=== PATIENT | female | born 1945 | race Caucasian/White ===

== ENCOUNTER 2018-03-04 17:11 | Inpatient (IN) ==
[~2018-03-04 17:11] MED LIST: Iohexol 350 MG/ML 100 ML Vial (for Cath Lab) IVCONTRAST ONE; Iohexol 350 MG/ML 50 ML Vial (for Cath Lab) IVCONTRAST ONE
[2018-03-04] MEDS ORDERED: Etomidate Inj 40 MG/20 ML Vial IV.PUSH ONE (17:17)
[2018-03-04] MEDS ORDERED: fentaNYL 10 mcg/mL Premix Drip 2,500 MCG/250 ML BAG IV.SIG PRN (17:25)
[2018-03-04] MEDS ORDERED: Midazolam 50 MG/50 ML Inj 50 MG/50 ML BAG IV.CONT ONE (17:31)
[2018-03-04] MEDS ORDERED: fentaNYL 10 mcg/mL Premix Drip 2,500 MCG/250 ML BAG ONE (17:31)
[2018-03-04] MEDS ORDERED: Heparin 10,000 UNITS/10 ML Vial (for IV use) IV.PUSH STA (17:34)
[2018-03-04] MEDS ORDERED: Sod Chloride 0.9% Inj 1,000 ML IV.SIG ONE (17:34)
[2018-03-04] MEDS ORDERED: Heparin/NS PF Inj 500 ML ONE (17:52)
[2018-03-04] MEDS: DOPamine 800 MG/500 ML Premix 800 MG/500 ML PLAST..BAG IV.CONT PRN (17:52)
[2018-03-04] MEDS: Midazolam 50 MG/50 ML Inj 50 MG/50 ML BAG IV.CONT PRN (17:52)
--- NOTE | 2018-03-04 17:57 | XR ---
EXAM DATE: 03/04/2018 5:51 PM EDT AGE/SEX: 72 years / Female INDICATIONS: Stemi-alert. Post intubation. CLINICAL DATA: This is the patient's initial encounter. Patient reports that signs and symptoms have been present for 1 day and indicates a pain score of Nonresponsive. MEDICAL/SURGICAL HISTORY: Non-responsive. Non-responsive. COMPARISON: No prior exams available for comparison. FINDINGS: A single AP view of the chest demonstrates endotracheal tube in good position. Heart size upper limit s normal. Interstitial prominence most characteristic of mild interstitial edema. Probable basilar at electasis. No pneumothorax. CONCLUSION: Endotracheal tube in good position. Mild interstitial edema with basilar atelectasis. Electronically signed by: Ken Loza MD 03/04/2018 5:56 PM EDT
[2018-03-04] MEDS ORDERED: Potassium Chlor 20 mEq Premix 20 MEQ/100 ML PIGGYBACK IV.SIG ONE (18:15)
[2018-03-04] MEDS ORDERED: Potassium Chloride 25 MEQ Effervescent Tablet NG/OG ONE (18:15)
--- NOTE | 2018-03-04 18:16 | ED ---
HPI General Chief Complaint: Altered Mental Status Stated Complaint: Evac/Ams Time Seen by Provider: 03/04/18 18:13 Source: family and EMS Mode of arrival: EMS Limitations: altered mental status History of Present Illness HPI narrative: 72-year-old female was brought by EMS after patient was well almost unresponsive at home. Patient's son states that he did not see the patient yesterday. Patient lives alone by herself. Patient's son states that he receive a phone call from the patient this afternoon about 2 hours prior to arrival that patient yelling for help. Patient's son came to the house and fell patient almost unresponsive. EMS was called. Patient was to be almost unresponsive, hypotensive and bradycardic. Patient was moaning incoherently. External pacer was applied to the patient. Patient was transported to ED for evaluation. Patient son states the patient has no medical problem. Patient sense that the patient is not on any routine medication. Patient since that the patient is not allergic to any medication. No reported injury. MD complaint: altered mental status Onset (ago): hour(s) Timing confirmed by: family member Severity: severe Consistency of symptoms: getting worse Context: unknown Treatments prior to arrival: IV fluid and oxygen Related Data Home Medications Medication Instructions Recorded Confirmed No Known Home Medications 03/05/18 03/05/18 Allergies Allergy/AdvReac Type Severity Reaction Status Date / Time No Known Allergies Uncoded 12/11/08 13:06 Review of Systems ROS Unobtainable unobtainable due to mental status PMFSH History History Provided By: Family Member and Digital Media Representative / EMT Social History Social History Recent Travel in [facility] within the Last 8 Weeks: No Recent Out of Country Travel within the Last 8 Weeks: No Exam Narrative Exam Narrative: GENERAL: Well-nourished, well-developed patient. SKIN: Focused skin assessment warm/dry. HEAD: Normocephalic. EYES: No scleral icterus. No injection or drainage. Pupils 4 mm equal reactive. NECK: Supple, trachea midline. No JVD or lymphadenopathy. CARDIOVASCULAR: Regular rate and rhythm without murmurs, gallops, or rubs. RESPIRATORY: Breath sounds equal bilaterally. No accessory muscle use. GASTROINTESTINAL: Abdomen soft, non-tender, nondistended. MUSCULOSKELETAL: No cyanosis, or edema. BACK: Nontender without obvious deformity. No CVA tenderness. Neurologic exam: Patient with occasional combative and moaning incomprehensively. Patient moves all extremity well. No obvious focal neurological deficit. Course Initial Documented Vital Signs Pulse Rate 40 L 03/04/18 17:14 Respiratory Rate 17 03/04/18 17:14 Last Documented Vital Signs Temperature 97.6 F 03/05/18 15:00 Pulse Rate 87 03/05/18 15:00 Respiratory Rate 16 03/05/18 16:33 Blood Pressure 136/68 03/05/18 15:00 Pulse Oximetry 99 03/05/18 15:00 Procedures Intubation Time Out Performed: Yes Paralytic: succinylcholine Mg Given: 100 Laryngoscope: fiber optic video scope Assist Device Used: fiber optic device ET Tube Size: 7.5 ET Tube Uncuffed: No Tube Secured Depth (cm): 23 Tube Secured Location: lips Tube Placement Confirmation: visualized tube passing through cords, equal breath sounds bilaterally, no breath sounds over epigastrium and confirmation by capnometry Intubation Complications: none Critical Care Time Critical Care Time: Yes Total Critical Care Time: 60 Attestation: Aggregate critical care time was 60 minutes. Time to perform other separately billable procedures was not included in the critical care time. My time did not include minutes spent treating any other patients simultaneously or on activities that did not directly contribute to the patient's treatment. The services I provided to this patient were to treat and/or prevent clinically significant deterioration that could result in: I provided critical care services requiring my management, as noted below: Chart data review, documentation time, medication orders and management, vital sign assessments/reviewing monitor data, ordering and reviewing lab tests, ordering and interpreting/reviewing x-rays and diagnostic studies, care of the patient and discussion of the patient with the admitting physicians. Medical Decision Making MDM Narrative Medical decision making narrative: Patient is with severe confusion, none comprehensive speech, agitated, with occasionally gagging and nausea. Patient was intubated to protect the airway. 2 IV started peripheral line. Normal saline solution 1 L IV bolus. Atropine 1 mg IV given. Patient continues to have bradycardic and threatening pulse. Dopamine IV started. Patient remained hypotensive with dressing pulse. External pacer started. Patient has good pulse and pressure. I spoke with geologist Dr. Benavidez. Patient has CT scan of the brain and brought straight to Director [facility]. STEMI alert. Differential Diagnosis Differential Diagnosis: Thank you differential diagnosis including STEMI, arrhythmia, electrolyte imbalance, TIA, CVA. Lab Data Result diagrams: 03/05/18 04:15 03/05/18 04:15 Lab Results 03/04/18 03/04/18 03/04/18 Range/Units 08:25 17:40 17:40 WBC (4.0-11.0) th/mm3 RBC (4.00-5.30) mil/mm3 Hgb (11.6-15.3) gm/dL POC Hgb (Calc) 10.5 L (11.6-15.3) g/dL Hct (35.0-46.0) % POC Hct 31.0 L (35-46.0) % MCV (80.0-100.0) fL MCH (27.0-34.0) pg MCHC (32.0-36.0) % RDW (11.6-17.2) % Plt Count (150-450) th/mm3 MPV (7.0-11.0) fL Neut % (Auto) (16.0-70.0) % Lymph % (Auto) (9.0-44.0) % [place] % (Auto) (0.0-8.0) % Eos % (Auto) (0.0-4.0) % Baso % (Auto) (0.0-2.0) % Neut # (Auto) (1.8-7.7) th/mm3 Lymph # (Auto) (1.0-4.8) th/mm3 [place] # (Auto) (0.0-0.9) th/mm3 Eos # (Auto) (0.0-0.4) th/mm3 Baso # (Auto) (0.0-0.2) th/mm3 WBC Differential Differential Comment PT (9.8-11.6) sec INR Ratio APTT (24.3-30.1) sec Puncture Site Not Reportable Patient Temperature 98.6 O2 Saturation 96 (90-100) % ABG pH 7.24 L* (7.380-7.420) ABG pCO2 36 L (38-42) mmHg ABG pO2 399 H (61-120) mmHG ABG HCO3 15 L* (22-26) mmol/L ABG O2 Content 16.9 (12.0-20.0) Vol % ABG Base Excess -11.0 L (-2-2) mmol/L ABG Methemoglobin 1.3 (0-2) % Hemoglobin 11.7 L (12.0-16.0) G/DL Carboxyhemoglobin 1.6 (0-4) % O2 Delivery Device Ventilator Vent Setting Cath Inspired O2 100 % Critical Value Yes POC Sodium 143 (137-144) mmol/L Sodium 144 (136-145) meq/L POC Potassium 2.7 L* (3.6-5.0) mmol/L Potassium (3.5-5.1) meq/L POC Chloride 111 (102-111) mmol/L Chloride 114 H (98-107) meq/L Carbon Dioxide 13.6 L (21.0-32.0) meq/L Anion Gap 16 H (5-15) meq/L POC BUN 11 (5-21) mg/dL BUN 12 (7-18) mg/dL Creatinine 1.24 H (0.50-1.00) mg/dL POC Creatinine 0.9 (0.6-1.3) mg/dL Estimated GFR 42 L (>89) mL/min POC Glucose 181 H (68-110) mg/dL Random Glucose 186 H (74-106) mg/dL Calcium 6.7 L* (8.5-10.1) mg/dL Prot Corrected Calcium 7.6 L (8.5-10.1) mg/dL Phosphorus (2.5-4.9) mg/dL Magnesium 1.8 (1.5-2.5) mg/dL Total Creatine Kinase 487 H (26-192) U/L CK-MB (CK-2) 25.1 H (0.5-3.6) ng/mL CK-MB (CK-2) % 5.2 H* (0.0-4.0) % Troponin I (0.02-0.05) ng/mL B-Natriuretic Peptide 71 (0-100) pg/mL Total Protein 5.3 L (6.4-8.2) g/dL Triglycerides (42-150) mg/dL Cholesterol (120-200) mg/dL LDL Cholesterol, Calc (0-99) mg/dL HDL Cholesterol (40.0-60.0) mg/dL Cholesterol/HDL Ratio Ratio Urine Color (Yellw/Straw) Urine Clarity (Clear) Urine pH (5.0-8.5) Ur Specific Colbert (1.002-1.035) Urine Protein (Neg-Trace) mg/dL Urine Glucose (UA) (Negative) mg/dL Urine Ketones (Negative) mg/dL Urine Occult Blood (Negative) Urine Nitrate (Negative) Urine Bilirubin (Negative) Urine Urobilinogen (Less than 2) mg/dL Ur Leukocyte Esterase (Negative) Urine RBC (0-3) /hpf Urine WBC (0-5) /hpf Urine Mucus (Occasional) /lpf Micro UA Comment Urine Culture Comments Nasal Screen MRSA (PCR) (Negative) 03/04/18 03/05/18 03/05/18 Range/Units 19:12 00:05 00:05 WBC (4.0-11.0) th/mm3 RBC (4.00-5.30) mil/mm3 Hgb (11.6-15.3) gm/dL POC Hgb (Calc) (11.6-15.3) g/dL Hct (35.0-46.0) % POC Hct (35-46.0) % MCV (80.0-100.0) fL MCH (27.0-34.0) pg MCHC (32.0-36.0) % RDW (11.6-17.2) % Plt Count (150-450) th/mm3 MPV (7.0-11.0) fL Neut % (Auto) (16.0-70.0) % Lymph % (Auto) (9.0-44.0) % [place] % (Auto) (0.0-8.0) % Eos % (Auto) (0.0-4.0) % Baso % (Auto) (0.0-2.0) % Neut # (Auto) (1.8-7.7) th/mm3 Lymph # (Auto) (1.0-4.8) th/mm3 [place] # (Auto) (0.0-0.9) th/mm3 Eos # (Auto) (0.0-0.4) th/mm3 Baso # (Auto) (0.0-0.2) th/mm3 WBC Differential Differential Comment PT 12.0 H (9.8-11.6) sec INR 1.2 Ratio APTT Greater than 277.5 H* 41.7 H D (24.3-30.1) sec Puncture Site Patient Temperature O2 Saturation (90-100) % ABG pH (7.380-7.420) ABG pCO2 (38-42) mmHg ABG pO2 (61-120) mmHG ABG HCO3 (22-26) mmol/L ABG O2 Content (12.0-20.0) Vol % ABG Base Excess (-2-2) mmol/L ABG Methemoglobin (0-2) % Hemoglobin (12.0-16.0) G/DL Carboxyhemoglobin (0-4) % O2 Delivery Device Vent Setting Inspired O2 % Critical Value POC Sodium (137-144) mmol/L Sodium (136-145) meq/L POC Potassium (3.6-5.0) mmol/L Potassium 3.7 (3.5-5.1) meq/L POC Chloride (102-111) mmol/L Chloride (98-107) meq/L Carbon Dioxide (21.0-32.0) meq/L Anion Gap (5-15) meq/L POC BUN (5-21) mg/dL BUN (7-18) mg/dL Creatinine (0.50-1.00) mg/dL POC Creatinine (0.6-1.3) mg/dL Estimated GFR (>89) mL/min POC Glucose (68-110) mg/dL Random Glucose (74-106) mg/dL Calcium (8.5-10.1) mg/dL Prot Corrected Calcium (8.5-10.1) mg/dL Phosphorus (2.5-4.9) mg/dL Magnesium 3.1 H D (1.5-2.5) mg/dL Total Creatine Kinase (26-192) U/L CK-MB (CK-2) (0.5-3.6) ng/mL CK-MB (CK-2) % (0.0-4.0) % Troponin I (0.02-0.05) ng/mL B-Natriuretic Peptide (0-100) pg/mL Total Protein (6.4-8.2) g/dL Triglycerides (42-150) mg/dL Cholesterol (120-200) mg/dL LDL Cholesterol, Calc (0-99) mg/dL HDL Cholesterol (40.0-60.0) mg/dL Cholesterol/HDL Ratio Ratio Urine Color (Yellw/Straw) Urine Clarity (Clear) Urine pH (5.0-8.5) Ur Specific Colbert (1.002-1.035) Urine Protein (Neg-Trace) mg/dL Urine Glucose (UA) (Negative) mg/dL Urine Ketones (Negative) mg/dL Urine Occult Blood (Negative) Urine Nitrate (Negative) Urine Bilirubin (Negative) Urine Urobilinogen (Less than 2) mg/dL Ur Leukocyte Esterase (Negative) Urine RBC (0-3) /hpf Urine WBC (0-5) /hpf Urine Mucus (Occasional) /lpf Micro UA Comment Urine Culture Comments Nasal Screen MRSA (PCR) (Negative) 03/05/18 03/05/18 03/05/18 Range/Units 00:05 00:05 04:15 WBC (4.0-11.0) th/mm3 RBC (4.00-5.30) mil/mm3 Hgb (11.6-15.3) gm/dL POC Hgb (Calc) (11.6-15.3) g/dL Hct (35.0-46.0) % POC Hct (35-46.0) % MCV (80.0-100.0) fL MCH (27.0-34.0) pg MCHC (32.0-36.0) % RDW (11.6-17.2) % Plt Count (150-450) th/mm3 MPV (7.0-11.0) fL Neut % (Auto) (16.0-70.0) % Lymph % (Auto) (9.0-44.0) % [place] % (Auto) (0.0-8.0) % Eos % (Auto) (0.0-4.0) % Baso % (Auto) (0.0-2.0) % Neut # (Auto) (1.8-7.7) th/mm3 Lymph # (Auto) (1.0-4.8) th/mm3 [place] # (Auto) (0.0-0.9) th/mm3 Eos # (Auto) (0.0-0.4) th/mm3 Baso # (Auto) (0.0-0.2) th/mm3 WBC Differential Differential Comment PT (9.8-11.6) sec INR Ratio APTT (24.3-30.1) sec Puncture Site Patient Temperature O2 Saturation (90-100) % ABG pH (7.380-7.420) ABG pCO2 (38-42) mmHg ABG pO2 (61-120) mmHG ABG HCO3 (22-26) mmol/L ABG O2 Content (12.0-20.0) Vol % ABG Base Excess (-2-2) mmol/L ABG Methemoglobin (0-2) % Hemoglobin (12.0-16.0) G/DL Carboxyhemoglobin (0-4) % O2 Delivery Device Vent Setting Inspired O2 % Critical Value POC Sodium (137-144) mmol/L Sodium 144 (136-145) meq/L POC Potassium (3.6-5.0) mmol/L Potassium 3.3 L (3.5-5.1) meq/L POC Chloride (102-111) mmol/L Chloride 113 H (98-107) meq/L Carbon Dioxide 22.7 D (21.0-32.0) meq/L Anion Gap 8 (5-15) meq/L POC BUN (5-21) mg/dL BUN 13 (7-18) mg/dL Creatinine 1.17 H (0.50-1.00) mg/dL POC Creatinine (0.6-1.3) mg/dL Estimated GFR 45 L (>89) mL/min POC Glucose (68-110) mg/dL Random Glucose 123 H (74-106) mg/dL Calcium 7.5 L D (8.5-10.1) mg/dL Prot Corrected Calcium (8.5-10.1) mg/dL Phosphorus 2.7 (2.5-4.9) mg/dL Magnesium 2.8 H (1.5-2.5) mg/dL Total Creatine Kinase 6264 H (26-192) U/L CK-MB (CK-2) 584.2 H (0.5-3.6) ng/mL CK-MB (CK-2) % 9.3 H* (0.0-4.0) % Troponin I (0.02-0.05) ng/mL B-Natriuretic Peptide (0-100) pg/mL Total Protein (6.4-8.2) g/dL Triglycerides 152 H (42-150) mg/dL Cholesterol 128 (120-200) mg/dL LDL Cholesterol, Calc 63 (0-99) mg/dL HDL Cholesterol 34.8 L (40.0-60.0) mg/dL Cholesterol/HDL Ratio 3.67 Ratio Urine Color Straw (Yellw/Straw) Urine Clarity Clear (Clear) Urine pH 6.0 (5.0-8.5) Ur Specific Colbert 1.019 (1.002-1.035) Urine Protein Negative (Neg-Trace) mg/dL Urine Glucose (UA) 50 (Negative) mg/dL Urine Ketones Trace H (Negative) mg/dL Urine Occult Blood Moderate H (Negative) Urine Nitrate Negative (Negative) Urine Bilirubin Negative (Negative) Urine Urobilinogen Less than 2 (Less than 2) mg/dL Ur Leukocyte Esterase Negative (Negative) Urine RBC 1 (0-3) /hpf Urine WBC Less than 1 (0-5) /hpf Urine Mucus Few H (Occasional) /lpf Micro UA Comment Cath-culture not ind Urine Culture Comments Cath-cult not ind Nasal Screen MRSA (PCR) Not detected (Negative) 03/05/18 03/05/18 03/05/18 Range/Units 04:15 04:15 11:00 WBC 19.3 H (4.0-11.0) th/mm3 RBC 3.91 L (4.00-5.30) mil/mm3 Hgb 12.0 (11.6-15.3) gm/dL POC Hgb (Calc) (11.6-15.3) g/dL Hct 36.3 (35.0-46.0) % POC Hct (35-46.0) % MCV 92.9 (80.0-100.0) fL MCH 30.8 (27.0-34.0) pg MCHC 33.2 (32.0-36.0) % RDW 14.9 (11.6-17.2) % Plt Count 326 (150-450) th/mm3 MPV 8.1 (7.0-11.0) fL Neut % (Auto) 71.2 H (16.0-70.0) % Lymph % (Auto) 21.1 (9.0-44.0) % Mag[place]in % (Auto) 6.9 (0.0-8.0) % Eos % (Auto) 0.3 (0.0-4.0) % Baso % (Auto) 0.5 (0.0-2.0) % Neut # (Auto) 13.8 H (1.8-7.7) th/mm3 Lymph # (Auto) 4.1 (1.0-4.8) th/mm3 Mag[place] # (Auto) 1.3 H (0.0-0.9) th/mm3 Eos # (Auto) 0.1 (0.0-0.4) th/mm3 Baso # (Auto) 0.1 (0.0-0.2) th/mm3 WBC Differential . Differential Comment Auto diff final PT (9.8-11.6) sec INR Ratio APTT 58.4 H D 91.6 H* D (24.3-30.1) sec Puncture Site Patient Temperature O2 Saturation (90-100) % ABG pH (7.380-7.420) ABG pCO2 (38-42) mmHg ABG pO2 (61-120) mmHG ABG HCO3 (22-26) mmol/L ABG O2 Content (12.0-20.0) Vol % ABG Base Excess (-2-2) mmol/L ABG Methemoglobin (0-2) % Hemoglobin (12.0-16.0) G/DL Carboxyhemoglobin (0-4) % O2 Delivery Device Vent Setting Inspired O2 % Critical Value POC Sodium (137-144) mmol/L Sodium (136-145) meq/L POC Potassium (3.6-5.0) mmol/L Potassium (3.5-5.1) meq/L POC Chloride (102-111) mmol/L Chloride (98-107) meq/L Carbon Dioxide (21.0-32.0) meq/L Anion Gap (5-15) meq/L POC BUN (5-21) mg/dL BUN (7-18) mg/dL Creatinine (0.50-1.00) mg/dL POC Creatinine (0.6-1.3) mg/dL Estimated GFR (>89) mL/min POC Glucose (68-110) mg/dL Random Glucose (74-106) mg/dL Calcium (8.5-10.1) mg/dL Prot Corrected Calcium (8.5-10.1) mg/dL Phosphorus (2.5-4.9) mg/dL Magnesium (1.5-2.5) mg/dL Total Creatine Kinase (26-192) U/L CK-MB (CK-2) (0.5-3.6) ng/mL CK-MB (CK-2) % (0.0-4.0) % Troponin I (0.02-0.05) ng/mL B-Natriuretic Peptide (0-100) pg/mL Total Protein (6.4-8.2) g/dL Triglycerides (42-150) mg/dL Cholesterol (120-200) mg/dL LDL Cholesterol, Calc (0-99) mg/dL HDL Cholesterol (40.0-60.0) mg/dL Cholesterol/HDL Ratio Ratio Urine Color (Yellw/Straw) Urine Clarity (Clear) Urine pH (5.0-8.5) Ur Specific Colbert (1.002-1.035) Urine Protein (Neg-Trace) mg/dL Urine Glucose (UA) (Negative) mg/dL Urine Ketones (Negative) mg/dL Urine Occult Blood (Negative) Urine Nitrate (Negative) Urine Bilirubin (Negative) Urine Urobilinogen (Less than 2) mg/dL Ur Leukocyte Esterase (Negative) Urine RBC (0-3) /hpf Urine WBC (0-5) /hpf Urine Mucus (Occasional) /lpf Micro UA Comment Urine Culture Comments Nasal Screen MRSA (PCR) (Negative) 03/05/18 Range/Units 11:50 WBC (4.0-11.0) th/mm3 RBC (4.00-5.30) mil/mm3 Hgb (11.6-15.3) gm/dL POC Hgb (Calc) (11.6-15.3) g/dL Hct (35.0-46.0) % POC Hct (35-46.0) % MCV (80.0-100.0) fL MCH (27.0-34.0) pg MCHC (32.0-36.0) % RDW (11.6-17.2) % Plt Count (150-450) th/mm3 MPV (7.0-11.0) fL Neut % (Auto) (16.0-70.0) % Lymph % (Auto) (9.0-44.0) % [place] % (Auto) (0.0-8.0) % Eos % (Auto) (0.0-4.0) % Baso % (Auto) (0.0-2.0) % Neut # (Auto) (1.8-7.7) th/mm3 Lymph # (Auto) (1.0-4.8) th/mm3 Mag[place]in # (Auto) (0.0-0.9) th/mm3 Eos # (Auto) (0.0-0.4) th/mm3 Baso # (Auto) (0.0-0.2) th/mm3 WBC Differential Differential Comment PT (9.8-11.6) sec INR Ratio APTT 80.8 H (24.3-30.1) sec Puncture Site Patient Temperature O2 Saturation (90-100) % ABG pH (7.380-7.420) ABG pCO2 (38-42) mmHg ABG pO2 (61-120) mmHG ABG HCO3 (22-26) mmol/L ABG O2 Content (12.0-20.0) Vol % ABG Base Excess (-2-2) mmol/L ABG Methemoglobin (0-2) % Hemoglobin (12.0-16.0) G/DL Carboxyhemoglobin (0-4) % O2 Delivery Device Vent Setting Inspired O2 % Critical Value POC Sodium (137-144) mmol/L Sodium (136-145) meq/L POC Potassium (3.6-5.0) mmol/L Potassium (3.5-5.1) meq/L POC Chloride (102-111) mmol/L Chloride (98-107) meq/L Carbon Dioxide (21.0-32.0) meq/L Anion Gap (5-15) meq/L POC BUN (5-21) mg/dL BUN (7-18) mg/dL Creatinine (0.50-1.00) mg/dL POC Creatinine (0.6-1.3) mg/dL Estimated GFR (>89) mL/min POC Glucose (68-110) mg/dL Random Glucose (74-106) mg/dL Calcium (8.5-10.1) mg/dL Prot Corrected Calcium (8.5-10.1) mg/dL Phosphorus (2.5-4.9) mg/dL Magnesium (1.5-2.5) mg/dL Total Creatine Kinase (26-192) U/L CK-MB (CK-2) (0.5-3.6) ng/mL CK-MB (CK-2) % (0.0-4.0) % Troponin I (0.02-0.05) ng/mL B-Natriuretic Peptide (0-100) pg/mL Total Protein (6.4-8.2) g/dL Triglycerides (42-150) mg/dL Cholesterol (120-200) mg/dL LDL Cholesterol, Calc (0-99) mg/dL HDL Cholesterol (40.0-60.0) mg/dL Cholesterol/HDL Ratio Ratio Urine Color (Yellw/Straw) Urine Clarity (Clear) Urine pH (5.0-8.5) Ur Specific Colbert (1.002-1.035) Urine Protein (Neg-Trace) mg/dL Urine Glucose (UA) (Negative) mg/dL Urine Ketones (Negative) mg/dL Urine Occult Blood (Negative) Urine Nitrate (Negative) Urine Bilirubin (Negative) Urine Urobilinogen (Less than 2) mg/dL Ur Leukocyte Esterase (Negative) Urine RBC (0-3) /hpf Urine WBC (0-5) /hpf Urine Mucus (Occasional) /lpf Micro UA Comment Urine Culture Comments Nasal Screen MRSA (PCR) (Negative) Imaging Data Radiologist's impression: Chest X-Ray 03/04/18 17:36 CONCLUSION: Endotracheal tube in good position. Mild interstitial edema with basilar atelectasis. Head CT 03/04/18 17:39 CONCLUSION: 1. Negative CT Head non contrast. . Chest X-Ray 03/04/18 20:50 CONCLUSION: Right central line in superior vena cava without pneumothorax. Slight increase in basilar airspace disease and edema pattern since earlier exam. Discharge Plan Discharge Disposition Patient Disposition: 30 Still Patient Physicians Team ED Provider: Drake Gomez Primary Care Provider: UNKNOWN, Attending Provider: El Benavidez Other Providers: El Benavidez ; Alex Mills Discharge Interventions Interventions: ED Discharge Assessment Last Done: 03/04/18 18:31 Vital Signs Last Done: 03/04/18 18:16 Status ED Status: Discharged Discharge Information Discharge Date/Time: 03/04/18 18:31
--- NOTE | 2018-03-04 18:24 | CT ---
EXAM DATE: 03/04/2018 6:12 PM EDT AGE/SEX: 72 years / Female INDICATIONS: Altered mental status. Stemi alert. CLINICAL DATA: This is the patient's initial encounter. Patient reports that signs and symptoms have been present for 1 day and indicates a pain score of Nonresponsive. MEDICAL/SURGICAL HISTORY: Non-responsive. Non-responsive. RADIATION DOSE: 56.35 CTDI (mGy) COMPARISON: No prior exams available for comparison. TECHNIQUE: CT of the head without contrast. Using automated exposure control and adjustment of the mA and/or kV according to patient size, radiation dose was kept as low as reasonably achievable to ob tain optimal diagnostic quality images. DICOM format image data is available electronically for revi ew and comparison. FINDINGS: Cerebrum: The ventricles are normal for age. No evidence of midline shift, mass lesion, hemorrhage or acute infarction. No extraaxial fluid collections are seen. Posterior Fossa: The cerebellum and brainstem are intact. The 4th ventricle is midline. The cerebe llopontine angle is unremarkable. Extracranial: The visualized portion of the orbits is intact. Skull: The calvaria is intact. No evidence of skull fracture. CONCLUSION: 1. Negative CT Head non contrast. . Electronically signed by: Roscoe Briones MD 03/04/2018 6:23 PM EDT
--- NOTE | 2018-03-04 18:46 | MB ---
cc: El Benavidez MD, Arthur W MD DATE: 03/04/2018 HISTORY OF PRESENT ILLNESS: Isatu is a 72-year-old lady, previously healthy according to her son. Apparently, she called her son at approximately 4:30, which he has registered on his cell phone and all she could stay was help. Normally, she is completely lucid, oriented x3. She presented to the emergency room in what appears to be cardiogenic shock, bradycardia, was intubated and a transcutaneous pacer was placed. started on dopamine, was noted to have altered mental status, incoherent. She had a head CT, which was negative for bleeding. Labs are still pending in the computer. REVIEW OF SYSTEMS: Unobtainable. ALLERGIES: NONE. PHYSICAL EXAMINATION: VITAL SIGNS: Heart rate is 55, sats 84%.Blood pressure 115/93. GENERAL: She is sedated on Versed drip and fentanyl drip. NECK: Supple. No JVD or bruit. CARDIOVASCULAR: S1, S2. No murmurs, rubs or gallops. LUNGS: Clear to auscultation bilaterally. EXTREMITIES: No lower extremity edema. LABORATORY DATA: Still pending. CARDIOLOGY STUDIES: EKG shows ST elevation in the inferior leads with posterior injury as well consistent with inferior posterior injury pattern. DIAGNOSES: 1. ST segment myocardial infarction. 2. Altered mental status. 3. Bradycardia. 4. Cardiogenic shock. I have explained to her son that her mortality is at least 50% given the presentation with cardiogenic shock and that her neurologic prognosis is indeterminate, particularly if she is completely sedated and I can no longer assess her neurologic status. She does not appear to be focal and head CT is negative. PLAN: Emergent left heart catheterization and percutaneous coronary intervention. El Benavidez MD [facility]/ , 06:29 PM , 06:36 PM
[2018-03-04 18:47] LABS: Calcium 6.7 mg/dL (8.5-10.1); Carbon Dioxide 13.6 meq/L (21.0-32.0); Magnesium 1.8 mg/dL (1.5-2.5)
[2018-03-04 18:47] LABS: ABG PCO2 36 mmHg (38-42); ABG PO2 399 mmHG (61-120)
[2018-03-04] MEDS ORDERED: Propofol Inj 500 MG/50 ML Vial ONE (18:58)
[2018-03-04] MEDS ORDERED: TIROFIBAN ONE (19:02)
[2018-03-04 19:05] LABS: Creatine Kinase MB 25.1 ng/mL (0.5-3.6); Total Protein 5.3 g/dL (6.4-8.2)
[2018-03-04] MEDS ORDERED: TIROFIBAN BOLUS IV.PUSH ONE (19:05)
[2018-03-04] MEDS ORDERED: Misc Info for Pharmacy OTHER STA (19:05)
[2018-03-04 19:09] LABS: CKMB Percent 5.2 % (0.0-4.0)
[2018-03-04] MEDS ORDERED: Mag Sulf 1 gm/100 ml Premix 200 ML IV.SIG ONE (19:10)
[2018-03-04] MEDS ORDERED: Tirofiban Inj 12,500 MCG/250 ML PLAST..BAG ONE (19:23)
[2018-03-04] MEDS ORDERED: Heparin Drip 25,000 UNIT/250 ML BAG IV.CONT ONE (19:24)
[2018-03-04] MEDS: Tirofiban Inj 12,500 MCG/250 ML PLAST..BAG IV.CONT SCH (19:27)
--- NOTE | 2018-03-04 19:36 | MR ---
cc: El Benavidez MD, Arthur W MD DATE: 03/04/2018 PROCEDURES PERFORMED: 1. Left heart catheterization. 2. Left ventriculography. 3. Coronary angiography, 4. Aortic coronary angiography, 5. Right femoral angiography 6. Primary PCI bare metal stent of the proximal mid right coronary artery INDICATIONS: STEMI, cardiogenic shock, RV infarction, encephalopathy, altered mental status. PROCEDURAL STATEMENT: The patient was brought to the cardiac catheterization laboratory, prepped and draped in the usual sterile fashion. 10 mL of 1% lidocaine was used to locally anesthetized the right coronary artery. A 6-Tongan sheath was placed in the right femoral artery. Note, the patient was in cardiogenic shock on arrival to the laboratory veterinarian. Initial pressures in the 50s on 3 mcg of dopamine. We increased the dopamine to 20. Pressures were still in the upper 50s with heart rates in the 30s. There was no capture from the transcutaneous pacemaker placed in the ER. I used a 4-Tongan JL4 diagnostic catheter to image the left main coronary artery which had a distal 40% stenosis. Left circumflex vessel has a proximal 70% stenosis, gives off a medium sized obtuse marginal vessel with ostial proximal sequential lesions of 60 and 50% respectively, a reference vessel diameter of 3.0 mm. The LAD has mild disease in the proximal segment up to 20% angiographically. Mid segment has a 50% stenosis. There is a focal discrete concentric plaque in the mid LAD of about 40-50%. The LAD is transapical and very tortuous in the distal segment. First and second diagonal arteries are small vessels. No obvious focal stenosis. Right coronary artery is occluded in the proximal segment. I then proceeded intervention on that right coronary artery. Note, we did give the patient 70s units/kg of heparin prior to intervention with an ACT of 243. Additional 2000 units of heparin was given. Final ACT pending at time of dictation. A 0.014 Prowater wire was used to cross the right coronary artery stenosis. I then dilated the lesion with a 2.5 x 10 Euphora balloon. This resulted in reperfusion of the right coronary artery. We then gave the patient 0.6 of atropine and placed a 3.0 x 122 Integrity stent, 1 placed at 16 atmospheres in the mid right coronary artery. Stenosis went from 100% to 0% with TRENA 3 flow. Heart rate went into the low 100s. Systolic blood pressure improved to 110 systolic. I then used a 4-Tongan JR4 diagnostic catheter for left ventriculography, which revealed LV pressure 82/5/14. EF was hyperdynamic 75% ejection fraction. Note, the RV branch was patent after stenting across it. It was partially jailed, but there appeared to be TRENA 2-3 flow into the vessel. Aortic root angiography reveals no significant aortic valve regurgitation. Right common femoral angiography reveals no significant disease angiographically. Intraaortic balloon pump was placed, set at 1:1. Augmented pressure initially of 120. Note, after stenting of the right coronary artery there remained a long 50% stenosis in the proximal mid segment, distal stenosis of 60%. CONCLUSION: 1. ST segment myocardial infarction, cardiogenic shock, RV infarction due to right ventricular infarction, most likely culprit occluded proximal right coronary artery as detailed above. 2. Otherwise, mild to moderate 3-vessel coronary artery disease in a right dominant system as detailed above. 3. Hyperdynamic LV systolic function, EF 75%. 4. Successful drug percutaneous coronary intervention bare metal stent of the proximal mid right coronary artery from 100% with TRENA 0 flow to 0% with TRENA III flow. 5. Successful intraaortic balloon pump placement. 6. Recommend Aggrastat drip 60 of Effient p.o. then 10 mg daily for 12-15 months. Aspirin 162 mg daily. Obviously, this may need to be given through NG tube as the patient is currently intubated. Final ACT pending at the time of dictation. Note, the patient remains in critical condition. Mental status will need to be trended and followed carefully in the ICU. At the end of the case, the dopamine is weaned down to 10 mcg. MD YOVANNY Burnett/ , 07:04 PM , 07:15 PM
--- NOTE | 2018-03-04 20:07 | CATHPROC ---
[employer] HIS Report Study Information Study Number Admission Scheduled Start Study Start [id number] Mar 04 2018 5:11PM 03/04/2018 Mar 04 2018 5:47PM [place] Service Cardiac Catheterization Admit Source Facility Department Emergency department [facility] - [facility] Physician and Clinical Staff Initial [place] Electrical Installation Supervisor Catie Marvin,DEMETRIS Electrical Installation Supervisor Rita Bai ,RT(R) Electrical Installation Supervisor Boo WILLSON, Khang Other Susan Hameed RCIS Other Jessie Arellano,DEMETRIS Recorder Tigist Ashford BSN Scrub Chris Lynch,RT(R) Procedures Performed Procedure Location (Site) Vessel Name Angiogram LV Aortic Coronary Angiograms LCA Left Coronary Coronary Angiograms RCA Right Coronary IABP Fem Art (right) Femoral Art LV Gram-hand inj. LV LV Ventricle Stent RCA Right Coronary Wire insertion Fem Art (right) Femoral Art Equipment Time Logging Equipment Operator Description Size Mfg Part Number Used/Scraped [id number] 18:35 [employer] WIRE, ASAHI PROWATER 180CM 180CM Used *[id number] 18:40 AMNE MUÑOZ PACING CATHETER J CURVE FR 5 Used *[id number] TRANSDUCER, TRUWAVE [id number] 17:48 MANE MUÑOZ * Used W/STOCKCOCK *[id number] 538-420 *[id number] *[id number] [id number] *[id number] PIGTAIL ANG. 145 INFINITI 534-652S CATHETER *[id number] BALLOON, FR7.5 40CC [id number] 18:55 MAQUET FR 7.5 40CC Used SENSATION PLUS 01U *[id number] 17:48 [employer] BLANKET,WARM AIR CCL * Used *[id number] 17:48 [employer] PACK, CCL CUSTOM * Used *[id number] 17:48 [employer] PACER PEN, SKIN DUAL W/ RULER * Used *[id number] 18:35 [employer] BALLOON, 2.5 X 10MM EUPHORA 10MM Used *[id number] 18:41 [employer] STENT, 3.0 22 INTEGRITY 3.0 22 Used *2503902 [id number] 18:01 [employer] MEDICAL 30 NITESH INDEFLATOR Used *[id number] 18:00 [employer] MEDICAL SHEATH, FR6.5 PRELUDE 11CM FR 6.5 038ACT Used *[id number] 18:37 [employer] SHEATH, FR6.5 PRELUDE 11CM FR 6.5 038ACT Used *[id number] [id number] 17:48 [employer] MEDICAL WIRE, 3MMJ .035 180CM 180CM Used *[id number] 17:48 NAMIC MANIFOLD, 4 PORT * Used *[id number] TUBING, PRESSURE INJECTION [id number] 18:52 NAMIC 72" Used 72" *[id number] 17:48 [employer] OMNIPAQUE, 350 MG, 150ML 150ML [id number] Used [id number] 17:48 TERUM[employer] MEDICAL SHEATH, FR4 TERUMO (10CM) FR 4 Used *[id number] Equipment Model, Serial, Lot Number and Expiration Data Description Model Number Serial Number Lot Number Expiration Date STENT, 3.0 22 INTEGRITY [id number] 09-11-2018 History: Allergies Allergy Reaction No Known Allergies Medication Medication Total Dose (Bolus/Oral) Medication Total Dosage/Unit 1% XYLOCAINE 20 mL AGGRASTAT BOLUS 30 mL ATROPINE 0.6 mg HEPARIN 2000 units PROPOFOL 5 mcg/kg/min VERSED 7 mg Medications (Bolus/Oral) Medication Time Given Dosage/Unit Administered By Reason VERSED 03/04/2018 6:28:29 PM 2 mg Khang Haddad RN 2 mg VERSED given by Khang Haddad RN via Peripheral IV. Ordered by El Benavidez. VERSED 03/04/2018 6:31:07 PM 5 mg Patient arrived on 5 mg VERSED via Peripheral IV. 1% XYLOCAINE 03/04/2018 6:33:46 PM 20 mL El Benavidez 20 mL 1% XYLOCAINE given in lab by El Benavidez in Right Groin via Subcutaneous. Ordered by El Plummer. ATROPINE 03/04/2018 6:38:59 PM 0.6 mg Khang Haddad RN As per physicians ve rbal order 0.6 mg ATROPINE given in lab by Khang Haddad RN in Left Antecubital via Peripheral IV. Ordered by El Shaffer. Reason: As per physicians verbal order. HEPARIN 03/04/2018 6:52:02 PM 2000 units Catie Marvin As per physicians v erbal order 2000 units HEPARIN given in lab by Catie Marvin RN via Peripheral IV. Ordered by El Benavidez . Reason: As per physicians verbal order. PROPOFOL 03/04/2018 6:59:26 PM 5 mcg/kg/min Catie Marvin As per physicians verbal order 5 mcg/kg/min PROPOFOL given in lab by Catie Marvin RN via Peripheral IV. Pump/Drip Flow = 1.9 ml/ hr using [Solution Name] with a concentration of 200 mg in 20 ml. Ordered by El Benavidez. Reason: As per physicians verbal order . AGGRASTAT BOLUS 03/04/2018 7:25:11 PM 30 mL Khang Haddad RN As per physicians verbal order 30 mL AGGRASTAT BOLUS given in lab by Khang Haddad RN via Peripheral IV. Ordered by El Benavidez. Reason: As per physicians verbal order. Medication (Drip) Medication Time Given Dosage/Unit Concentration/Unit Diluent (ml) Solution AGGRASTAT DRIP 03/04/2018 7:27:19 PM 0.15 mcg/kg/min 12.5 mg 250 NaCl .9 0.15 mcg/kg/min AGGRASTAT DRIP given in lab by Khang Haddad RN via Peripheral IV. Pump/Drip Flow = 11 .43 ml/hr using NaCl .9 with a concentration of 12.5 mg in 250 ml. Ordered by El Benavidez. Reason: As per physicians verbal ord er. DOPAMINE HCL 03/04/2018 6:31:09 PM 3 mcg/kg/min 800 mg 500 D5W Patient arrived on 3 mcg/kg/min DOPAMINE HCL given by Catie Marvin RN in Left Hand via Peripheral IV. Pump/Drip Flow = 7.14 ml/hr using D5W with a concentration of 800 mg in 500 ml. Ordered by El Benavidez. Reason: As per physicians verbal order. IV Solutions 03/04/2018 6:31:08 PM 50 mL (IV) NaCl .9 Patient arrived on IV Solutions in Left Antecubital via Peripheral IV. Pump/Drip Flow using NaCl .9. POTASSIUM DRIP 03/04/2018 6:39:45 PM 10 meq/hr 20 meq 100 D5W .9 NaCl 10 meq/hr POTASSIUM DRIP given in lab by Catie Marvin RN. Pump/Drip Flow = 50 ml/hr using D5W .9 NaCl with a concentration of 20 meq in 100 ml. Ordered by El Benavidez. Reason: As per physicians verbal order. for lab potassium 2.4 Initial Case Assessment Cardiovascular HR Rhythm NIBP 55 stemi 115/93 Neurological State Unresponsive Respiration - General Respiration Rate SpO2 (%) (B/min) 35 84 Chronological Log Time Study Chronological Log 17:49:41 Emergency Room notified that [facility] is ready. 18:04:08 Spoke with ED regarding eta of patient; states physician requested CT scan prior to cath la b 18:15:48 ED called stating patient is on the way up 18:17:00 Patient arrived via Bed. 18:17:01 Patient Name, D.O.B, / Armband Verified By R.N. 18:17:01 Patient moved to table from stretcher 18:17:55 Consent signed by the physician and the patient and verified by the [facility] staff. 18:18:00 Verbal Stimulation=0 Physical Stimulation=2 Airway=1 Respiration=0 TOTAL=3. (0=absent, 1=li mited, 2=present) 18:18:01 Disposable defibrillator pads present on sternum and apex and connected to laboratory helper [employer] Vitals capture started with the following parameters, Patient=Adult, Interval=5 min, Initial Pr qvuxnf=878 mmHg, 18:21:45 Deflation Rate=5 mmHg, Cuff placed on Left Arm Vitals capture started with the following parameters, Patient=Adult, Interval=5 min, Initial Pr ussdbl=384 mmHg, 18:23:21 Deflation Rate=5 mmHg, Cuff placed on Left Arm 18:25:33 Reference ECG taken 18:25:42 Vitals capture stopped. Vitals capture started with the following parameters, Patient=Adult, Interval=5 min, Initial Pr xyrqfg=306 mmHg, 18:26:14 Deflation Rate=5 mmHg, Cuff placed on Left Arm 18:26:50 Vitals capture stopped. Vitals capture started with the following parameters, Patient=Adult, Interval=5 min, Initial Pr fbpxnf=727 mmHg, 18:27:12 Deflation Rate=5 mmHg, Cuff placed on Left Arm 18:28:16 HR=55 bpm, KMTB=526/93 mmhg, SpO2=82.0 %, Resp=33 B/min 18:28:29 2 mg VERSED given by Khang Haddad RN via Peripheral IV. Ordered by El Benavidez. 18:31:02 Patient Warmer Placed on the Table. 18:31:02 Disposable Defibrillator Pads Placed On Patient. 18:31:04 Rickey Prominences Protected 18:31:05 A # 20 IV was noted in the Antecubital (right). Grade = 0 18:31:06 A # 18 IV was noted in the Hand (left). Grade = 0 18:31:06 A # 20 IV was noted in the Antecubital (left). Grade = 0 18:31:07 Patient arrived on 5 mg VERSED via Peripheral IV. 18:31:08 Patient arrived on IV Solutions in Left Antecubital via Peripheral IV. Pump/Drip Flow using NaCl .9. Patient arrived on 3 mcg/kg/min DOPAMINE HCL given by Catie Marvin RN in Left Hand via Suzanna pheral IV. 18:31:09 Pump/Drip Flow = 7.14 ml/hr using D5W with a concentration of 800 mg in 500 ml. Ordered by El Benavidez. Reason: As per physicians verbal order. Assessment: Initial Case, HR=55 BPM, Rhythm=stemi, WHCU=201/93 mmhg 18:31:14 Neurological: State=Unresponsive Respiration: Resp=35 B/min, SpO2=84 % Time Out. Correct patient, correct procedure, correct physician, labs, allergies, and equipment verified with laboratory helper 18:32:43 team present. Fire risk assesment completed (see hard stop sheet for coding). Time Out Conc urred by MD and individual staff in procedure. 18:33:07 Pressure channel 1 zeroed. 18:33:43 Case Start 20 mL 1% XYLOCAINE given in lab by El Benavidez in Right Groin via Subcutaneous. Ordered by Reema, 18:33:46 El. 18:33:56 Access site was Right Femoral Artery. 18:34:04 A SHEATH, FR6.5 PRELUDE 11CM FR 6.5 was advanced into the Fem Art (right) using the Percuta neous technique. 18:34:33 Vitals capture stopped. 18:34:37 NIBP STAT measurement started. A JL 4.0 INFINITI CATHETER FR 4 was advanced over a wire. OMNIPAQUE, 350 MG, 150ML 150ML was us ed for 18:35:18 injections. 18:36:32 The LCA was injected and visualized at various angles. OMNIPAQUE, 350 MG, 150ML 150ML used . 18:36:54 Catheter was removed 18:37:16 Vitals capture stopped. A JR 4.0 GUIDE CATHETER FR 6 was advanced over a wire. OMNIPAQUE, 350 MG, 150ML 150ML was used for 18:38:08 injections. Vitals capture started with the following parameters, Patient=Adult, Interval=5 min, Initial Pr uzagnw=058 mmHg, 18:38:11 Deflation Rate=5 mmHg, Cuff placed on Left Arm 18:38:33 The RCA was injected and visualized at various angles. OMNIPAQUE, 350 MG, 150ML 150ML used . 18:38:47 Dopamine increased to 15mcg/kg/min 0.6 mg ATROPINE given in lab by Khang Haddad RN in Left Antecubital via Peripheral IV. Ordered by El Benavidez. 18:38:59 Reason: As per physicians verbal order. 10 meq/hr POTASSIUM DRIP given in lab by Catie Marvin RN. Pump/Drip Flow = 50 ml/hr using D 5W .9 NaCl with 18:39:45 a concentration of 20 meq in 100 ml. Ordered by El Benavidez. Reason: As per physicians verbal order. for lab potassium 2.4 18:39:52 HR=36 bpm, FDNB=433/50 mmhg, Resp=43 B/min 18:39:57 Dopamine increased to 20mcg/kg/min 18:40:02 A WIRE, ASAHI PROWATER 180CM 180CM was inserted via Fem Art (right). 18:40:07 Interventional wire has crossed the lesion 18:40:16 A BALLOON, 2.5 X 10MM EUPHORA 10MM was inserted over WIRE, ASAHI PROWATER 180CM 180CM via t he RCA. An STENT, 3.0 22 INTEGRITY 3.0 22 Bare Metal Stent was inserted through a JR 4.0 GUIDE CATHETER FR 6 over a 18:41:32 WIRE, ASAHI PROWATER 180CM 180CM. A STENT, 3.0 22 INTEGRITY 3.0 22 was deployed using a 30 NITESH INDEFLATOR at 16 atmospheres for 1 5 seconds in 18:41:43 the RCA. 18:42:55 Delivery device removed 18:43:32 Activated Clotting Time Drawn 18:43:42 Catheter was removed A JR 4.0 INFINITI CATHETER FR 4 was advanced over a wire. OMNIPAQUE, 350 MG, 150ML 150ML was us ed for 18:43:58 injections. Recorded Pressure: LV, WH=641, Condition=Condition 1 18:45:11 (Left Ventricle) LV 114/7/18 18:45:30 Vitals capture stopped. Recorded Pressure: LV, Ao, JN=467, Condition=Condition 1 18:45:36 (Left Ventricle) LV 82/5/14, (Aorta) Ao 95/23/59 18:45:42 The LV was manually injected with 10 cc's and visualized. OMNIPAQUE, 350 MG, 150ML 150ML us ed. 18:48:27 ACT (Normal Range 90-180) = 243 Vitals capture started with the following parameters, Patient=Adult, Interval=5 min, Initial Pr pevjvw=906 mmHg, 18:48:45 Deflation Rate=5 mmHg, Cuff placed on Left Arm 18:49:14 An injection in the Fem Art (right) was made through the SHEATH, FR6.5 PRELUDE 11CM FR 6.5. 18:49:15 HA=235 bpm, NIBP=91/55 mmhg, Resp=39 B/min A PIGTAIL ANG. 145 INFINITI CATHETER FR 6 was advanced over a wire. OMNIPAQUE, 350 MG, 150ML 15 0ML was 18:49:29 used for injections. 2000 units HEPARIN given in lab by Catie Marvin, DEMETRIS via Peripheral IV. Ordered by El Benavidez. Reason: As 18:52:02 per physicians verbal order. 18:52:23 The Aortic was injected at 12 cc/sec for a total of 30. OMNIPAQUE, 350 MG, 150ML 150ML used . 18:53:39 Catheter was removed 18:55:22 Sheath exchanged for intra-aortic balloon insertion. An BALLOON, FR7.5 40CC SENSATION PLUS FR 7.5 40CC was advanced to the descending aorta. Proper placement 18:55:25 was confired under fluoroscopy and the balloon was sutured in place. Ratio = 1. Augmented B P 94/47 aug Ratio 1:1, aug presssure 144 18:55:32 JI=380 bpm, MHPI=749/104 mmhg, SpO2=60.0 %, Resp=28 B/min 18:56:11 Case End (Physician broke scrub) 5 mcg/kg/min PROPOFOL given in lab by Catie Marvin RN via Peripheral IV. Pump/Drip Flow = 1 .9 ml/hr using 18:59:26 [Solution Name] with a concentration of 200 mg in 20 ml. Ordered by El Benavidez. Reaso n: As per physicians verbal order. 19:00:46 SF=327 bpm, DXXJ=226/118 mmhg, SpO2=59.0 %, Resp=22 B/min 19:04:21 RZ=416 bpm, NIBP=80/57 mmhg 19:04:56 Weaned dopamine 10mcg/kg/min 19:07:00 Dopamine drip was weaned off 19:08:00 Versed was d/c'd. 19:13:25 Redraw coag drawn from arterial port 19:13:45 #20G IV placed RH by IV RAC infiltrated (pt thrashing and dislodged partially); drips relocated to other sites. Site RAC d/c'd. Pressure being 19:14:30 held. Vitals capture started with the following parameters, Patient=Adult, Interval=5 min, Initial Pr jdcbcg=978 mmHg, 19:18:12 Deflation Rate=5 mmHg, Cuff placed on Left Arm 19:18:59 AL=511 bpm, BWFY=639/138 mmhg, Resp=30 B/min 19:19:52 Activated Clotting Time Drawn 19:20:21 ACT (Normal Range 90-180) = 264 30 mL AGGRASTAT BOLUS given in lab by Khang Haddad RN via Peripheral IV. Ordered by Jazmín Benavidez rthur. Reason: As 19:25:11 per physicians verbal order. 19:26:14 RF=124 bpm, HMVN=565/75 mmhg 0.15 mcg/kg/min AGGRASTAT DRIP given in lab by Khang Haddad RN via Peripheral IV. Pump/Drip Anderson w = 11.43 ml/hr 19:27:19 using NaCl .9 with a concentration of 12.5 mg in 250 ml. Ordered by El Benavidez. Reaso n: As per physicians verbal order. 19:30:27 HR=99 bpm, WERV=991/90 mmhg, SpO2=92.0 %, Resp=19 B/min 19:33:52 Vitals capture stopped. Pt transported to CVICU with 2 RN's and 2 tech's accompanying in critical condition with GRAVITY PROSPECTING OPERATOR HELPER nicolasa harris airway by 19:49:59 ambu-ETT with 1.00 Fio2 on portable oxygen, lifepak monitor, and IABP on battery mode. End Study - Contrast Media Used In Study Contrast Total Opened (mL) Total Used (mL) Total Wasted (mL) Omnipaque 145 145 0 End Study - Radiation Exposure Fluoro Time (minutes) 4.1 End Study - Patient Disposition Complications Transferred To No Critical Care Bed
[2018-03-04 20:16] LABS: INR 1.2 Ratio
[2018-03-04] MEDS ORDERED: fentaNYL Citrate Inj 100 MCG/2 ML Ampul ONE (20:22)
[2018-03-04] MEDS ORDERED: Midazolam Inj 5 MG/ML 1 ML Vial ONE (20:22)
[2018-03-04] MEDS ORDERED: Bisacodyl 10 MG Supp RECTAL PRN (20:23)
--- NOTE | 2018-03-04 20:28 | P.HPCC ---
History of Present Illness Primary Care Physician: UNKNOWN History of Present Illness: 72-year-old female was brought by EMS after patient was found unresponsive at home. Patient's son states that he did not see the patient yesterday. Patient lives alone by herself. Patient's son states that he receive a phone call from the patient this afternoon about 2 hours prior to arrival that patient was calling for help. Patient's son came to the house and found her almost unresponsive. EMS was called. Patient was found to be hypotensive and bradycardic. She was moaning incoherently. External pacer was applied to the patient and the patient was transported to ED for an evaluation. Patient son states the patient has no medical problem. EKG obtained in the emergency department showed acute ST elevations myocardial infarction patient was emergently taken to cardiac catheterization lab. She was found to have RCA occlusion that was stented by Dr. Benavidez. Intra-aortic balloon pump was also inserted and the patient is now admitted to CVICU. Inpatient Certification: I certify that the inpatient services were ordered in accordance with Medicare regulations governing the order. This includes certification that hospital inpatient services are reasonable and necessary and in the case of services not specified as inpatient-only under 42 CFR 419.22(n), that they are appropriately provided as inpatient services in accordance to with the 2-midnight benchmark under 43 CFR 412.3(e) Estimated Total Length of Stay (Days): 5 Plans for Post Hospital Care: Not yet determined Review of Systems unobtainable due to endotracheal tube PMFSH - History History Provided By: Family Member, Environmental Health Physician / EMT - Travel History Recent Travel in the [place] Within the Last 8 Weeks: No Recent Travel Out of the Country Within the Last 8 Weeks: No Medications and Allergies Active Medications: Active Medications Aspirin (Aspirin Chew) 162 mg PO DAILY [facility]NE Fentanyl (Fentanyl 10 Mcg/Ml Premix Drip) 2,500 mcg in 250 mls @ 5 mls/hr IV.SIG TITRATE PRN; Protocol PRN Reason: Per Protocol Midazolam HCl (Versed Inj) 50 mg in 50 mls @ 2 mls/hr IV.CONT TITRATE PRN; Protocol PRN Reason: Per Protocol Last Titration: 03/04/18 19:08 Dose: Infused Dopamine HCl/Dextrose (Dopamine 800 Mg/500 Ml Premix) 800 mg in 500 mls @ 7.144 mls/hr IV.CONT TITRATE PRN; Protocol PRN Reason: Per Protocol Last Titration: 03/04/18 19:07 Dose: Infused Propofol (Diprivan 1000 Mg/100 Ml Inj) 1,000 mg in 100 mls @ 1.905 mls/hr IV.CONT TITRATE PRN; Protocol PRN Reason: Per Protocol Tirofiban/Sodium Chloride (Aggrastat Inj) 12,500 mcg in 250 mls @ 0 mls/hr IV.CONT .Q0M SHAYNE; Protocol Last Admin: 03/04/18 19:27 Dose: 0.15 mcg/kg/min, 11.43 mls/hr Prasugrel (Effient) 10 mg PO DAILY SHAYNE Sodium Chloride (Ns Flush) 2 ml IV.FLUSH BID SHAYNE Sodium Chloride (Ns Flush) 2 ml IV.FLUSH PRN PRN PRN Reason: FLUSH AFTER USING IV ACCESS Terbutaline Sulfate (Brethine Inj) 1 mg SQ ONCE PRN PRN Reason: Extravasation Allergies Allergy/AdvReac Type Severity Reaction Status Date / Time No Known Allergies Uncoded 12/11/08 13:06 Results - Labs CBC & Chem 7: 03/04/18 17:40 Labs: BMP 03/04/18 17:40 Sodium 144 Potassium Chloride 114 H Carbon Dioxide 13.6 L BUN 12 Creatinine 1.24 H Calcium 6.7 L* Cardiac Enzymes 03/04/18 Range/Units 17:40 Total Creatine Kinase 487 H (26-192) U/L CK-MB (CK-2) 25.1 H (0.5-3.6) ng/mL Troponin I (0.02-0.05) ng/mL - Imaging Impressions Chest X-Ray 03/04/18 17:36 CONCLUSION: Endotracheal tube in good position. Mild interstitial edema with basilar atelectasis. Head CT 03/04/18 17:39 CONCLUSION: 1. Negative CT Head non contrast. . Exam Vital signs: Vital Signs 03/04/18 17:14 03/04/18 17:28 03/04/18 17:30 Pulse Rate 40 L 55 L Respiratory Rate 17 14 17 Blood Pressure Pulse Oximetry 100 91 L 03/04/18 17:49 03/04/18 18:16 03/04/18 18:32 Pulse Rate 70 76 Respiratory Rate 17 17 Blood Pressure 120/63 Pulse Oximetry 100 100 100 Intake & Output 08/02/18 08/02/18 08/03/18 06:59 18:59 06:59 Intake Total / 41 Balance 41 / 41 Weight 63.503 kg Intake: IV / Heparin/NS PF Inj 500 ML @ 0 0 / 0 mls/hr .ROUTE .STK-MED ONE Rx#: [id number] DOPamine 800 MG/500 ML Premix 35 / 35 800 mg In 500 ml @ 3 MCG/KG/MIN 7.144 mls/hr IV.CONT TITRATE PRN Rx#:[id number] Versed Inj 50 mg In 50 ml @ 2 6 / 6 MG/HR 2 mls/hr IV.CONT TITRATE PRN Rx#:[id number] - Constitutional mild distress - Routine HEENT Exam Head: Present: normocephalic, atraumatic Eye: Present: PERRL ENT: Present: mucous membranes moist - Routine Neck Exam Present: supple, full ROM. Absent: JVD, carotid bruit - Routine Chest/Breast/Axilla Exam Chest wall: Absent: tenderness, mass - Routine Respiratory Exam Present: patient mechanically ventilated. Absent: accessory muscle use, rhonchi , stridor, wheezes - Routine Cardiovascular Exam Present: RRR, S1, S2, bradycardia - Routine Abdominal Exam Present: soft, normoactive bowel sounds. Absent: tenderness, distended - Routine Extremities Exam Absent: cyanosis, clubbing, edema - Routine Skin Exam Present: intact. Absent: cyanosis - Routine Neurological Exam Present: moving all extremities, normal tone Caprini VTE Risk Assessment Caprini VTE Risk Assessment: Moderate/High Risk (score >= 2) Caprini Risk Assessment Model: Point Value = 1 Point Value = 2 Point Value = 3 Point Value = 5 Age 41-60 Minor surgery BMI > 25 kg/m2 Swollen legs Varicose veins or History of unexplained or recurrent spontaneous Oral contraceptives or hormone replacement Sepsis (< 1 month) Serious lung disease, including pneumonia (< 1 month) Abnormal pulmonary function Acute myocardial infarction Congestive heart failure (< 1 month) History of inflammatory bowel disease Medical patient at bed rest Age 61-74 Arthroscopic surgery Major open surgery (> 45 min) Laparoscopic surgery (> 45 min) Malignancy Confined to bed (> 72 hours) Immobilizing plaster cast Central venous access Age >= 75 History of VTE Family history of VTE Factor V Leiden Prothrombin [id number] Lupus anticoagulant Anticardiolipin antibodies Elevated serum homocysteine Heparin-induced thrombocytopenia Other congenital or acquired thrombophilia Stroke (< 1 month) Elective arthroplasty Hip, pelvis, or leg fracture Acute spinal cord injury (< 1 month) Prophylaxis Regimen: Total Risk Factor Score Risk Level Prophylaxis Regimen 0-1 Low Early ambulation 2 Moderate Order ONE of the following: *Sequential Compression Device (SCD) *Heparin 5000 units SQ BID 3-4 Higher Order ONE of the following medications: *Heparin 5000 units SQ TID *Enoxaparin/Lovenox 40 mg SQ daily (WT < 150 kg, CrCl > 30 mL/min) *Enoxaparin/Lovenox 30 mg SQ daily (WT < 150 kg, CrCl > 10-29 mL/min) *Enoxaparin/Lovenox 30 mg SQ BID (WT < 150 kg, CrCl > 30 mL/min) AND/OR *Sequential Compression Device (SCD) 5 or more Highest Order ONE of the following medications: *Heparin 5000 units SQ TID (Preferred with Epidurals) *Enoxaparin/Lovenox 40 mg SQ daily (WT < 150 kg, CrCl > 30 mL/min) *Enoxaparin/Lovenox 30 mg SQ daily (WT < 150 kg, CrCl > 10-29 mL/min) *Enoxaparin/Lovenox 30 mg SQ BID (WT < 150 kg, CrCl > 30 mL/min) AND *Sequential Compression Device (SCD) Assessment and Plan - Assessment and Plan Plan: Respiratory failure -Intubated for an airway protection -No weaning until hemodynamically stable -DuoNeb's as needed -Vent bundle Acute coronary syndrome -RCA occlusion -Status post cardiac catheterization and stent placement -Heparin drip -Aspirin -Prasugrel -Further management per cardiology Cardiogenic shock -Intra-aortic balloon pump -Dopamine drip Hypokalemia -Electrolyte replacement per ICU protocol Acute kidney injury -Gentle IV fluid hydration -Strict I's and -Monitor creatinine and electrolyte levels Metabolic acidosis -Due to above -IV fluid resuscitation -Supportive care DVT GI prophylaxis -Teds SCDs -Heparin drip -Pepcid Critical Care: The total critical care time was 35 minutes. Time to perform other separately billable procedures was not included in the critical care time.
[2018-03-04] MEDS ORDERED: Magnesium Sulfate Inj 2 GM in Sodium Chlor 0.9% Inj 96 ML IV.SIG PRN (20:52)
[2018-03-04] MEDS ORDERED: Potassium Phosphate Inj 30 MMOL in Sodium Chlor 0.9% Inj 250 ML IV.SIG PRN (20:52)
[2018-03-04] MEDS ORDERED: Potassium Phosphate 500 MG Soluble Tablet PO PRN ×2 (20:52)
[2018-03-04] MEDS ORDERED: Sodium Phosphate Inj 30 MMOL in Sodium Chlor 0.9% Inj 250 ML IV.SIG PRN (20:52)
[2018-03-04] MEDS ORDERED: Potassium Chloride 25 MEQ Effervescent Tablet PO PRN (20:52)
[2018-03-04] MEDS ORDERED: Magnesium Sulfate Inj 4 GM in Sodium Chlor 0.9% Inj 92 ML IV.SIG PRN (20:52)
[2018-03-04] MEDS ORDERED: Potassium Chlor 20 mEq Premix 20 MEQ/100 ML PIGGYBACK IV.SIG PRN (20:52)
[2018-03-04] MEDS ORDERED: Magnesium Oxide 400 MG Tablet PO PRN (20:52)
--- NOTE | 2018-03-04 21:36 | XR ---
EXAM DATE: 03/04/2018 9:13 PM EDT AGE/SEX: 72 years / Female INDICATIONS: Central line placement. CLINICAL DATA: This is the patient's subsequent encounter. Patient reports that signs and symptoms h ave been present for 4 - 6 days and indicates a pain score of Nonresponsive. MEDICAL/SURGICAL HISTORY: None. None. COMPARISON: [facility], CHEST 1V SINGLE AP, 03/04/2018. . FINDINGS: Endotracheal tube in good position. Right central line in superior vena cava. NG enters stomach. Mild cardiomegaly. Mild edema pattern. No significant effusion. No pneumothorax. CONCLUSION: Right central line in superior vena cava without pneumothorax. Slight increase in basilar airspace di sease and edema pattern since earlier exam. Electronically signed by: Ken Loza MD 03/04/2018 9:34 PM EDT
[2018-03-04] MEDS: Propofol 1000 mg/100 ml Inj 1,000 MG/100 ML BOTTLE IV.CONT PRN (23:05)
[2018-03-04] MEDS ORDERED: fentaNYL Citrate Inj 100 MCG/2 ML Ampul IV.PUSH SCH (23:30)
[2018-03-04] MEDS: Sod Chloride 0.9% Inj 1,000 ML IV.CONT SCH (23:44)
[2018-03-04] MEDS ORDERED: Midazolam Inj 5 MG/ML 1 ML Vial IV.PUSH SCH (23:45)
[2018-03-04] MEDS: Senna/Docusate Sodium 8.6/50 MG Tablet PO SCH (23:46)
[2018-03-04] MEDS: Famotidine PF Inj 20 MG/2 ML Vial IV.PUSH SCH (23:46)
[2018-03-05 00:40] LABS: Magnesium 3.1 mg/dL (1.5-2.5); Potassium 3.7 meq/L (3.5-5.1)
[2018-03-05 00:57] LABS: Bilirubin,Urine Negative (Negative); Clarity,Urine Clear (Clear); Color,Urine Straw (Yellw/Straw); Glucose,Urine (UA) 50 mg/dL (Negative); Leukocyte Esterase,Urine Negative (Negative); Mucus,Urine Few /lpf (Occasional); Nitrite,Urine Negative (Negative); Specific Gravity,Urine 1.019 (1.002-1.035)
[2018-03-05] MEDS: Oral Hygiene Kit OROPHARYNG SCH ×4 (01:52→17:28)
[2018-03-05] MEDS: Propofol 1000 mg/100 ml Inj 1,000 MG/100 ML BOTTLE IV.CONT PRN ×4 (03:54→17:58)
[2018-03-05] MEDS ORDERED: Chlorhexidine Gluconate 2% 1 Pack (2 Cloths) TOPICAL PRN (04:00)
[2018-03-05 04:38] LABS: Baso # (Auto) 0.1 th/mm3 (0.0-0.2); Baso % (Auto) 0.5 % (0.0-2.0); Eos # (Auto) 0.1 th/mm3 (0.0-0.4); Eos % (Auto) 0.3 % (0.0-4.0); Hematocrit 36.3 % (35.0-46.0); Lymph # (Auto) 4.1 th/mm3 (1.0-4.8); Lymph % (Auto) 21.1 % (9.0-44.0); Mean Corpuscular HGB Conc 33.2 % (32.0-36.0); Mean Corpuscular Hemoglobin 30.8 pg (27.0-34.0); Mean Corpuscular Volume 92.9 fL (80.0-100.0); Mean Platelet Volume 8.1 fL (7.0-11.0); Mono # (Auto) 1.3 th/mm3 (0.0-0.9); Mono % (Auto) 6.9 % (0.0-8.0); Neut # (Auto) 13.8 th/mm3 (1.8-7.7); Neut % (Auto) 71.2 % (16.0-70.0); Platelet Count 326 th/mm3 (150-450); Red Blood Count 3.91 mil/mm3 (4.00-5.30); Red Cell Distribution Width 14.9 % (11.6-17.2); White Blood Count 19.3 th/mm3 (4.0-11.0)
[2018-03-05] MEDS: Chlorhexidine Gluconate 2% 1 Pack (2 Cloths) TOPICAL SCH (04:50)
[2018-03-05 05:01] LABS: Calcium 7.5 mg/dL (8.5-10.1); Carbon Dioxide 22.7 meq/L (21.0-32.0); Magnesium 2.8 mg/dL (1.5-2.5); Phosphorus 2.7 mg/dL (2.5-4.9); Potassium 3.3 meq/L (3.5-5.1)
[2018-03-05 05:17] LABS: Chol/HDL Ratio 3.67 Ratio; HDL Cholesterol 34.8 mg/dL (40.0-60.0)
[2018-03-05 05:46] LABS: Creatine Kinase MB 584.2 ng/mL (0.5-3.6)
[2018-03-05 05:55] LABS: CKMB Percent 9.3 % (0.0-4.0)
[2018-03-05] MEDS: Potassium Chlor 40 mEq Premix 40 MEQ/100 ML PIGGYBACK IV.SIG PRN (06:15)
[2018-03-05] MEDS: DOPamine 800 MG/500 ML Premix 800 MG/500 ML PLAST..BAG IV.CONT PRN ×2 (07:22→14:28)
[2018-03-05] MEDS: Chlorhexidine 0.12% Oral Kit 15 ML UDC OROPHARYNG SCH ×2 (07:44→20:22)
--- NOTE | 2018-03-05 08:34 | ECG ---
Date Performed: 03/05/2018 Time Performed: 03:43:06 PTAGE: 72 years EKG: Sinus rhythm Inferior infarct - age undetermined - possibly recent Anterolateral ST changes are nonspecific Abnor mal ECG NO PREVIOUS TRACING DOCTOR: Franco Lyman Interpretating Date/Time 03/05/2018 08:33:58
[2018-03-05] MEDS: Senna/Docusate Sodium 8.6/50 MG Tablet PO SCH ×2 (08:35→20:23)
[2018-03-05] MEDS: Famotidine PF Inj 20 MG/2 ML Vial IV.PUSH SCH ×2 (08:35→20:22)
--- NOTE | 2018-03-05 08:43 | ECG ---
Date Performed: 03/04/2018 Time Performed: 17:58:59 PTAGE: 72 years EKG: POSSIBLE ATRIAL FIBRILLATION MARKED ST ELEVATION WITH RECIPROCAL CHANGES, CONSISTENT WITH I NFERIOR INJURY ACUTE [place] PREVIOUS TRACING : 03/04/2018 17.27 No significant change from previous tracing noted. DOCTOR: Franco Lyman Interpretating Date/Time 03/05/2018 08:42:25
--- NOTE | 2018-03-05 08:46 | ECG ---
Date Performed: 03/04/2018 Time Performed: 17:27:01 PTAGE: 72 years EKG: POSSIBLE ACCELERATED JUNCTIONAL RHYTHM BORDERLINE RIGHT AXIS DEVIATION MARKED ST ELEVATION, CONSIDER INFERIOR INJURY ACUTE [place] PREVIOUS TRACING : 12/08/2008 15.05 Compared to previous tracing, acute inferior injury p attern is now evident, possible accelerated junctional rhythm has replaced Sinus rhythm . DOCTOR: Franco Lyman Interpretating Date/Time 03/05/2018 08:44:50
[2018-03-05] MEDS: Sod Chloride 0.9% Inj 1,000 ML IV.CONT SCH ×2 (10:50→20:21)
[2018-03-05] MEDS: Tirofiban Inj 12,500 MCG/250 ML PLAST..BAG IV.CONT SCH (10:51)
--- NOTE | 2018-03-05 13:01 | P.PNCC ---
Subjective Subjective Remarks/Hospital Course: 03/04: 72-year-old female was brought by EMS after patient was found unresponsive at home. Patient's son states that he did not see the patient yesterday. Patient lives alone by herself. Patient's son states that he receive a phone call from the patient this afternoon about 2 hours prior to arrival that patient was calling for help. Patient's son came to the house and found her almost unresponsive. EMS was called. Patient was found to be hypotensive and bradycardic. She was moaning incoherently. External pacer was applied to the patient and the patient was transported to ED for an evaluation. Patient son states the patient has no medical problem. EKG obtained in the emergency department showed acute ST elevations myocardial infarction patient was emergently taken to cardiac catheterization lab. She was found to have RCA occlusion that was stented by Dr. Benavidez. Intra-aortic balloon pump was also inserted and the patient is now admitted to CVICU. 03/05: Remains sedated, orally intubated on mech vent. IABP in place. On Heparin/ Aggrastat/ Dopamine/ Propofol/ NS@84cc/hr Objective Vital Signs / I&O: Vital Signs 03/04/18 17:14 03/04/18 17:28 03/04/18 17:30 Temperature Pulse Rate 40 L 55 L Respiratory Rate 17 14 17 Blood Pressure Pulse Oximetry 100 91 L 03/04/18 17:49 03/04/18 18:16 03/04/18 18:32 Temperature Pulse Rate 70 76 Respiratory Rate 17 17 Blood Pressure 120/63 Pulse Oximetry 100 100 100 03/04/18 19:55 03/04/18 21:00 03/04/18 22:18 Temperature 97.6 F Pulse Rate 76 71 Respiratory Rate 16 16 Blood Pressure 124/61 Pulse Oximetry 98 03/04/18 23:00 03/04/18 23:23 03/05/18 00:23 Temperature 97.5 F L Pulse Rate 78 78 Respiratory Rate 16 Blood Pressure 109/68 Pulse Oximetry 99 97 03/05/18 03:00 03/05/18 03:30 03/05/18 07:30 Temperature 97.5 F L Pulse Rate 90 89 Respiratory Rate 16 16 Blood Pressure 84/48 L Pulse Oximetry 97 98 03/05/18 07:38 03/05/18 07:42 03/05/18 08:15 Temperature 97.8 F Pulse Rate 86 86 Respiratory Rate 16 16 Blood Pressure 89/59 L 96/59 L Pulse Oximetry 99 99 03/05/18 11:00 03/05/18 11:01 03/05/18 11:03 Temperature 97.6 F Pulse Rate 87 90 90 Respiratory Rate 16 Blood Pressure 94/62 L 96/59 L Pulse Oximetry 99 03/05/18 12:00 Temperature Pulse Rate Respiratory Rate 16 Blood Pressure Pulse Oximetry 99 Intake & Output 03/04/18 03/05/18 03/05/18 18:59 06:59 18:59 Intake Total 386 / 386 1550 / 1550 Output Total 1100 / 1100 Balance -714 / -714 1550 / 1550 Weight 63.503 kg 66 kg Intake: IV 141 / 141 1550 / 1550 Heparin/NS PF Inj 500 ML @ 0 0 / 0 mls/hr .ROUTE .K-MED ONE Rx#: [id number] DOPamine 800 MG/500 ML Premix 35 / 35 800 mg In 500 ml @ 3 MCG/KG/MIN 7.144 mls/hr IV.CONT TITRATE PRN Rx#:[id number] Versed Inj 50 mg In 50 ml @ 2 6 / 6 MG/HR 2 mls/hr IV.CONT TITRATE PRN Rx#:[id number] Diprivan 1000 mg/100 ml Inj 1, 100 / 100 200 / 200 000 mg In 100 ml @ 5 MCG/KG/MIN 1.905 mls/hr IV.CONT TITRATE PRN Rx#:[id number] NS Inj 1,000 ML @ 84 mls/hr IV. 1000 / 1000 CONT [id number] Rx#:[id number] Aggrastat Inj 12,500 mcg In 250 250 / 250 ml @ Per Protocol IV.CONT .Q0M SHAYNE Rx#:[id number] KCl 40 mEq Premix Inj 40 meq In 100 / 100 100 ml @ 25 mls/hr IV.SIG UNSCH PRN Rx#:[id number] Water Bolus Amount 100 / 100 Other 145 / 145 Output: Urine Amount (Catheter) 1100 / 1100 Indwelling Urethral Catheter 1100 / 1100 Result Diagrams: 03/05/18 04:15 03/05/18 04:15 Imaging: Chest X-Ray 03/04/18 17:36 CONCLUSION: Endotracheal tube in good position. Mild interstitial edema with basilar atelectasis. Head CT 03/04/18 17:39 CONCLUSION: 1. Negative CT Head non contrast. . Chest X-Ray 03/04/18 20:50 CONCLUSION: Right central line in superior vena cava without pneumothorax. Slight increase in basilar airspace disease and edema pattern since earlier exam. Objective Remarks: HEENT/ Neuro: Sedated, orally intubated, No pallor/ icterus. Pupils 2mm bilaterally, reactive Neck: No JVD Chest/ Pulm: [facility] CTAB CVS: S1S2 regular, no murmur. IABP 1:1 augmentation Gi/ Abd: soft, nontender, BS present Ext: warm bilaterally, no edema. IABP in place rt groin Assessment and Plan - Assessment and Plan Plan: Neuro: Daily sedation vacation, propofol for sedation. Acute Respiratory failure on [facility] ventilation -Intubated for an airway protection -No weaning until hemodynamically stable -DuoNeb's as needed -Vent bundle Acute coronary syndrome -RCA occlusion -Status post cardiac catheterization and stent placement. LVEF 75% by cath. Echo ordered. -Heparin drip/ Tirofiban gtt -Aspirin -Prasugrel -Further management per cardiology Cardiogenic shock -Intra-aortic balloon pump -Dopamine drip Hypokalemia -Electrolyte replacement per ICU protocol Acute kidney injury -Gentle IV fluid hydration -Strict I's and -Monitor creatinine and electrolyte levels Metabolic acidosis -Due to above -IV fluid resuscitation -Supportive care DVT GI prophylaxis -Teds SCDs -Heparin drip -Pepcid Critical Care: The total critical care time was 35 minutes. Time to perform other separately billable procedures was not included in the critical care time.
--- NOTE | 2018-03-05 13:02 | P.PNCA ---
Subjective Interval history: intubated, sedated Physical Exam Vital signs: Vital Signs 03/04/18 17:14 03/04/18 17:28 03/04/18 17:30 Temperature Pulse Rate 40 L 55 L Respiratory Rate 17 14 17 Blood Pressure Pulse Oximetry 100 91 L 03/04/18 17:49 03/04/18 18:16 03/04/18 18:32 Temperature Pulse Rate 70 76 Respiratory Rate 17 17 Blood Pressure 120/63 Pulse Oximetry 100 100 100 03/04/18 19:55 03/04/18 21:00 03/04/18 22:18 Temperature 97.6 F Pulse Rate 76 71 Respiratory Rate 16 16 Blood Pressure 124/61 Pulse Oximetry 98 03/04/18 23:00 03/04/18 23:23 03/05/18 00:23 Temperature 97.5 F L Pulse Rate 78 78 Respiratory Rate 16 Blood Pressure 109/68 Pulse Oximetry 99 97 03/05/18 03:00 03/05/18 03:30 03/05/18 07:30 Temperature 97.5 F L Pulse Rate 90 89 Respiratory Rate 16 16 Blood Pressure 84/48 L Pulse Oximetry 97 98 03/05/18 07:38 03/05/18 07:42 03/05/18 08:15 Temperature 97.8 F Pulse Rate 86 86 Respiratory Rate 16 16 Blood Pressure 89/59 L 96/59 L Pulse Oximetry 99 99 03/05/18 11:00 03/05/18 11:01 03/05/18 11:03 Temperature 97.6 F Pulse Rate 87 90 90 Respiratory Rate 16 Blood Pressure 94/62 L 96/59 L Pulse Oximetry 99 03/05/18 12:00 Temperature Pulse Rate Respiratory Rate 16 Blood Pressure Pulse Oximetry 99 Intake & Output 03/04/18 03/05/18 03/05/18 18:59 06:59 18:59 Intake Total 386 / 386 1550 / 1550 Output Total 1100 / 1100 Balance -714 / -714 1550 / 1550 Weight 63.503 kg 66 kg Intake: IV 141 / 141 1550 / 1550 Heparin/NS PF Inj 500 ML @ 0 0 / 0 mls/hr .ROUTE .STK-MED ONE Rx#: [id number] DOPamine 800 MG/500 ML Premix 35 / 35 800 mg In 500 ml @ 3 MCG/KG/MIN 7.144 mls/hr IV.CONT TITRATE PRN Rx#:[id number] Versed Inj 50 mg In 50 ml @ 2 6 / 6 MG/HR 2 mls/hr IV.CONT TITRATE PRN Rx#:[id number] Diprivan 1000 mg/100 ml Inj 1, 100 / 100 200 / 200 000 mg In 100 ml @ 5 MCG/KG/MIN 1.905 mls/hr IV.CONT TITRATE PRN Rx#:[id number] NS Inj 1,000 ML @ 84 mls/hr IV. 1000 / 1000 CONT .[id number] SHAYNE Rx#:[id number] Aggrastat Inj 12,500 mcg In 250 250 / 250 ml @ Per Protocol IV.CONT .Q0M [facility]NE Rx#:[id number] KCl 40 mEq Premix Inj 40 meq In 100 / 100 100 ml @ 25 mls/hr IV.SIG UNSCH PRN Rx#:[id number] Water Bolus Amount 100 / 100 Other 145 / 145 Output: Urine Amount (Catheter) 1100 / 1100 Indwelling Urethral Catheter 1100 / 1100 - Urinary Catheter Management Indwelling Urethral Catheter Cath placed during this visit: yes Reason for continuing: Hourly intake/output Insertion date: 03/04/18 Insertion time: 22:00 Assessment and Plan - Plan 1.) POD # 1 primary pci prox rca, rv infarct, still dependent on 4-6 mcg dopamine, iabp; mental status uncertain as she is sedated, i placed neurology consult, continue aspirin, plavix, prn dopamine, d/w nurse, Toby and son
[2018-03-05] MEDS ORDERED: Sodium Chlor 0.9% Inj 500 ML IV.SIG ONE (14:00)
[2018-03-05] MEDS: Heparin Drip 25,000 UNIT/250 ML BAG IV.CONT PRN (14:07)
--- NOTE | 2018-03-05 14:27 | MB ---
cc: Elvira Moncada MD DATE: 03/05/2018 DATE OF : 1945 REASON FOR CONSULTATION: Change in mental status. HISTORY OF PRESENT ILLNESS: This 72-year-old woman was found unresponsive at home by EMS. Apparently, she called her son saying she did not feel well; that was 2 hours prior to arrival to the hospital. She was almost unresponsive when he found her. She was found to be hypotensive and bradycardic. An external pacemaker was applied and transported to the ED. She was found to have acute ST elevation MA, was taken to the Cardiac Catheterization Lab, found to have an RCA occlusion that was stented by Cardiology, had an intraaortic balloon pump inserted and transferred to CV-ICU. Neurology is asked to assess her for ongoing encephalopathy. ACTIVE MEDICATIONS: Defer to chart, but she is on aspirin. She is on propofol, dopamine, Pepcid, some others p.r.n. meds. PAST MEDICAL HISTORY: Denied by family. ALLERGIES: NONE REPORTED. PHYSICAL EXAMINATION: GENERAL: Elderly woman lying in bed in no distress. VITAL SIGNS: Blood pressure 96/59, temperature 97.6, respiratory rate 16, saturating at 99% on FiO2 of 40%, intubated, on ventilator, on Diprivan. HEENT: Her pupils are 0.5 mm, sluggishly reactive. She does not exhibit any corneals. LUNGS : She does over-breathe the ventilator. There is cough with suctioning. NEUROLOGICAL EXAMINATION: She does not follow any meaningful commands, but is sedated, of note, but also withdraws to painful stimuli in all 4 extremities so she does localize. LABORATORY DATA: Reviewed. Her white count is 19.3, hemoglobin is 12, hematocrit is 36.3, platelets are 326,000. Her PTT is 80.8. She is on heparin. Chemistry: Potassium 3.3 early this morning, glucose 123, calcium 7.5, phosphorus 2.7, magnesium 2.8. CK 6264. CK percent 9.3. Cholesterol 125, triglycerides 152, LDL 63, HDL 34,. Urine: Moderate blood, but no culture indicated. IMAGING: CT head was negative. Noncontrast yesterday. Today's chest x-ray shows right central line in the superior vena cava, without pneumothorax. Slight increase in the basilar airspace disease and edema pattern since earlier study. IMPRESSION: Ongoing encephalopathy. However, the patient is withdrawing to painful stimuli, was moving everything when she had a mild sedation vacation earlier, per nurses. PLAN: Recommend continue to monitor her. Try to extubate when feasible. We will get an EEG in the morning, hold sedation prior to that, and we will continue to monitor. I will hold off on MRI at this point in time since she has a stent. A CT was unremarkable. If needed, we can repeat a CT in the next 24 hours. Electroencephalogram will be ordered and further recommendations will be made as needed. Continue current care per the solar panel installation supervisor and contact center representative. MD EDGAR Verdin/RESHMA , 02:11 PM , 02:19 PM
--- NOTE | 2018-03-05 17:34 | ECHRPT ---
Indication: CORONARY ATHEROSCLEROSIS CONCLUSIONS Normal left ventricular size. Mild concentric left ventricular hypertrophy. The left ventricular systolic function is moderately reduced with an estimated ejection fraction in the range of 40-45%. There is distinct regional wall motion abnormalities. There is trace tricuspid valve regurgitation. There is less than 50% respiratory change in dimension of the inferior vena cava (abnormal). A prominent epicardial fat pad is present. BP: / HR: Rhythm: Sinus MEASUREMENTS (Male / Female) Normal Values Technical Quality:Fair 2D ECHO LV Diastolic Diameter PLAX 3.6 cm 4.2 - 5.9 / 3.9 - 5.3 cm LV Systolic Diameter PLAX 3.0 cm IVS Diastolic Thickness 1.0 cm 0.6 - 1.0 / 0.6 - 0.9 cm LVPW Diastolic Thickness 1.0 cm 0.6 - 1.0 / 0.6 - 0.9 cm LV Relative Wall Thickness 0.6 RV Internal Dim ED PLAX 2.0 cm LVOT Diameter 2.0 cm Aortic Root Diameter 3.1 cm LA Systolic Diameter LX 1.9 cm 3.0 - 4.0 / 2.7 - 3.8 cm M-MODE AV Cusp Separation MM 1.9 cm DOPPLER AV Peak Velocity 109.0 cm/s AV Peak Gradient 4.8 mmHg AV Mean Gradient 3.0 mmHg AV Velocity Time Integral 12.1 cm LVOT Peak Velocity 95.5 cm/s LVOT Peak Gradient 3.6 mmHg LVOT Velocity Time Integral 12.7 cm AV Area Cont Eq vti 3.3 cm AV Area Cont Eq pk 2.8 cm Mitral E Point Velocity 53.8 cm/s Mitral A Point Velocity 59.7 cm/s Mitral E to A Ratio 0.9 LV E' Lateral Velocity 3.2 cm/s Mitral E to LV E' Lateral Ratio 16.7 LV E' Septal Velocity 4.3 cm/s Mitral E to LV E' Septal Ratio 12.5 PV Peak Velocity 75.2 cm/s PV Peak Gradient 2.3 mmHg FINDINGS LEFT VENTRICLE Normal left ventricular size. Mild concentric left ventricular hypertrophy. The left ventricular systolic function is moderately reduced with an estimated ejection fraction in the range of 40-45%. There is distinct regional wall motion abnormalities. RIGHT VENTRICLE Normal right ventricular size and systolic function. LEFT ATRIUM The left atrial size is normal. RIGHT ATRIUM The right atrial size is normal. ATRIAL SEPTUM No atrial level shunt is demonstrated by color flow Doppler interrogation. AORTA The aortic root and proximal ascending aorta are normal in size on limited imaging. MITRAL VALVE Structurally normal mitral valve. No mitral valve stenosis or regurgitation. AORTIC VALVE Trileaflet aortic valve. No aortic valve stenosis or regurgitation. TRICUSPID VALVE There is trace tricuspid valve regurgitation. PULMONARY VALVE No pulmonary valve regurgitation or stenosis. VESSELS There is less than 50% respiratory change in dimension of the inferior vena cava (abnormal). PERICARDIUM A prominent epicardial fat pad is present. El Benavidez MD, FACC, [facility] [place] (Electronically Signed) Final Date:05 March 2018 17:33
[2018-03-05] MEDS ORDERED: Heparin 10,000 UNITS/10 ML Vial (for IV use) IV.PUSH PRN (19:54)
[2018-03-05 21:01] LABS: Calcium 7.5 mg/dL (8.5-10.1); Carbon Dioxide 20.2 meq/L (21.0-32.0); Potassium 3.5 meq/L (3.5-5.1)
[2018-03-05] MEDS: Potassium Chlor 20 mEq Premix 20 MEQ/100 ML PIGGYBACK IV.SIG PRN (23:19)
[2018-03-06] MEDS: Propofol 1000 mg/100 ml Inj 1,000 MG/100 ML BOTTLE IV.CONT PRN ×2 (00:03→04:28)
[2018-03-06] MEDS: Oral Hygiene Kit OROPHARYNG SCH ×4 (00:04→15:54)
[2018-03-06] MEDS: Potassium Chlor 20 mEq Premix 20 MEQ/100 ML PIGGYBACK IV.SIG PRN (01:42)
[2018-03-06] MEDS: Chlorhexidine Gluconate 2% 1 Pack (2 Cloths) TOPICAL SCH (04:17)
[2018-03-06 04:55] LABS: Calcium 7.7 mg/dL (8.5-10.1); Carbon Dioxide 17.6 meq/L (21.0-32.0); Magnesium 1.9 mg/dL (1.5-2.5)
[2018-03-06 05:08] LABS: Hematocrit 32.1 % (35.0-46.0); Hemoglobin 10.6 gm/dL (11.6-15.3); Mean Corpuscular HGB Conc 32.9 % (32.0-36.0); Mean Corpuscular Hemoglobin 30.8 pg (27.0-34.0); Mean Corpuscular Volume 93.5 fL (80.0-100.0); Mean Platelet Volume 8.8 fL (7.0-11.0); Platelet Count 258 th/mm3 (150-450); Red Blood Count 3.44 mil/mm3 (4.00-5.30); Red Cell Distribution Width 14.8 % (11.6-17.2); White Blood Count 20.2 th/mm3 (4.0-11.0)
--- NOTE | 2018-03-06 06:16 | XR ---
EXAM DATE: 03/06/2018 4:45 AM EDT AGE/SEX: 72 years / Female INDICATIONS: Fall. Swelling and bruising to top of hand. CLINICAL DATA: This is the patient's initial encounter. Patient reports that signs and symptoms have been present for 3 days and indicates a pain score of Nonresponsive. MEDICAL/SURGICAL HISTORY: None. None. COMPARISON: No prior exams available for comparison. FINDINGS: Mild motion degradation of all 3 images. 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 The osseous structures are normal alignment. No fracture seen. There is prominent soft tis kizzy swelling about the dorsal aspect of the hand. Angiocath is present in the dorsal wrist. CONCLUSION: Prominent dorsal hand soft tissue swelling. No fracture seen. Electronically signed by: August Peguero MD 03/06/2018 6:15 AM EDT
[2018-03-06] MEDS: Heparin 10,000 UNITS/10 ML Vial (for IV use) IV.PUSH PRN ×2 (06:24→18:32)
[2018-03-06] MEDS: Heparin Drip 25,000 UNIT/250 ML BAG IV.CONT PRN (06:25)
[2018-03-06] MEDS ORDERED: Dexmedetomidine Inj 200 MCG/2 ML Vial IV.PUSH ONE (07:28)
--- NOTE | 2018-03-06 07:34 | P.PNCC ---
Subjective Subjective Remarks/Hospital Course: 03/04: 72-year-old female was brought by EMS after patient was found unresponsive at home. Patient's son states that he did not see the patient yesterday. Patient lives alone by herself. Patient's son states that he receive a phone call from the patient this afternoon about 2 hours prior to arrival that patient was calling for help. Patient's son came to the house and found her almost unresponsive. EMS was called. Patient was found to be hypotensive and bradycardic. She was moaning incoherently. External pacer was applied to the patient and the patient was transported to ED for an evaluation. Patient son states the patient has no medical problem. EKG obtained in the emergency department showed acute ST elevations myocardial infarction patient was emergently taken to cardiac catheterization lab. She was found to have RCA occlusion that was stented by Dr. Benavidez. Intra-aortic balloon pump was also inserted and the patient is now admitted to CVICU. 03/05: Remains sedated, orally intubated on mech vent. IABP in place. On Heparin/ Aggrastat/ Dopamine/ Propofol/ NS@84cc/hr 03/06: Remains sedated, orally intubated on mechanical ventilation. IABP in place. On dopamine at 8 mics per KG per minute. Propofol/NS at 84 cc/h. Yesterday she awakened unenlightening sedation and attempted reaching up for ET tube with both hands however was not following commands. In view of hypotension we will add Precedex and try to titrate down on propofol. Objective Vital Signs / I&O: Vital Signs 03/05/18 07:38 03/05/18 07:42 03/05/18 08:15 Temperature 97.8 F Pulse Rate 86 86 Respiratory Rate 16 16 Blood Pressure 89/59 L 96/59 L Pulse Oximetry 99 99 03/05/18 11:00 03/05/18 11:01 03/05/18 11:03 Temperature 97.6 F Pulse Rate 87 90 90 Respiratory Rate 16 Blood Pressure 94/62 L 96/59 L Pulse Oximetry 99 03/05/18 12:00 03/05/18 14:54 03/05/18 14:58 Temperature Pulse Rate 98 H 98 H Respiratory Rate 16 Blood Pressure 131/66 Pulse Oximetry 99 03/05/18 15:00 03/05/18 16:33 03/05/18 19:00 Temperature 97.6 F Pulse Rate 87 96 H Respiratory Rate 16 16 Blood Pressure 136/68 Pulse Oximetry 99 03/05/18 19:10 03/05/18 20:35 03/05/18 22:50 Temperature 98.3 F Pulse Rate 97 H Respiratory Rate 16 16 16 Blood Pressure 168/75 H Pulse Oximetry 97 03/05/18 23:00 03/06/18 03:00 03/06/18 03:30 Temperature 98.7 F 99.5 F Pulse Rate 95 H 93 H Respiratory Rate 16 16 16 Blood Pressure 152/61 H 134/53 L Pulse Oximetry 98 03/06/18 07:00 Temperature 99.8 F H Pulse Rate 103 H Respiratory Rate 16 Blood Pressure 129/59 L Pulse Oximetry Intake & Output 03/05/18 03/06/18 03/06/18 18:59 06:59 18:59 Intake Total 3274 / 3274 961 / 961 Output Total 610 / 610 850 / 850 Balance 2664 / 2664 111 / 111 Weight 72 kg Intake: IV 3274 / 3274 961 / 961 DOPamine 800 MG/500 ML Premix 549 / 549 800 mg In 500 ml @ 3 MCG/KG/MIN 7.144 mls/hr IV.CONT TITRATE PRN Rx#:[id number] Heparin/D5W 25,000 U/250 mL 25, 242 / 242 000 unit In 250 ml @ 1,000 UNITS/HR 10 mls/hr IV.CONT TITRATE PRN Rx#:[id number] Diprivan 1000 mg/100 ml Inj 1, 300 / 300 199 / 199 000 mg In 100 ml @ 5 MCG/KG/MIN 1.905 mls/hr IV.CONT TITRATE PRN Rx#:[id number] NS Inj 1,000 ML @ 84 mls/hr IV. 1500 / 1500 304 / 304 CONT .[id number] [facility] Rx#:[id number] Aggrastat Inj 12,500 mcg In 250 325 / 325 ml @ Per Protocol IV.CONT .Q0M [facility] Rx#:[id number] KCl 20 mEq Premix Inj 20 meq In 216 / 216 100 ml @ 50 mls/hr IV.SIG Q2H PRN Rx#:[id number] KCl 40 mEq Premix Inj 40 meq In 100 / 100 100 ml @ 25 mls/hr IV.SIG UNSCH PRN Rx#:[id number] Output: Urine Amount (Catheter) 310 / 310 450 / 450 Indwelling Urethral Catheter 310 / 310 450 / 450 Gastric Drainage 300 / 300 400 / 400 Oral 300 / 300 400 / 400 Other: # Bowel Movements 0 0 Result Diagrams: 03/06/18 03:47 03/06/18 03:47 Objective Remarks: HEENT/ Neuro: Sedated, orally intubated, No pallor/ icterus. Pupils 2mm bilaterally, reactive Neck: No JVD Chest/ Pulm: [facility] CT[facility] CVS: S1S2 regular, no murmur. IABP 1:1 augmentation Gi/ Abd: soft, nontender, BS present Ext: warm bilaterally, no edema. IABP in place rt groin Assessment and Plan - Assessment and Plan Plan: Neuro: Daily sedation vacation, propofol for sedation. Added Precedex in order to titrate down on propofol in view of hypotension. Add Versed and fentanyl if needed. Neuro consult noted. Acute Respiratory failure on [facility] ventilation -Intubated for airway protection -No weaning until hemodynamically stable -DuoNeb's as needed -Vent bundle Acute coronary syndrome -RCA occlusion -Status post cardiac catheterization and stent placement. LVEF 75% by cath. Echo with LVEF around 40%, normal RV, regional wall motion abnormalities. -Off Heparin drip/ Tirofiban gtt -Aspirin -Prasugrel -Further management per cardiology Cardiogenic shock -Intra-aortic balloon pump -Dopamine drip Hypokalemia -Electrolyte replacement per ICU protocol Acute kidney injury -Gentle IV fluid hydration -Strict I's and -Monitor creatinine and electrolyte levels Metabolic acidosis -Due to above -IV fluid resuscitation -Supportive care DVT GI prophylaxis -Teds SCDs -Start Lovenox 40 mg subcutaneously daily -Pepcid Critical Care: The total critical care time was 35 minutes. Time to perform other separately billable procedures was not included in the critical care time.
[2018-03-06] MEDS: Dexmedetomidine Inj 200 MCG in Sodium Chlor 0.9% Inj 48 ML IV.CONT PRN ×3 (07:53→17:24)
[2018-03-06] MEDS: Midazolam 50 MG/50 ML Inj 50 MG/50 ML BAG IV.CONT PRN (07:53)
[2018-03-06] MEDS: Sod Chloride 0.9% Inj 1,000 ML IV.CONT SCH ×3 (08:06→21:00)
[2018-03-06] MEDS: Chlorhexidine 0.12% Oral Kit 15 ML UDC OROPHARYNG SCH ×2 (08:06→19:50)
[2018-03-06] MEDS: Famotidine PF Inj 20 MG/2 ML Vial IV.PUSH SCH ×2 (08:36→20:21)
[2018-03-06] MEDS: Senna/Docusate Sodium 8.6/50 MG Tablet PO SCH ×2 (08:36→20:21)
--- NOTE | 2018-03-06 13:12 | P.PNCA ---
Subjective Interval history: appears alert, nonfocal, questionably folowing simple commands, intubated, on precedex Physical Exam Vital signs: Vital Signs 03/05/18 14:54 03/05/18 14:58 03/05/18 15:00 Temperature 97.6 F Pulse Rate 98 H 98 H 87 Respiratory Rate 16 Blood Pressure 131/66 136/68 Pulse Oximetry 99 03/05/18 16:33 03/05/18 19:00 03/05/18 19:10 Temperature 98.3 F Pulse Rate 96 H 97 H Respiratory Rate 16 16 Blood Pressure 168/75 H Pulse Oximetry 03/05/18 20:35 03/05/18 22:50 03/05/18 23:00 Temperature 98.7 F Pulse Rate 95 H Respiratory Rate 16 16 16 Blood Pressure 152/61 H Pulse Oximetry 97 03/06/18 03:00 03/06/18 03:30 03/06/18 07:00 Temperature 99.5 F 99.8 F H Pulse Rate 93 H 115 H Respiratory Rate 16 16 16 Blood Pressure 134/53 L 129/59 L Pulse Oximetry 98 03/06/18 11:00 Temperature 98.8 F Pulse Rate 78 Respiratory Rate 16 Blood Pressure 99/46 L Pulse Oximetry Intake & Output 03/05/18 03/06/18 03/06/18 18:59 06:59 18:59 Intake Total 3274 / 3274 961 / 961 1550 / 1550 Output Total 610 / 610 850 / 850 Balance 2664 / 2664 111 / 111 1550 / 1550 Weight 72 kg Intake: IV 3274 / 3274 961 / 961 1550 / 1550 DOPamine 800 MG/500 ML Premix 549 / 549 800 mg In 500 ml @ 3 MCG/KG/MIN 7.144 mls/hr IV.CONT TITRATE PRN Rx#:[id number] Precedex Inj 200 MCG In NS Inj 50 / 50 48 ML @ 0.2 MCG/KG/HR 3.3 mls/ hr IV.CONT TITRATE PRN Rx#: [id number] Heparin/D5W 25,000 U/250 mL 25, 242 / 242 000 unit In 250 ml @ 1,000 UNITS/HR 10 mls/hr IV.CONT TITRATE PRN Rx#:[id number] Diprivan 1000 mg/100 ml Inj 1, 300 / 300 199 / 199 000 mg In 100 ml @ 5 MCG/KG/MIN 1.905 mls/hr IV.CONT TITRATE PRN Rx#:[id number] NS Inj 1,000 ML @ 84 mls/hr IV. 1500 / 1500 304 / 304 1000 / 1000 CONT .[id number] [facility] Rx#:[id number] Aggrastat Inj 12,500 mcg In 250 325 / 325 ml @ Per Protocol IV.CONT .Q0M [facility] Rx#:[id number] KCl 20 mEq Premix Inj 20 meq In 216 / 216 100 ml @ 50 mls/hr IV.SIG Q2H PRN Rx#:[id number] KCl 40 mEq Premix Inj 40 meq In 100 / 100 100 ml @ 25 mls/hr IV.SIG UNSCH PRN Rx#:[id number] Output: Urine Amount (Catheter) 310 / 310 450 / 450 Indwelling Urethral Catheter 310 / 310 450 / 450 Gastric Drainage 300 / 300 400 / 400 Oral 300 / 300 400 / 400 Other: # Bowel Movements 0 0 - Urinary Catheter Management Indwelling Urethral Catheter Cath placed during this visit: yes Reason for continuing: Hourly intake/output Insertion date: 03/04/18 Insertion time: 22:00 Assessment and Plan - Assessment (1) CAD (coronary artery disease) Code(s): I25.10 - Atherosclerotic heart disease of [place] coronary artery without angina pectoris Status: Acute (2) STEMI (ST elevation myocardial infarction) Code(s): I21.3 - ST elevation (STEMI) myocardial infarction of unspecified site Status: Acute (3) Cardiogenic shock Code(s): R57.0 - Cardiogenic shock Status: Acute (4) Encephalopathy Code(s): G93.40 - Encephalopathy, unspecified Status: Acute - Plan 1.) POD # 2 primary pci prox rca, rv infarct, still dependent on 4-8 mcg dopamine, iabp; mental status improving but remains uncertain as she is sedated , neurology following, continue aspirin, plavix, iv heparin, prn dopamine, increase ivf to 200cc/hr for fluid challenge d/w nurseMolly and Dr Leung
[2018-03-06] MEDS: DOPamine 800 MG/500 ML Premix 800 MG/500 ML PLAST..BAG IV.CONT PRN (17:25)
--- NOTE | 2018-03-06 17:37 | MG ---
cc: Elvira Moncada MD EEG NUMBER: [id number] CLINICAL HISTORY: Room 447. With photic stimulation. On dexmedetomidine 1 mcg/kg per hour. Awake, asleep, drowsy. CT negative. Found unresponsive, hypotensive, bradycardic, AL, status post stent, on aspirin and dopamine. DESCRIPTION OF RECORD: There is some slowing of the background 4-5 Hz, symmetrical. Quite a bit of artifact unfortunately, but not significantly hindering the EEG. EKG portion is artifactual. There may be a dysrhythmia at times, but cannot tell with 1 lead. Otherwise just some mild symmetrical slowing of the background. Hyperventilation was not done. Photic stimulation with minimal driving response. IMPRESSION: Mild slowing of background can be seen with medicine effect versus encephalopathic process. No evidence of any epileptiform features. Clinical correlation. Elvira Moncada MD DF/KRISTIAN , 05:25 PM , 05:31 PM
[2018-03-07] MEDS: Dexmedetomidine Inj 200 MCG in Sodium Chlor 0.9% Inj 48 ML IV.CONT PRN ×5 (01:22→17:53)
[2018-03-07] MEDS: Oral Hygiene Kit OROPHARYNG SCH ×4 (01:41→16:30)
[2018-03-07] MEDS: Midazolam 50 MG/50 ML Inj 50 MG/50 ML BAG IV.CONT PRN ×2 (03:35→23:31)
[2018-03-07] MEDS: Sod Chloride 0.9% Inj 1,000 ML IV.CONT SCH ×2 (03:36→07:10)
[2018-03-07 04:45] LABS: Baso # (Auto) 0.1 th/mm3 (0.0-0.2); Baso % (Auto) 0.4 % (0.0-2.0); Eos % (Auto) 0.1 % (0.0-4.0); Hemoglobin 9.4 gm/dL (11.6-15.3); Lymph # (Auto) 1.7 th/mm3 (1.0-4.8); Lymph % (Auto) 10.5 % (9.0-44.0); Mean Corpuscular HGB Conc 33.5 % (32.0-36.0); Mean Corpuscular Hemoglobin 31.6 pg (27.0-34.0); Mean Corpuscular Volume 94.4 fL (80.0-100.0); Mean Platelet Volume 8.8 fL (7.0-11.0); Mono # (Auto) 0.8 th/mm3 (0.0-0.9); Mono % (Auto) 4.7 % (0.0-8.0); Neut # (Auto) 13.5 th/mm3 (1.8-7.7); Neut % (Auto) 84.3 % (16.0-70.0); Platelet Count 184 th/mm3 (150-450); Red Blood Count 2.96 mil/mm3 (4.00-5.30); Red Cell Distribution Width 14.8 % (11.6-17.2)
[2018-03-07 05:14] LABS: Alanine Aminotransferase 36 U/L (10-53); Albumin 1.9 g/dL (3.4-5.0); Alkaline Phosphatase 68 U/L (45-117); Anion Gap 11 meq/L (5-15); Aspartate Aminotransferase 125 U/L (15-37); Blood Urea Nitrogen 10 mg/dL (7-18); Calcium 7.7 mg/dL (8.5-10.1); Carbon Dioxide 16.4 meq/L (21.0-32.0); Chloride 119 meq/L (98-107); Glomerular Filtration Rate 60 mL/min (>89); Glucose,Random 114 mg/dL (74-106); Potassium 3.9 meq/L (3.5-5.1); Sodium 146 meq/L (136-145)
[2018-03-07] MEDS: Chlorhexidine Gluconate 2% 1 Pack (2 Cloths) TOPICAL SCH (05:46)
--- NOTE | 2018-03-07 06:18 | XR ---
EXAM DATE: 03/07/2018 5:32 AM EDT AGE/SEX: 72 years / Female INDICATIONS: Shortness of breath. CLINICAL DATA: This is the patient's subsequent encounter. Patient reports that signs and symptoms h ave been present for 3 days and indicates a pain score of Nonresponsive. MEDICAL/SURGICAL HISTORY: Non-responsive. Non-responsive. COMPARISON: C, CHEST 1V SINGLE AP, 03/04/2018. . FINDINGS: ET tube tip well above the rubio. Gastric tube traverses the [id number]. Right internal jugular c atheter tip projects over the distal superior vena cava. There is persistent airspace opacity in the left lower lung with consolidation loss of delineation of the left hemidiaphragm, increased from prio r. Patchy areas of opacity in the right lower lung stable. CONCLUSION: Increasing consolidation in the left lower lobe. Persistent patchy nonconsolidative infiltrates in th e right lower lung. Electronically signed by: August Peguero MD 03/07/2018 6:16 AM EDT
[2018-03-07] MEDS: Chlorhexidine 0.12% Oral Kit 15 ML UDC OROPHARYNG SCH ×2 (07:10→20:36)
[2018-03-07] MEDS: Famotidine PF Inj 20 MG/2 ML Vial IV.PUSH SCH ×2 (08:50→20:35)
[2018-03-07] MEDS: Senna/Docusate Sodium 8.6/50 MG Tablet PO SCH ×2 (08:51→20:35)
--- NOTE | 2018-03-07 10:02 | P.PNCC ---
Subjective Subjective Remarks/Hospital Course: 03/04: 72-year-old female was brought by EMS after patient was found unresponsive at home. Patient's son states that he did not see the patient yesterday. Patient lives alone by herself. Patient's son states that he receive a phone call from the patient this afternoon about 2 hours prior to arrival that patient was calling for help. Patient's son came to the house and found her almost unresponsive. EMS was called. Patient was found to be hypotensive and bradycardic. She was moaning incoherently. External pacer was applied to the patient and the patient was transported to ED for an evaluation. Patient son states the patient has no medical problem. EKG obtained in the emergency department showed acute ST elevations myocardial infarction patient was emergently taken to cardiac catheterization lab. She was found to have RCA occlusion that was stented by Dr. Benavidez. Intra-aortic balloon pump was also inserted and the patient is now admitted to CVICU. 03/05: Remains sedated, orally intubated on mech vent. IABP in place. On Heparin/ Aggrastat/ Dopamine/ Propofol/ NS@84cc/hr 03/06: Remains sedated, orally intubated on mechanical ventilation. IABP in place. On dopamine at 8 mics per KG per minute. Propofol/NS at 84 cc/h. Yesterday she awakened unenlightening sedation and attempted reaching up for ET tube with both hands however was not following commands. In view of hypotension we will add Precedex and try to titrate down on propofol. 03/07: Sedated, arousable, orally intubated on mechanical ventilation. IABP remains in place. Dopamine titrated off this morning. On Precedex gtt. Borderline urine output. Significant positive fluid balance in the last 48 hours. Changing NS to LR as maintenance IV fluid in view of hyperchloremic metabolic acidosis. Objective Vital Signs / I&O: Vital Signs 03/06/18 09:55 03/06/18 11:00 03/06/18 13:50 Temperature 98.8 F Pulse Rate 78 Respiratory Rate 16 16 16 Blood Pressure 99/46 L Pulse Oximetry 96 96 03/06/18 15:00 03/06/18 16:49 03/06/18 17:26 Temperature 98.7 F Pulse Rate 76 70 Respiratory Rate 16 16 Blood Pressure 131/60 Pulse Oximetry 97 98 03/06/18 19:16 03/06/18 20:46 03/06/18 23:16 Temperature 98.2 F 97.9 F Pulse Rate 72 67 65 Respiratory Rate 16 16 16 Blood Pressure 126/58 L 106/55 L Pulse Oximetry 96 95 96 03/07/18 01:35 03/07/18 03:00 03/07/18 04:14 Temperature 98.0 F Pulse Rate 75 74 Respiratory Rate 16 17 16 Blood Pressure 145/65 H Pulse Oximetry 97 96 98 03/07/18 07:00 Temperature 98.1 F Pulse Rate 61 Respiratory Rate 16 Blood Pressure 136/52 L Pulse Oximetry 96 Intake & Output 03/06/18 03/07/18 03/07/18 18:59 06:59 18:59 Intake Total 3100 / 3100 2672 / 2672 1400 / 1400 Output Total 400 / 400 272 / 272 Balance 2700 / 2700 2400 / 2400 1400 / 1400 Weight 77 kg Intake: IV 3100 / 3100 2672 / 2672 1400 / 1400 DOPamine 800 MG/500 ML Premix 500 / 500 402 / 402 800 mg In 500 ml @ 3 MCG/KG/MIN 7.144 mls/hr IV.CONT TITRATE PRN Rx#:[id number] Precedex Inj 200 MCG In NS Inj 100 / 100 100 / 100 48 ML @ 0.2 MCG/KG/HR 3.3 mls/ hr IV.CONT TITRATE PRN Rx#: [id number] Heparin/D5W 25,000 U/250 mL 25, 120 / 120 000 unit In 250 ml @ 1,000 UNITS/HR 10 mls/hr IV.CONT TITRATE PRN Rx#:[id number] Versed Inj 50 mg In 50 ml @ 2 50 / 50 MG/HR 2 mls/hr IV.CONT TITRATE PRN Rx#:[id number] NS Inj 1,000 ML @ 200 mls/hr IV 1999 / 1999 1999 / 1999 1400 / 1400 .CONT .Q5H [facility] Rx#:[id number] Output: Urine Amount (Catheter) 350 / 350 272 / 272 Indwelling Urethral Catheter 350 / 350 272 / 272 Gastric Drainage 50 / 50 Oral 50 / 50 Result Diagrams: 03/07/18 04:08 03/07/18 04:08 Imaging: Chest X-Ray 03/04/18 17:36 CONCLUSION: Endotracheal tube in good position. Mild interstitial edema with basilar atelectasis. Head CT 03/04/18 17:39 CONCLUSION: 1. Negative CT Head non contrast. . Chest X-Ray 03/04/18 20:50 CONCLUSION: Right central line in superior vena cava without pneumothorax. Slight increase in basilar airspace disease and edema pattern since earlier exam. Hand X-Ray 03/06/18 00:00 CONCLUSION: Prominent dorsal hand soft tissue swelling. No fracture seen. Chest X-Ray 03/07/18 05:00 CONCLUSION: Increasing consolidation in the left lower lobe. Persistent patchy nonconsolidative infiltrates in the right lower lung. Objective Remarks: HEENT/ Neuro: Sedated, orally intubated, No pallor/ icterus. Pupils 2mm bilaterally, reactive Neck: No JVD Chest/ Pulm: orally intubated on mech vent, no wheezing or crackles. Scattered rhonchi at bases. CVS: S1S2 regular, no murmur. IABP 1:1 augmentation Gi/ Abd: soft, nontender, BS present Ext: warm bilaterally, no edema. IABP in place rt groin Assessment and Plan - Assessment and Plan Plan: Neuro: Daily sedation vacation, propofol for sedation. Added Precedex in order to titrate down on propofol in view of hypotension. Add Versed and fentanyl if needed. Neuro consult noted. [facility] -Intubated for airway protection -Start daily CPAP trials -DuoNeb's as needed -Vent bundle Acute coronary syndrome -RCA occlusion -Status post cardiac catheterization and stent placement. LVEF 75% by cath. Echo with LVEF around 40%, normal RV, regional wall motion abnormalities. -Off Tirofiban gtt -Aspirin/ heparin gtt -Prasugrel -Beta-rolando/statin when okay with cardiology Cardiogenic shock (resolved) -Intra-aortic balloon pump-discontinue when okay with cardiology -Off Dopamine drip Hypokalemia -Electrolyte replacement per ICU protocol GI: Start tube feeds and advance to goal as tolerated. Acute kidney injury -Gentle IV fluid hydration -Strict I's and -Monitor creatinine and electrolyte levels. Significant Metabolic acidosis -Change IV fluid to LR in view of hyperchloremic metabolic acidosis. -IV fluid resuscitation -Supportive care DVT GI prophylaxis -Teds SCDs -Start Lovenox 40 mg subcutaneously daily when off heparin GTT -Pepcid Discussed current clinical status and plan of care with patient's son at bedside who voiced understanding and was agreeable with plan of care. Critical Care: The total critical care time was 35 minutes. Time to perform other separately billable procedures was not included in the critical care time.
--- NOTE | 2018-03-07 11:42 | P.PNCA ---
Subjective Interval history: appears alert, intubated, in nad Physical Exam Vital signs: Vital Signs 03/06/18 13:50 03/06/18 15:00 03/06/18 16:49 Temperature 98.7 F Pulse Rate 76 70 Respiratory Rate 16 16 16 Blood Pressure 131/60 Pulse Oximetry 96 97 03/06/18 17:26 03/06/18 19:16 03/06/18 20:46 Temperature 98.2 F Pulse Rate 72 67 Respiratory Rate 16 16 Blood Pressure 126/58 L Pulse Oximetry 98 96 95 03/06/18 23:16 03/07/18 01:35 03/07/18 03:00 Temperature 97.9 F 98.0 F Pulse Rate 65 75 Respiratory Rate 16 16 17 Blood Pressure 106/55 L 145/65 H Pulse Oximetry 96 97 96 03/07/18 04:14 03/07/18 07:00 03/07/18 09:52 Temperature 98.1 F Pulse Rate 74 61 57 L Respiratory Rate 16 16 16 Blood Pressure 136/52 L Pulse Oximetry 98 96 03/07/18 09:54 03/07/18 11:00 Temperature 97.8 F Pulse Rate 62 Respiratory Rate 16 26 H Blood Pressure 126/42 L Pulse Oximetry 97 96 Intake & Output 03/06/18 03/07/18 03/07/18 18:59 06:59 18:59 Intake Total 3100 / 3100 2672 / 2672 1450 / 1450 Output Total 400 / 400 272 / 272 Balance 2700 / 2700 2400 / 2400 1450 / 1450 Weight 77 kg Intake: IV 3100 / 3100 2672 / 2672 1450 / 1450 DOPamine 800 MG/500 ML Premix 500 / 500 402 / 402 800 mg In 500 ml @ 3 MCG/KG/MIN 7.144 mls/hr IV.CONT TITRATE PRN Rx#:[id number] Precedex Inj 200 MCG In NS Inj 100 / 100 100 / 100 50 / 50 48 ML @ 0.2 MCG/KG/HR 3.3 mls/ hr IV.CONT TITRATE PRN Rx#: [id number] Heparin/D5W 25,000 U/250 mL 25, 120 / 120 000 unit In 250 ml @ 1,000 UNITS/HR 10 mls/hr IV.CONT TITRATE PRN Rx#:[id number] Versed Inj 50 mg In 50 ml @ 2 50 / 50 MG/HR 2 mls/hr IV.CONT TITRATE PRN Rx#:[id number] NS Inj 1,000 ML @ 200 mls/hr IV 1999 1400 / 1400 .CONT .Q5H [facility] Rx#:[id number] Output: Urine Amount (Catheter) 350 / 350 272 / 272 Indwelling Urethral Catheter 350 / 350 272 / 272 Gastric Drainage 50 / 50 Oral 50 / 50 - Urinary Catheter Management Indwelling Urethral Catheter Cath placed during this visit: yes Reason for continuing: Hourly intake/output Insertion date: 03/04/18 Insertion time: 22:00 Assessment and Plan - Assessment (1) CAD (coronary artery disease) Code(s): I25.10 - Atherosclerotic heart disease of [place] coronary artery without angina pectoris Status: Acute (2) STEMI (ST elevation myocardial infarction) Code(s): I21.3 - ST elevation (STEMI) myocardial infarction of unspecified site Status: Acute (3) Cardiogenic shock Code(s): R57.0 - Cardiogenic shock Status: Acute (4) Encephalopathy Code(s): G93.40 - Encephalopathy, unspecified Status: Acute - Plan 1.) POD # 3 primary pci prox rca, rv infarct, off dopamine, iabp; mental status improving but remains uncertain as she is sedated, neurology following, continue aspirin, plavix, iv heparin, continue ivf to 200cc/hr for fluid challenge d/w nurseMolly and Dr Leung
[2018-03-07] MEDS: Piperacil/Tazo 3.375 GM Premix 50 ML IV.SIG SCH ×3 (11:49→23:31)
--- NOTE | 2018-03-07 13:02 | P.DIET ---
Nutritional Evaluation Type of nutrition evaluation: initial Nutrition consult regarding: Tube Feeding Objective - Diagnosis STEMI CODE, Hypokalemia, Bradycardia - Objective [place] body weight: 59.1 kg % IBW: 122 Body Weight Used for Calculations: Actual (Initial bedscale wt 72kg used for assessment here) Energy Needs - Lower Range (kCal/kg): 25 Energy Needs - Upper Range (kCal/kg): 30 Lower Limit kCal/kg (kCals): 1,800 Upper Limit kCal/kg (kCals): 2,160 Lower Limit Protein Factor (Grams per Kg): 1.1 Upper Limit Protein Factor (Grams per Kg): 1.4 Lower Protein Needs (Protein): 79 Upper Protein Needs (Protein): 101 Dietitian Reviewed in Medical Record: Curent medications, Intake & Output, Labs , Medical history, Tube feeding Diet Order: TF'ing ONLY: Jevity 1.5 @ 60ml/hr Objective Comments: POD#3 promary PCI prox RCA, RV infarct skin assessment: posterior sacrum pressure injury Labs Include: Glucose 114 -BM, -UOP 622ml Assessment Assessment: Pt is at nutritional risk r/t need for TF'ing. To best meet pt's needs for TF' ing w/Jevity 1.5, Rec a goal rate @ 55ml/hr to offer 1800 kcal, 84.2g protein and 1003ml free water. Recommendations: To best meet pt's needs for TF'ing w/Jevity 1.5, Rec a goal rate @ 55ml/hr Dietitian to Monitor: Lab values, Glucose level, Intake & Output, Tube feeding tolerance, Weight change, Residuals, Wound/skin status, Medical course
[2018-03-08] MEDS: Dexmedetomidine Inj 200 MCG in Sodium Chlor 0.9% Inj 48 ML IV.CONT PRN ×6 (00:17→19:09)
[2018-03-08] MEDS: Oral Hygiene Kit OROPHARYNG SCH ×5 (00:41→23:27)
--- NOTE | 2018-03-08 01:18 | XR ---
EXAM DATE: 03/08/2018 1:12 AM EDT AGE/SEX: 72 years / Female INDICATIONS: Shortness of breath. CLINICAL DATA: This is the patient's subsequent encounter. Patient reports that signs and symptoms h ave been present for 4 - 6 days and indicates a pain score of Nonresponsive. MEDICAL/SURGICAL HISTORY: Non-responsive. Non-responsive. COMPARISON: [facility] [place], CHEST 1V SINGLE AP, 03/07/2018. . FINDINGS: There is abnormal opacity at both lung bases characteristic of consolidation. There may be tiny left effusion. The osseous structures are intact. Endotracheal tube tip at the inferior margin of the clav icles. Enteric tube courses beneath the diaphragm. EKG leads are noted. CONCLUSION: Bilateral lower lobe consolidation. Electronically signed by: Margarito Coronel MD 03/08/2018 1:17 AM EDT
[2018-03-08] MEDS: Chlorhexidine Gluconate 2% 1 Pack (2 Cloths) TOPICAL SCH (03:15)
[2018-03-08 04:35] LABS: ABG Base Excess -7.8 mmol/L (-2-2); ABG PCO2 29 mmHg (38-42); ABG PO2 152 mmHG (61-120)
[2018-03-08 04:37] LABS: Baso % (Auto) 0.2 % (0.0-2.0); Eos # (Auto) 0.1 th/mm3 (0.0-0.4); Eos % (Auto) 0.3 % (0.0-4.0); Hemoglobin 9.8 gm/dL (11.6-15.3); Lymph # (Auto) 0.8 th/mm3 (1.0-4.8); Lymph % (Auto) 5.2 % (9.0-44.0); Mean Corpuscular HGB Conc 33.8 % (32.0-36.0); Mean Corpuscular Hemoglobin 31.6 pg (27.0-34.0); Mean Corpuscular Volume 93.5 fL (80.0-100.0); Mean Platelet Volume 8.6 fL (7.0-11.0); Mono # (Auto) 0.6 th/mm3 (0.0-0.9); Mono % (Auto) 3.6 % (0.0-8.0); Neut # (Auto) 14.4 th/mm3 (1.8-7.7); Neut % (Auto) 90.7 % (16.0-70.0); Platelet Count 227 th/mm3 (150-450); Red Cell Distribution Width 14.4 % (11.6-17.2); White Blood Count 15.8 th/mm3 (4.0-11.0)
[2018-03-08 04:48] LABS: Albumin 1.8 g/dL (3.4-5.0); Anion Gap 10 meq/L (5-15); Aspartate Aminotransferase 69 U/L (15-37); Blood Urea Nitrogen 12 mg/dL (7-18); Calcium 7.8 mg/dL (8.5-10.1); Carbon Dioxide 17.9 meq/L (21.0-32.0); Chloride 114 meq/L (98-107); Glomerular Filtration Rate 54 mL/min (>89); Glucose,Random 163 mg/dL (74-106); Potassium 3.9 meq/L (3.5-5.1); Sodium 142 meq/L (136-145)
[2018-03-08 04:49] LABS: Alanine Aminotransferase 31 U/L (10-53)
[2018-03-08 04:51] LABS: Alkaline Phosphatase 144 U/L (45-117); Total Protein 5.3 g/dL (6.4-8.2)
[2018-03-08] MEDS: Piperacil/Tazo 3.375 GM Premix 50 ML IV.SIG SCH ×4 (05:10→23:27)
[2018-03-08] MEDS: Midazolam 50 MG/50 ML Inj 50 MG/50 ML BAG IV.CONT PRN ×2 (07:33→19:11)
[2018-03-08] MEDS: Chlorhexidine 0.12% Oral Kit 15 ML UDC OROPHARYNG SCH ×2 (07:46→20:15)
[2018-03-08] MEDS: Senna/Docusate Sodium 8.6/50 MG Tablet PO SCH ×2 (08:27→20:14)
[2018-03-08] MEDS: Famotidine PF Inj 20 MG/2 ML Vial IV.PUSH SCH ×2 (08:28→20:14)
--- NOTE | 2018-03-08 12:04 | P.PNCC ---
Subjective Subjective Remarks/Hospital Course: 03/04: 72-year-old female was brought by EMS after patient was found unresponsive at home. Patient's son states that he did not see the patient yesterday. Patient lives alone by herself. Patient's son states that he receive a phone call from the patient this afternoon about 2 hours prior to arrival that patient was calling for help. Patient's son came to the house and found her almost unresponsive. EMS was called. Patient was found to be hypotensive and bradycardic. She was moaning incoherently. External pacer was applied to the patient and the patient was transported to ED for an evaluation. Patient son states the patient has no medical problem. EKG obtained in the emergency department showed acute ST elevations myocardial infarction patient was emergently taken to cardiac catheterization lab. She was found to have RCA occlusion that was stented by Dr. Benavidez. Intra-aortic balloon pump was also inserted and the patient is now admitted to CVICU. 03/05: Remains sedated, orally intubated on mech vent. IABP in place. On Heparin/ Aggrastat/ Dopamine/ Propofol/ NS@84cc/hr 03/06: Remains sedated, orally intubated on mechanical ventilation. IABP in place. On dopamine at 8 mics per KG per minute. Propofol/NS at 84 cc/h. Yesterday she awakened unenlightening sedation and attempted reaching up for ET tube with both hands however was not following commands. In view of hypotension we will add Precedex and try to titrate down on propofol. 03/07: Sedated, arousable, orally intubated on mechanical ventilation. IABP remains in place. Dopamine titrated off this morning. On Precedex gtt. Borderline urine output. Significant positive fluid balance in the last 48 hours. Changing NS to LR as maintenance IV fluid in view of hyperchloremic metabolic acidosis. 03/08: Sedated, orally intubated on mechanical ventilation. Had episode of hypoxia last night which PEEP was increased to +8 and FiO2 to 90%, subsequently FiO2 decreased to 65%. She was started on empiric antibiotics for left lower lobe pneumonia seen on chest x-ray over the last 48 hours. Significant positive fluid balance noted. On dopamine 1 mcg/kg/min. Given Lasix 20 mg IV this morning to mobilize fluid. Objective Vital Signs / I&O: Vital Signs 03/07/18 13:49 03/07/18 15:00 03/07/18 17:05 Temperature 97.2 F L Pulse Rate 68 54 L Respiratory Rate 20 18 20 Blood Pressure 109/68 Pulse Oximetry 92 L 93 L 03/07/18 17:06 03/07/18 19:44 03/07/18 20:55 Temperature 94.5 F L Pulse Rate 57 L 57 L Respiratory Rate 12 16 23 Blood Pressure 101/56 L Pulse Oximetry 95 96 94 L 03/07/18 22:50 03/07/18 23:11 03/08/18 00:00 Temperature 97.5 F L Pulse Rate 61 Respiratory Rate 24 Blood Pressure 91/52 L Pulse Oximetry 94 L 96 92 L 03/08/18 01:05 03/08/18 03:20 03/08/18 04:43 Temperature 98.1 F Pulse Rate 80 81 Respiratory Rate 20 23 18 Blood Pressure 89/53 L Pulse Oximetry 98 99 96 03/08/18 06:35 03/08/18 07:20 03/08/18 07:28 Temperature 99.4 F Pulse Rate 83 80 Respiratory Rate 17 Blood Pressure 92/55 L Pulse Oximetry 98 99 03/08/18 08:04 03/08/18 10:53 03/08/18 10:56 Temperature Pulse Rate 70 69 Respiratory Rate 19 16 Blood Pressure Pulse Oximetry 99 96 03/08/18 11:04 Temperature 97.8 F Pulse Rate 70 Respiratory Rate 17 Blood Pressure 81/48 L Pulse Oximetry 97 Intake & Output 03/07/18 03/08/18 03/08/18 18:59 06:59 18:59 Intake Total 3136 / 3136 1684 / 1684 100 / 100 Output Total 370 / 370 300 / 300 Balance 2766 / 2766 1384 / 1384 100 / 100 Weight 77 kg Intake: IV 2974 / 2974 1600 / 1600 100 / 100 Precedex Inj 200 MCG In NS Inj 150 / 150 150 / 150 50 / 50 48 ML @ 0.2 MCG/KG/HR 3.3 mls/ hr IV.CONT TITRATE PRN Rx#: [id number] Heparin/D5W 25,000 U/250 mL 25, 24 / 24 000 unit In 250 ml @ 1,000 UNITS/HR 10 mls/hr IV.CONT TITRATE PRN Rx#:[id number] LR 1000 mL Inj 1,000 ML @ 125 1000 / 1000 1000 / 1000 mls/hr IV.CONT .Q8H SHAYNE Rx#: [id number] Versed Inj 50 mg In 50 ml @ 2 50 / 50 50 / 50 MG/HR 2 mls/hr IV.CONT TITRATE PRN Rx#:[id number] NS Inj 1,000 ML @ 200 mls/hr IV 1400 / 1400 .CONT .Q5H SHAYNE Rx#:[id number] Zyvox 600 mg Premix 300 ML @ 300 / 300 300 / 300 300 mls/hr IV.SIG Q12H SHAYNE Rx#: [id number] Zosyn 3.375 GM Premix 50 ML @ 100 / 100 100 / 100 100 mls/hr IV.SIG Q6H SHAYNE Rx#: [id number] Tube Feeding 132 / 132 84 / 84 Tube Irrigant 30 / 30 Output: Urine Amount (Catheter) 270 / 270 300 / 300 Indwelling Urethral Catheter 270 / 270 300 / 300 Gastric Drainage 100 / 100 Oral 100 / 100 Other: # Bowel Movements 0 Result Diagrams: 03/08/18 04:05 03/08/18 04:05 Objective Remarks: HEENT/ Neuro: Sedated, orally intubated, No pallor/ icterus. Pupils 2mm bilaterally, reactive Neck: No JVD Chest/ Pulm: orally intubated on [facility] vent, no wheezing or crackles. Scattered rhonchi at bases. CVS: S1S2 regular, no murmur Gi/ Abd: soft, nontender, BS present Ext: warm bilaterally, bilateral edema. Assessment and Plan - Assessment and Plan Plan: Neuro: Daily sedation vacation, propofol for sedation. Added Precedex in order to titrate down on propofol in view of hypotension. Add Versed and fentanyl if needed. Neuro consult noted. Acute Respiratory failure on [facility] ventilation -Intubated for airway protection -On PRVC mode mechanical ventilation PEEP +8 FiO2 65%. Attempt titrating down FiO2 and PEEP before CPAP trials. -DuoNeb's as needed -Vent bundle Acute coronary syndrome -RCA occlusion -Status post cardiac catheterization and stent placement. LVEF 75% by cath. Echo with LVEF around 40%, normal RV, regional wall motion abnormalities. -Off Tirofiban gtt -Aspirin -Prasugrel -Beta-rolando/statin when okay with cardiology Cardiogenic shock (resolved) -Intra-aortic balloon pump-discontinued 03/07 -On Dopamine drip 1mcg/kg/min Hypokalemia -Electrolyte replacement per ICU protocol GI: Tolerating tube feeds. ID: Pneumonia/ sepsis -On antibiotic coverage with IV Zosyn and Zyvox. Sputum growing gram-negative rods and staph aureus. Acute kidney injury -Gentle IV fluid hydration -Strict I's and -Monitor creatinine and electrolyte levels. Significant Metabolic acidosis -Changed IVF to LR in view of hyperchloremic metabolic acidosis. -Supportive care DVT GI prophylaxis -Teds SCDs -Lovenox 40 mg subcutaneously daily -Pepcid Discussed current clinical status and plan of care with patient's son at bedside who voiced understanding and was agreeable with plan of care. Critical Care: The total critical care time was 35 minutes. Time to perform other separately billable procedures was not included in the critical care time.
[2018-03-08] MEDS: Enoxaparin Inj 40 MG/0.4 ML Syringe SQ SCH (14:03)
--- NOTE | 2018-03-08 14:42 | P.PNCA ---
Subjective Interval history: intubated, sedated Physical Exam Vital signs: Vital Signs 03/07/18 15:00 03/07/18 17:05 03/07/18 17:06 Temperature 97.2 F L Pulse Rate 68 54 L Respiratory Rate 18 20 12 Blood Pressure 109/68 Pulse Oximetry 93 L 95 03/07/18 19:44 03/07/18 20:55 03/07/18 22:50 Temperature 94.5 F L Pulse Rate 57 L 57 L Respiratory Rate 16 23 Blood Pressure 101/56 L Pulse Oximetry 96 94 L 94 L 03/07/18 23:11 03/08/18 00:00 03/08/18 01:05 Temperature 97.5 F L Pulse Rate 61 Respiratory Rate 24 20 Blood Pressure 91/52 L Pulse Oximetry 96 92 L 98 03/08/18 03:20 03/08/18 04:43 03/08/18 06:35 Temperature 98.1 F Pulse Rate 80 81 Respiratory Rate 23 18 Blood Pressure 89/53 L Pulse Oximetry 99 96 98 03/08/18 07:20 03/08/18 07:28 03/08/18 08:04 Temperature 99.4 F Pulse Rate 83 80 Respiratory Rate 17 19 Blood Pressure 92/55 L Pulse Oximetry 99 99 03/08/18 10:53 03/08/18 10:56 03/08/18 11:04 Temperature 97.8 F Pulse Rate 70 69 70 Respiratory Rate 16 17 Blood Pressure 81/48 L Pulse Oximetry 96 97 Intake & Output 03/07/18 03/08/18 03/08/18 18:59 06:59 18:59 Intake Total 3136 / 3136 1684 / 1684 1200 / 1200 Output Total 370 / 370 300 / 300 Balance 2766 / 2766 1384 / 1384 1200 / 1200 Weight 77 kg Intake: IV 2974 / 2974 1600 / 1600 1200 / 1200 Precedex Inj 200 MCG In NS Inj 150 / 150 150 / 150 100 / 100 48 ML @ 0.2 MCG/KG/HR 3.3 mls/ hr IV.CONT TITRATE PRN Rx#: [id number] Heparin/D5W 25,000 U/250 mL 25, 24 / 24 000 unit In 250 ml @ 1,000 UNITS/HR 10 mls/hr IV.CONT TITRATE PRN Rx#:[id number] LR 1000 mL Inj 1,000 ML @ 125 1000 / 1000 1000 / 1000 1000 / 1000 mls/hr IV.CONT .Q8H SHAYNE Rx#: [id number] Versed Inj 50 mg In 50 ml @ 2 50 / 50 50 / 50 MG/HR 2 mls/hr IV.CONT TITRATE PRN Rx#:[id number] NS Inj 1,000 ML @ 200 mls/hr IV 1400 / 1400 .CONT .Q5H SHAYNE Rx#:[id number] Zyvox 600 mg Premix 300 ML @ 300 / 300 300 / 300 300 mls/hr IV.SIG Q12H SHAYNE Rx#: [id number] Zosyn 3.375 GM Premix 50 ML @ 100 / 100 100 / 100 50 / 50 100 mls/hr IV.SIG Q6H SHAYNE Rx#: [id number] Tube Feeding 132 / 132 84 / 84 Tube Irrigant 30 / 30 Output: Urine Amount (Catheter) 270 / 270 300 / 300 Indwelling Urethral Catheter 270 / 270 300 / 300 Gastric Drainage 100 / 100 Oral 100 / 100 Other: # Bowel Movements 0 - Urinary Catheter Management Indwelling Urethral Catheter Cath placed during this visit: yes Reason for continuing: Hourly intake/output Insertion date: 03/04/18 Insertion time: 22:00 Assessment and Plan - Assessment (1) CAD (coronary artery disease) Code(s): I25.10 - Atherosclerotic heart disease of [place] coronary artery without angina pectoris Status: Acute (2) STEMI (ST elevation myocardial infarction) Code(s): I21.3 - ST elevation (STEMI) myocardial infarction of unspecified site Status: Acute (3) Cardiogenic shock Code(s): R57.0 - Cardiogenic shock Status: Acute (4) Encephalopathy Code(s): G93.40 - Encephalopathy, unspecified Status: Acute - Plan 1.) POD # 4 primary pci prox rca, rv infarct, off dopamine; mental status improving, but remains uncertain as she is sedated, neurology following, continue aspirin, effient, has rv infarct, weight up 11 kg since admit, but bnp only @ 250, u/o adequate but not great, hopefully will start mobilizing fluid, on abs for pneumonia, d/w nurse, Toby
[2018-03-09] MEDS: Dexmedetomidine Inj 200 MCG in Sodium Chlor 0.9% Inj 48 ML IV.CONT PRN ×5 (00:18→21:43)
[2018-03-09] MEDS: Chlorhexidine Gluconate 2% 1 Pack (2 Cloths) TOPICAL SCH (03:48)
[2018-03-09] MEDS: Oral Hygiene Kit OROPHARYNG SCH ×3 (03:48→17:10)
[2018-03-09 04:42] LABS: Baso # (Auto) 0.1 th/mm3 (0.0-0.2); Baso % (Auto) 0.5 % (0.0-2.0); Eos # (Auto) 0.1 th/mm3 (0.0-0.4); Eos % (Auto) 0.6 % (0.0-4.0); Hematocrit 26.3 % (35.0-46.0); Hemoglobin 8.6 gm/dL (11.6-15.3); Lymph # (Auto) 1.6 th/mm3 (1.0-4.8); Lymph % (Auto) 8.2 % (9.0-44.0); Mean Corpuscular HGB Conc 32.9 % (32.0-36.0); Mean Corpuscular Hemoglobin 30.2 pg (27.0-34.0); Mean Corpuscular Volume 91.7 fL (80.0-100.0); Mean Platelet Volume 8.5 fL (7.0-11.0); Mono # (Auto) 0.8 th/mm3 (0.0-0.9); Neut # (Auto) 17.4 th/mm3 (1.8-7.7); Neut % (Auto) 86.7 % (16.0-70.0); Platelet Count 301 th/mm3 (150-450); Red Blood Count 2.86 mil/mm3 (4.00-5.30); Red Cell Distribution Width 14.1 % (11.6-17.2); White Blood Count 20.1 th/mm3 (4.0-11.0)
[2018-03-09 04:59] LABS: Alanine Aminotransferase 25 U/L (10-53); Albumin 1.6 g/dL (3.4-5.0); Anion Gap 7 meq/L (5-15); Aspartate Aminotransferase 49 U/L (15-37); Blood Urea Nitrogen 13 mg/dL (7-18); Calcium 7.6 mg/dL (8.5-10.1); Carbon Dioxide 25.1 meq/L (21.0-32.0); Chloride 110 meq/L (98-107); Glomerular Filtration Rate 48 mL/min (>89); Glucose,Random 180 mg/dL (74-106); Potassium 3.2 meq/L (3.5-5.1); Sodium 142 meq/L (136-145)
[2018-03-09 05:02] LABS: Alkaline Phosphatase 89 U/L (45-117)
[2018-03-09] MEDS: Piperacil/Tazo 3.375 GM Premix 50 ML IV.SIG SCH ×3 (05:44→17:51)
[2018-03-09] MEDS: Potassium Chlor 40 mEq Premix 40 MEQ/100 ML PIGGYBACK IV.SIG PRN ×2 (06:32→10:13)
[2018-03-09] MEDS: Famotidine PF Inj 20 MG/2 ML Vial IV.PUSH SCH ×2 (09:07→21:25)
[2018-03-09] MEDS: Chlorhexidine 0.12% Oral Kit 15 ML UDC OROPHARYNG SCH ×2 (09:07→21:46)
[2018-03-09] MEDS: Senna/Docusate Sodium 8.6/50 MG Tablet PO SCH ×2 (09:07→21:49)
--- NOTE | 2018-03-09 11:00 | P.PNCC ---
Subjective Subjective Remarks/Hospital Course: 03/04: 72-year-old female was brought by EMS after patient was found unresponsive at home. Patient's son states that he did not see the patient yesterday. Patient lives alone by herself. Patient's son states that he receive a phone call from the patient this afternoon about 2 hours prior to arrival that patient was calling for help. Patient's son came to the house and found her almost unresponsive. EMS was called. Patient was found to be hypotensive and bradycardic. She was moaning incoherently. External pacer was applied to the patient and the patient was transported to ED for an evaluation. Patient son states the patient has no medical problem. EKG obtained in the emergency department showed acute ST elevations myocardial infarction patient was emergently taken to cardiac catheterization lab. She was found to have RCA occlusion that was stented by Dr. Benavidez. Intra-aortic balloon pump was also inserted and the patient is now admitted to CVICU. 03/05: Remains sedated, orally intubated on mech vent. IABP in place. On Heparin/ Aggrastat/ Dopamine/ Propofol/ NS@84cc/hr 03/06: Remains sedated, orally intubated on mechanical ventilation. IABP in place. On dopamine at 8 mics per KG per minute. Propofol/NS at 84 cc/h. Yesterday she awakened unenlightening sedation and attempted reaching up for ET tube with both hands however was not following commands. In view of hypotension we will add Precedex and try to titrate down on propofol. 03/07: Sedated, arousable, orally intubated on mechanical ventilation. IABP remains in place. Dopamine titrated off this morning. On Precedex gtt. Borderline urine output. Significant positive fluid balance in the last 48 hours. Changing NS to LR as maintenance IV fluid in view of hyperchloremic metabolic acidosis. 03/08: Sedated, orally intubated on mechanical ventilation. Had episode of hypoxia last night which PEEP was increased to +8 and FiO2 to 90%, subsequently FiO2 decreased to 65%. She was started on empiric antibiotics for left lower lobe pneumonia seen on chest x-ray over the last 48 hours. Significant positive fluid balance noted. On dopamine 1 mcg/kg/min. Given Lasix 20 mg IV this morning to mobilize fluid. 03/09: Remains sedated, orally intubated on mechanical ventilation. Sputum growing Klebsiella/Pseudomonas and MRSA. On Zosyn and Zyvox.Positive fluid balance noted. On dopamine. Lasix to mobilize fluid. Significant pulmonary secretions. Objective Vital Signs / I&O: Vital Signs 03/08/18 10:53 03/08/18 10:56 03/08/18 11:04 Temperature 97.8 F Pulse Rate 70 69 70 Respiratory Rate 16 17 Blood Pressure 81/48 L Pulse Oximetry 96 97 03/08/18 15:11 03/08/18 15:15 03/08/18 16:11 Temperature 98.7 F Pulse Rate 110 H 70 Respiratory Rate 18 17 Blood Pressure 176/85 H Pulse Oximetry 97 95 03/08/18 19:10 03/08/18 20:40 03/08/18 20:50 Temperature 98.6 F Pulse Rate 82 79 Respiratory Rate 19 18 18 Blood Pressure 106/48 L Pulse Oximetry 99 95 03/08/18 22:49 03/08/18 23:11 03/09/18 03:00 Temperature 99.7 F H 99.0 F Pulse Rate 86 73 Respiratory Rate 18 22 17 Blood Pressure 108/51 L 107/52 L Pulse Oximetry 95 93 L 94 L 03/09/18 03:25 03/09/18 06:23 03/09/18 07:00 Temperature 98.4 F Pulse Rate 88 77 Respiratory Rate 17 16 15 Blood Pressure 92/53 L Pulse Oximetry 96 03/09/18 07:10 Temperature Pulse Rate Respiratory Rate 15 Blood Pressure Pulse Oximetry 96 Intake & Output 03/08/18 03/09/18 03/09/18 18:59 06:59 18:59 Intake Total 1633 / 1633 3150 / 3150 1150 / 1150 Output Total 1240 / 1240 400 / 400 Balance 393 / 393 2750 / 2750 1150 / 1150 Weight 80 kg Intake: IV 1250 / 1250 2900 / 2900 1150 / 1150 Precedex Inj 200 MCG In NS Inj 100 / 100 150 / 150 50 / 50 48 ML @ 0.2 MCG/KG/HR 3.3 mls/ hr IV.CONT TITRATE PRN Rx#: [id number] LR 1000 mL Inj 1,000 ML @ 125 1000 / 1000 2000 / 2000 1000 / 1000 mls/hr IV.CONT .Q8H SHAYNE Rx#: [id number] Versed Inj 50 mg In 50 ml @ 2 50 / 50 50 / 50 MG/HR 2 mls/hr IV.CONT TITRATE PRN Rx#:[id number] Zyvox 600 mg Premix 300 ML @ 0 / 0 600 / 600 300 mls/hr IV.SIG Q12H SHAYNE Rx#: [id number] Zosyn 3.375 GM Premix 50 ML @ 100 / 100 100 / 100 100 mls/hr IV.SIG Q6H SHAYNE Rx#: [id number] KCl 40 mEq Premix Inj 40 meq In 100 / 100 100 ml @ 25 mls/hr IV.SIG Q2H PRN Rx#:[id number] Tube Feeding 333 / 333 250 / 250 Water Bolus Amount 50 / 50 Output: Urine Amount (Catheter) 1140 / 1140 400 / 400 Indwelling Urethral Catheter 1140 / 1140 400 / 400 Gastric Drainage 100 / 100 Oral 100 / 100 Other: # Bowel Movements 0 Result Diagrams: 03/09/18 04:25 03/09/18 04:25 Objective Remarks: HEENT/ Neuro: Sedated, orally intubated, No pallor/ icterus. Pupils 2mm bilaterally, reactive Neck: No JVD Chest/ Pulm: orally intubated on [facility] vent, no wheezing or crackles. Scattered rhonchi at bases. CVS: S1S2 regular, no murmur Gi/ Abd: soft, nontender, BS present Ext: warm bilaterally, bilateral edema. Assessment and Plan - Assessment and Plan Plan: Neuro: Daily sedation vacation, propofol for sedation. Added Precedex in order to titrate down on propofol in view of hypotension. Add Versed and fentanyl if needed. Neuro consult noted. Acute Respiratory failure on [facility] ventilation Pneumonia -Intubated for airway protection -On PRVC mode mechanical ventilation PEEP +8 FiO2 65%. Attempt titrating down FiO2 and PEEP before CPAP trials. -DuoNebs, Mucomyst nebs, place on the Roto-Rest bed to mobilize secretions. -Vent bundle Acute coronary syndrome -RCA occlusion -Status post cardiac catheterization and stent placement. LVEF 75% by cath. Echo with LVEF around 40%, normal RV, regional wall motion abnormalities. -Off Tirofiban gtt -Aspirin -Prasugrel -Beta-rolando/statin when okay with cardiology Cardiogenic shock (resolved) -Intra-aortic balloon pump-discontinued 03/07 -On Dopamine drip 1 mcg/kg/min Hypokalemia -Electrolyte replacement per ICU protocol GI: Tolerating tube feeds. ID: Pneumonia/ sepsis -On antibiotic coverage with IV Zosyn and Zyvox. Sputum growing Pseudomonas, Klebsiella and MRSA. Urine culture growing klebsiella. Acute kidney injury -KVO IV fluids in view of significant positive fluid balance. Lasix 20 mg IV twice daily to mobilize fluid. -Strict I's and -Monitor creatinine and electrolyte levels. DVT GI prophylaxis -Teds SCDs -Lovenox 40 mg subcutaneously daily -Pepcid Discussed current clinical status and plan of care with patient's son at bedside on 03/08 who voiced understanding and was agreeable with plan of care. Critical Care: The total critical care time was 35 minutes. Time to perform other separately billable procedures was not included in the critical care time.
[2018-03-09] MEDS: Enoxaparin Inj 40 MG/0.4 ML Syringe SQ SCH (12:42)
--- NOTE | 2018-03-09 13:58 | P.PNCA ---
Subjective Interval history: intubated, sedated Physical Exam Vital signs: Vital Signs 03/08/18 15:11 03/08/18 15:15 03/08/18 16:11 Temperature 98.7 F Pulse Rate 110 H 70 Respiratory Rate 18 17 Blood Pressure 176/85 H Pulse Oximetry 97 95 03/08/18 19:10 03/08/18 20:40 03/08/18 20:50 Temperature 98.6 F Pulse Rate 82 79 Respiratory Rate 19 18 18 Blood Pressure 106/48 L Pulse Oximetry 99 95 03/08/18 22:49 03/08/18 23:11 03/09/18 03:00 Temperature 99.7 F H 99.0 F Pulse Rate 86 73 Respiratory Rate 18 22 17 Blood Pressure 108/51 L 107/52 L Pulse Oximetry 95 93 L 94 L 03/09/18 03:25 03/09/18 06:23 03/09/18 07:00 Temperature 98.4 F Pulse Rate 88 77 Respiratory Rate 17 16 15 Blood Pressure 92/53 L Pulse Oximetry 96 03/09/18 07:10 03/09/18 11:00 03/09/18 11:16 Temperature 99.2 F Pulse Rate 76 Respiratory Rate 15 17 17 Blood Pressure 119/65 Pulse Oximetry 96 97 03/09/18 13:50 Temperature Pulse Rate Respiratory Rate 16 Blood Pressure Pulse Oximetry 95 Intake & Output 03/08/18 03/09/18 03/09/18 18:59 06:59 18:59 Intake Total 1633 / 1633 3150 / 3150 1200 / 1200 Output Total 1240 / 1240 400 / 400 Balance 393 / 393 2750 / 2750 1200 / 1200 Weight 80 kg Intake: IV 1250 / 1250 2900 / 2900 1200 / 1200 Precedex Inj 200 MCG In NS Inj 100 / 100 150 / 150 50 / 50 48 ML @ 0.2 MCG/KG/HR 3.3 mls/ hr IV.CONT TITRATE PRN Rx#: [id number] LR 1000 mL Inj 1,000 ML @ 125 1000 / 1000 2000 / 2000 1000 / 1000 mls/hr IV.CONT .Q8H SHAYNE Rx#: [id number] Versed Inj 50 mg In 50 ml @ 2 50 / 50 50 / 50 MG/HR 2 mls/hr IV.CONT TITRATE PRN Rx#:[id number] Zyvox 600 mg Premix 300 ML @ 0 / 0 600 / 600 300 mls/hr IV.SIG Q12H SHAYNE Rx#: [id number] Zosyn 3.375 GM Premix 50 ML @ 100 / 100 100 / 100 50 / 50 100 mls/hr IV.SIG Q6H SHAYNE Rx#: [id number] KCl 40 mEq Premix Inj 40 meq In 100 / 100 100 ml @ 25 mls/hr IV.SIG Q2H PRN Rx#:[id number] Tube Feeding 333 / 333 250 / 250 Water Bolus Amount 50 / 50 Output: Urine Amount (Catheter) 1140 / 1140 400 / 400 Indwelling Urethral Catheter 1140 / 1140 400 / 400 Gastric Drainage 100 / 100 Oral 100 / 100 Other: # Bowel Movements 0 - Urinary Catheter Management Indwelling Urethral Catheter Cath placed during this visit: yes Reason for continuing: Hourly intake/output Insertion date: 03/04/18 Insertion time: 22:00 Assessment and Plan - Assessment (1) CAD (coronary artery disease) Code(s): I25.10 - Atherosclerotic heart disease of [place] coronary artery without angina pectoris Status: Acute (2) STEMI (ST elevation myocardial infarction) Code(s): I21.3 - ST elevation (STEMI) myocardial infarction of unspecified site Status: Acute (3) Cardiogenic shock Code(s): R57.0 - Cardiogenic shock Status: Acute (4) Encephalopathy Code(s): G93.40 - Encephalopathy, unspecified Status: Acute - Plan 1.) POD # 5 primary pci prox rca, rv infarct, off dopamine; mental status improving, but remains uncertain as she is sedated, neurology following, continue aspirin, effient, has rv infarct, weight up 14 kg since admit, but bnp only @ 250, u/o improving, hopefully will start mobilizing more fluid, on abs for pneumonia, consider transfusion
[2018-03-09] MEDS ORDERED: Sodium Chlor 0.9% Inj 250 ML IV.SIG SCH (15:00)
[2018-03-09] MEDS ORDERED: WATER IV.CONT PRN ×2 (21:15)
[2018-03-09] MEDS ORDERED: DOPAMINE IV.CONT PRN ×2 (21:15)
[2018-03-09] MEDS ORDERED: DEXTROSE 5% IV.CONT PRN ×2 (21:15)
[2018-03-09] MEDS: Midazolam 50 MG/50 ML Inj 50 MG/50 ML BAG IV.CONT PRN (21:51)
[2018-03-10] MEDS: Piperacil/Tazo 3.375 GM Premix 50 ML IV.SIG SCH ×4 (01:09→17:25)
[2018-03-10] MEDS: Oral Hygiene Kit OROPHARYNG SCH ×4 (01:10→16:35)
[2018-03-10] MEDS: Dexmedetomidine Inj 200 MCG in Sodium Chlor 0.9% Inj 48 ML IV.CONT PRN ×4 (03:14→22:46)
[2018-03-10 04:52] LABS: Baso # (Auto) 0.1 th/mm3 (0.0-0.2); Baso % (Auto) 0.6 % (0.0-2.0); Eos # (Auto) 0.3 th/mm3 (0.0-0.4); Eos % (Auto) 1.6 % (0.0-4.0); Hematocrit 28.5 % (35.0-46.0); Hemoglobin 9.7 gm/dL (11.6-15.3); Lymph # (Auto) 1.7 th/mm3 (1.0-4.8); Lymph % (Auto) 9.3 % (9.0-44.0); Mean Corpuscular Hemoglobin 31.1 pg (27.0-34.0); Mean Corpuscular Volume 91.6 fL (80.0-100.0); Mean Platelet Volume 8.2 fL (7.0-11.0); Mono # (Auto) 0.6 th/mm3 (0.0-0.9); Mono % (Auto) 3.2 % (0.0-8.0); Neut # (Auto) 15.5 th/mm3 (1.8-7.7); Neut % (Auto) 85.3 % (16.0-70.0); Platelet Count 297 th/mm3 (150-450); Red Blood Count 3.11 mil/mm3 (4.00-5.30); Red Cell Distribution Width 14.9 % (11.6-17.2); White Blood Count 18.1 th/mm3 (4.0-11.0)
[2018-03-10 05:12] LABS: Alanine Aminotransferase 30 U/L (10-53); Albumin 1.5 g/dL (3.4-5.0); Anion Gap 10 meq/L (5-15); Aspartate Aminotransferase 52 U/L (15-37); Blood Urea Nitrogen 13 mg/dL (7-18); Calcium 7.7 mg/dL (8.5-10.1); Carbon Dioxide 26.6 meq/L (21.0-32.0); Chloride 105 meq/L (98-107); Glomerular Filtration Rate 50 mL/min (>89); Glucose,Random 201 mg/dL (74-106); Sodium 142 meq/L (136-145)
[2018-03-10 05:15] LABS: Alkaline Phosphatase 113 U/L (45-117); Total Protein 5.4 g/dL (6.4-8.2)
--- NOTE | 2018-03-10 05:37 | XR ---
EXAM DATE: 03/10/2018 5:15 AM EDT AGE/SEX: 72 years / Female INDICATIONS: Shortness of breath. CLINICAL DATA: This is the patient's subsequent encounter. Patient reports that signs and symptoms h ave been present for 4 - 6 days and indicates a pain score of Nonresponsive. MEDICAL/SURGICAL HISTORY: Non-responsive. Non-responsive. COMPARISON: [facility], CHEST 1V SINGLE AP, 03/08/2018. . FINDINGS: Endotracheal tube tip at the inferior margin the clavicles. Right jugular line and enteric tube are n oted. The side port of the enteric tube is at the expected location of the distal esophagus. There ar e diffuse bilateral parenchymal infiltrates greatest in the left lower lobe, stable on the right and increased in the left upper lobe. CONCLUSION: Worsening appearance of the chest. Electronically signed by: Margarito Coronel MD 03/10/2018 5:36 AM EDT
[2018-03-10] MEDS: Potassium Chlor 40 mEq Premix 40 MEQ/100 ML PIGGYBACK IV.SIG PRN (06:41)
[2018-03-10] MEDS: Famotidine PF Inj 20 MG/2 ML Vial IV.PUSH SCH ×2 (09:20→21:14)
[2018-03-10] MEDS: Senna/Docusate Sodium 8.6/50 MG Tablet PO SCH ×2 (09:20→21:14)
[2018-03-10] MEDS: Chlorhexidine 0.12% Oral Kit 15 ML UDC OROPHARYNG SCH ×2 (09:20→21:14)
[2018-03-10] MEDS: Enoxaparin Inj 40 MG/0.4 ML Syringe SQ SCH (12:02)
[2018-03-10] MEDS: Midazolam 50 MG/50 ML Inj 50 MG/50 ML BAG IV.CONT PRN (13:00)
[2018-03-10] MEDS ORDERED: Dextrose 50% in Water 50 ML Vial IV.PUSH PRN (13:16)
--- NOTE | 2018-03-10 13:18 | P.PNCC ---
Subjective Subjective Remarks/Hospital Course: 03/04: 72-year-old female was brought by EMS after patient was found unresponsive at home. Patient's son states that he did not see the patient yesterday. Patient lives alone by herself. Patient's son states that he receive a phone call from the patient this afternoon about 2 hours prior to arrival that patient was calling for help. Patient's son came to the house and found her almost unresponsive. EMS was called. Patient was found to be hypotensive and bradycardic. She was moaning incoherently. External pacer was applied to the patient and the patient was transported to ED for an evaluation. Patient son states the patient has no medical problem. EKG obtained in the emergency department showed acute ST elevations myocardial infarction patient was emergently taken to cardiac catheterization lab. She was found to have RCA occlusion that was stented by Dr. Benavidez. Intra-aortic balloon pump was also inserted and the patient is now admitted to CVICU. 03/05: Remains sedated, orally intubated on mech vent. IABP in place. On Heparin/ Aggrastat/ Dopamine/ Propofol/ NS@84cc/hr 03/06: Remains sedated, orally intubated on mechanical ventilation. IABP in place. On dopamine at 8 mics per KG per minute. Propofol/NS at 84 cc/h. Yesterday she awakened unenlightening sedation and attempted reaching up for ET tube with both hands however was not following commands. In view of hypotension we will add Precedex and try to titrate down on propofol. 03/07: Sedated, arousable, orally intubated on mechanical ventilation. IABP remains in place. Dopamine titrated off this morning. On Precedex gtt. Borderline urine output. Significant positive fluid balance in the last 48 hours. Changing NS to LR as maintenance IV fluid in view of hyperchloremic metabolic acidosis. 03/08: Sedated, orally intubated on mechanical ventilation. Had episode of hypoxia last night which PEEP was increased to +8 and FiO2 to 90%, subsequently FiO2 decreased to 65%. She was started on empiric antibiotics for left lower lobe pneumonia seen on chest x-ray over the last 48 hours. Significant positive fluid balance noted. On dopamine 1 mcg/kg/min. Given Lasix 20 mg IV this morning to mobilize fluid. 03/09: Remains sedated, orally intubated on mechanical ventilation. Sputum growing Klebsiella/Pseudomonas and MRSA. On Zosyn and Zyvox.Positive fluid balance noted. On dopamine. Lasix to mobilize fluid. Significant pulmonary secretions. 03/10 Patient remains intubated and sedated with Versed and Precedex drip. T:99.7 , on Dopamine 3.5 mics. Objective Vital Signs / I&O: Vital Signs 03/09/18 13:50 03/09/18 15:00 03/09/18 16:50 Temperature 98.9 F Pulse Rate 101 H 82 Respiratory Rate 16 17 17 Blood Pressure 159/81 H Pulse Oximetry 95 95 03/09/18 18:43 03/09/18 19:00 03/09/18 20:40 Temperature 98.5 F 99.8 F H Pulse Rate 92 H 90 Respiratory Rate 20 17 17 Blood Pressure 103/42 L 96/49 L Pulse Oximetry 97 95 95 03/09/18 22:06 03/09/18 23:00 03/10/18 01:10 Temperature 99.8 F H 99.0 F Pulse Rate 82 76 Respiratory Rate 16 17 20 Blood Pressure 113/60 115/64 Pulse Oximetry 94 L 95 94 L 03/10/18 03:00 03/10/18 05:04 03/10/18 05:45 Temperature Pulse Rate 79 109 H Respiratory Rate 17 Blood Pressure Pulse Oximetry 93 L 95 03/10/18 06:00 03/10/18 07:00 03/10/18 07:56 Temperature 98.4 F 98.7 F Pulse Rate 68 69 Respiratory Rate 16 14 15 Blood Pressure 116/36 L 121/64 Pulse Oximetry 96 03/10/18 10:00 03/10/18 10:02 03/10/18 11:00 Temperature 99.7 F H Pulse Rate 80 76 Respiratory Rate 15 16 15 Blood Pressure 103/50 L Pulse Oximetry 97 Intake & Output 03/09/18 03/10/18 03/10/18 18:59 06:59 18:59 Intake Total 2876 / 2876 1477 / 1477 250 / 250 Output Total 1450 / 1450 1610 / 1610 Balance 1426 / 1426 -133 / -133 250 / 250 Weight 84 kg Intake: IV 2398 / 2398 877 / 877 250 / 250 DOPamine 800 MG/500 ML Premix 121 / 121 800 mg In 500 ml @ 3 MCG/KG/MIN 7.144 mls/hr IV.CONT TITRATE PRN Rx#:[id number] Precedex Inj 200 MCG In NS Inj 100 / 100 50 / 50 50 / 50 48 ML @ 0.2 MCG/KG/HR 3.3 mls/ hr IV.CONT TITRATE PRN Rx#: [id number] LR 1000 mL Inj 1,000 ML @ 125 1523 / 1523 477 / 477 mls/hr IV.CONT .Q8H SHAYNE Rx#: [id number] Versed Inj 50 mg In 50 ml @ 2 54 / 54 MG/HR 2 mls/hr IV.CONT TITRATE PRN Rx#:[id number] Zyvox 600 mg Premix 300 ML @ 300 / 300 300 / 300 300 mls/hr IV.SIG Q12H SHAYNE Rx#: [id number] Zosyn 3.375 GM Premix 50 ML @ 100 / 100 50 / 50 100 / 100 100 mls/hr IV.SIG Q6H SHAYNE Rx#: [id number] KCl 40 mEq Premix Inj 40 meq In 200 / 200 100 / 100 100 ml @ 25 mls/hr IV.SIG UNSCH PRN Rx#:[id number] Oral 0 / 0 Tube Feeding 388 / 388 Tube Irrigant 90 / 90 600 / 600 Output: Urine Amount (Catheter) 1450 / 1450 1610 / 1610 Indwelling Urethral Catheter 1450 / 1450 1610 / 1610 Result Diagrams: 03/10/18 04:38 03/10/18 04:38 Other Results: Laboratory Results - last 12 hr 03/10/18 03/10/18 04:38 04:38 WBC 18.1 H RBC 3.11 L Hgb 9.7 L Hct 28.5 L MCV 91.6 MCH 31.1 MCHC 34.0 RDW 14.9 Plt Count 297 MPV 8.2 Neut % (Auto) 85.3 H Lymph % (Auto) 9.3 [place] % (Auto) 3.2 Eos % (Auto) 1.6 Baso % (Auto) 0.6 Neut # (Auto) 15.5 H Lymph # (Auto) 1.7 [place] # (Auto) 0.6 Eos # (Auto) 0.3 Baso # (Auto) 0.1 WBC Differential . Differential Comment Auto diff final Sodium 142 Potassium 3.0 L Chloride 105 Carbon Dioxide 26.6 Anion Gap 10 BUN 13 Creatinine 1.08 H Estimated GFR 50 L Random Glucose 201 H Calcium 7.7 L Total Bilirubin 0.3 AST 52 H ALT 30 Alkaline Phosphatase 113 Total Protein 5.4 L Albumin 1.5 L Imaging: Head CT 03/04/18 17:39 CONCLUSION: 1. Negative CT Head non contrast. . Hand X-Ray 03/06/18 00:00 CONCLUSION: Prominent dorsal hand soft tissue swelling. No fracture seen. Chest X-Ray 03/10/18 05:00 CONCLUSION: Worsening appearance of the chest. Objective Remarks: GENERAL: Patient is 72 yo intubated and sedated SKIN: Warm and dry. HEAD: Normocephalic. EYES: No scleral icterus. No injection or drainage. NECK: Supple, trachea midline. No JVD or lymphadenopathy. CARDIOVASCULAR: Regular rate and rhythm without murmurs, gallops, or rubs. RESPIRATORY: Breath sounds equal bilaterally. No accessory muscle use. GASTROINTESTINAL: Abdomen soft, non-tender, nondistended. MUSCULOSKELETAL: No cyanosis, or edema. Neuro: Sedated Assessment and Plan - Assessment and Plan Plan: Neuro: Encephalopathy On Versed and Precedex drip for sedation. Daily sedation vacation CT brain 03/04: No acute findings EEG 03/06: Mild slowing, no epileptiform features Neuro consulted- Dr. Coral uQinones VDRF Pneumonia -Continue with vent support keep sats >92% -On PRVC RR 14, TV 500, It:0.9, PEEP:8, FIO2: 55% -DuoNebs, Mucomyst nebs, on the Roto-Rest bed to mobilize secretions. -Vent bundle CV: Acute coronary syndrome Cardiogenic shock (resolved) -RCA occlusion -Status post cardiac catheterization and stent placement. LVEF 75% by cath. Echo with LVEF around 40%, normal RV, regional wall motion abnormalities. -Off Tirofiban gtt -Aspirin, Prasugrel -Change Dopamine to Levophed monitor HR and BP keep MAP>65mmHg -Intra-aortic balloon pump-discontinued 03/07 GI: Continue tube feeds Jevity 1.5@60ml/hr. ID: Pneumonia/ sepsis -On antibiotic coverage with IV Zosyn and Zyvox. 03/06, 03/06 Sputum: Kleb , Pseudomonas, Staph : Acute kidney injury..improving Monitor renal function, I/O's, electrolytes replacement per protocol. Change to Lasix 40mg IV TID Heme Monitor CBC Endo SSI for glycemic control DVT GI prophylaxis -Teds SCDs -Lovenox 40 mg subcutaneously daily -Pepcid Consult palliative care to asses with goals of care Critical Care: The total critical care time was 30 minutes. Time to perform other separately billable procedures was not included in the critical care time.
[2018-03-10 14:33] LABS: ABG Base Excess 3.5 mmol/L (-2-2); ABG PCO2 39 mmHg (38-42); ABG PO2 69 mmHG (61-120)
--- NOTE | 2018-03-10 15:07 | P.CONPAL ---
Consult Service: Palliative Care Requesting Physician: Misty Galvin Reason for Consult: a. To assist with evaluation and management of symptoms including: Dyspnea, constipation b. To assist medical decision maker(s) with: better understanding of current medical conditions; weighing benefits/burdens of medical treatment options; making medical treatment decisions. Primary Care Provider: UNKNOWN History of Present Illness History of Present Illness: 03/04/18 via EMS. Patient was reported to be nearly unresponsive at home. Son received a phone call from the patient that afternoon 2 hours prior to arrival in which the patient was yelling for help son went to the house and found patient nearly unresponsive. at ED arrival patient was moaning incoherently. Son reported no medical problems not on any routine medications. * During ED course patient found to be bradycardic. None comprehensive speech, agitation. Patient was intubated for airway protection. Patient received IV fluid bolus, atropine. Dopamine was started. Patient hypotensive. External pacemaker initiated. Cardiology consulted. + STEMI, cardiology consulted, emergently went to minilab operator for possible PCI. EKG= st elevation, in inferior leads w posterior injury, consistent w inferior posterior injury pattern. Cardiology notes at least 50% mortality given presentation with cardiogenic shock and the neurologic prognosis indeterminate. * She was found to have RCA occlusion, stented by Dr. Benavidez 03/04, requiring intra-aortic balloon pump. Intubated in cardiac ICU. On heparin, Aggrastat, dopamine, propofol. LVEF 75% by cath. Echo with LVEF around 40%, normal RV, regional wall motion abnormalities. * Neurology was consulted for encephalopathy. Patient noted to be withdrawing to painful stimuli. Obtain EEG, assess neuro status with sedation vacation. Hold off on MRI due to stent. Initial CT unremarkable. May consider repeat CT. * 03/06 noted to be lightened from sedation and apparently attempting to reach her ET tube however did not follow commands. Precedex with propofol being titrated down. * 03/07 dopamine titrated off. Still on Precedex drip. Sedated, on mechanical vent. Remains on balloon pump. * 03/08 episode of hypoxia overnight requiring increased PEEP and FiO2 to 90%. Started on empiric antibiotics for. Positive fluid balance. Urine output adequate though low. Received Lasix. * 03/09 sputum positive Klebsiella, Pseudomonas, MRSA. On Zyvox, Zosyn. Still on dopamine, Lasix. * 03/10/18 CXR with worsening appearancediffuse bilateral parenchymal infiltrates greatest on the left lower lobe, stable on the right. Increase left upper. Palliative care consulted to assist with clarification of goals of treatment. Patient seen in room no visitors present. She is on sedation. She is nonresponsive to exam. Nursing reports have not been lightening sedation in the past few days due to resulting respiratory decompensation. Nursing reports one last lightens off sedation Thursday she did appear to move purposefully may have been following commands however she was significantly agitated and moving all over and had clinical deterioration desaturation and vital signs were compromised. Tube feeding held today though previously tolerating today with residual 300 mL. Has bowel regimen available, nursing indicates will be administering prns Following exam call to son, then call to daughter per his request. Function/Cognitive Trajectory: Lived in private home independently. Still driving. No cognitive or functional deficits reported per son. did just recently sell her home, was due to sign closing next week 03/17. Review of Systems unobtainable due to endotracheal tube, other (Patient unable to provide, son is not aware of patient having any complaint) PMFSH - History History Provided By: Family Member - Medical History Medical History: Medical History (Last Updated 03/10/18 @ 16:55 by LAVERN Francisco) Basal cell carcinoma (BCC) of canthus of right eye (Acute) Basal cell carcinoma (BCC) of canthus of right eye Cataract - Surgical History Surgical History: Surgical History (Last Updated 03/10/18 @ 16:55 by LAVERN Francisco) Basal cell carcinoma, eyelid - Family History Family History: Family History (Last Updated 03/10/18 @ 15:01 by LAVERN Francisco) Mother Heart failure Father Stroke - Tobacco History Smoking Status: Former smoker Packs Per Day: 0.5 - Alcohol History How Often Do You Have a Drink Containing Alcohol: 2 to 4 times a month - Substance Use History Substance History: No History of Abuse - Travel History Recent Travel in the [place] Within the Last 8 Weeks: No Recent Travel Out of the Country Within the Last 8 Weeks: No - Immunization History Tetanus Immunization: Unable to Assess Hx Influenza Vaccine This Season: Unable to Assess Medications and Allergies Active Medications: Active Medications Acetaminophen (Tylenol) 650 mg PO Q6H PRN PRN Reason: PAIN 1-10 AND/OR FEVER >101F Acetylcysteine (Mucomyst 10% Neb) 2 ml NEB Q6HR NEB [facility] Last Admin: 03/10/18 09:59 Dose: 2 ml Al Hydroxide/Mg Hydroxide (Milk Of Magnana m Liq) 30 ml PO Q12H PRN PRN Reason: Mild Constipation Albuterol (Duoneb Neb (Prn)) 1 ampul NEB Q2HR NEB PRN PRN Reason: WHEEZING Last Admin: 03/09/18 06:22 Dose: 1 ampul Albuterol (Duoneb Neb (Shelly)) 1 ampul NEB Q6HR NEB [facility] Last Admin: 03/10/18 09:59 Dose: 1 ampul Aspirin (Aspirin Chew) 162 mg PO DAILY [facility] Last Admin: 03/10/18 09:20 Dose: 162 mg Bisacodyl (Dulcolax Supp) 10 mg RECTAL DAILY PRN PRN Reason: SEVERE CONSITIPATION Chlorhexidine Gluconate (Peridex 0.12% Oral Kit) 15 ml OROPHARYNG BID@0800, 2000 [facility] Last Admin: 03/10/18 09:20 Dose: 15 ml Dextrose (D50w Vial) 50 ml IV.PUSH UNSCH PRN PRN Reason: PER HYPOGLYCEMIA PROTOCOL Enoxaparin Sodium (Lovenox Inj) 40 mg SQ Q24H [facility] Last Admin: 03/10/18 12:02 Dose: 40 mg Famotidine (Pepcid Pf Inj) 10 mg IV.PUSH Q12HR [facility] Last Admin: 03/10/18 09:20 Dose: 10 mg Furosemide (Lasix Inj) 40 mg IV.PUSH TID [facility] Last Admin: 03/10/18 13:37 Dose: 40 mg Glucagon (Glucagon Inj) 1 mg OTHER PRN PRN PRN Reason: for Hypoglycemia Protocol Fentanyl (Fentanyl 10 Mcg/Ml Premix Drip) 2,500 mcg in 250 mls @ 5 mls/hr IV.SIG TITRATE PRN; Protocol PRN Reason: Per Protocol Midazolam HCl (Versed Inj) 50 mg in 50 mls @ 2 mls/hr IV.CONT TITRATE PRN; Protocol PRN Reason: Per Protocol Last Admin: 03/09/18 21:51 Dose: 4 mg/hr, 4 mls/hr Propofol (Diprivan 1000 Mg/100 Ml Inj) 1,000 mg in 100 mls @ 1.905 mls/hr IV.CONT TITRATE PRN; Protocol PRN Reason: Per Protocol Last Titration: 03/06/18 09:30 Dose: 0 mcg/kg/min, 0 mls/hr Magnesium Sulfate Inj 4 gm/ (Sodium Chloride) 100 mls @ 50 mls/hr IV.SIG UNSCH PRN PRN Reason: For Magnesium 0.9 - 1.1 mg/dL Magnesium Sulfate Inj 2 gm/ (Sodium Chloride) 100 mls @ 50 mls/hr IV.SIG UNSCH PRN PRN Reason: For Magnesium 1.2 - 1.6 mg/dL Potassium Chloride (Kcl 40 Meq Premix Inj) 40 meq in 100 mls @ 25 mls/hr IV.SIG Q2H PRN PRN Reason: For Potassium 2.8 - 3.2 mEq/L Last Infusion: 03/09/18 18:31 Dose: Infused Potassium Chloride (Kcl 20 Meq Premix Inj) 20 meq in 100 mls @ 50 mls/hr IV.SIG Q2H PRN PRN Reason: For Potassium 3.3 - 3.5 mEq/L Last Infusion: 03/06/18 04:28 Dose: Infused Potassium Chloride (Kcl 40 Meq Premix Inj) 40 meq in 100 mls @ 25 mls/hr IV.SIG UNSCH PRN PRN Reason: For Potassium 3.3 - 3.5 mEq/L Last Infusion: 03/10/18 08:18 Dose: Infused Potassium Chloride (Kcl 20 Meq Premix Inj) 20 meq in 100 mls @ 50 mls/hr IV.SIG Q2H PRN PRN Reason: For Potassium 2.8 - 3.2 mEq/L Potassium Phosphate 30 mmol/ (Sodium Chloride) 260 mls @ 42 mls/hr IV.SIG UNSCH PRN PRN Reason: SEE LABEL COMMENTS Sodium Phosphate 30 mmol/ (Sodium Chloride) 260 mls @ 42 mls/hr IV.SIG UNSCH PRN PRN Reason: For Phosphorus < 2.5 mg/dL Dexmedetomidine HCl 200 mcg/ (Sodium Chloride) 50 mls @ 3.3 mls/hr IV.CONT TITRATE PRN; Protocol PRN Reason: Per Protocol Last Admin: 03/10/18 10:36 Dose: 0.6 mcg/kg/hr, 9.9 mls/hr Lactated Ringer's (Lr 1000 Ml Inj) 1,000 mls @ 125 mls/hr IV.CONT .Q8H [facility] Last Admin: 03/09/18 21:45 Dose: 30 mls/hr Piperacillin/Tazobactam/Dextrose (Zosyn 3.375 Gm Premix) 50 mls @ 100 mls/hr IV.SIG Q6H [facility] Last Infusion: 03/10/18 12:50 Dose: Infused Linezolid (Zyvox 600 Mg Premix) 300 mls @ 300 mls/hr IV.SIG Q12H [facility] Last Admin: 03/10/18 13:31 Dose: 150 mls/hr Dopamine HCl 800 mg/ Dextrose 500 mls @ 7.14 mls/hr IV.CONT TITRATE PRN; Protocol PRN Reason: Per Protocol Insulin Human Regular (Novolin R Correctional Sugar Inj) 0 units SQ Q6HR SHELLY; Protocol Lactulose (Lactulose Liq) 30 ml PO DAILY PRN PRN Reason: SEVERE CONSITIPATION Magnesium Oxide (Mag-Ox) 800 mg PO UNSCH PRN PRN Reason: For Magnesium 1.2 - 1.6 mg/dL Ondansetron HCl (Zofran Inj) 4 mg IV.PUSH Q6H PRN PRN Reason: NAUSEA OR VOMITING Potassium Bicarb/Potassium Chloride (K-Lyte Cl Eff) 50 meq PO UNSCH PRN PRN Reason: For Potassium 3.3 - 3.5 mEq/L Potassium Phosphate (K-Phos Original) 2,000 mg PO Q4H PRN PRN Reason: Phosphorus Less Than 2.5 mg/dL Potassium Phosphate (K-Phos Original) 2,000 mg PO UNSCH PRN PRN Reason: SEE LABEL COMMENTS Prasugrel (Effient) 10 mg PO DAILY [facility] Last Admin: 03/10/18 09:20 Dose: 10 mg Senna/Docusate Sodium (Suzanna-Colace) 1 tab PO BID [facility] Last Admin: 03/10/18 09:20 Dose: 1 tab Sennosides (Senokot) 17.2 mg PO Q12H PRN PRN Reason: Moderate Constipation Last Admin: 03/10/18 09:20 Dose: 17.2 mg Sodium Chloride (Ns Flush) 2 ml IV.FLUSH BID [facility] Last Admin: 03/10/18 09:21 Dose: 2 ml Sodium Chloride (Ns Flush) 2 ml IV.FLUSH PRN PRN PRN Reason: FLUSH AFTER USING IV ACCESS Terbutaline Sulfate (Brethine Inj) 1 mg SQ ONCE PRN PRN Reason: Extravasation Allergies Allergy/AdvReac Type Severity Reaction Status Date / Time No Known Allergies Uncoded 12/11/08 13:06 Home Medications Medication Instructions Recorded Confirmed Type No Known Home Medications 03/05/18 03/05/18 History Advance Directives Living Will: No Healthcare Surrogate: No Power of Geophysical Laboratory Supervisor: No Ethical and Legal Issues: Patient is unable to participate in decision-making. Not clear if or when she will regain ability. She is supported by a son Trey Pimentel who is local, and a daughter Christi Franco who lives in [place]. They report she has been legally , however is not from her spouse. She has not spoken to him or had any communication with him in many years not known his whereabouts or if he is even still living. Per [place] statutes if they are still legally he would in fact be appropriate legal proxy if he can be located and if he wishes to serve as such. If he cannot be located or does not wish to serve that it would fall to the 2 adult children. They remain in close communication and are working together. ACCURINT report has been requested to attempt to locate estranged spouse James Hodge Physical Exam Vital Signs: Vital Signs - 24 hr 03/09/18 15:00 03/09/18 16:50 03/09/18 18:43 Temperature 98.9 F 98.5 F Pulse Rate 101 H 82 92 H Respiratory Rate 17 17 20 Blood Pressure 159/81 H 103/42 L Pulse Oximetry 95 97 03/09/18 19:00 03/09/18 20:40 03/09/18 22:06 Temperature 99.8 F H 99.8 F H Pulse Rate 90 82 Respiratory Rate 17 17 16 Blood Pressure 96/49 L 113/60 Pulse Oximetry 95 95 94 L 03/09/18 23:00 03/10/18 01:10 03/10/18 03:00 Temperature 99.0 F Pulse Rate 76 79 Respiratory Rate 17 20 Blood Pressure 115/64 Pulse Oximetry 95 94 L 03/10/18 05:04 03/10/18 05:45 03/10/18 06:00 Temperature 98.4 F Pulse Rate 109 H 68 Respiratory Rate 17 16 Blood Pressure 116/36 L Pulse Oximetry 93 L 95 03/10/18 07:00 03/10/18 07:56 03/10/18 10:00 Temperature 98.7 F Pulse Rate 69 Respiratory Rate 14 15 15 Blood Pressure 121/64 Pulse Oximetry 96 97 03/10/18 10:02 03/10/18 11:00 03/10/18 13:22 Temperature 99.7 F H Pulse Rate 80 76 Respiratory Rate 16 15 14 Blood Pressure 103/50 L Pulse Oximetry 94 L I&O: Intake & Output 03/08/18 03/09/18 03/10/18 03/11/18 06:59 06:59 06:59 06:59 Intake Total 4820 / 4820 4783 / 4783 4353 / 4353 250 / 250 Output Total 670 / 670 1640 / 1640 3060 / 3060 Balance 4150 / 4150 3143 / 3143 1293 / 1293 250 / 250 Weight 77 kg 80 kg 84 kg Physical Exam: CONSTITUTIONAL/GENERAL: This is an adequately nourished patient, in no apparent distress. Sedated on mechanical vent TUBES/LINES/DRAINS: Central line, ET tube, OG tube, Bryan catheter, Rotobed SKIN: No jaundice, rashes, or lesions. Multiple areas of ecchymosis bilateral upper extremities, hands. Skin warm and dry.+ Edema to upper extremities. HEAD: Atraumatic. Normocephalic. EYES: Pupils equal and round and reactive.No scleral icterus. No injection or drainage. Fundi not examined. ENT: Nose without bleeding or purulent drainage. Unable to visualize oropharynx secondary ET tube, OG tube NECK: Trachea midline. Supple, nontender. No palpable thyroid enlargement or nodularity. CARDIOVASCULAR: Regular rate and rhythm without murmur. No JVD. Peripheral pulses symmetric.+ 2+ edema to upper extremities. RESPIRATORY/CHEST: Symmetric, unlabored respirations via mechanical vent. Coarse rhonchi. Breath sounds equal bilaterally. GASTROINTESTINAL: Abdomen soft, no apparent tenderness though difficult to assess, nondistended. No hepato-splenomegaly, or palpable masses. Bowel sounds present. Tube feeds held. GENITOURINARY: Without palpable bladder distension. Bryan catheter in place. Large amount of clear yellow urine. MUSCULOSKELETAL: Extremities without clubbing, cyanosis, or edema. No joint effusion noted. No mottling or clubbing. LYMPHATICS: No palpable cervical or supraclavicular adenopathy. NEUROLOGICAL: Sedated on mechanical vent on Precedex, Versed. Nonresponsive to my exam. I did not aggressively stimulator due to sedation and reports of respiratory compromise with lightened sedation. No eye opening. Pupils are reactive. PSYCHIATRIC: No obvious anxiety/depression-limited assessment secondary to clinical condition. Diagnostic Tests Laboratory: Laboratory Results - last 72 hr 03/08/18 03/08/18 03/08/18 04:05 04:05 04:18 WBC 15.8 H RBC 3.10 L Hgb 9.8 L Hct 29.0 L MCV 93.5 MCH 31.6 MCHC 33.8 RDW 14.4 Plt Count 227 MPV 8.6 Neut % (Auto) 90.7 H Lymph % (Auto) 5.2 L [place] % (Auto) 3.6 Eos % (Auto) 0.3 Baso % (Auto) 0.2 Neut # (Auto) 14.4 H Lymph # (Auto) 0.8 L [place] # (Auto) 0.6 Eos # (Auto) 0.1 Baso # (Auto) 0.0 WBC Differential . Differential Comment Auto diff final Puncture Site Right radial Patient Temperature 98.6 O2 Saturation 97 ABG pH 7.37 L ABG pCO2 29 L ABG pO2 152 H ABG HCO3 17 L ABG O2 Content 13.7 ABG Base Excess -7.8 L ABG Methemoglobin 1.5 Rony Test Present Hemoglobin 9.9 L Carboxyhemoglobin 0.5 O2 Delivery Device Ventilator Vent Setting Prvc/ac Inspired O2 100 Critical Value No Sodium 142 Potassium 3.9 Chloride 114 H Carbon Dioxide 17.9 L Anion Gap 10 BUN 12 Creatinine 1.00 Estimated GFR 54 L Random Glucose 163 H Calcium 7.8 L Total Bilirubin 0.5 AST 69 H ALT 31 Alkaline Phosphatase 144 H B-Natriuretic Peptide Total Protein 5.3 L Albumin 1.8 L Blood Type Blood Type Recheck Antibody Screen MTS Gel Crossmatch 03/08/18 03/09/18 03/09/18 08:20 04:25 04:25 WBC 20.1 H RBC 2.86 L Hgb 8.6 L Hct 26.3 L MCV 91.7 MCH 30.2 MCHC 32.9 RDW 14.1 Plt Count 301 D MPV 8.5 Neut % (Auto) 86.7 H Lymph % (Auto) 8.2 L [place] % (Auto) 4.0 Eos % (Auto) 0.6 Baso % (Auto) 0.5 Neut # (Auto) 17.4 H Lymph # (Auto) 1.6 [place] # (Auto) 0.8 Eos # (Auto) 0.1 Baso # (Auto) 0.1 WBC Differential . Differential Comment Auto diff final Puncture Site Patient Temperature O2 Saturation ABG pH ABG pCO2 ABG pO2 ABG HCO3 ABG O2 Content ABG Base Excess ABG Methemoglobin Rony Test Hemoglobin Carboxyhemoglobin O2 Delivery Device Vent Setting Inspired O2 Critical Value Sodium 142 Potassium 3.2 L Chloride 110 H Carbon Dioxide 25.1 Anion Gap 7 BUN 13 Creatinine 1.11 H Estimated GFR 48 L Random Glucose 180 H Calcium 7.6 L Total Bilirubin 0.3 AST 49 H ALT 25 Alkaline Phosphatase 89 B-Natriuretic Peptide 285 H Total Protein 5.0 L Albumin 1.6 L Blood Type Blood Type Recheck Antibody Screen MTS Gel Crossmatch 03/09/18 03/10/18 03/10/18 15:13 04:38 04:38 WBC 18.1 H RBC 3.11 L Hgb 9.7 L Hct 28.5 L MCV 91.6 MCH 31.1 MCHC 34.0 RDW 14.9 Plt Count 297 MPV 8.2 Neut % (Auto) 85.3 H Lymph % (Auto) 9.3 [place] % (Auto) 3.2 Eos % (Auto) 1.6 Baso % (Auto) 0.6 Neut # (Auto) 15.5 H Lymph # (Auto) 1.7 Gl[place]ier # (Auto) 0.6 Eos # (Auto) 0.3 Baso # (Auto) 0.1 WBC Differential . Differential Comment Auto diff final Puncture Site Patient Temperature O2 Saturation ABG pH ABG pCO2 ABG pO2 ABG HCO3 ABG O2 Content ABG Base Excess ABG Methemoglobin Rony Test Hemoglobin Carboxyhemoglobin O2 Delivery Device Vent Setting Inspired O2 Critical Value Sodium 142 Potassium 3.0 L Chloride 105 Carbon Dioxide 26.6 Anion Gap 10 BUN 13 Creatinine 1.08 H Estimated GFR 50 L Random Glucose 201 H Calcium 7.7 L Total Bilirubin 0.3 AST 52 H ALT 30 Alkaline Phosphatase 113 B-Natriuretic Peptide Total Protein 5.4 L Albumin 1.5 L Blood Type A Positive Blood Type Recheck Required Antibody Screen Negative MTS Gel Crossmatch See Detail Result Diagrams: 03/10/18 04:38 03/10/18 04:38 Microbiology: Microbiology 03/07/18 11:50 Aerobic Blood Culture - Preliminary Blood - Peripheral No growth in 3 days Anaerobic Blood Culture - Preliminary No growth in 3 days 03/07/18 12:00 Aerobic Blood Culture - Preliminary Blood - Peripheral No growth in 3 days Anaerobic Blood Culture - Preliminary No growth in 3 days 03/07/18 10:40 Urine Culture - Final Catheterized Urine Klebsiella pneumoniae 03/07/18 11:15 Gram Stain - Final Sputum - Endotracheal Sputum Culture - Final Pseudomonas aeruginosa Klebsiella pneumoniae Staphylococcus aureus 03/06/18 20:42 Gram Stain - Final Sputum - Endotracheal Sputum Culture - Final Pseudomonas aeruginosa Klebsiella pneumoniae Staphylococcus aureus Patient/Family Conference Family Conference Time: 40 Family Conference Location: Telephone Issues Discussed: First spoke to son Trey regarding the following: [After discussion with him he requested I call his sister Christi whom he is working closely with on decision- making]. Spoke with both of them approximately 20 minutes each. Also discussed the following with her: * Palliative care role, purpose, approach * Additional medical, psychosocial, and spiritual history-they indicate she has not been established recently with a particular episcopal and would not want eap specialist support * Patients general health, functional status, and cognitive changes in the months leading up to the current hospitalization-independently, with no functional or cognitive deficits * Patient/family understanding of the current medical problems * Patient/family understanding of prognosis; possible trajectories going forward potential complications/setback she may encounter * Patients goals of care as best understood from advance directives and/or conversations and/or values * Current medical treatment options and benefits/burdens of those options * Legal decision makers per [place] statutes * Advanced directives-patient had never completed * Questions answered to the best of my ability * Palliative care contact information provided Son and daughter appear to have a good understanding of overall conditions. The are working together in terms of decision-making. They will discuss CODE STATUS further. It did come up that patient is apparently still legally review with them proxy status and that we must attempt to locate this estranged spouse, however he is unable to be located or does not wish to participate then they may still serve as proxy. For now goals are aggressive to continue available treatments however they are open to ongoing conversations as clinical course evolves. Assessment and Plan Pertinent Non-Medical Issues: Psychosocial: retired. 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 Supported by son mary, daughter in [place]. Estranged / from spouse many years ago. Spiritual:not affiliated at this time, would not want eap specialist visit Legal:Patient is unable to participate in decision-making. Not clear if or when she will regain ability. She is supported by a son Trey Pimentel who is local, and a daughter Christi Franco who lives in [place]. They report she has been legally , however is not from her spouse. She has not spoken to him or had any communication with him in many years not known his whereabouts or if he is even still living. Per [place] statutes if they are still legally he would in fact be appropriate legal proxy if he can be located and if he wishes to serve as such. If he cannot be located or does not wish to serve that it would fall to the 2 adult children. They remain in close communication and are working together. ACCURINT report has been requested to attempt to locate estranged spouse James Hodge Ethical issues impacting care: Important Contacts: son Trey Pimentel [phone] Daughter Yesenia Franco [phone] . Prognosis: This patient was admitted from home with STEMI. She went emergently to [facility] =[facility] infarction due to right ventricular infarction, most likely culprit occluded proximal right coronary artery ; otherwise with moderate three-vessel CAD. She underwent successful drug percutaneous coronary intervention with metal stent placement in the proximal mid right coronary artery required intra-aortic balloon pump. Remains high risk for further complications and setbacks related to advanced age and admitting diagnosis. She was previously living alone and of fairly good health. Code Status: Full Code Plan: * Legal decision maker:Patient is unable to participate in decision-making. Not clear if or when she will regain ability. She is supported by a son Trey Pimentel who is local, and a daughter Christi Franco who lives in [place]. They report she has been legally , however is not from her spouse. She has not spoken to him or had any communication with him in many years not known his whereabouts or if he is even still living. Per [place] statutes if they are still legally he would in fact be appropriate legal proxy if he can be located and if he wishes to serve as such. If he cannot be located or does not wish to serve that it would fall to the 2 adult children. They remain in close communication and are working together. ACCURINT report has been requested to attempt to locate estranged spouse James Hodge * Goals: As of now 2 children are working together in decision-making, goals aggressive, though open to ongoing conversations as clinical course evolves. Attempting to locate possible estranged spouse to determine if he wishes to participate in decision-making. In the meantime children would be appropriate proxy. They are going to further discuss CODE STATUS in the coming days. We have reviewed conditions, possible trajectories and as well as the possibility of requiring tracheostomy and PEG tube. * CODE STATUS: Full code * SYMPTOMS: --Dyspnea-patient admitted with STEMI, emergently intubated for airway protection. Remains on mechanical vent. Worsening CXR. Requiring high levels of ventilator support. Requiring significant sedation for vent asynchrony, desaturation. Currently appears comfortable on Versed and Precedex. --Pain-currently with no signs or symptoms of pain however potential sources would include now bedbound status, recent invasive procedures. We will continue to assess. Could potentially benefit from fentanyl for comfort. --Constipation-no bowel movement recorded since admission. + Risk for secondary to immobility, sedatives has been receiving tube feeds though today with higher residuals. Bowel sounds are present. Abdomen is soft and benign appearance. Does have multiple prn available, discussed with nursing administer prns for constipation. * Palliative care will continue to follow during hospital course as condition evolves, to assist patient/decision-maker with understanding of medical conditions, weighing benefits/burdens of treatment options, for clarification of goals of treatment. Additionally will assist with any symptoms of palliative concern Time Spent Total Floor Time (mins): 68 (Chart review, PE, discussion with nursing, discussion with) Appreciation Thank you for the opportunity to participate in the care of Isatu Hodge. Attestation Attestation: To help prompt me to consider important information that might be impacting today's encounter and assessment, information from prior notes written by myself or my colleagues may have been "brought forward" into today's note. My signature on this note, however, is an attestation that I personally performed the exam, history, and/or decision-making noted today, and, unless otherwise indicated, the interactions with patient, family, and staff as well as the review of records all occurred today. I also attest that the listed assessment and stated plan reflect my best clinical judgment today based on the combination of historical information, prior notes, and today's exam/ interactions. When time spent is documented, it refers only to time spent today by the signer, or if indicated, combined time spent today by collaborating physician/nurse practitioner.
--- NOTE | 2018-03-10 15:49 | P.PNCA ---
Subjective Interval history: intubated, sedated Physical Exam Vital signs: Vital Signs 03/09/18 16:50 03/09/18 18:43 03/09/18 19:00 Temperature 98.5 F 99.8 F H Pulse Rate 82 92 H 90 Respiratory Rate 17 20 17 Blood Pressure 103/42 L 96/49 L Pulse Oximetry 95 97 95 03/09/18 20:40 03/09/18 22:06 03/09/18 23:00 Temperature 99.8 F H 99.0 F Pulse Rate 82 76 Respiratory Rate 17 16 17 Blood Pressure 113/60 115/64 Pulse Oximetry 95 94 L 95 03/10/18 01:10 03/10/18 03:00 03/10/18 05:04 Temperature Pulse Rate 79 109 H Respiratory Rate 20 17 Blood Pressure Pulse Oximetry 94 L 93 L 03/10/18 05:45 03/10/18 06:00 03/10/18 07:00 Temperature 98.4 F 98.7 F Pulse Rate 68 69 Respiratory Rate 16 14 Blood Pressure 116/36 L 121/64 Pulse Oximetry 95 03/10/18 07:56 03/10/18 10:00 03/10/18 10:02 Temperature Pulse Rate 80 Respiratory Rate 15 15 16 Blood Pressure Pulse Oximetry 96 97 03/10/18 11:00 03/10/18 13:22 Temperature 99.7 F H Pulse Rate 76 Respiratory Rate 15 14 Blood Pressure 103/50 L Pulse Oximetry 94 L Intake & Output 03/09/18 03/10/18 03/10/18 18:59 06:59 18:59 Intake Total 2876 / 2876 1477 / 1477 250 / 250 Output Total 1450 / 1450 1610 / 1610 Balance 1426 / 1426 -133 / -133 250 / 250 Weight 84 kg Intake: IV 2398 / 2398 877 / 877 250 / 250 DOPamine 800 MG/500 ML Premix 121 / 121 800 mg In 500 ml @ 3 MCG/KG/MIN 7.144 mls/hr IV.CONT TITRATE PRN Rx#:[id number] Precedex Inj 200 MCG In NS Inj 100 / 100 50 / 50 50 / 50 48 ML @ 0.2 MCG/KG/HR 3.3 mls/ hr IV.CONT TITRATE PRN Rx#: [id number] LR 1000 mL Inj 1,000 ML @ 125 1523 / 1523 477 / 477 mls/hr IV.CONT .Q8H [facility] Rx#: [id number] Versed Inj 50 mg In 50 ml @ 2 54 / 54 MG/HR 2 mls/hr IV.CONT TITRATE PRN Rx#:[id number] Zyvox 600 mg Premix 300 ML @ 300 / 300 300 / 300 300 mls/hr IV.SIG Q12H [facility] Rx#: [id number] Zosyn 3.375 GM Premix 50 ML @ 100 / 100 50 / 50 100 / 100 100 mls/hr IV.SIG Q6H [facility] Rx#: [id number] KCl 40 mEq Premix Inj 40 meq In 200 / 200 100 / 100 100 ml @ 25 mls/hr IV.SIG UNSCH PRN Rx#:[id number] Oral 0 / 0 Tube Feeding 388 / 388 Tube Irrigant 90 / 90 600 / 600 Output: Urine Amount (Catheter) 1450 / 1450 1610 / 1610 Indwelling Urethral Catheter 1450 / 1450 1610 / 1610 - Urinary Catheter Management Indwelling Urethral Catheter Cath placed during this visit: yes Reason for continuing: Hourly intake/output Insertion date: 03/04/18 Insertion time: 22:00 Assessment and Plan - Assessment (1) CAD (coronary artery disease) Code(s): I25.10 - Atherosclerotic heart disease of [place] coronary artery without angina pectoris Status: Acute (2) STEMI (ST elevation myocardial infarction) Code(s): I21.3 - ST elevation (STEMI) myocardial infarction of unspecified site Status: Acute (3) Cardiogenic shock Code(s): R57.0 - Cardiogenic shock Status: Acute (4) Encephalopathy Code(s): G93.40 - Encephalopathy, unspecified Status: Acute - Plan 1.) POD # 6 primary pci prox rca, rv infarct, off dopamine; mental status improving, but remains uncertain as she is sedated, neurology following, continue aspirin, effient, has rv infarct, weight up 18 kg since admit, u/o improving, hopefully will start mobilizing more fluid, on abs for pneumonia, s/ p transfusion 03/09/18, d/w Dr Leung
[2018-03-10] MEDS: Insulin NovoLIN Regular Correctional Sugar Inj SQ SCH (17:35)
[2018-03-11] MEDS: Piperacil/Tazo 3.375 GM Premix 50 ML IV.SIG SCH ×4 (01:18→17:33)
[2018-03-11] MEDS: Oral Hygiene Kit OROPHARYNG SCH ×4 (01:20→17:43)
[2018-03-11] MEDS: Insulin NovoLIN Regular Correctional Sugar Inj SQ SCH ×4 (01:20→19:06)
[2018-03-11] MEDS: Midazolam 50 MG/50 ML Inj 50 MG/50 ML BAG IV.CONT PRN (02:27)
[2018-03-11] MEDS: Dexmedetomidine Inj 200 MCG in Sodium Chlor 0.9% Inj 48 ML IV.CONT PRN ×3 (04:53→21:51)
[2018-03-11 04:58] LABS: Baso % (Auto) 0.3 % (0.0-2.0); Eos # (Auto) 0.3 th/mm3 (0.0-0.4); Eos % (Auto) 2.4 % (0.0-4.0); Hematocrit 27.9 % (35.0-46.0); Hemoglobin 9.4 gm/dL (11.6-15.3); Lymph # (Auto) 2.2 th/mm3 (1.0-4.8); Lymph % (Auto) 15.7 % (9.0-44.0); Mean Corpuscular HGB Conc 33.6 % (32.0-36.0); Mean Corpuscular Volume 92.1 fL (80.0-100.0); Mean Platelet Volume 7.8 fL (7.0-11.0); Mono # (Auto) 0.7 th/mm3 (0.0-0.9); Mono % (Auto) 4.7 % (0.0-8.0); Neut # (Auto) 10.9 th/mm3 (1.8-7.7); Neut % (Auto) 76.9 % (16.0-70.0); Platelet Count 320 th/mm3 (150-450); Red Blood Count 3.03 mil/mm3 (4.00-5.30); Red Cell Distribution Width 14.9 % (11.6-17.2); White Blood Count 14.2 th/mm3 (4.0-11.0)
[2018-03-11 05:25] LABS: Albumin 1.6 g/dL (3.4-5.0); Anion Gap 10 meq/L (5-15); Aspartate Aminotransferase 44 U/L (15-37); Blood Urea Nitrogen 13 mg/dL (7-18); Calcium 8.4 mg/dL (8.5-10.1); Carbon Dioxide 28.8 meq/L (21.0-32.0); Chloride 100 meq/L (98-107); Glomerular Filtration Rate 49 mL/min (>89); Glucose,Random 139 mg/dL (74-106); Potassium 3.3 meq/L (3.5-5.1); Sodium 139 meq/L (136-145)
[2018-03-11 05:27] LABS: Alanine Aminotransferase 32 U/L (10-53)
[2018-03-11 05:29] LABS: Alkaline Phosphatase 111 U/L (45-117); Total Protein 5.8 g/dL (6.4-8.2)
[2018-03-11] MEDS: Potassium Chlor 40 mEq Premix 40 MEQ/100 ML PIGGYBACK IV.SIG PRN (06:38)
--- NOTE | 2018-03-11 09:38 | P.PNCC ---
Subjective Subjective Remarks/Hospital Course: 03/04: 72-year-old female was brought by EMS after patient was found unresponsive at home. Patient's son states that he did not see the patient yesterday. Patient lives alone by herself. Patient's son states that he receive a phone call from the patient this afternoon about 2 hours prior to arrival that patient was calling for help. Patient's son came to the house and found her almost unresponsive. EMS was called. Patient was found to be hypotensive and bradycardic. She was moaning incoherently. External pacer was applied to the patient and the patient was transported to ED for an evaluation. Patient son states the patient has no medical problem. EKG obtained in the emergency department showed acute ST elevations myocardial infarction patient was emergently taken to cardiac catheterization lab. She was found to have RCA occlusion that was stented by Dr. Benavidez. Intra-aortic balloon pump was also inserted and the patient is now admitted to CVICU. 03/05: Remains sedated, orally intubated on mech vent. IABP in place. On Heparin/ Aggrastat/ Dopamine/ Propofol/ NS@84cc/hr 03/06: Remains sedated, orally intubated on mechanical ventilation. IABP in place. On dopamine at 8 mics per KG per minute. Propofol/NS at 84 cc/h. Yesterday she awakened unenlightening sedation and attempted reaching up for ET tube with both hands however was not following commands. In view of hypotension we will add Precedex and try to titrate down on propofol. 03/07: Sedated, arousable, orally intubated on mechanical ventilation. IABP remains in place. Dopamine titrated off this morning. On Precedex gtt. Borderline urine output. Significant positive fluid balance in the last 48 hours. Changing NS to LR as maintenance IV fluid in view of hyperchloremic metabolic acidosis. 03/08: Sedated, orally intubated on mechanical ventilation. Had episode of hypoxia last night which PEEP was increased to +8 and FiO2 to 90%, subsequently FiO2 decreased to 65%. She was started on empiric antibiotics for left lower lobe pneumonia seen on chest x-ray over the last 48 hours. Significant positive fluid balance noted. On dopamine 1 mcg/kg/min. Given Lasix 20 mg IV this morning to mobilize fluid. 03/09: Remains sedated, orally intubated on mechanical ventilation. Sputum growing Klebsiella/Pseudomonas and MRSA. On Zosyn and Zyvox.Positive fluid balance noted. On dopamine. Lasix to mobilize fluid. Significant pulmonary secretions. 03/10 Patient remains intubated and sedated with Versed and Precedex drip. T:99.7 , on Dopamine 3.5 mics. 03/11 No events overnight. Sedated and intubated. Afebrile. Objective Vital Signs / I&O: Vital Signs 03/10/18 10:00 03/10/18 10:02 03/10/18 11:00 Temperature 99.7 F H Pulse Rate 80 76 Respiratory Rate 15 16 15 Blood Pressure 103/50 L Pulse Oximetry 97 03/10/18 13:22 03/10/18 15:00 03/10/18 15:57 Temperature 98.4 F Pulse Rate 77 74 Respiratory Rate 14 16 14 Blood Pressure 116/56 L Pulse Oximetry 94 L 03/10/18 16:05 03/10/18 19:00 03/10/18 20:45 Temperature 98.4 F Pulse Rate 66 Respiratory Rate 14 14 14 Blood Pressure 97/48 L Pulse Oximetry 95 96 99 03/10/18 21:51 03/10/18 23:00 03/11/18 01:35 Temperature 98.4 F Pulse Rate 68 70 Respiratory Rate 14 14 14 Blood Pressure 78/44 L Pulse Oximetry 96 97 03/11/18 03:00 03/11/18 03:56 03/11/18 04:34 Temperature 98.7 F Pulse Rate 85 79 Respiratory Rate 14 14 14 Blood Pressure 147/60 H Pulse Oximetry 94 L 97 03/11/18 08:17 03/11/18 08:26 Temperature Pulse Rate 87 Respiratory Rate 19 19 Blood Pressure Pulse Oximetry 98 Intake & Output 03/10/18 03/11/18 03/11/18 18:59 06:59 18:59 Intake Total 1109 / 1109 594 / 594 Output Total 2600 / 2600 2500 / 2500 Balance -1491 / -1491 -1906 / -1906 Weight 84 kg Intake: IV 704 / 704 204 / 204 Precedex Inj 200 MCG In NS Inj 100 / 100 100 / 100 48 ML @ 0.2 MCG/KG/HR 3.3 mls/ hr IV.CONT TITRATE PRN Rx#: [id number] Versed Inj 50 mg In 50 ml @ 2 54 / 54 54 / 54 MG/HR 2 mls/hr IV.CONT TITRATE PRN Rx#:[id number] Zyvox 600 mg Premix 300 ML @ 300 / 300 300 mls/hr IV.SIG Q12H [facility] Rx#: [id number] Zosyn 3.375 GM Premix 50 ML @ 150 / 150 50 / 50 100 mls/hr IV.SIG Q6H [facility] Rx#: [id number] KCl 40 mEq Premix Inj 40 meq In 100 / 100 100 ml @ 25 mls/hr IV.SIG UNSCH PRN Rx#:[id number] Tube Feeding 315 / 315 340 / 340 Tube Irrigant 90 / 90 Water Bolus Amount 50 / 50 Output: Urine Amount (Catheter) 2600 / 2600 2500 / 2500 Indwelling Urethral Catheter 2600 / 2600 2500 / 2500 Result Diagrams: 03/11/18 04:30 03/11/18 04:30 Other Results: Abnormal Lab Results 03/09/18 03/10/18 03/10/18 15:13 14:20 17:23 WBC RBC Hgb Hct MCV MCH MCHC RDW Plt Count MPV Neut % (Auto) Lymph % (Auto) [place] % (Auto) Eos % (Auto) Baso % (Auto) Neut # (Auto) Lymph # (Auto) [place] # (Auto) Eos # (Auto) Baso # (Auto) WBC Differential Differential Comment Puncture Site Left radial Patient Temperature 98.6 O2 Saturation 92 ABG pH 7.46 H ABG pCO2 39 ABG pO2 69 ABG HCO3 27 H ABG O2 Content 17.3 ABG Base Excess 3.5 H ABG Methemoglobin 1.2 Rony Test Present Hemoglobin 13.3 Carboxyhemoglobin 0.8 O2 Delivery Device Ventilator Vent Setting Prvc/14/500/0.9/+8 Inspired O2 50 Critical Value No Sodium Potassium Chloride Carbon Dioxide Anion Gap BUN Creatinine Estimated GFR POC Glucose 135 H Random Glucose Calcium Total Bilirubin AST ALT Alkaline Phosphatase Total Protein Albumin Blood Type A Positive Blood Type Recheck Required Antibody Screen Negative MTS Gel Crossmatch See Detail 03/11/18 03/11/18 03/11/18 01:14 04:30 04:30 WBC 14.2 H RBC 3.03 L Hgb 9.4 L Hct 27.9 L MCV 92.1 MCH 31.0 MCHC 33.6 RDW 14.9 Plt Count 320 MPV 7.8 Neut % (Auto) 76.9 H Lymph % (Auto) 15.7 [place] % (Auto) 4.7 Eos % (Auto) 2.4 Baso % (Auto) 0.3 Neut # (Auto) 10.9 H Lymph # (Auto) 2.2 [place] # (Auto) 0.7 Eos # (Auto) 0.3 Baso # (Auto) 0.0 WBC Differential . Differential Comment Auto diff final Puncture Site Patient Temperature O2 Saturation ABG pH ABG pCO2 ABG pO2 ABG HCO3 ABG O2 Content ABG Base Excess ABG Methemoglobin Rony Test Hemoglobin Carboxyhemoglobin O2 Delivery Device Vent Setting Inspired O2 Critical Value Sodium 139 Potassium 3.3 L Chloride 100 Carbon Dioxide 28.8 Anion Gap 10 BUN 13 Creatinine 1.10 H Estimated GFR 49 L POC Glucose 139 H Random Glucose 139 H Calcium 8.4 L Total Bilirubin 0.4 AST 44 H ALT 32 Alkaline Phosphatase 111 Total Protein 5.8 L Albumin 1.6 L Blood Type Blood Type Recheck Antibody Screen MTS Gel Crossmatch Imaging: Head CT 03/04/18 17:39 CONCLUSION: 1. Negative CT Head non contrast. . Hand X-Ray 03/06/18 00:00 CONCLUSION: Prominent dorsal hand soft tissue swelling. No fracture seen. Chest X-Ray 03/10/18 05:00 CONCLUSION: Worsening appearance of the chest. Objective Remarks: GENERAL: Patient is 72 yo intubated and sedated SKIN: Warm and dry. HEAD: Normocephalic. EYES: No scleral icterus. No injection or drainage. NECK: Supple, trachea midline. No JVD or lymphadenopathy. CARDIOVASCULAR: Regular rate and rhythm without murmurs, gallops, or rubs. RESPIRATORY: Breath sounds equal bilaterally. No accessory muscle use. GASTROINTESTINAL: Abdomen soft, non-tender, nondistended. MUSCULOSKELETAL: No cyanosis, or edema. Neuro: Sedated Assessment and Plan - Assessment and Plan Plan: Neuro: Encephalopathy On Versed and Precedex drip for sedation. Daily sedation vacation CT brain 03/04: No acute findings EEG 03/06: Mild slowing, no epileptiform features Neuro consulted- Dr. Coral Quinones VDRF Pneumonia -Continue with vent support keep sats >92% -On PRVC RR 14, TV 500, It:0.9, PEEP:8, FIO2: 55% -DuoNebs, Mucomyst nebs, on the Roto-Rest bed to mobilize secretions. -Vent bundle CV: Acute coronary syndrome Cardiogenic shock (resolved) -RCA occlusion -Status post cardiac catheterization and stent placement. LVEF 75% by cath. Echo with LVEF around 40%, normal RV, regional wall motion abnormalities. -Off Tirofiban gtt -Aspirin, Prasugrel -Change Dopamine to Levophed monitor HR and BP keep MAP>65mmHg -Intra-aortic balloon pump-discontinued 03/07 GI: Continue tube feeds Jevity 1.5@60ml/hr. ID: Pneumonia/ sepsis -On antibiotic coverage with IV Zosyn and Zyvox. 03/06, 03/06 Sputum: Kleb , Pseudomonas, Staph : Acute kidney injury..improving Monitor renal function, I/O's, electrolytes replacement per protocol. Will need K replacement today Continue Lasix 40mg IV TID Heme Monitor CBC Endo SSI for glycemic control DVT GI prophylaxis -Teds SCDs -Lovenox 40 mg subcutaneously daily -Pepcid Palliative care is following Critical Care: The total critical care time was 30 minutes. Time to perform other separately billable procedures was not included in the critical care time.
[2018-03-11] MEDS: Famotidine PF Inj 20 MG/2 ML Vial IV.PUSH SCH ×2 (09:51→21:29)
[2018-03-11] MEDS: Senna/Docusate Sodium 8.6/50 MG Tablet PO SCH ×2 (09:52→21:29)
[2018-03-11] MEDS: Chlorhexidine 0.12% Oral Kit 15 ML UDC OROPHARYNG SCH ×2 (09:55→21:28)
--- NOTE | 2018-03-11 11:31 | P.PNCC ---
Subjective Subjective Remarks/Hospital Course: 03/04: 72-year-old female was brought by EMS after patient was found unresponsive at home. Patient's son states that he did not see the patient yesterday. Patient lives alone by herself. Patient's son states that he receive a phone call from the patient this afternoon about 2 hours prior to arrival that patient was calling for help. Patient's son came to the house and found her almost unresponsive. EMS was called. Patient was found to be hypotensive and bradycardic. She was moaning incoherently. External pacer was applied to the patient and the patient was transported to ED for an evaluation. Patient son states the patient has no medical problem. EKG obtained in the emergency department showed acute ST elevations myocardial infarction patient was emergently taken to cardiac catheterization lab. She was found to have RCA occlusion that was stented by Dr. Benavidez. Intra-aortic balloon pump was also inserted and the patient is now admitted to CVICU. 03/05: Remains sedated, orally intubated on mech vent. IABP in place. On Heparin/ Aggrastat/ Dopamine/ Propofol/ NS@84cc/hr 03/06: Remains sedated, orally intubated on mechanical ventilation. IABP in place. On dopamine at 8 mics per KG per minute. Propofol/NS at 84 cc/h. Yesterday she awakened unenlightening sedation and attempted reaching up for ET tube with both hands however was not following commands. In view of hypotension we will add Precedex and try to titrate down on propofol. 03/07: Sedated, arousable, orally intubated on mechanical ventilation. IABP remains in place. Dopamine titrated off this morning. On Precedex gtt. Borderline urine output. Significant positive fluid balance in the last 48 hours. Changing NS to LR as maintenance IV fluid in view of hyperchloremic metabolic acidosis. 03/08: Sedated, orally intubated on mechanical ventilation. Had episode of hypoxia last night which PEEP was increased to +8 and FiO2 to 90%, subsequently FiO2 decreased to 65%. She was started on empiric antibiotics for left lower lobe pneumonia seen on chest x-ray over the last 48 hours. Significant positive fluid balance noted. On dopamine 1 mcg/kg/min. Given Lasix 20 mg IV this morning to mobilize fluid. 03/09: Remains sedated, orally intubated on mechanical ventilation. Sputum growing Klebsiella/Pseudomonas and MRSA. On Zosyn and Zyvox.Positive fluid balance noted. On dopamine. Lasix to mobilize fluid. Significant pulmonary secretions. 03/10 Patient remains intubated and sedated with Versed and Precedex drip. T:99.7 , on Dopamine 3.5 mics. 03/11 No events overnight. Sedated and intubated. Afebrile. 03/12 Patient remains sedated with Versed and Precedex drip. Afebrile. On PRVC with PEEP:8 and FIO2 50%. Objective Vital Signs / I&O: Vital Signs 03/10/18 13:22 03/10/18 15:00 03/10/18 15:57 Temperature 98.4 F Pulse Rate 77 74 Respiratory Rate 14 16 14 Blood Pressure 116/56 L Pulse Oximetry 94 L 03/10/18 16:05 03/10/18 19:00 03/10/18 20:45 Temperature 98.4 F Pulse Rate 66 Respiratory Rate 14 14 14 Blood Pressure 97/48 L Pulse Oximetry 95 96 99 03/10/18 21:51 03/10/18 23:00 03/11/18 01:35 Temperature 98.4 F Pulse Rate 68 70 Respiratory Rate 14 14 14 Blood Pressure 78/44 L Pulse Oximetry 96 97 03/11/18 03:00 03/11/18 03:56 03/11/18 04:34 Temperature 98.7 F Pulse Rate 85 79 Respiratory Rate 14 14 14 Blood Pressure 147/60 H Pulse Oximetry 94 L 97 03/11/18 08:17 03/11/18 08:26 Temperature Pulse Rate 87 Respiratory Rate 19 19 Blood Pressure Pulse Oximetry 98 Intake & Output 03/10/18 03/11/18 03/11/18 18:59 06:59 18:59 Intake Total 1109 / 1109 594 / 594 477 / 477 Output Total 2600 / 2600 2500 / 2500 Balance -1491 / -1491 -1906 / -1906 477 / 477 Weight 84 kg Intake: IV 704 / 704 204 / 204 477 / 477 Precedex Inj 200 MCG In NS Inj 100 / 100 100 / 100 48 ML @ 0.2 MCG/KG/HR 3.3 mls/ hr IV.CONT TITRATE PRN Rx#: [id number] LR 1000 mL Inj 1,000 ML @ 125 477 / 477 mls/hr IV.CONT .Q8H [facility] Rx#: [id number] Versed Inj 50 mg In 50 ml @ 2 54 / 54 54 / 54 MG/HR 2 mls/hr IV.CONT TITRATE PRN Rx#:[id number] Zyvox 600 mg Premix 300 ML @ 300 / 300 300 mls/hr IV.SIG Q12H [facility] Rx#: [id number] Zosyn 3.375 GM Premix 50 ML @ 150 / 150 50 / 50 100 mls/hr IV.SIG Q6H [facility] Rx#: [id number] KCl 40 mEq Premix Inj 40 meq In 100 / 100 100 ml @ 25 mls/hr IV.SIG UNSCH PRN Rx#:[id number] Tube Feeding 315 / 315 340 / 340 Tube Irrigant 90 / 90 Water Bolus Amount 50 / 50 Output: Urine Amount (Catheter) 2600 / 2600 2500 / 2500 Indwelling Urethral Catheter 2600 / 2600 2500 / 2500 Result Diagrams: 03/11/18 04:30 03/11/18 04:30 Other Results: Laboratory Results - last 12 hr 03/11/18 03/11/18 03/11/18 01:14 04:30 04:30 WBC 14.2 H RBC 3.03 L Hgb 9.4 L Hct 27.9 L MCV 92.1 MCH 31.0 MCHC 33.6 RDW 14.9 Plt Count 320 MPV 7.8 Neut % (Auto) 76.9 H Lymph % (Auto) 15.7 [place] % (Auto) 4.7 Eos % (Auto) 2.4 Baso % (Auto) 0.3 Neut # (Auto) 10.9 H Lymph # (Auto) 2.2 [place] # (Auto) 0.7 Eos # (Auto) 0.3 Baso # (Auto) 0.0 WBC Differential . Differential Comment Auto diff final Sodium 139 Potassium 3.3 L Chloride 100 Carbon Dioxide 28.8 Anion Gap 10 BUN 13 Creatinine 1.10 H Estimated GFR 49 L POC Glucose 139 H Random Glucose 139 H Calcium 8.4 L Total Bilirubin 0.4 AST 44 H ALT 32 Alkaline Phosphatase 111 Total Protein 5.8 L Albumin 1.6 L Imaging: Head CT 03/04/18 17:39 CONCLUSION: 1. Negative CT Head non contrast. . Hand X-Ray 03/06/18 00:00 CONCLUSION: Prominent dorsal hand soft tissue swelling. No fracture seen. Chest X-Ray 03/10/18 05:00 CONCLUSION: Worsening appearance of the chest. Objective Remarks: GENERAL: Patient is 72 yo intubated and sedated SKIN: Warm and dry. HEAD: Normocephalic. EYES: No scleral icterus. No injection or drainage. NECK: Supple, trachea midline. No JVD or lymphadenopathy. CARDIOVASCULAR: Regular rate and rhythm without murmurs, gallops, or rubs. RESPIRATORY: Breath sounds equal bilaterally. No accessory muscle use. GASTROINTESTINAL: Abdomen soft, non-tender, nondistended. MUSCULOSKELETAL: No cyanosis, or edema. Neuro: Sedated Assessment and Plan - Assessment and Plan Plan: Neuro: Encephalopathy On Versed and Precedex drip for sedation. Daily sedation vacation CT brain 03/04: No acute findings EEG 03/06: Mild slowing, no epileptiform features Neuro consulted- Dr. Coral Quinones VDRF Pneumonia -Continue with vent support keep sats >92% -On PRVC RR 14, TV 500, It:0.9, PEEP:8, FIO2: 50%. Decrease FIO2 40% -DuoNebs, Mucomyst nebs, on the Roto-Rest bed to mobilize secretions. -Vent bundle CV: Acute coronary syndrome Cardiogenic shock (resolved) -RCA occlusion -Status post cardiac catheterization and stent placement. LVEF 75% by cath. Echo with LVEF around 40%, normal RV, regional wall motion abnormalities. -Off Tirofiban gtt -Aspirin, Prasugrel -Wean off Dopamine and change to Levophed if needed monitor HR and BP keep MAP> 65mmHg -Intra-aortic balloon pump-discontinued 03/07 GI: Continue tube feeds Jevity 1.5@60ml/hr. ID: Pneumonia/ sepsis -On antibiotic coverage with IV Zosyn and Zyvox. -Monitor for signs of infections ( Fever, WBC) WBC is trending down. 03/06, 03/07 Sputum: Kleb , Pseudomonas, Staph : Acute kidney injury..improving Monitor renal function, I/O's, electrolytes replacement per protocol. Will need K replacement today Continue Lasix 40mg IV TID Heme Monitor CBC Endo SSI for glycemic control DVT GI prophylaxis -Teds SCDs -Lovenox 40 mg subcutaneously daily -Pepcid Palliative care is following Critical Care: The total critical care time was 30 minutes. Time to perform other separately billable procedures was not included in the critical care time.
[2018-03-11] MEDS: Enoxaparin Inj 40 MG/0.4 ML Syringe SQ SCH (12:59)
--- NOTE | 2018-03-11 14:08 | P.PNCA ---
Subjective Interval history: intubated, sedated Physical Exam Vital signs: Vital Signs 03/10/18 15:00 03/10/18 15:57 03/10/18 16:05 Temperature 98.4 F Pulse Rate 77 74 Respiratory Rate 16 14 14 Blood Pressure 116/56 L Pulse Oximetry 95 03/10/18 19:00 03/10/18 20:45 03/10/18 21:51 Temperature 98.4 F Pulse Rate 66 68 Respiratory Rate 14 14 14 Blood Pressure 97/48 L Pulse Oximetry 96 99 03/10/18 23:00 03/11/18 01:35 03/11/18 03:00 Temperature 98.4 F 98.7 F Pulse Rate 70 85 Respiratory Rate 14 14 14 Blood Pressure 78/44 L 147/60 H Pulse Oximetry 96 97 94 L 03/11/18 03:56 03/11/18 04:34 03/11/18 08:17 Temperature Pulse Rate 79 Respiratory Rate 14 14 19 Blood Pressure Pulse Oximetry 97 98 03/11/18 08:26 Temperature Pulse Rate 87 Respiratory Rate 19 Blood Pressure Pulse Oximetry Intake & Output 03/10/18 03/11/18 03/11/18 18:59 06:59 18:59 Intake Total 1109 / 1109 644 / 644 477 / 477 Output Total 2600 / 2600 2500 / 2500 Balance -1491 / -1491 -1856 / -1856 477 / 477 Weight 84 kg Intake: IV 704 / 704 254 / 254 477 / 477 Precedex Inj 200 MCG In NS Inj 100 / 100 100 / 100 48 ML @ 0.2 MCG/KG/HR 3.3 mls/ hr IV.CONT TITRATE PRN Rx#: [id number] LR 1000 mL Inj 1,000 ML @ 125 477 / 477 mls/hr IV.CONT .Q8H [facility] Rx#: [id number] Versed Inj 50 mg In 50 ml @ 2 54 / 54 54 / 54 MG/HR 2 mls/hr IV.CONT TITRATE PRN Rx#:[id number] Zyvox 600 mg Premix 300 ML @ 300 / 300 300 mls/hr IV.SIG Q12H [facility] Rx#: [id number] Zosyn 3.375 GM Premix 50 ML @ 150 / 150 100 / 100 100 mls/hr IV.SIG Q6H [facility] Rx#: [id number] KCl 40 mEq Premix Inj 40 meq In 100 / 100 100 ml @ 25 mls/hr IV.SIG UNSCH PRN Rx#:[id number] Tube Feeding 315 / 315 340 / 340 Tube Irrigant 90 / 90 Water Bolus Amount 50 / 50 Output: Urine Amount (Catheter) 2600 / 2600 2500 / 2500 Indwelling Urethral Catheter 2600 / 2600 2500 / 2500 - Urinary Catheter Management Indwelling Urethral Catheter Cath placed during this visit: yes Reason for continuing: Hourly intake/output Insertion date: 03/04/18 Insertion time: 22:00 Assessment and Plan - Assessment (1) CAD (coronary artery disease) Code(s): I25.10 - Atherosclerotic heart disease of [place] coronary artery without angina pectoris Status: Acute (2) STEMI (ST elevation myocardial infarction) Code(s): I21.3 - ST elevation (STEMI) myocardial infarction of unspecified site Status: Acute (3) Cardiogenic shock Code(s): R57.0 - Cardiogenic shock Status: Acute (4) Encephalopathy Code(s): G93.40 - Encephalopathy, unspecified Status: Acute - Plan 1.) POD # 7 primary pci prox rca, rv infarct, off dopamine; mental status improving, but remains uncertain as she is sedated, neurology following, continue aspirin, effient, has rv infarct, weight up 18 kg since admit, u/o improving, hopefully will start mobilizing more fluid, on abs for pneumonia, s/ p transfusion 03/09/18, d/w Dr Leung
[2018-03-12] MEDS: Piperacil/Tazo 3.375 GM Premix 50 ML IV.SIG SCH ×4 (00:13→18:15)
[2018-03-12] MEDS: Insulin NovoLIN Regular Correctional Sugar Inj SQ SCH ×4 (00:14→19:05)
[2018-03-12] MEDS: Oral Hygiene Kit OROPHARYNG SCH ×4 (00:15→18:18)
[2018-03-12] MEDS: Dexmedetomidine Inj 200 MCG in Sodium Chlor 0.9% Inj 48 ML IV.CONT PRN (04:29)
[2018-03-12 05:31] LABS: Baso # (Auto) 0.1 th/mm3 (0.0-0.2); Baso % (Auto) 0.7 % (0.0-2.0); Eos # (Auto) 0.2 th/mm3 (0.0-0.4); Hematocrit 27.1 % (35.0-46.0); Hemoglobin 9.2 gm/dL (11.6-15.3); Lymph # (Auto) 2.2 th/mm3 (1.0-4.8); Lymph % (Auto) 13.2 % (9.0-44.0); Mean Corpuscular HGB Conc 33.9 % (32.0-36.0); Mean Corpuscular Volume 91.6 fL (80.0-100.0); Mean Platelet Volume 7.8 fL (7.0-11.0); Mono # (Auto) 0.6 th/mm3 (0.0-0.9); Mono % (Auto) 3.4 % (0.0-8.0); Neut # (Auto) 13.9 th/mm3 (1.8-7.7); Neut % (Auto) 81.7 % (16.0-70.0); Platelet Count 381 th/mm3 (150-450); Red Blood Count 2.96 mil/mm3 (4.00-5.30); Red Cell Distribution Width 14.8 % (11.6-17.2)
[2018-03-12 05:50] LABS: Albumin 1.7 g/dL (3.4-5.0); Anion Gap 7 meq/L (5-15); Aspartate Aminotransferase 38 U/L (15-37); Blood Urea Nitrogen 15 mg/dL (7-18); Calcium 8.2 mg/dL (8.5-10.1); Carbon Dioxide 33.1 meq/L (21.0-32.0); Chloride 99 meq/L (98-107); Glomerular Filtration Rate 36 mL/min (>89); Glucose,Random 197 mg/dL (74-106); Potassium 3.1 meq/L (3.5-5.1); Sodium 139 meq/L (136-145)
[2018-03-12 05:53] LABS: Alanine Aminotransferase 32 U/L (10-53); Alkaline Phosphatase 128 U/L (45-117); Total Protein 6.2 g/dL (6.4-8.2)
[2018-03-12] MEDS: Potassium Chlor 40 mEq Premix 40 MEQ/100 ML PIGGYBACK IV.SIG PRN ×2 (07:21→12:38)
--- NOTE | 2018-03-12 09:20 | P.PNCC ---
Subjective Subjective Remarks/Hospital Course: 03/04: 72-year-old female was brought by EMS after patient was found unresponsive at home. Patient's son states that he did not see the patient yesterday. Patient lives alone by herself. Patient's son states that he receive a phone call from the patient this afternoon about 2 hours prior to arrival that patient was calling for help. Patient's son came to the house and found her almost unresponsive. EMS was called. Patient was found to be hypotensive and bradycardic. She was moaning incoherently. External pacer was applied to the patient and the patient was transported to ED for an evaluation. Patient son states the patient has no medical problem. EKG obtained in the emergency department showed acute ST elevations myocardial infarction patient was emergently taken to cardiac catheterization lab. She was found to have RCA occlusion that was stented by Dr. Benavidez. Intra-aortic balloon pump was also inserted and the patient is now admitted to CVICU. 03/05: Remains sedated, orally intubated on mech vent. IABP in place. On Heparin/ Aggrastat/ Dopamine/ Propofol/ NS@84cc/hr 03/06: Remains sedated, orally intubated on mechanical ventilation. IABP in place. On dopamine at 8 mics per KG per minute. Propofol/NS at 84 cc/h. Yesterday she awakened unenlightening sedation and attempted reaching up for ET tube with both hands however was not following commands. In view of hypotension we will add Precedex and try to titrate down on propofol. 03/07: Sedated, arousable, orally intubated on mechanical ventilation. IABP remains in place. Dopamine titrated off this morning. On Precedex gtt. Borderline urine output. Significant positive fluid balance in the last 48 hours. Changing NS to LR as maintenance IV fluid in view of hyperchloremic metabolic acidosis. 03/08: Sedated, orally intubated on mechanical ventilation. Had episode of hypoxia last night which PEEP was increased to +8 and FiO2 to 90%, subsequently FiO2 decreased to 65%. She was started on empiric antibiotics for left lower lobe pneumonia seen on chest x-ray over the last 48 hours. Significant positive fluid balance noted. On dopamine 1 mcg/kg/min. Given Lasix 20 mg IV this morning to mobilize fluid. 03/09: Remains sedated, orally intubated on mechanical ventilation. Sputum growing Klebsiella/Pseudomonas and MRSA. On Zosyn and Zyvox.Positive fluid balance noted. On dopamine. Lasix to mobilize fluid. Significant pulmonary secretions. 03/10 Patient remains intubated and sedated with Versed and Precedex drip. T:99.7 , on Dopamine 3.5 mics. 03/11 No events overnight. Sedated and intubated. Afebrile. 03/12 Patient remains sedated with Versed and Precedex drip. Afebrile. On PRVC with PEEP:8 and FIO2 50%. 03/13 No events overnight. On Precedex drip for sedation, off Dopamine and Versed drip. On Levophed 4 mics with MAP:72mmHg. Objective Vital Signs / I&O: Vital Signs 03/11/18 11:00 03/11/18 15:00 03/11/18 17:15 Temperature 98.7 F 98.9 F Pulse Rate 68 68 65 Respiratory Rate 17 15 14 Blood Pressure 66/33 L 118/62 Pulse Oximetry 99 97 03/11/18 17:16 03/11/18 19:00 03/11/18 19:48 Temperature Pulse Rate 68 69 Respiratory Rate 14 17 Blood Pressure Pulse Oximetry 95 97 03/11/18 20:00 03/11/18 23:35 03/12/18 00:00 Temperature 98.8 F 99.3 F Pulse Rate 68 74 Respiratory Rate 19 16 14 Blood Pressure 90/46 L 111/52 L Pulse Oximetry 98 97 100 03/12/18 00:25 03/12/18 03:00 03/12/18 03:40 Temperature 98.6 F Pulse Rate 76 71 Respiratory Rate 15 14 Blood Pressure 118/57 L Pulse Oximetry 97 98 03/12/18 03:43 03/12/18 04:10 Temperature Pulse Rate 69 69 Respiratory Rate 14 Blood Pressure Pulse Oximetry Intake & Output 03/11/18 03/12/18 03/12/18 18:59 06:59 18:59 Intake Total 527 / 527 1469 / 1469 Output Total 2950 / 2950 2325 / 2325 Balance -2423 / -2423 -856 / -856 Weight 76.1 kg Intake: IV 527 / 527 950 / 950 Precedex Inj 200 MCG In NS Inj 150 / 150 48 ML @ 0.2 MCG/KG/HR 3.3 mls/ hr IV.CONT TITRATE PRN Rx#: [id number] LR 1000 mL Inj 1,000 ML @ 125 477 / 477 mls/hr IV.CONT .Q8H SHAYNE Rx#: [id number] Versed Inj 50 mg In 50 ml @ 2 50 / 50 MG/HR 2 mls/hr IV.CONT TITRATE PRN Rx#:[id number] Zyvox 600 mg Premix 300 ML @ 300 / 300 300 mls/hr IV.SIG Q12H SHAYNE Rx#: [id number] Levophed-Dextrose 4 mg/250 ml 250 / 250 Drip 4 mg In 250 ml @ 2 MCG/MIN 7.5 mls/hr IV.SIG TITRATE PRN Rx#:[id number] Zosyn 3.375 GM Premix 50 ML @ 50 / 50 100 / 100 100 mls/hr IV.SIG Q6H SHAYNE Rx#: [id number] KCl 40 mEq Premix Inj 40 meq In 100 / 100 100 ml @ 25 mls/hr IV.SIG Q2H PRN Rx#:[id number] Tube Feeding 429 / 429 Water Bolus Amount 90 / 90 Output: Urine Amount (Catheter) 2950 / 2950 2325 / 2325 Indwelling Urethral Catheter 2950 / 2950 2325 / 2325 Other: Date of Last Bowel Movement 03/11/18 03/12/18 Result Diagrams: 03/12/18 05:15 03/12/18 05:15 Other Results: Laboratory Results - last 12 hr 03/12/18 03/12/18 03/12/18 00:03 05:15 05:15 WBC 17.0 H RBC 2.96 L Hgb 9.2 L Hct 27.1 L MCV 91.6 MCH 31.0 MCHC 33.9 RDW 14.8 Plt Count 381 MPV 7.8 Neut % (Auto) 81.7 H Lymph % (Auto) 13.2 [place] % (Auto) 3.4 Eos % (Auto) 1.0 Baso % (Auto) 0.7 Neut # (Auto) 13.9 H Lymph # (Auto) 2.2 [place] # (Auto) 0.6 Eos # (Auto) 0.2 Baso # (Auto) 0.1 WBC Differential . Differential Comment Auto diff final Sodium 139 Potassium 3.1 L Chloride 99 Carbon Dioxide 33.1 H Anion Gap 7 BUN 15 Creatinine 1.41 H Estimated GFR 36 L POC Glucose 170 H Random Glucose 197 H Calcium 8.2 L Total Bilirubin 0.3 AST 38 H ALT 32 Alkaline Phosphatase 128 H Total Protein 6.2 L Albumin 1.7 L 03/12/18 05:19 WBC RBC Hgb Hct MCV MCH MCHC RDW Plt Count MPV Neut % (Auto) Lymph % (Auto) [place] % (Auto) Eos % (Auto) Baso % (Auto) Neut # (Auto) Lymph # (Auto) [place] # (Auto) Eos # (Auto) Baso # (Auto) WBC Differential Differential Comment Sodium Potassium Chloride Carbon Dioxide Anion Gap BUN Creatinine Estimated GFR POC Glucose 208 H Random Glucose Calcium Total Bilirubin AST ALT Alkaline Phosphatase Total Protein Albumin Imaging: Head CT 03/04/18 17:39 CONCLUSION: 1. Negative CT Head non contrast. . Hand X-Ray 03/06/18 00:00 CONCLUSION: Prominent dorsal hand soft tissue swelling. No fracture seen. Chest X-Ray 03/10/18 05:00 CONCLUSION: Worsening appearance of the chest. Objective Remarks: GENERAL: Patient is 72 yo intubated and sedated SKIN: Warm and dry. HEAD: Normocephalic. EYES: No scleral icterus. No injection or drainage. NECK: Supple, trachea midline. No JVD or lymphadenopathy. CARDIOVASCULAR: Regular rate and rhythm without murmurs, gallops, or rubs. RESPIRATORY: Breath sounds equal bilaterally. No accessory muscle use. GASTROINTESTINAL: Abdomen soft, non-tender, nondistended. MUSCULOSKELETAL: No cyanosis, or edema. Neuro: Sedated Assessment and Plan - Assessment and Plan Plan: Neuro: Encephalopathy Wean off Precedex drip , off Versed. Daily sedation vacation CT brain 03/04: No acute findings EEG 03/06: Mild slowing, no epileptiform features Neuro consulted- Dr. Coral Quinones VDRF Pneumonia -Continue with vent support keep sats >92% -On PRVC RR 14, TV 500, It:0.9, PEEP:8, FIO2: 45%. Decrease FIO2 40% & PEEP:5 -DuoNebs, Mucomyst nebs, on the Roto-Rest bed to mobilize secretions. -Vent bundle, SBT daily as betsey -Check CXR CV: Acute coronary syndrome Cardiogenic shock (resolved) -RCA occlusion -Status post cardiac catheterization and stent placement. LVEF 75% by cath. Echo with LVEF around 40%, normal RV, regional wall motion abnormalities. -Off Tirofiban gtt -Aspirin, Prasugrel -Wean off Levophed monitor HR and BP keep MAP>65mmHg -Intra-aortic balloon pump-discontinued 03/07 GI: Continue tube feeds Jevity 1.5@60ml/hr. ID: Pneumonia/ sepsis -On antibiotic coverage with IV Zosyn and Zyvox. -Monitor for signs of infections ( Fever, WBC) 03/06, 03/07 Sputum: Kleb , Pseudomonas, Staph -Check sputum cx : Monitor renal function, I/O's, electrolytes replacement per protocol. Cr: 1.41 from 1.10 Will need K replacement today Continue Lasix 40mg IV TID Heme Monitor CBC Endo SSI for glycemic control DVT GI prophylaxis -Teds SCDs -Lovenox 40 mg subcutaneously daily -Pepcid Palliative care is following Critical Care: The total critical care time was 30 minutes. Time to perform other separately billable procedures was not included in the critical care time.
--- NOTE | 2018-03-12 10:31 | XR ---
EXAM DATE: 03/12/2018 9:51 AM EDT AGE/SEX: 72 years / Female INDICATIONS: Shortness of breath. CLINICAL DATA: This is the patient's sequela encounter. Patient reports that signs and symptoms have been present for 3 days and indicates a pain score of Nonresponsive. MEDICAL/SURGICAL HISTORY: . Stem Non-responsive. COMPARISON: [facility], CHEST 1V SINGLE AP, 03/10/2018. . FINDINGS: Endotracheal tube in good position. NG tip in GE junction with side-port in distal esophagus. Right c entral line in superior vena cava. Bilateral mostly basilar airspace disease, left greater than right . No pneumothorax. CONCLUSION: NG tip at GE junction with side port in distal esophagus. Basilar airspace disease and probable small effusions similar to March 10. Endotracheal tube and righ t central line in good position. Electronically signed by: Ken Loza MD 03/12/2018 10:29 AM EDT
[2018-03-12] MEDS: Famotidine PF Inj 20 MG/2 ML Vial IV.PUSH SCH ×2 (10:35→21:14)
[2018-03-12] MEDS: Senna/Docusate Sodium 8.6/50 MG Tablet PO SCH ×2 (10:35→21:14)
--- NOTE | 2018-03-12 10:36 | P.PNPAL ---
[email or web address] search results obtained: * James Hodge: -- wrong number * -- vm for "James Cardoso"-- left message requesting call back * -- rings then rings busy/disconnected * --recording for moving service * Possible match found on social media, private message sent requesting call. Palliative care will continue to follow throughout hospitalization.
[2018-03-12] MEDS: Chlorhexidine 0.12% Oral Kit 15 ML UDC OROPHARYNG SCH ×2 (10:37→21:15)
--- NOTE | 2018-03-12 11:25 | P.PNCA ---
Subjective Interval history: intubated, sedated Physical Exam Vital signs: Vital Signs 03/11/18 15:00 03/11/18 17:15 03/11/18 17:16 Temperature 98.9 F Pulse Rate 68 65 Respiratory Rate 15 14 14 Blood Pressure 118/62 Pulse Oximetry 97 95 03/11/18 19:00 03/11/18 19:48 03/11/18 20:00 Temperature 98.8 F Pulse Rate 68 69 68 Respiratory Rate 17 19 Blood Pressure 90/46 L Pulse Oximetry 97 98 03/11/18 23:35 03/12/18 00:00 03/12/18 00:25 Temperature 99.3 F Pulse Rate 74 76 Respiratory Rate 16 14 Blood Pressure 111/52 L Pulse Oximetry 97 100 03/12/18 03:00 03/12/18 03:40 03/12/18 03:43 Temperature 98.6 F Pulse Rate 71 69 Respiratory Rate 15 14 14 Blood Pressure 118/57 L Pulse Oximetry 97 98 03/12/18 04:10 03/12/18 09:37 Temperature Pulse Rate 69 Respiratory Rate 14 Blood Pressure Pulse Oximetry 99 Intake & Output 03/11/18 03/12/18 03/12/18 18:59 06:59 18:59 Intake Total 527 / 527 1469 / 1469 300 / 300 Output Total 2950 / 2950 2325 / 2325 Balance -2423 / -2423 -856 / -856 300 / 300 Weight 76.1 kg Intake: IV 527 / 527 950 / 950 300 / 300 Precedex Inj 200 MCG In NS Inj 150 / 150 48 ML @ 0.2 MCG/KG/HR 3.3 mls/ hr IV.CONT TITRATE PRN Rx#: [id number] LR 1000 mL Inj 1,000 ML @ 125 477 / 477 mls/hr IV.CONT .Q8H SHAYNE Rx#: [id number] Versed Inj 50 mg In 50 ml @ 2 50 / 50 MG/HR 2 mls/hr IV.CONT TITRATE PRN Rx#:[id number] Zyvox 600 mg Premix 300 ML @ 300 / 300 300 / 300 300 mls/hr IV.SIG Q12H SHAYNE Rx#: [id number] Levophed-Dextrose 4 mg/250 ml 250 / 250 Drip 4 mg In 250 ml @ 2 MCG/MIN 7.5 mls/hr IV.SIG TITRATE PRN Rx#:[id number] Zosyn 3.375 GM Premix 50 ML @ 50 / 50 100 / 100 100 mls/hr IV.SIG Q6H SHAYNE Rx#: [id number] KCl 40 mEq Premix Inj 40 meq In 100 / 100 100 ml @ 25 mls/hr IV.SIG Q2H PRN Rx#:[id number] Tube Feeding 429 / 429 Water Bolus Amount 90 / 90 Output: Urine Amount (Catheter) 2950 / 2950 2325 / 2325 Indwelling Urethral Catheter 2950 / 2950 2325 / 2325 Other: Date of Last Bowel Movement 03/11/18 03/12/18 - Urinary Catheter Management Indwelling Urethral Catheter Cath placed during this visit: yes Reason for continuing: Hourly intake/output Insertion date: 03/04/18 Insertion time: 22:00 Assessment and Plan - Assessment (1) CAD (coronary artery disease) Code(s): I25.10 - Atherosclerotic heart disease of [place] coronary artery without angina pectoris Status: Acute (2) STEMI (ST elevation myocardial infarction) Code(s): I21.3 - ST elevation (STEMI) myocardial infarction of unspecified site Status: Acute (3) Cardiogenic shock Code(s): R57.0 - Cardiogenic shock Status: Acute (4) Encephalopathy Code(s): G93.40 - Encephalopathy, unspecified Status: Acute - Plan 1.) CAD - POD # 8 primary pci prox rca, rv infarct, off dopamine; mental status improving, but remains uncertain as she is sedated, neurology following, continue aspirin, effient, has rv infarct, weight down 8 kgs since 03/10/18, baseline is 66 kg, 76 kg 03/12/18, u/o improving, hopefully will start mobilizing more fluid, on abs for pneumonia, s/p transfusion 03/09/18, d/w Dr Leung
--- NOTE | 2018-03-12 12:31 | P.PNPAL ---
Reason for Visit Reason for visit: a. To assist with evaluation and management of symptoms including: Dyspnea, constipation b. To assist medical decision maker(s) with: better understanding of current medical conditions; weighing benefits/burdens of medical treatment options; making medical treatment decisions. Subjective Subjective/Interval History: Patient seen today to follow-up on dyspnea, goals with family. She remains intubated, in cardiac ICU. WBC trending up 17. CXR today=Basilar airspace disease and probable small effusions similar to March 10. Dopamine weaned off however resumed low-dose Levophed for hypotension today. Precedex held this morning since 10 AM for neurological assessment. Thus far patient tolerating per nursing report. S/p ACCURINT report completed (see Bhupendra Kelsey palliative SW note) to attempt search for legal thus far numbers have not returned spouse. Would proceed with 2 adult children serving as proxy at this point. Patient seen in room, son Trey at bedside. She is awake, eyes open. She does blink to threat. She does not track examiner. She is moving all 4 extremities spontaneously however she is not following commands. Intermittently seems to localize to touch though not consistently. Breathing comfortably on mechanical vent. Updated son on current assessment, diagnoses, the patient is still critically ill though stable, treatments in place, sedation vacation, ongoing neurological assessments, possible trajectory over the coming days. Review that going into next week if continues to require ventilator support and is not showing readiness for medical weaning they may consider tracheostomy and PEG tube. Review with him CODE STATUS, he indicates he and his sister spoke briefly regarding this but she was not comfortable making any decisions as of yet. Encouraged him to continue to discuss. All questions answered to the best of my ability. He verbalizes he and his sister have palliative contact information. They remain hopeful patient may show signs of improvement. Objective Vital Signs: Vital Signs 03/11/18 15:00 03/11/18 17:15 03/11/18 17:16 Temperature 98.9 F Pulse Rate 68 65 Respiratory Rate 15 14 14 Blood Pressure 118/62 Pulse Oximetry 97 95 03/11/18 19:00 03/11/18 19:48 03/11/18 20:00 Temperature 98.8 F Pulse Rate 68 69 68 Respiratory Rate 17 19 Blood Pressure 90/46 L Pulse Oximetry 97 98 03/11/18 23:35 03/12/18 00:00 03/12/18 00:25 Temperature 99.3 F Pulse Rate 74 76 Respiratory Rate 16 14 Blood Pressure 111/52 L Pulse Oximetry 97 100 03/12/18 03:00 03/12/18 03:40 03/12/18 03:43 Temperature 98.6 F Pulse Rate 71 69 Respiratory Rate 15 14 14 Blood Pressure 118/57 L Pulse Oximetry 97 98 03/12/18 04:10 03/12/18 09:37 Temperature Pulse Rate 69 Respiratory Rate 14 Blood Pressure Pulse Oximetry 99 Intake & Output 03/11/18 03/12/18 03/12/18 18:59 06:59 18:59 Intake Total 527 / 527 1469 / 1469 300 / 300 Output Total 2950 / 2950 2325 / 2325 Balance -2423 / -2423 -856 / -856 300 / 300 Weight 76.1 kg Intake: IV 527 / 527 950 / 950 300 / 300 Precedex Inj 200 MCG In NS Inj 150 / 150 48 ML @ 0.2 MCG/KG/HR 3.3 mls/ hr IV.CONT TITRATE PRN Rx#: [id number] LR 1000 mL Inj 1,000 ML @ 125 477 / 477 mls/hr IV.CONT .Q8H SHAYNE Rx#: [id number] Versed Inj 50 mg In 50 ml @ 2 50 / 50 MG/HR 2 mls/hr IV.CONT TITRATE PRN Rx#:[id number] Zyvox 600 mg Premix 300 ML @ 300 / 300 300 / 300 300 mls/hr IV.SIG Q12H SHAYNE Rx#: [id number] Levophed-Dextrose 4 mg/250 ml 250 / 250 Drip 4 mg In 250 ml @ 2 MCG/MIN 7.5 mls/hr IV.SIG TITRATE PRN Rx#:[id number] Zosyn 3.375 GM Premix 50 ML @ 50 / 50 100 / 100 100 mls/hr IV.SIG Q6H SHAYNE Rx#: [id number] KCl 40 mEq Premix Inj 40 meq In 100 / 100 100 ml @ 25 mls/hr IV.SIG Q2H PRN Rx#:[id number] Tube Feeding 429 / 429 Water Bolus Amount 90 / 90 Output: Urine Amount (Catheter) 2950 / 2950 2325 / 2325 Indwelling Urethral Catheter 2950 / 2950 2325 / 2325 Other: Date of Last Bowel Movement 03/11/18 03/12/18 Physical Exam: CONSTITUTIONAL/GENERAL: This is an adequately nourished patient, in no apparent distress. eyes open TUBES/LINES/DRAINS: Central line, ET tube, OG tube, Bryan catheter, Rotobed SKIN: No jaundice, rashes, or lesions. Multiple areas of ecchymosis bilateral upper extremities, hands. Skin warm and dry.+ Edema to upper extremities. CARDIOVASCULAR: Regular rate and rhythm without murmur. No JVD. Peripheral pulses symmetric.+ 2+ edema to upper extremities. RESPIRATORY/CHEST: Symmetric, unlabored respirations via mechanical vent. clear. Breath sounds equal bilaterally. GASTROINTESTINAL: Abdomen soft, no apparent tenderness though difficult to assess, nondistended. No hepato-splenomegaly, or palpable masses. Bowel sounds present. Tube feeds held. GENITOURINARY: Without palpable bladder distension. Bryan catheter in place. clear yellow urine. MUSCULOSKELETAL: Extremities without clubbing, cyanosis, or edema. No joint effusion noted. No mottling or clubbing. NEUROLOGICAL: sedation off. Awake/eyes open. Does not track examiner. +blink to threat. Does not follow commands. Moves all 4 extremities very weakly, spontaneously. ? localizes to touch. PSYCHIATRIC: No obvious anxiety/depression-limited assessment secondary to clinical condition. Diagnostic Tests Laboratory: Laboratory Results - last 72 hr 03/09/18 03/10/18 03/10/18 15:13 04:38 04:38 WBC 18.1 H RBC 3.11 L Hgb 9.7 L Hct 28.5 L MCV 91.6 MCH 31.1 MCHC 34.0 RDW 14.9 Plt Count 297 MPV 8.2 Neut % (Auto) 85.3 H Lymph % (Auto) 9.3 Starr % (Auto) 3.2 Eos % (Auto) 1.6 Baso % (Auto) 0.6 Neut # (Auto) 15.5 H Lymph # (Auto) 1.7 Starr # (Auto) 0.6 Eos # (Auto) 0.3 Baso # (Auto) 0.1 WBC Differential . Differential Comment Auto diff final Puncture Site Patient Temperature O2 Saturation ABG pH ABG pCO2 ABG pO2 ABG HCO3 ABG O2 Content ABG Base Excess ABG Methemoglobin Rony Test Hemoglobin Carboxyhemoglobin O2 Delivery Device Vent Setting Inspired O2 Critical Value Sodium 142 Potassium 3.0 L Chloride 105 Carbon Dioxide 26.6 Anion Gap 10 BUN 13 Creatinine 1.08 H Estimated GFR 50 L POC Glucose Random Glucose 201 H Calcium 7.7 L Total Bilirubin 0.3 AST 52 H ALT 30 Alkaline Phosphatase 113 Total Protein 5.4 L Albumin 1.5 L Blood Type A Positive Blood Type Recheck Required Antibody Screen Negative MTS Gel Crossmatch See Detail 03/10/18 03/10/18 03/11/18 14:20 17:23 01:14 WBC RBC Hgb Hct MCV MCH MCHC RDW Plt Count MPV Neut % (Auto) Lymph % (Auto) Starr % (Auto) Eos % (Auto) Baso % (Auto) Neut # (Auto) Lymph # (Auto) Starr # (Auto) Eos # (Auto) Baso # (Auto) WBC Differential Differential Comment Puncture Site Left radial Patient Temperature 98.6 O2 Saturation 92 ABG pH 7.46 H ABG pCO2 39 ABG pO2 69 ABG HCO3 27 H ABG O2 Content 17.3 ABG Base Excess 3.5 H ABG Methemoglobin 1.2 Rony Test Present Hemoglobin 13.3 Carboxyhemoglobin 0.8 O2 Delivery Device Ventilator Vent Setting Prvc/14/500/0.9/+8 Inspired O2 50 Critical Value No Sodium Potassium Chloride Carbon Dioxide Anion Gap BUN Creatinine Estimated GFR POC Glucose 135 H 139 H Random Glucose Calcium Total Bilirubin AST ALT Alkaline Phosphatase Total Protein Albumin Blood Type Blood Type Recheck Antibody Screen MTS Gel Crossmatch 03/11/18 03/11/18 03/11/18 04:30 04:30 12:52 WBC 14.2 H RBC 3.03 L Hgb 9.4 L Hct 27.9 L MCV 92.1 MCH 31.0 MCHC 33.6 RDW 14.9 Plt Count 320 MPV 7.8 Neut % (Auto) 76.9 H Lymph % (Auto) 15.7 Starr % (Auto) 4.7 Eos % (Auto) 2.4 Baso % (Auto) 0.3 Neut # (Auto) 10.9 H Lymph # (Auto) 2.2 Starr # (Auto) 0.7 Eos # (Auto) 0.3 Baso # (Auto) 0.0 WBC Differential . Differential Comment Auto diff final Puncture Site Patient Temperature O2 Saturation ABG pH ABG pCO2 ABG pO2 ABG HCO3 ABG O2 Content ABG Base Excess ABG Methemoglobin Rony Test Hemoglobin Carboxyhemoglobin O2 Delivery Device Vent Setting Inspired O2 Critical Value Sodium 139 Potassium 3.3 L Chloride 100 Carbon Dioxide 28.8 Anion Gap 10 BUN 13 Creatinine 1.10 H Estimated GFR 49 L POC Glucose 144 H Random Glucose 139 H Calcium 8.4 L Total Bilirubin 0.4 AST 44 H ALT 32 Alkaline Phosphatase 111 Total Protein 5.8 L Albumin 1.6 L Blood Type Blood Type Recheck Antibody Screen MTS Gel Crossmatch 03/11/18 03/11/18 03/12/18 16:00 18:58 00:03 WBC RBC Hgb Hct MCV MCH MCHC RDW Plt Count MPV Neut % (Auto) Lymph % (Auto) Starr % (Auto) Eos % (Auto) Baso % (Auto) Neut # (Auto) Lymph # (Auto) Starr # (Auto) Eos # (Auto) Baso # (Auto) WBC Differential Differential Comment Puncture Site Patient Temperature O2 Saturation ABG pH ABG pCO2 ABG pO2 ABG HCO3 ABG O2 Content ABG Base Excess ABG Methemoglobin Rony Test Hemoglobin Carboxyhemoglobin O2 Delivery Device Vent Setting Inspired O2 Critical Value Sodium Potassium 3.8 Chloride Carbon Dioxide Anion Gap BUN Creatinine Estimated GFR POC Glucose 193 H 170 H Random Glucose Calcium Total Bilirubin AST ALT Alkaline Phosphatase Total Protein Albumin Blood Type Blood Type Recheck Antibody Screen MTS Gel Crossmatch 03/12/18 03/12/18 03/12/18 05:15 05:15 05:19 WBC 17.0 H RBC 2.96 L Hgb 9.2 L Hct 27.1 L MCV 91.6 MCH 31.0 MCHC 33.9 RDW 14.8 Plt Count 381 MPV 7.8 Neut % (Auto) 81.7 H Lymph % (Auto) 13.2 Starr % (Auto) 3.4 Eos % (Auto) 1.0 Baso % (Auto) 0.7 Neut # (Auto) 13.9 H Lymph # (Auto) 2.2 Starr # (Auto) 0.6 Eos # (Auto) 0.2 Baso # (Auto) 0.1 WBC Differential . Differential Comment Auto diff final Puncture Site Patient Temperature O2 Saturation ABG pH ABG pCO2 ABG pO2 ABG HCO3 ABG O2 Content ABG Base Excess ABG Methemoglobin Rony Test Hemoglobin Carboxyhemoglobin O2 Delivery Device Vent Setting Inspired O2 Critical Value Sodium 139 Potassium 3.1 L Chloride 99 Carbon Dioxide 33.1 H Anion Gap 7 BUN 15 Creatinine 1.41 H Estimated GFR 36 L POC Glucose 208 H Random Glucose 197 H Calcium 8.2 L Total Bilirubin 0.3 AST 38 H ALT 32 Alkaline Phosphatase 128 H Total Protein 6.2 L Albumin 1.7 L Blood Type Blood Type Recheck Antibody Screen MTS Gel Crossmatch Result Diagrams: 03/12/18 05:15 03/12/18 05:15 Microbiology: Microbiology 03/07/18 11:50 Aerobic Blood Culture - Final Blood - Peripheral No growth in 5 days Anaerobic Blood Culture - Final No growth in 5 days 03/07/18 12:00 Aerobic Blood Culture - Final Blood - Peripheral No growth in 5 days Anaerobic Blood Culture - Final No growth in 5 days Imaging: Impressions Chest X-Ray 03/12/18 09:17 CONCLUSION: NG tip at GE junction with side port in distal esophagus. Basilar airspace disease and probable small effusions similar to March 10. Endotracheal tube and right central line in good position. Assessment and Plan Pertinent Non-Medical Issues: Psychosocial: retired. 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 Supported by son locally, daughter in [place]. Estranged / from spouse many years ago. Spiritual:not affiliated at this time, would not want nerve specialist visit Legal:Patient is unable to participate in decision-making. Not clear if or when she will regain ability. She is supported by a son Trey Pimentel who is local, and a daughter Christi Franco who lives in [place]. They report she has been legally , however is not from her spouse. She has not spoken to him or had any communication with him in many years not known his whereabouts or if he is even still living. Per [place] statutes if they are still legally he would in fact be appropriate legal proxy if he can be located and if he wishes to serve as such. If he cannot be located or does not wish to serve that it would fall to the 2 adult children. They remain in close communication and are working together. [facility] report has been requested to attempt to locate estranged spouse James Escamillarazia Ethical issues impacting care: Important Contacts: son Trey Pimentel [phone] Daughter Yesenia Franco [phone] . Prognosis: This patient was admitted from home with STEMI. She went emergently to Claims Assistant =RV infarction due to right ventricular infarction, most likely culprit occluded proximal right coronary artery ; otherwise with moderate three-vessel CAD. She underwent successful drug percutaneous coronary intervention with metal stent placement in the proximal mid right coronary artery required intra-aortic balloon pump. Remains high risk for further complications and setbacks related to advanced age and admitting diagnosis. She was previously living alone and of fairly good health. Code Status: Full Code Plan: * Legal decision maker:Patient is unable to participate in decision-making. Not clear if or when she will regain ability. She is supported by a son Trey Pimentel who is local, and a daughter Christi Franco who lives in [place]. They report she has been legally , however is not from her spouse. She has not spoken to him or had any communication with him in many years not known his whereabouts or if he is even still living. Per [place] statutes if they are still legally he would in fact be appropriate legal proxy if he can be located and if he wishes to serve as such. S/p ACCURINT, thus far has not returned with working info for spouse, at this time would proceed with proxy decision making via the 2 adult children. They remain in close communication and are working together. * Goals: As of now 2 children are working together in decision-making, goals aggressive, though open to ongoing conversations as clinical course evolves. They are going to further discuss CODE STATUS in the coming days. We have reviewed conditions, possible trajectories and as well as the possibility of requiring tracheostomy and PEG tube. * CODE STATUS: Full code * SYMPTOMS: --Dyspnea-patient admitted with STEMI, emergently intubated for airway protection. Remains on mechanical vent. Worsening CXR. Requiring high levels of ventilator support. Previously Requiring significant sedation for vent asynchrony, desaturation-- today tolerating sedation vacation, nursing monitoring ongoing. Currently appears comfortable . --Pain-currently with no signs or symptoms of pain however potential sources would include now bedbound status, recent invasive procedures. We will continue to assess. Could potentially benefit from fentanyl for comfort. --Constipation-no bowel movement recorded since admission through 03/10. + Risk for secondary to immobility, sedatives has been receiving tube feeds though Weds with higher residuals. Bowel sounds are present. Abdomen is soft and benign appearance. Does have multiple prn available, given, now having multiple BM per day per nursing. * Palliative care will continue to follow during hospital course as condition evolves, to assist patient/decision-maker with understanding of medical conditions, weighing benefits/burdens of treatment options, for clarification of goals of treatment. Additionally will assist with any symptoms of palliative concern Time Spent Total Floor Time (mins): 25 (chart review, PE, d/w nursing, d/w family ) Attestation Attestation: To help prompt me to consider important information that might be impacting today's encounter and assessment, information from prior notes written by myself or my colleagues may have been "brought forward" into today's note. My signature on this note, however, is an attestation that I personally performed the exam, history, and/or decision-making noted today, and, unless otherwise indicated, the interactions with patient, family, and staff as well as the review of records all occurred today. I also attest that the listed assessment and stated plan reflect my best clinical judgment today based on the combination of historical information, prior notes, and today's exam/ interactions. When time spent is documented, it refers only to time spent today by the signer, or if indicated, combined time spent today by collaborating physician/nurse practitioner.
[2018-03-12] MEDS: Enoxaparin Inj 40 MG/0.4 ML Syringe SQ SCH (12:38)
[2018-03-13] MEDS: Insulin NovoLIN Regular Correctional Sugar Inj SQ SCH ×4 (02:24→17:22)
[2018-03-13] MEDS: Oral Hygiene Kit OROPHARYNG SCH ×4 (02:24→15:52)
[2018-03-13] MEDS: Piperacil/Tazo 3.375 GM Premix 50 ML IV.SIG SCH ×4 (02:24→17:14)
[2018-03-13 04:36] LABS: Baso % (Auto) 0.1 % (0.0-2.0); Eos # (Auto) 0.1 th/mm3 (0.0-0.4); Eos % (Auto) 0.2 % (0.0-4.0); Hematocrit 27.7 % (35.0-46.0); Hemoglobin 9.3 gm/dL (11.6-15.3); Lymph # (Auto) 1.8 th/mm3 (1.0-4.8); Lymph % (Auto) 6.2 % (9.0-44.0); Mean Corpuscular HGB Conc 33.7 % (32.0-36.0); Mean Corpuscular Hemoglobin 30.6 pg (27.0-34.0); Mean Corpuscular Volume 90.8 fL (80.0-100.0); Mean Platelet Volume 7.8 fL (7.0-11.0); Mono # (Auto) 0.6 th/mm3 (0.0-0.9); Mono % (Auto) 2.2 % (0.0-8.0); Neut # (Auto) 26.7 th/mm3 (1.8-7.7); Neut % (Auto) 91.3 % (16.0-70.0); Platelet Count 368 th/mm3 (150-450); Red Blood Count 3.06 mil/mm3 (4.00-5.30); Red Cell Distribution Width 14.5 % (11.6-17.2); White Blood Count 29.2 th/mm3 (4.0-11.0)
[2018-03-13 04:51] LABS: Alanine Aminotransferase 34 U/L (10-53); Albumin 1.8 g/dL (3.4-5.0); Anion Gap 9 meq/L (5-15); Aspartate Aminotransferase 42 U/L (15-37); Blood Urea Nitrogen 14 mg/dL (7-18); Calcium 8.3 mg/dL (8.5-10.1); Carbon Dioxide 33.7 meq/L (21.0-32.0); Chloride 97 meq/L (98-107); Glomerular Filtration Rate 32 mL/min (>89); Glucose,Random 171 mg/dL (74-106); Magnesium 2.2 mg/dL (1.5-2.5); Phosphorus 3.5 mg/dL (2.5-4.9); Potassium 3.1 meq/L (3.5-5.1); Sodium 140 meq/L (136-145)
[2018-03-13 04:54] LABS: Alkaline Phosphatase 130 U/L (45-117); Total Protein 6.5 g/dL (6.4-8.2)
[2018-03-13] MEDS: Senna/Docusate Sodium 8.6/50 MG Tablet PO SCH ×2 (08:31→21:07)
[2018-03-13] MEDS: Famotidine PF Inj 20 MG/2 ML Vial IV.PUSH SCH ×2 (08:31→21:01)
--- NOTE | 2018-03-13 08:34 | P.PNCC ---
Subjective Subjective Remarks/Hospital Course: 03/04: 72-year-old female was brought by EMS after patient was found unresponsive at home. Patient's son states that he did not see the patient yesterday. Patient lives alone by herself. Patient's son states that he receive a phone call from the patient this afternoon about 2 hours prior to arrival that patient was calling for help. Patient's son came to the house and found her almost unresponsive. EMS was called. Patient was found to be hypotensive and bradycardic. She was moaning incoherently. External pacer was applied to the patient and the patient was transported to ED for an evaluation. Patient son states the patient has no medical problem. EKG obtained in the emergency department showed acute ST elevations myocardial infarction patient was emergently taken to cardiac catheterization lab. She was found to have RCA occlusion that was stented by Dr. Benavidez. Intra-aortic balloon pump was also inserted and the patient is now admitted to CVICU. 03/05: Remains sedated, orally intubated on mech vent. IABP in place. On Heparin/ Aggrastat/ Dopamine/ Propofol/ NS@84cc/hr 03/06: Remains sedated, orally intubated on mechanical ventilation. IABP in place. On dopamine at 8 mics per KG per minute. Propofol/NS at 84 cc/h. Yesterday she awakened unenlightening sedation and attempted reaching up for ET tube with both hands however was not following commands. In view of hypotension we will add Precedex and try to titrate down on propofol. 03/07: Sedated, arousable, orally intubated on mechanical ventilation. IABP remains in place. Dopamine titrated off this morning. On Precedex gtt. Borderline urine output. Significant positive fluid balance in the last 48 hours. Changing NS to LR as maintenance IV fluid in view of hyperchloremic metabolic acidosis. 03/08: Sedated, orally intubated on mechanical ventilation. Had episode of hypoxia last night which PEEP was increased to +8 and FiO2 to 90%, subsequently FiO2 decreased to 65%. She was started on empiric antibiotics for left lower lobe pneumonia seen on chest x-ray over the last 48 hours. Significant positive fluid balance noted. On dopamine 1 mcg/kg/min. Given Lasix 20 mg IV this morning to mobilize fluid. 03/09: Remains sedated, orally intubated on mechanical ventilation. Sputum growing Klebsiella/Pseudomonas and MRSA. On Zosyn and Zyvox.Positive fluid balance noted. On dopamine. Lasix to mobilize fluid. Significant pulmonary secretions. 03/10 Patient remains intubated and sedated with Versed and Precedex drip. T:99.7 , on Dopamine 3.5 mics. 03/11 No events overnight. Sedated and intubated. Afebrile. 03/12 Patient remains sedated with Versed and Precedex drip. Afebrile. On PRVC with PEEP:8 and FIO2 50%. 03/13 No events overnight. On Precedex drip for sedation, off Dopamine and Versed drip. On Levophed 4 mics with MAP:72mmHg. Patient remains intubated off Precedex drip. On PRVC with PEEP;5 and FIO2 40%. T ;100.6. On Levophed 3 mics. Objective Vital Signs / I&O: Vital Signs 03/12/18 09:37 03/12/18 11:00 03/12/18 15:00 Temperature 98.6 F 98.9 F Pulse Rate 75 80 Respiratory Rate 14 16 22 Blood Pressure 117/56 L 88/41 L Pulse Oximetry 99 97 97 03/12/18 16:10 03/12/18 16:36 03/12/18 18:21 Temperature Pulse Rate 78 Respiratory Rate 26 H 20 29 H Blood Pressure Pulse Oximetry 97 03/12/18 19:00 03/12/18 20:30 03/12/18 21:00 Temperature 99.4 F Pulse Rate 107 H 96 H Respiratory Rate 32 H 19 24 Blood Pressure 112/52 L Pulse Oximetry 98 03/12/18 22:49 03/12/18 23:00 03/13/18 00:34 Temperature 99 F Pulse Rate 103 H Respiratory Rate 18 21 16 Blood Pressure 113/59 L Pulse Oximetry 95 94 L 03/13/18 03:00 03/13/18 04:46 03/13/18 07:30 Temperature 99.9 F H Pulse Rate 76 68 67 Respiratory Rate 18 14 Blood Pressure 118/65 Pulse Oximetry 95 94 L 03/13/18 07:36 03/13/18 08:08 Temperature 100.6 F H Pulse Rate 67 Respiratory Rate 17 18 Blood Pressure 118/65 Pulse Oximetry 97 97 Intake & Output 03/12/18 03/13/18 03/13/18 18:59 06:59 18:59 Intake Total 450 / 450 710 / 710 Output Total 1800 / 1800 1500 / 1500 Balance -1350 / -1350 -790 / -790 Weight 74.4 kg Intake: IV 450 / 450 400 / 400 Zyvox 600 mg Premix 300 ML @ 300 / 300 300 / 300 300 mls/hr IV.SIG Q12H SHAYNE Rx#: [id number] Zosyn 3.375 GM Premix 50 ML @ 50 / 50 100 / 100 100 mls/hr IV.SIG Q6H SHAYNE Rx#: [id number] KCl 40 mEq Premix Inj 40 meq In 100 / 100 100 ml @ 25 mls/hr IV.SIG Q2H PRN Rx#:[id number] Tube Feeding 250 / 250 Water Bolus Amount 60 / 60 Output: Urine Amount (Catheter) 1800 / 1800 1500 / 1500 Indwelling Urethral Catheter 1800 / 1800 1500 / 1500 Other: Date of Last Bowel Movement 03/12/18 03/13/18 03/13/18 # Bowel Movements 2 Result Diagrams: 03/13/18 04:15 03/13/18 04:15 Other Results: Laboratory Results - last 12 hr 03/12/18 03/12/18 03/13/18 20:30 23:09 04:15 WBC 29.2 H D RBC 3.06 L Hgb 9.3 L Hct 27.7 L MCV 90.8 MCH 30.6 MCHC 33.7 RDW 14.5 Plt Count 368 MPV 7.8 Neut % (Auto) 91.3 H Lymph % (Auto) 6.2 L Stokes % (Auto) 2.2 Eos % (Auto) 0.2 Baso % (Auto) 0.1 Neut # (Auto) 26.7 H Lymph # (Auto) 1.8 Stokes # (Auto) 0.6 Eos # (Auto) 0.1 Baso # (Auto) 0.0 WBC Differential . Differential Comment Auto diff final Sodium Potassium 3.3 L Chloride Carbon Dioxide Anion Gap BUN Creatinine Estimated GFR POC Glucose 127 H Random Glucose Calcium Phosphorus Magnesium Total Bilirubin AST ALT Alkaline Phosphatase Total Protein Albumin 03/13/18 04:15 WBC RBC Hgb Hct MCV MCH MCHC RDW Plt Count MPV Neut % (Auto) Lymph % (Auto) Stokes % (Auto) Eos % (Auto) Baso % (Auto) Neut # (Auto) Lymph # (Auto) Stokes # (Auto) Eos # (Auto) Baso # (Auto) WBC Differential Differential Comment Sodium 140 Potassium 3.1 L Chloride 97 L Carbon Dioxide 33.7 H Anion Gap 9 BUN 14 Creatinine 1.57 H Estimated GFR 32 L POC Glucose Random Glucose 171 H Calcium 8.3 L Phosphorus 3.5 Magnesium 2.2 Total Bilirubin 0.6 AST 42 H ALT 34 Alkaline Phosphatase 130 H Total Protein 6.5 Albumin 1.8 L Imaging: Head CT 03/04/18 17:39 CONCLUSION: 1. Negative CT Head non contrast. . Hand X-Ray 03/06/18 00:00 CONCLUSION: Prominent dorsal hand soft tissue swelling. No fracture seen. Chest X-Ray 03/12/18 09:17 CONCLUSION: NG tip at GE junction with side port in distal esophagus. Basilar airspace disease and probable small effusions similar to March 10. Endotracheal tube and right central line in good position. Objective Remarks: GENERAL: Patient is 72 yo intubated SKIN: Warm and dry. HEAD: Normocephalic. EYES: No scleral icterus. No injection or drainage. NECK: Supple, trachea midline. No JVD or lymphadenopathy. CARDIOVASCULAR: Regular rate and rhythm without murmurs, gallops, or rubs. RESPIRATORY: Breath sounds equal bilaterally. No accessory muscle use. GASTROINTESTINAL: Abdomen soft, non-tender, nondistended. MUSCULOSKELETAL: No cyanosis, or edema. Neuro: Intubated off sedation Assessment and Plan - Assessment and Plan Plan: Neuro: Encephalopathy Wean off Precedex drip , off Versed. Daily sedation vacation CT brain 03/04: No acute findings EEG 03/06: Mild slowing, no epileptiform features Neuro consulted- Dr. Moncada Pulcatalina VDRF Pneumonia -Continue with vent support keep sats >92% -On PRVC RR 14, TV 500, It:0.9, PEEP:5, FIO2: 40%. -DuoNebs, Mucomyst nebs, d/c Roto-Rest bed -Vent bundle, SBT daily as betsey CV: Acute coronary syndrome Cardiogenic shock (resolved) -RCA occlusion -Status post cardiac catheterization and stent placement. LVEF 75% by cath. Echo with LVEF around 40%, normal RV, regional wall motion abnormalities. -Off Tirofiban gtt -Aspirin, Prasugrel -Wean off Levophed monitor HR and BP keep MAP>65mmHg -Intra-aortic balloon pump-discontinued 03/07 GI: Continue tube feeds Jevity 1.5@60ml/hr. ID: Pneumonia/ sepsis -On antibiotic coverage with IV Zosyn and Zyvox. -Monitor for signs of infections ( Fever, WBC) 03/06, 03/07 Sputum: Kleb , Pseudomonas, Staph -sputum cx 03/12: Pending : Monitor renal function, I/O's, electrolytes replacement per protocol. Cr: 1.57 from 1.41 Will need K replacement today Change Lasix 40mg IV BID Heme Monitor CBC Endo SSI for glycemic control DVT GI prophylaxis -Teds SCDs -Lovenox 40 mg subcutaneously daily -Pepcid Palliative care is following Critical Care: The total critical care time was 30 minutes. Time to perform other separately billable procedures was not included in the critical care time.
[2018-03-13 09:07] LABS: Baso % (Auto) 0.2 % (0.0-2.0); Eos # (Auto) 0.1 th/mm3 (0.0-0.4); Eos % (Auto) 0.4 % (0.0-4.0); Hemoglobin 8.9 gm/dL (11.6-15.3); Lymph # (Auto) 2.5 th/mm3 (1.0-4.8); Lymph % (Auto) 8.3 % (9.0-44.0); Mean Corpuscular HGB Conc 32.9 % (32.0-36.0); Mean Corpuscular Hemoglobin 30.3 pg (27.0-34.0); Mean Corpuscular Volume 91.9 fL (80.0-100.0); Mean Platelet Volume 7.8 fL (7.0-11.0); Mono # (Auto) 0.6 th/mm3 (0.0-0.9); Neut # (Auto) 26.5 th/mm3 (1.8-7.7); Neut % (Auto) 89.1 % (16.0-70.0); Platelet Count 369 th/mm3 (150-450); Red Blood Count 2.93 mil/mm3 (4.00-5.30); Red Cell Distribution Width 14.4 % (11.6-17.2); White Blood Count 29.7 th/mm3 (4.0-11.0)
[2018-03-13] MEDS: Potassium Chlor 40 mEq Premix 40 MEQ/100 ML PIGGYBACK IV.SIG PRN ×2 (09:34→21:03)
[2018-03-13] MEDS: Chlorhexidine 0.12% Oral Kit 15 ML UDC OROPHARYNG SCH ×2 (10:13→21:06)
--- NOTE | 2018-03-13 11:28 | P.PNCA ---
Subjective Interval history: appears alert in nad on vent off sedation Physical Exam Vital signs: Vital Signs 03/12/18 15:00 03/12/18 16:10 03/12/18 16:36 Temperature 98.9 F Pulse Rate 80 78 Respiratory Rate 22 26 H 20 Blood Pressure 88/41 L Pulse Oximetry 97 97 03/12/18 18:21 03/12/18 19:00 03/12/18 20:30 Temperature 99.4 F Pulse Rate 107 H Respiratory Rate 29 H 32 H 19 Blood Pressure 112/52 L Pulse Oximetry 98 03/12/18 21:00 03/12/18 22:49 03/12/18 23:00 Temperature 99 F Pulse Rate 96 H 103 H Respiratory Rate 24 18 21 Blood Pressure 113/59 L Pulse Oximetry 95 03/13/18 00:34 03/13/18 03:00 03/13/18 04:46 Temperature 99.9 F H Pulse Rate 76 68 Respiratory Rate 16 18 14 Blood Pressure 118/65 Pulse Oximetry 94 L 95 94 L 03/13/18 07:30 03/13/18 07:36 03/13/18 08:08 Temperature 100.6 F H Pulse Rate 67 67 Respiratory Rate 17 18 Blood Pressure 118/65 Pulse Oximetry 97 97 03/13/18 10:04 03/13/18 11:00 03/13/18 11:07 Temperature Pulse Rate 84 Respiratory Rate 20 34 H Blood Pressure Pulse Oximetry 96 98 03/13/18 11:11 Temperature 98.5 F Pulse Rate 84 Respiratory Rate 20 Blood Pressure 110/53 L Pulse Oximetry 97 Intake & Output 03/12/18 03/13/18 03/13/18 18:59 06:59 18:59 Intake Total 550 / 550 710 / 710 Output Total 1800 / 1800 1500 / 1500 Balance -1250 / -1250 -790 / -790 Weight 74.4 kg Intake: IV 550 / 550 400 / 400 Zyvox 600 mg Premix 300 ML @ 300 / 300 300 / 300 300 mls/hr IV.SIG Q12H [facility]AYNE Rx#: [id number] Zosyn 3.375 GM Premix 50 ML @ 50 / 50 100 / 100 100 mls/hr IV.SIG Q6H SHAYNE Rx#: [id number] KCl 40 mEq Premix Inj 40 meq In 200 / 200 100 ml @ 25 mls/hr IV.SIG Q2H PRN Rx#:[id number] Tube Feeding 250 / 250 Water Bolus Amount 60 / 60 Output: Urine Amount (Catheter) 1800 / 1800 1500 / 1500 Indwelling Urethral Catheter 1800 / 1800 1500 / 1500 Other: Date of Last Bowel Movement 03/12/18 03/13/18 03/13/18 # Bowel Movements 2 - Urinary Catheter Management Indwelling Urethral Catheter Cath placed during this visit: yes Reason for continuing: Hourly intake/output Insertion date: 03/04/18 Insertion time: 22:00 Assessment and Plan - Assessment (1) CAD (coronary artery disease) Code(s): I25.10 - Atherosclerotic heart disease of [place] coronary artery without angina pectoris Status: Acute (2) STEMI (ST elevation myocardial infarction) Code(s): I21.3 - ST elevation (STEMI) myocardial infarction of unspecified site Status: Acute (3) Cardiogenic shock Code(s): R57.0 - Cardiogenic shock Status: Acute (4) Encephalopathy Code(s): G93.40 - Encephalopathy, unspecified Status: Acute - Plan 1.) CAD - POD # 9 primary pci prox rca, rv infarct, on levophed; mental status improving, off sedation, neurology following, continue aspirin, effient, has rv infarct, weight down 10 kgs since 03/10/18, baseline is 66 kg, 74 kg 03/13/18, u /o improving, hopefully will start mobilizing more fluid, on abs for pneumonia, s/p transfusion 03/09/18, d/w nurseToby
[2018-03-13 11:56] LABS: Bilirubin,Urine Negative (Negative); Clarity,Urine Clear (Clear); Color,Urine Straw (Yellw/Straw); Glucose,Urine (UA) Negative (Negative); Leukocyte Esterase,Urine Negative (Negative); Nitrite,Urine Negative (Negative); Specific Gravity,Urine 1.004 (1.002-1.035)
--- NOTE | 2018-03-13 12:23 | ECG ---
Date Performed: 03/12/2018 Time Performed: 20:12:38 PTAGE: 72 years EKG: Probable atrial tachycardia Inferior infarct - age undetermined Possible left ventricular h ypertrophy Lateral ST-T changes may be due to hypertrophy and/or ischemia Abnormal ECG PREVIOUS TRACING : 03/05/2018 03.43 DOCTOR: Jordan Crook Interpretating Date/Time 03/13/2018 12:22:44
[2018-03-13] MEDS: Enoxaparin Inj 40 MG/0.4 ML Syringe SQ SCH (13:05)
--- NOTE | 2018-03-13 15:16 | P.DIET ---
Nutritional Evaluation Type of nutrition evaluation: follow-up Nutrition consult regarding: Tube Feeding Objective - Diagnosis STEMI CODE, Hypokalemia, Bradycardia - Objective % IBW: 122 (IBW = 130#) Body Weight Used for Calculations: Actual (Initial bedscale wt 72kg ) Energy Needs - Lower Range (kCal/kg): 25 Energy Needs - Upper Range (kCal/kg): 30 Lower Limit kCal/kg (kCals): 1,800 Upper Limit kCal/kg (kCals): 2,160 Lower Limit Protein Factor (Grams per Kg): 1.1 Upper Limit Protein Factor (Grams per Kg): 1.4 Lower Protein Needs (Protein): 79 Upper Protein Needs (Protein): 101 Dietitian Reviewed in Medical Record: Curent medications, Intake & Output, Labs , Medical history, Tube feeding Diet Order: NPO Objective Comments: POD#9 promary PCI prox RCA, RV infarct skin assessment: posterior sacrum pressure injury-ongoing Labs Include: Glucose 171 Feeding - Current Tube Feeding Tube Feeding Product: Jevity 1.5 Tube Feeding Rate: 40 (mls/hr) Assessment Assessment: Pt is at nutritional risk r/t need for TFing. Current order is for Jevity 1.5 @ 60 mls/hr goal and TF is currently running at 40 mls/hr. To best meet pt's needs with Jevity 1.5, recommend a goal rate @ 55ml/hr to offer 1800 kcal, 84 gms protein and 1003ml free water. Elevated glucose noted: consider change to Glucerna 1.5 if glucose does not improve. CBW = 74.4 kg. LBM 8/11. Recommendations: Jevity 1.5 @ 55 mls/hr goal Consider Glucerna 1.5 for improved glucose control Dietitian to Monitor: Lab values, Glucose level, Intake & Output, Tube feeding tolerance, Weight change, Wound/skin status, Medical course
--- NOTE | 2018-03-13 20:39 | P.CONID ---
History of Present Illness Service: ID Consult date: 03/13/18 Requesting Physician: Mitsy Galvin Reason for Consult: Pneumonia Primary Care Provider: UNKNOWN History of Present Illness: 72 yo female admitted with STEMI sp stent placement on remains on Vent CXR with infiltrates sputum clx with PSAE, Kleb pneumo and MSSA UA abnormal and urine clx + for Kleb pneumo All gram negatives were S to to zosyn Pts most recet sputum clx + for PSAE and it is susceptible all across the panel remains febrile with fever up to 102 Pt remains on vent and her most recent CXR fro 03/12 showed b/l infiltrates Review of Systems unobtainable due to endotracheal tube PMFSH - History History Provided By: Family Member - Medical History Medical History: Medical History (Last Reviewed 03/14/18 @ 07:49 by Debbie Benavidez MD) Basal cell carcinoma (BCC) of [place] of right eye (Acute) Basal cell carcinoma (BCC) of [place] of right eye Cataract - Surgical History Surgical History: Surgical History (Last Reviewed 03/14/18 @ 07:49 by Debbie Benavidez MD) Basal cell carcinoma, eyelid - Family History Family History: Family History (Last Reviewed 03/14/18 @ 07:49 by Debbie Benavidez MD) Mother Heart failure Father Stroke - Social History I have reviewed the patient's Social History: Yes - Tobacco History Smoking Status: Former smoker Packs Per Day: 0.5 - Alcohol History How Often Do You Have a Drink Containing Alcohol: 2 to 4 times a month - Substance Use History Substance History: No History of Abuse - Travel History Recent Travel in the [facility] Within the Last 8 Weeks: No Recent Travel Out of the Country Within the Last 8 Weeks: No - Immunization History Tetanus Immunization: Unable to Assess Hx Influenza Vaccine This Season: Unable to Assess Medications and Allergies Active Medications: Active Medications Acetaminophen (Tylenol) 650 mg PO Q6H PRN PRN Reason: PAIN 1-10 AND/OR FEVER >101F Al Hydroxide/Mg Hydroxide (Milk Of Magnesia Liq) 30 ml PO Q12H PRN PRN Reason: Mild Constipation Albuterol (Duoneb Neb (Prn)) 1 ampul NEB Q2HR NEB PRN PRN Reason: WHEEZING Last Admin: 03/13/18 16:10 Dose: 1 ampul Aspirin (Aspirin Chew) 162 mg PO DAILY SHAYNE Last Admin: 03/13/18 08:31 Dose: 162 mg Bisacodyl (Dulcolax Supp) 10 mg RECTAL DAILY PRN PRN Reason: SEVERE CONSITIPATION Chlorhexidine Gluconate (Peridex 0.12% Oral Kit) 15 ml OROPHARYNG BID@0800, 1999 [facility] Last Admin: 03/13/18 10:13 Dose: 15 ml Dextrose (D50w Vial) 50 ml IV.PUSH UNSCH PRN PRN Reason: PER HYPOGLYCEMIA PROTOCOL Enoxaparin Sodium (Lovenox Inj) 40 mg SQ Q24H [facility] Last Admin: 03/13/18 13:05 Dose: 40 mg Famotidine (Pepcid Pf Inj) 10 mg IV.PUSH Q12HR [facility] Last Admin: 03/13/18 08:31 Dose: 10 mg Furosemide (Lasix Inj) 40 mg IV.PUSH BID [facility] Last Admin: 03/13/18 10:13 Dose: 40 mg Glucagon (Glucagon Inj) 1 mg OTHER PRN PRN PRN Reason: for Hypoglycemia Protocol Fentanyl (Fentanyl 10 Mcg/Ml Premix Drip) 2,500 mcg in 250 mls @ 5 mls/hr IV.SIG TITRATE PRN; Protocol PRN Reason: Per Protocol Midazolam HCl (Versed Inj) 50 mg in 50 mls @ 2 mls/hr IV.CONT TITRATE PRN; Protocol PRN Reason: Per Protocol Last Titration: 03/11/18 19:42 Dose: Infused Propofol (Diprivan 1000 Mg/100 Ml Inj) 1,000 mg in 100 mls @ 1.905 mls/hr IV.CONT TITRATE PRN; Protocol PRN Reason: Per Protocol Last Titration: 03/06/18 09:30 Dose: 0 mcg/kg/min, 0 mls/hr Magnesium Sulfate Inj 4 gm/ (Sodium Chloride) 100 mls @ 50 mls/hr IV.SIG UNSCH PRN PRN Reason: For Magnesium 0.9 - 1.1 mg/dL Magnesium Sulfate Inj 2 gm/ (Sodium Chloride) 100 mls @ 50 mls/hr IV.SIG UNSCH PRN PRN Reason: For Magnesium 1.2 - 1.6 mg/dL Potassium Chloride (Kcl 40 Meq Premix Inj) 40 meq in 100 mls @ 25 mls/hr IV.SIG Q2H PRN PRN Reason: For Potassium 2.8 - 3.2 mEq/L Last Infusion: 03/13/18 13:55 Dose: Infused Potassium Chloride (Kcl 20 Meq Premix Inj) 20 meq in 100 mls @ 50 mls/hr IV.SIG Q2H PRN PRN Reason: For Potassium 3.3 - 3.5 mEq/L Last Infusion: 03/06/18 04:28 Dose: Infused Potassium Chloride (Kcl 40 Meq Premix Inj) 40 meq in 100 mls @ 25 mls/hr IV.SIG UNSCH PRN PRN Reason: For Potassium 3.3 - 3.5 mEq/L Last Infusion: 03/10/18 08:18 Dose: Infused Potassium Chloride (Kcl 20 Meq Premix Inj) 20 meq in 100 mls @ 50 mls/hr IV.SIG Q2H PRN PRN Reason: For Potassium 2.8 - 3.2 mEq/L Potassium Phosphate 30 mmol/ (Sodium Chloride) 260 mls @ 42 mls/hr IV.SIG UNSCH PRN PRN Reason: SEE LABEL COMMENTS Sodium Phosphate 30 mmol/ (Sodium Chloride) 260 mls @ 42 mls/hr IV.SIG UNSCH PRN PRN Reason: For Phosphorus < 2.5 mg/dL Lactated Ringer's (Lr 1000 Ml Inj) 1,000 mls @ 30 mls/hr IV.CONT .Q24H [facility] Last Admin: 03/11/18 07:05 Dose: 30 mls/hr Piperacillin/Tazobactam/Dextrose (Zosyn 3.375 Gm Premix) 50 mls @ 100 mls/hr IV.SIG Q6H [facility] Last Infusion: 03/13/18 17:45 Dose: Infused Linezolid (Zyvox 600 Mg Premix) 300 mls @ 300 mls/hr IV.SIG Q12H [facility] Last Admin: 03/13/18 13:55 Dose: 300 mls/hr Dexmedetomidine HCl 200 mcg/ (Sodium Chloride) 50 mls @ 3.3 mls/hr IV.CONT TITRATE PRN; Protocol PRN Reason: Per Protocol Last Admin: 03/12/18 04:29 Dose: 0.3 mcg/kg/hr, 4.95 mls/hr Norepinephrine Bitartrate (Levophed-Dextrose 4 Mg/250 Ml Drip) 4 mg in 250 mls @ 7.5 mls/hr IV.SIG TITRATE PRN; Protocol PRN Reason: Per Protocol Last Titration: 03/13/18 17:45 Dose: 3 mcg/min, 11.25 mls/hr Insulin Human Regular (Novolin R Correctional Sugar Inj) 0 units SQ Q6HR [facility]; Protocol Last Admin: 03/13/18 17:22 Dose: 2 units Lactulose (Lactulose Liq) 30 ml PO DAILY PRN PRN Reason: SEVERE CONSITIPATION Magnesium Oxide (Mag-Ox) 800 mg PO UNSCH PRN PRN Reason: For Magnesium 1.2 - 1.6 mg/dL Ondansetron HCl (Zofran Inj) 4 mg IV.PUSH Q6H PRN PRN Reason: NAUSEA OR VOMITING Potassium Bicarb/Potassium Chloride (K-Lyte Cl Eff) 50 meq PO UNSCH PRN PRN Reason: For Potassium 3.3 - 3.5 mEq/L Potassium Phosphate (K-Phos Original) 2,000 mg PO Q4H PRN PRN Reason: Phosphorus Less Than 2.5 mg/dL Potassium Phosphate (K-Phos Original) 2,000 mg PO UNSCH PRN PRN Reason: SEE LABEL COMMENTS Prasugrel (Effient) 10 mg PO DAILY [facility] Last Admin: 03/13/18 08:30 Dose: 10 mg Senna/Docusate Sodium (Suzanna-Colace) 1 tab PO BID [facility] Last Admin: 03/13/18 08:31 Dose: 1 tab Sennosides (Senokot) 17.2 mg PO Q12H PRN PRN Reason: Moderate Constipation Last Admin: 03/10/18 09:20 Dose: 17.2 mg Sodium Chloride (Ns Flush) 2 ml IV.FLUSH BID [facility] Last Admin: 03/13/18 08:32 Dose: 2 ml Sodium Chloride (Ns Flush) 2 ml IV.FLUSH PRN PRN PRN Reason: FLUSH AFTER USING IV ACCESS Terbutaline Sulfate (Brethine Inj) 1 mg SQ UNSCH PRN PRN Reason: For Extravasation Allergies Allergy/AdvReac Type Severity Reaction Status Date / Time No Known Allergies Uncoded 12/11/08 13:06 Exam Vital signs: Vital Signs 03/12/18 21:00 03/12/18 22:49 03/12/18 23:00 Temperature 99 F Pulse Rate 96 H 103 H Respiratory Rate 24 18 21 Blood Pressure 113/59 L Pulse Oximetry 95 03/13/18 00:34 03/13/18 03:00 03/13/18 04:46 Temperature 99.9 F H Pulse Rate 76 68 Respiratory Rate 16 18 14 Blood Pressure 118/65 Pulse Oximetry 94 L 95 94 L 03/13/18 07:30 03/13/18 07:36 03/13/18 08:08 Temperature 100.6 F H Pulse Rate 67 67 Respiratory Rate 17 18 Blood Pressure 118/65 Pulse Oximetry 97 97 03/13/18 10:04 03/13/18 11:00 03/13/18 11:07 Temperature Pulse Rate 84 Respiratory Rate 20 34 H Blood Pressure Pulse Oximetry 96 98 03/13/18 11:11 03/13/18 15:01 03/13/18 15:04 Temperature 98.5 F 100.6 F H Pulse Rate 84 94 H 94 H Respiratory Rate 20 17 Blood Pressure 110/53 L 103/46 L Pulse Oximetry 97 94 L 03/13/18 16:05 03/13/18 16:10 Temperature Pulse Rate 102 H Respiratory Rate 15 16 Blood Pressure Pulse Oximetry 99 Intake & Output 03/13/18 03/13/18 03/14/18 06:59 18:59 06:59 Intake Total 1010 / 1010 814 / 814 Output Total 1500 / 1500 1615 / 1615 Balance -490 / -490 -801 / -801 Weight 74.4 kg Intake: IV 700 / 700 390 / 390 Zyvox 600 mg Premix 300 ML @ 600 / 600 300 mls/hr IV.SIG Q12H [facility]AYNE Rx#: [id number] Levophed-Dextrose 4 mg/250 ml 140 / 140 Drip 4 mg In 250 ml @ 2 MCG/MIN 7.5 mls/hr IV.SIG TITRATE PRN Rx#:[id number] Zosyn 3.375 GM Premix 50 ML @ 100 / 100 150 / 150 100 mls/hr IV.SIG Q6H SHAYNE Rx#: [id number] KCl 40 mEq Premix Inj 40 meq In 100 / 100 100 ml @ 25 mls/hr IV.SIG Q2H PRN Rx#:[id number] Tube Feeding 250 / 250 424 / 424 Water Bolus Amount 60 / 60 Output: Emesis 200 / 200 Urine Amount (Catheter) 1500 / 1500 1415 / 1415 Indwelling Urethral Catheter 1500 / 1500 1415 / 1415 Other: Date of Last Bowel Movement 03/13/18 03/13/18 # Bowel Movements 2 2 - Constitutional no acute distress, average body habitus - Routine HEENT Exam Head: Present: normocephalic, atraumatic Comments: R eye edema erythema cantus of R eye is edematous and mildly distorted - Routine Neck Exam Present: supple, full ROM - Routine Respiratory Exam Present: patient mechanically ventilated, decreased breath sounds, rhonchi - Routine Cardiovascular Exam Present: RRR, S1, S2 Comments: no murmurs rubs gallops - Routine Abdominal Exam Present: soft, normoactive bowel sounds - Routine Extremities Exam Comments: no cyanosis, clubbing or edema - Routine Skin Exam Present: intact, dry, warm - Routine Neurological Exam Present: alert, CN II-XII intact, moving all extremities - Routine Psychiatric Exam Comments: appears calm, unable to further assess Results - Labs CBC & Chem 7: 03/23/18 07:04 03/23/18 07:04 Labs: Laboratory Results - last 24 hr 03/12/18 03/12/18 03/13/18 20:30 23:09 04:15 WBC 29.2 H D RBC 3.06 L Hgb 9.3 L Hct 27.7 L MCV 90.8 MCH 30.6 MCHC 33.7 RDW 14.5 Plt Count 368 MPV 7.8 Neut % (Auto) 91.3 H Lymph % (Auto) 6.2 L Lar[place] % (Auto) 2.2 Eos % (Auto) 0.2 Baso % (Auto) 0.1 Neut # (Auto) 26.7 H Lymph # (Auto) 1.8 [place]ue # (Auto) 0.6 Eos # (Auto) 0.1 Baso # (Auto) 0.0 WBC Differential . Differential Comment Auto diff final Sodium Potassium 3.3 L Chloride Carbon Dioxide Anion Gap BUN Creatinine Estimated GFR POC Glucose 127 H Random Glucose Calcium Phosphorus Magnesium Total Bilirubin AST ALT Alkaline Phosphatase Total Protein Albumin Urine Color Urine Clarity Urine pH Ur Specific [place] Urine Protein Urine Glucose (UA) Urine Ketones Urine Occult Blood Urine Nitrate Urine Bilirubin Urine Urobilinogen Ur Leukocyte Esterase Urine RBC Urine WBC Micro UA Comment Urine Culture Comments 03/13/18 03/13/18 03/13/18 04:15 09:00 11:00 WBC 29.7 H RBC 2.93 L Hgb 8.9 L Hct 27.0 L MCV 91.9 MCH 30.3 MCHC 32.9 RDW 14.4 Plt Count 369 MPV 7.8 Neut % (Auto) 89.1 H Lymph % (Auto) 8.3 L [place] % (Auto) 2.0 Eos % (Auto) 0.4 Baso % (Auto) 0.2 Neut # (Auto) 26.5 H Lymph # (Auto) 2.5 Larue # (Auto) 0.6 Eos # (Auto) 0.1 Baso # (Auto) 0.0 WBC Differential . Differential Comment Auto diff final Sodium 140 Potassium 3.1 L Chloride 97 L Carbon Dioxide 33.7 H Anion Gap 9 BUN 14 Creatinine 1.57 H Estimated GFR 32 L POC Glucose Random Glucose 171 H Calcium 8.3 L Phosphorus 3.5 Magnesium 2.2 Total Bilirubin 0.6 AST 42 H ALT 34 Alkaline Phosphatase 130 H Total Protein 6.5 Albumin 1.8 L Urine Color Straw Urine Clarity Clear Urine pH 7.0 Ur Specific [place] 1.004 Urine Protein Negative Urine Glucose (UA) Negative Urine Ketones Negative Urine Occult Blood Moderate H Urine Nitrate Negative Urine Bilirubin Negative Urine Urobilinogen Less than 2 Ur Leukocyte Esterase Negative Urine RBC 2 Urine WBC 4 Micro UA Comment Cath-culture not ind Urine Culture Comments Cath-cult not ind 03/13/18 03/13/18 03/13/18 11:59 17:19 18:00 WBC RBC Hgb Hct MCV MCH MCHC RDW Plt Count MPV Neut % (Auto) Lymph % (Auto) Larue % (Auto) Eos % (Auto) Baso % (Auto) Neut # (Auto) Lymph # (Auto) Larue # (Auto) Eos # (Auto) Baso # (Auto) WBC Differential Differential Comment Sodium Potassium 3.5 Chloride Carbon Dioxide Anion Gap BUN Creatinine Estimated GFR POC Glucose 157 H 162 H Random Glucose Calcium Phosphorus Magnesium Total Bilirubin AST ALT Alkaline Phosphatase Total Protein Albumin Urine Color Urine Clarity Urine pH Ur Specific [place] Urine Protein Urine Glucose (UA) Urine Ketones Urine Occult Blood Urine Nitrate Urine Bilirubin Urine Urobilinogen Ur Leukocyte Esterase Urine RBC Urine WBC Micro UA Comment Urine Culture Comments - Imaging Chest X-Ray 03/04/18 17:36 CONCLUSION: Endotracheal tube in good position. Mild interstitial edema with basilar atelectasis. Head CT 03/04/18 17:39 CONCLUSION: 1. Negative CT Head non contrast. . Chest X-Ray 03/04/18 20:50 CONCLUSION: Right central line in superior vena cava without pneumothorax. Slight increase in basilar airspace disease and edema pattern since earlier exam. Hand X-Ray 03/06/18 00:00 CONCLUSION: Prominent dorsal hand soft tissue swelling. No fracture seen. Chest X-Ray 03/07/18 05:00 CONCLUSION: Increasing consolidation in the left lower lobe. Persistent patchy nonconsolidative infiltrates in the right lower lung. Chest X-Ray 03/08/18 00:53 CONCLUSION: Bilateral lower lobe consolidation. Chest X-Ray 03/10/18 05:00 CONCLUSION: Worsening appearance of the chest. Chest X-Ray 03/12/18 09:17 CONCLUSION: NG tip at GE junction with side port in distal esophagus. Basilar airspace disease and probable small effusions similar to March 10. Endotracheal tube and right central line in good position. Assessment and Plan - Plan STEMI sp stent placemet Acute VDRF PNA, b/l: PSAE, Kleb in initial clx, repeat clx with PSAE only UTI, Klebsiella Persistent fever Leukocytosis, leukemoid reaction Emesis change zosyn to high dose cefepime dc zyvox start vancomycin fu P blood clx KUB CT A/P dw RN dw microb]lab
[2018-03-13] MEDS: Acetaminophen 325 MG Tablet PO PRN (21:04)
[2018-03-14] MEDS: Oral Hygiene Kit OROPHARYNG SCH ×4 (00:23→16:05)
[2018-03-14] MEDS: Piperacil/Tazo 3.375 GM Premix 50 ML IV.SIG SCH ×2 (00:23→06:16)
[2018-03-14] MEDS: Insulin NovoLIN Regular Correctional Sugar Inj SQ SCH ×4 (00:25→17:43)
[2018-03-14 05:11] LABS: Baso # (Auto) 0.1 th/mm3 (0.0-0.2); Baso % (Auto) 0.2 % (0.0-2.0); Eos # (Auto) 0.1 th/mm3 (0.0-0.4); Eos % (Auto) 0.4 % (0.0-4.0); Hematocrit 25.5 % (35.0-46.0); Hemoglobin 8.5 gm/dL (11.6-15.3); Lymph # (Auto) 2.2 th/mm3 (1.0-4.8); Lymph % (Auto) 7.5 % (9.0-44.0); Mean Corpuscular HGB Conc 33.4 % (32.0-36.0); Mean Corpuscular Hemoglobin 30.8 pg (27.0-34.0); Mean Corpuscular Volume 92.1 fL (80.0-100.0); Mean Platelet Volume 7.7 fL (7.0-11.0); Mono # (Auto) 0.7 th/mm3 (0.0-0.9); Mono % (Auto) 2.4 % (0.0-8.0); Neut # (Auto) 25.8 th/mm3 (1.8-7.7); Neut % (Auto) 89.5 % (16.0-70.0); Platelet Count 343 th/mm3 (150-450); Red Blood Count 2.77 mil/mm3 (4.00-5.30); Red Cell Distribution Width 14.8 % (11.6-17.2); White Blood Count 28.8 th/mm3 (4.0-11.0)
[2018-03-14 05:39] LABS: Alanine Aminotransferase 28 U/L (10-53); Albumin 1.7 g/dL (3.4-5.0); Anion Gap 9 meq/L (5-15); Aspartate Aminotransferase 37 U/L (15-37); Blood Urea Nitrogen 17 mg/dL (7-18); Carbon Dioxide 32.3 meq/L (21.0-32.0); Chloride 100 meq/L (98-107); Glomerular Filtration Rate 32 mL/min (>89); Glucose,Random 190 mg/dL (74-106); Magnesium 2.4 mg/dL (1.5-2.5); Phosphorus 2.5 mg/dL (2.5-4.9); Potassium 3.5 meq/L (3.5-5.1); Sodium 141 meq/L (136-145)
[2018-03-14 05:41] LABS: Alkaline Phosphatase 110 U/L (45-117); Total Protein 6.1 g/dL (6.4-8.2)
[2018-03-14] MEDS: Potassium Chlor 40 mEq Premix 40 MEQ/100 ML PIGGYBACK IV.SIG PRN (06:17)
[2018-03-14] MEDS: Chlorhexidine 0.12% Oral Kit 15 ML UDC OROPHARYNG SCH ×2 (07:56→21:57)
[2018-03-14] MEDS ORDERED: Vancomycin Consult Pharmacy 1 EACH OTHER SCH (08:00)
[2018-03-14] MEDS: Acetaminophen 325 MG Tablet PO PRN (08:34)
[2018-03-14] MEDS: Senna/Docusate Sodium 8.6/50 MG Tablet PO SCH ×2 (08:35→21:58)
[2018-03-14] MEDS: Famotidine PF Inj 20 MG/2 ML Vial IV.PUSH SCH ×2 (08:35→21:58)
--- NOTE | 2018-03-14 09:23 | XR ---
EXAM DATE: 03/14/2018 9:13 AM EDT AGE/SEX: 72 years / Female INDICATIONS: Distention. CLINICAL DATA: This is the patient's subsequent encounter. Patient reports that signs and symptoms h ave been present for 1 day and indicates a pain score of Nonresponsive. MEDICAL/SURGICAL HISTORY: Non-responsive. Non-responsive. COMPARISON: No prior exams available for comparison. FINDINGS: Examination of the abdomen demonstrates mild gaseous distention of bowel loops. No free air is ident ified. No organomegaly is evident. Osseous structures are intact. CONCLUSION: Mild gaseous distention of bowel loops. Electronically signed by: Kimani Reynolds MD 03/14/2018 9:21 AM EDT
--- NOTE | 2018-03-14 09:45 | P.PNCC ---
Subjective Subjective Remarks/Hospital Course: 03/04: 72-year-old female was brought by EMS after patient was found unresponsive at home. Patient's son states that he did not see the patient yesterday. Patient lives alone by herself. Patient's son states that he receive a phone call from the patient this afternoon about 2 hours prior to arrival that patient was calling for help. Patient's son came to the house and found her almost unresponsive. EMS was called. Patient was found to be hypotensive and bradycardic. She was moaning incoherently. External pacer was applied to the patient and the patient was transported to ED for an evaluation. Patient son states the patient has no medical problem. EKG obtained in the emergency department showed acute ST elevations myocardial infarction patient was emergently taken to cardiac catheterization lab. She was found to have RCA occlusion that was stented by Dr. Benavidez. Intra-aortic balloon pump was also inserted and the patient is now admitted to CVICU. 03/05: Remains sedated, orally intubated on mech vent. IABP in place. On Heparin/ Aggrastat/ Dopamine/ Propofol/ NS@84cc/hr 03/06: Remains sedated, orally intubated on mechanical ventilation. IABP in place. On dopamine at 8 mics per KG per minute. Propofol/NS at 84 cc/h. Yesterday she awakened unenlightening sedation and attempted reaching up for ET tube with both hands however was not following commands. In view of hypotension we will add Precedex and try to titrate down on propofol. 03/07: Sedated, arousable, orally intubated on mechanical ventilation. IABP remains in place. Dopamine titrated off this morning. On Precedex gtt. Borderline urine output. Significant positive fluid balance in the last 48 hours. Changing NS to LR as maintenance IV fluid in view of hyperchloremic metabolic acidosis. 03/08: Sedated, orally intubated on mechanical ventilation. Had episode of hypoxia last night which PEEP was increased to +8 and FiO2 to 90%, subsequently FiO2 decreased to 65%. She was started on empiric antibiotics for left lower lobe pneumonia seen on chest x-ray over the last 48 hours. Significant positive fluid balance noted. On dopamine 1 mcg/kg/min. Given Lasix 20 mg IV this morning to mobilize fluid. 03/09: Remains sedated, orally intubated on mechanical ventilation. Sputum growing Klebsiella/Pseudomonas and MRSA. On Zosyn and Zyvox.Positive fluid balance noted. On dopamine. Lasix to mobilize fluid. Significant pulmonary secretions. 03/10 Patient remains intubated and sedated with Versed and Precedex drip. T:99.7 , on Dopamine 3.5 mics. 03/11 No events overnight. Sedated and intubated. Afebrile. 03/12 Patient remains sedated with Versed and Precedex drip. Afebrile. On PRVC with PEEP:8 and FIO2 50%. 03/13 No events overnight. On Precedex drip for sedation, off Dopamine and Versed drip. On Levophed 4 mics with MAP:72mmHg. Patient remains intubated off Precedex drip. On PRVC with PEEP;5 and FIO2 40%. T ;100.6. On Levophed 3 mics. 03/14 Patient is off Precedex drip, remans on Levophed 3 mics with MAP 72- 75mmHg. T:102.1. Had approx 300ml gastric output tube feeds placed on hold. KUB abdomen this morning showed mild gaseous distention of bowel loops. Objective Vital Signs / I&O: Vital Signs 03/13/18 10:04 03/13/18 11:00 03/13/18 11:07 Temperature Pulse Rate 84 Respiratory Rate 20 34 H Blood Pressure Pulse Oximetry 96 98 03/13/18 11:11 03/13/18 15:01 03/13/18 15:04 Temperature 98.5 F 100.6 F H Pulse Rate 84 94 H 94 H Respiratory Rate 20 17 Blood Pressure 110/53 L 103/46 L Pulse Oximetry 97 94 L 03/13/18 16:05 03/13/18 16:10 03/13/18 20:00 Temperature 102.3 F H Pulse Rate 102 H 101 H Respiratory Rate 15 16 16 Blood Pressure 110/51 L Pulse Oximetry 99 95 03/13/18 21:04 03/13/18 21:25 03/13/18 22:14 Temperature Pulse Rate 100 H Respiratory Rate 15 17 16 Blood Pressure Pulse Oximetry 96 03/14/18 00:00 03/14/18 00:12 03/14/18 03:34 Temperature 99.2 F Pulse Rate 90 Respiratory Rate 16 17 17 Blood Pressure 105/48 L Pulse Oximetry 96 94 L 96 03/14/18 04:00 03/14/18 07:15 03/14/18 07:25 Temperature 100.5 F H 102.1 F H Pulse Rate 93 H 135 H 150 H Respiratory Rate 19 17 Blood Pressure 122/59 L 122/59 L Pulse Oximetry 96 89 L 03/14/18 07:40 Temperature Pulse Rate Respiratory Rate 16 Blood Pressure Pulse Oximetry 92 L Intake & Output 03/13/18 03/14/18 03/14/18 18:59 06:59 18:59 Intake Total 1114 / 1114 854 / 854 150 / 150 Output Total 1615 / 1615 925 / 925 Balance -501 / -501 -71 / -71 150 / 150 Weight 70 kg Intake: IV 690 / 690 560 / 560 150 / 150 Zyvox 600 mg Premix 300 ML @ 300 / 300 300 / 300 300 mls/hr IV.SIG Q12H [facility] Rx#: [id number] Levophed-Dextrose 4 mg/250 ml 140 / 140 110 / 110 Drip 4 mg In 250 ml @ 2 MCG/MIN 7.5 mls/hr IV.SIG TITRATE PRN Rx#:[id number] Zosyn 3.375 GM Premix 50 ML @ 150 / 150 50 / 50 50 / 50 100 mls/hr IV.SIG Q6H [facility] Rx#: [id number] KCl 40 mEq Premix Inj 40 meq In 100 / 100 100 / 100 100 / 100 100 ml @ 25 mls/hr IV.SIG Q2H PRN Rx#:[id number] Oral 0 / 0 Tube Feeding 424 / 424 294 / 294 Output: Emesis 200 / 200 100 / 100 Urine Amount (Catheter) 1415 / 1415 825 / 825 Indwelling Urethral Catheter 1415 / 1415 825 / 825 Other: Date of Last Bowel Movement 03/13/18 03/14/18 03/14/18 # Bowel Movements 2 2 # Incontinent Bowel Movements 2 # Emeses 1 Result Diagrams: 03/14/18 04:45 03/14/18 04:45 Other Results: Laboratory Results - last 12 hr 03/14/18 03/14/18 03/14/18 00:20 04:45 04:45 WBC 28.8 H RBC 2.77 L Hgb 8.5 L Hct 25.5 L MCV 92.1 MCH 30.8 MCHC 33.4 RDW 14.8 Plt Count 343 MPV 7.7 Neut % (Auto) 89.5 H Lymph % (Auto) 7.5 L [place] % (Auto) 2.4 Eos % (Auto) 0.4 Baso % (Auto) 0.2 Neut # (Auto) 25.8 H Lymph # (Auto) 2.2 [place] # (Auto) 0.7 Eos # (Auto) 0.1 Baso # (Auto) 0.1 WBC Differential . Differential Comment Auto diff final Sodium 141 Potassium 3.5 Chloride 100 Carbon Dioxide 32.3 H Anion Gap 9 BUN 17 Creatinine 1.57 H Estimated GFR 32 L POC Glucose 198 H Random Glucose 190 H Calcium 8.0 L Phosphorus 2.5 D Magnesium 2.4 Total Bilirubin 0.5 AST 37 ALT 28 Alkaline Phosphatase 110 Total Protein 6.1 L Albumin 1.7 L 03/14/18 06:33 WBC RBC Hgb Hct MCV MCH MCHC RDW Plt Count MPV Neut % (Auto) Lymph % (Auto) [place] % (Auto) Eos % (Auto) Baso % (Auto) Neut # (Auto) Lymph # (Auto) [place] # (Auto) Eos # (Auto) Baso # (Auto) WBC Differential Differential Comment Sodium Potassium Chloride Carbon Dioxide Anion Gap BUN Creatinine Estimated GFR POC Glucose 135 H Random Glucose Calcium Phosphorus Magnesium Total Bilirubin AST ALT Alkaline Phosphatase Total Protein Albumin Imaging: Head CT 03/04/18 17:39 CONCLUSION: 1. Negative CT Head non contrast. . Hand X-Ray 03/06/18 00:00 CONCLUSION: Prominent dorsal hand soft tissue swelling. No fracture seen. Chest X-Ray 03/12/18 09:17 CONCLUSION: NG tip at GE junction with side port in distal esophagus. Basilar airspace disease and probable small effusions similar to March 10. Endotracheal tube and right central line in good position. Abdomen X-Ray 03/14/18 00:00 CONCLUSION: Mild gaseous distention of bowel loops. Objective Remarks: GENERAL: Patient is 72 yo intubated SKIN: Warm and dry. HEAD: Normocephalic. EYES: No scleral icterus. No injection or drainage. NECK: Supple, trachea midline. No JVD or lymphadenopathy. CARDIOVASCULAR: Regular rate and rhythm without murmurs, gallops, or rubs. RESPIRATORY: Breath sounds equal bilaterally. No accessory muscle use. GASTROINTESTINAL: Abdomen soft, non-tender, nondistended. MUSCULOSKELETAL: No cyanosis, or edema. Neuro: Intubated off sedation. awake Assessment and Plan - Assessment and Plan Plan: Neuro: Encephalopathy off Precedex drip, monitor neuro status CT brain 03/04: No acute findings EEG 03/06: Mild slowing, no epileptiform features Neuro consulted- Dr. Coral Quinones VDRF Pneumonia -Continue with vent support keep sats >92% -On PRVC RR 14, TV 500, It:0.9, PEEP:5, FIO2: 40%. -DuoNebs, Mucomyst nebs, check CXR -Vent bundle, SBT daily as betsey CV: Acute coronary syndrome Cardiogenic shock (resolved) -RCA occlusion -Status post cardiac catheterization and stent placement. LVEF 75% by cath. Echo with LVEF around 40%, normal RV, regional wall motion abnormalities. -Off Tirofiban gtt -Aspirin, Prasugrel -Wean off Levophed monitor HR and BP keep MAP>65mmHg -Intra-aortic balloon pump-discontinued 03/07 GI: tube feeds placed on hold for emesis (Jevity 1.5@60ml/hr). KUB abdomen today- mild gaseous distention of bowel loops ID: Pneumonia/ sepsis -Abx per ID- changed to Cefepime and Vanco -Monitor for signs of infections ( Fever, WBC) 03/06, 03/07 Sputum: Kleb , Pseudomonas, Staph -sputum cx 03/12: Pseudomonas -Check C-diff PCR : Monitor renal function, I/O's, electrolytes replacement per protocol. Cr: 1.57 Lasix 40mg IV BID Heme Monitor CBC Endo SSI for glycemic control DVT GI prophylaxis -Teds SCDs -Lovenox 40 mg subcutaneously daily -Pepcid Palliative care is following Critical Care: The total critical care time was 30 minutes. Time to perform other separately billable procedures was not included in the critical care time.
[2018-03-14] MEDS ORDERED: Vancomycin Inj 1,250 MG in Sodium Chlor 0.9% Inj 250 ML IV.SIG ONE (10:00)
--- NOTE | 2018-03-14 10:07 | XR ---
EXAM DATE: 03/14/2018 10:02 AM EDT AGE/SEX: 72 years / Female INDICATIONS: Shortness of breath. CLINICAL DATA: This is the patient's initial encounter. Patient reports that signs and symptoms have been present for 1 day and indicates a pain score of Nonresponsive. MEDICAL/SURGICAL HISTORY: Myocardial infarction. None. [place] [facility] [place]. . FINDINGS: A single AP view of the chest demonstrates cardiomegaly with increase in pulmonary vascularity. Sligh t interstitial prominence. Endotracheal tube, nasogastric tube and right jugular line are stable posi tion.. The cardiomediastinal contours are unremarkable. Osseous structures are intact. CONCLUSION: Cardiomegaly with interstitial edema. Electronically signed by: Kimani Reynolds MD 03/14/2018 10:05 AM EDT
[2018-03-14] MEDS: Enoxaparin Inj 40 MG/0.4 ML Syringe SQ SCH (12:48)
[2018-03-14 12:53] LABS: ABG Base Excess 7.4 mmol/L (-2-2); ABG PCO2 43 mmHg (38-42); ABG PO2 70 mmHG (61-120)
--- NOTE | 2018-03-14 13:05 | P.PNCA ---
Subjective Interval history: alert in nad, following commands, on cpap Physical Exam Vital signs: Vital Signs 03/13/18 15:01 03/13/18 15:04 03/13/18 16:05 Temperature 100.6 F H Pulse Rate 94 H 94 H Respiratory Rate 17 15 Blood Pressure 103/46 L Pulse Oximetry 94 L 99 03/13/18 16:10 03/13/18 20:00 03/13/18 21:04 Temperature 102.3 F H Pulse Rate 102 H 101 H Respiratory Rate 16 16 15 Blood Pressure 110/51 L Pulse Oximetry 95 03/13/18 21:25 03/13/18 22:14 03/14/18 00:00 Temperature 99.2 F Pulse Rate 100 H 90 Respiratory Rate 17 16 16 Blood Pressure 105/48 L Pulse Oximetry 96 96 03/14/18 00:12 03/14/18 03:34 03/14/18 04:00 Temperature 100.5 F H Pulse Rate 93 H Respiratory Rate 17 17 19 Blood Pressure 122/59 L Pulse Oximetry 94 L 96 96 03/14/18 07:15 03/14/18 07:25 03/14/18 07:40 Temperature 102.1 F H Pulse Rate 135 H 150 H Respiratory Rate 17 16 Blood Pressure 122/59 L Pulse Oximetry 89 L 92 L 03/14/18 09:00 03/14/18 09:55 03/14/18 11:07 Temperature Pulse Rate 66 Respiratory Rate 12 19 Blood Pressure Pulse Oximetry 94 L 92 L 03/14/18 11:09 03/14/18 12:35 Temperature 99.5 F Pulse Rate 66 Respiratory Rate 20 19 Blood Pressure 122/59 L Pulse Oximetry 94 L 96 Intake & Output 03/13/18 03/14/18 03/14/18 18:59 06:59 18:59 Intake Total 1114 / 1114 854 / 854 412.5 / 412.5 Output Total 1615 / 1615 925 / 925 Balance -501 / -501 -71 / -71 412.5 / 412.5 Weight 70 kg Intake: IV 690 / 690 560 / 560 412.5 / 412.5 Zyvox 600 mg Premix 300 ML @ 300 / 300 300 / 300 300 mls/hr IV.SIG Q12H [facility] Rx#: [id number] Levophed-Dextrose 4 mg/250 ml 140 / 140 110 / 110 Drip 4 mg In 250 ml @ 2 MCG/MIN 7.5 mls/hr IV.SIG TITRATE PRN Rx#:[id number] Zosyn 3.375 GM Premix 50 ML @ 150 / 150 50 / 50 50 / 50 100 mls/hr IV.SIG Q6H [facility] Rx#: [id number] KCl 40 mEq Premix Inj 40 meq In 100 / 100 100 / 100 100 / 100 100 ml @ 25 mls/hr IV.SIG Q2H PRN Rx#:[id number] Vancomycin Inj 1,250 MG In NS 262.5 / 262.5 Inj 250 ML @ 250 mls/hr IV.SIG ONCE ONE Rx#:[id number] Oral 0 / 0 Tube Feeding 424 / 424 294 / 294 Output: Emesis 200 / 200 100 / 100 Urine Amount (Catheter) 1415 / 1415 825 / 825 Indwelling Urethral Catheter 1415 / 1415 825 / 825 Other: Date of Last Bowel Movement 03/13/18 03/14/18 03/14/18 # Bowel Movements 2 2 # Incontinent Bowel Movements 2 # Emeses 1 - Urinary Catheter Management Indwelling Urethral Catheter Cath placed during this visit: yes Reason for continuing: Hourly intake/output Insertion date: 03/04/18 Insertion time: 22:00 Assessment and Plan - Assessment (1) CAD (coronary artery disease) Code(s): I25.10 - Atherosclerotic heart disease of [place] coronary artery without angina pectoris Status: Acute (2) STEMI (ST elevation myocardial infarction) Code(s): I21.3 - ST elevation (STEMI) myocardial infarction of unspecified site Status: Acute (3) Cardiogenic shock Code(s): R57.0 - Cardiogenic shock Status: Acute (4) Encephalopathy Code(s): G93.40 - Encephalopathy, unspecified Status: Acute - Plan 1.) CAD - POD # 10 primary pci prox rca, rv infarct, on levophed; mental status improving, off sedation, neurology following, continue aspirin, effient, has rv infarct, weight down 10 kgs since 03/10/18, baseline is 66 kg, 7 kg 03/14/18, u/ o improving, hopefully will start mobilizing more fluid, on abs for pneumonia, s /p transfusion 03/09/18, still spiking fevers and requiring levophed, possible attempt at extubation today, d/w nurse, Toby
--- NOTE | 2018-03-14 13:56 | P.PNID ---
Subjective Remarks: doing well resp marlow tolerates CPAP + fever of 102 C.diff sent, P still on Levaphed, 2.5 mcgs TF off since she did not tolerate them KUB with mild ileus Antibiotics: cefepime vancomycin Allergies/Adverse Reactions: Allergies No Known Allergies (Uncoded 12/11/08 13:06) Objective Vital Signs 03/13/18 15:01 03/13/18 15:04 03/13/18 16:05 Temperature 100.6 F H Pulse Rate 94 H 94 H Respiratory Rate 17 15 Blood Pressure 103/46 L Pulse Oximetry 94 L 99 03/13/18 16:10 03/13/18 20:00 03/13/18 21:04 Temperature 102.3 F H Pulse Rate 102 H 101 H Respiratory Rate 16 16 15 Blood Pressure 110/51 L Pulse Oximetry 95 03/13/18 21:25 03/13/18 22:14 03/14/18 00:00 Temperature 99.2 F Pulse Rate 100 H 90 Respiratory Rate 17 16 16 Blood Pressure 105/48 L Pulse Oximetry 96 96 03/14/18 00:12 03/14/18 03:34 03/14/18 04:00 Temperature 100.5 F H Pulse Rate 93 H Respiratory Rate 17 17 19 Blood Pressure 122/59 L Pulse Oximetry 94 L 96 96 03/14/18 07:15 03/14/18 07:25 03/14/18 07:40 Temperature 102.1 F H Pulse Rate 135 H 150 H Respiratory Rate 17 16 Blood Pressure 122/59 L Pulse Oximetry 89 L 92 L 03/14/18 09:00 03/14/18 09:55 03/14/18 11:07 Temperature Pulse Rate 66 Respiratory Rate 12 19 Blood Pressure Pulse Oximetry 94 L 92 L 03/14/18 11:09 03/14/18 12:35 Temperature 99.5 F Pulse Rate 66 Respiratory Rate 20 19 Blood Pressure 122/59 L Pulse Oximetry 94 L 96 Intake & Output 03/13/18 03/14/18 03/14/18 18:59 06:59 18:59 Intake Total 1114 / 1114 854 / 854 512.5 / 512.5 Output Total 1615 / 1615 925 / 925 Balance -501 / -501 -71 / -71 512.5 / 512.5 Weight 70 kg Intake: IV 690 / 690 560 / 560 512.5 / 512.5 Maxipime Inj 2,000 MG In NS Inj 100 / 100 100 ML @ 200 mls/hr IV.SIG Q12H [facility] Rx#:[id number] Zyvox 600 mg Premix 300 ML @ 300 / 300 300 / 300 300 mls/hr IV.SIG Q12H [facility] Rx#: [id number] Levophed-Dextrose 4 mg/250 ml 140 / 140 110 / 110 Drip 4 mg In 250 ml @ 2 MCG/MIN 7.5 mls/hr IV.SIG TITRATE PRN Rx#:[id number] Zosyn 3.375 GM Premix 50 ML @ 150 / 150 50 / 50 50 / 50 100 mls/hr IV.SIG Q6H [facility] Rx#: [id number] KCl 40 mEq Premix Inj 40 meq In 100 / 100 100 / 100 100 / 100 100 ml @ 25 mls/hr IV.SIG Q2H [facility] Rx#:[id number] Vancomycin Inj 1,250 MG In NS 262.5 / 262.5 Inj 250 ML @ 250 mls/hr IV.SIG ONCE ONE Rx#:[id number] Oral 0 / 0 Tube Feeding 424 / 424 294 / 294 Output: Emesis 200 / 200 100 / 100 Urine Amount (Catheter) 1415 / 1415 825 / 825 Indwelling Urethral Catheter 1415 / 1415 825 / 825 Other: Date of Last Bowel Movement 03/13/18 03/14/18 03/14/18 # Bowel Movements 2 2 # Incontinent Bowel Movements 2 # Emeses 1 03/12/18 09:35 Sputum - Tracheal Aspirate Gram Stain - Final 03/12/18 09:35 Sputum - Tracheal Aspirate Sputum Culture - Final Pseudomonas aeruginosa 03/13/18 19:50 Blood - Peripheral Aerobic Blood Culture - Preliminary No growth in 1 day 03/13/18 19:50 Blood - Peripheral Anaerobic Blood Culture - Preliminary No growth in 1 day 03/13/18 19:40 Blood - Peripheral Aerobic Blood Culture - Preliminary No growth in 1 day 03/13/18 19:40 Blood - Peripheral Anaerobic Blood Culture - Preliminary No growth in 1 day 03/07/18 11:50 Blood - Peripheral Aerobic Blood Culture - Final No growth in 5 days 03/07/18 11:50 Blood - Peripheral Anaerobic Blood Culture - Final No growth in 5 days 03/07/18 12:00 Blood - Peripheral Aerobic Blood Culture - Final No growth in 5 days 03/07/18 12:00 Blood - Peripheral Anaerobic Blood Culture - Final No growth in 5 days Lab - Hematology Results 03/13/18 03/13/18 03/14/18 04:15 09:00 04:45 WBC 29.2 H D 29.7 H 28.8 H RBC 3.06 L 2.93 L 2.77 L Hgb 9.3 L 8.9 L 8.5 L Hct 27.7 L 27.0 L 25.5 L MCV 90.8 91.9 92.1 MCH 30.6 30.3 30.8 MCHC 33.7 32.9 33.4 RDW 14.5 14.4 14.8 Plt Count 368 369 343 MPV 7.8 7.8 7.7 Neut % (Auto) 91.3 H 89.1 H 89.5 H Lymph % (Auto) 6.2 L 8.3 L 7.5 L [place] % (Auto) 2.2 2.0 2.4 Eos % (Auto) 0.2 0.4 0.4 Baso % (Auto) 0.1 0.2 0.2 Neut # (Auto) 26.7 H 26.5 H 25.8 H Lymph # (Auto) 1.8 2.5 2.2 [place] # (Auto) 0.6 0.6 0.7 Eos # (Auto) 0.1 0.1 0.1 Baso # (Auto) 0.0 0.0 0.1 WBC Differential . . . Differential Comment Auto diff final Auto diff final Auto diff final Lab - Chemistry Results 03/12/18 03/12/18 03/12/18 19:03 20:30 23:09 Sodium Potassium 3.3 L Chloride Carbon Dioxide Anion Gap BUN Creatinine Estimated GFR POC Glucose 150 H 127 H Random Glucose Calcium Phosphorus Magnesium Total Bilirubin AST ALT Alkaline Phosphatase Total Protein Albumin 03/13/18 03/13/18 03/13/18 04:15 11:59 17:19 Sodium 140 Potassium 3.1 L Chloride 97 L Carbon Dioxide 33.7 H Anion Gap 9 BUN 14 Creatinine 1.57 H Estimated GFR 32 L POC Glucose 157 H 162 H Random Glucose 171 H Calcium 8.3 L Phosphorus 3.5 Magnesium 2.2 Total Bilirubin 0.6 AST 42 H ALT 34 Alkaline Phosphatase 130 H Total Protein 6.5 Albumin 1.8 L 03/13/18 03/14/18 03/14/18 18:00 00:20 04:45 Sodium 141 Potassium 3.5 3.5 Chloride 100 Carbon Dioxide 32.3 H Anion Gap 9 BUN 17 Creatinine 1.57 H Estimated GFR 32 L POC Glucose 198 H Random Glucose 190 H Calcium 8.0 L Phosphorus 2.5 D Magnesium 2.4 Total Bilirubin 0.5 AST 37 ALT 28 Alkaline Phosphatase 110 Total Protein 6.1 L Albumin 1.7 L 03/14/18 03/14/18 06:33 12:02 Sodium Potassium Chloride Carbon Dioxide Anion Gap BUN Creatinine Estimated GFR POC Glucose 135 H 149 H Random Glucose Calcium Phosphorus Magnesium Total Bilirubin AST ALT Alkaline Phosphatase Total Protein Albumin Imaging: ITS Impressions Head CT 03/04/18 17:39 CONCLUSION: 1. Negative CT Head non contrast. . Hand X-Ray 03/06/18 00:00 CONCLUSION: Prominent dorsal hand soft tissue swelling. No fracture seen. Abdomen X-Ray 03/14/18 00:00 CONCLUSION: Mild gaseous distention of bowel loops. Chest X-Ray 03/14/18 09:45 CONCLUSION: Cardiomegaly with interstitial edema. Physical Exam: GENERAL: NAD awake alert SKIN: Warm and dry. HEAD: Atraumatic. Normocephalic. EYES: Pupils equal and round. No scleral icterus. No injection or drainage. ENT: No nasal bleeding or discharge. Mucous membranes pink and moist. NECK: Trachea midline. No JVD. CARDIOVASCULAR: Regular rate and rhythm. RESPIRATORY: No accessory muscle use. Clear to auscultation. Breath sounds equal bilaterally. GASTROINTESTINAL: Abdomen soft, tender to palpation in RLQ nondistended. Hepatic and splenic margins not palpable. MUSCULOSKELETAL: Extremities without clubbing, cyanosis, + trace BLE edema. No obvious deformities. NEUROLOGICAL: Awake and alert. No obvious cranial nerve deficits. Motor grossly within normal limits. Five out of 5 muscle strength in the arms and legs. PSYCHIATRIC: calm, cooperative Assessment and Plan - Plan STEMI sp stent placemet Acute VDRF about to be extubated PNA, b/l: PSAE, Kleb in initial clx, repeat clx with PSAE only UTI, Klenb Persistent fever Leukocytosis, leukemoid reaction , aslo perisstnt Emesis, RLQ abd tenderness cont cefepime and vanco fu C.diff result chk CT A/P if C.diff negative dw RN dw microblab dw Dr El Benavidez
[2018-03-15] MEDS: Acetaminophen 325 MG Tablet PO PRN (01:20)
[2018-03-15] MEDS: Oral Hygiene Kit OROPHARYNG SCH ×4 (01:22→18:08)
[2018-03-15] MEDS: Insulin NovoLIN Regular Correctional Sugar Inj SQ SCH ×4 (01:22→18:08)
[2018-03-15 05:11] LABS: Baso % (Auto) 0.2 % (0.0-2.0); Eos # (Auto) 0.3 th/mm3 (0.0-0.4); Eos % (Auto) 1.4 % (0.0-4.0); Hematocrit 23.7 % (35.0-46.0); Hemoglobin 7.9 gm/dL (11.6-15.3); Lymph # (Auto) 2.4 th/mm3 (1.0-4.8); Lymph % (Auto) 10.1 % (9.0-44.0); Mean Corpuscular HGB Conc 33.3 % (32.0-36.0); Mean Corpuscular Hemoglobin 31.1 pg (27.0-34.0); Mean Corpuscular Volume 93.2 fL (80.0-100.0); Mean Platelet Volume 7.5 fL (7.0-11.0); Mono # (Auto) 0.6 th/mm3 (0.0-0.9); Mono % (Auto) 2.4 % (0.0-8.0); Neut # (Auto) 20.6 th/mm3 (1.8-7.7); Neut % (Auto) 85.9 % (16.0-70.0); Platelet Count 330 th/mm3 (150-450); Red Blood Count 2.54 mil/mm3 (4.00-5.30); Red Cell Distribution Width 14.8 % (11.6-17.2)
[2018-03-15 05:46] LABS: Albumin 1.6 g/dL (3.4-5.0); Anion Gap 8 meq/L (5-15); Aspartate Aminotransferase 39 U/L (15-37); Blood Urea Nitrogen 23 mg/dL (7-18); Calcium 8.2 mg/dL (8.5-10.1); Chloride 101 meq/L (98-107); Glomerular Filtration Rate 38 mL/min (>89); Glucose,Random 98 mg/dL (74-106); Magnesium 2.6 mg/dL (1.5-2.5); Potassium 3.5 meq/L (3.5-5.1); Sodium 142 meq/L (136-145)
[2018-03-15 05:47] LABS: Alanine Aminotransferase 29 U/L (10-53); Phosphorus 3.7 mg/dL (2.5-4.9)
[2018-03-15 05:49] LABS: Alkaline Phosphatase 98 U/L (45-117); Total Protein 6.3 g/dL (6.4-8.2); Vancomycin,Random 11.6 Comment
[2018-03-15] MEDS: Potassium Chlor 40 mEq Premix 40 MEQ/100 ML PIGGYBACK IV.SIG PRN (06:39)
[2018-03-15] MEDS: Chlorhexidine 0.12% Oral Kit 15 ML UDC OROPHARYNG SCH ×2 (08:41→21:12)
[2018-03-15] MEDS: Famotidine PF Inj 20 MG/2 ML Vial IV.PUSH SCH ×2 (08:42→21:12)
[2018-03-15] MEDS: Senna/Docusate Sodium 8.6/50 MG Tablet PO SCH ×2 (08:42→21:14)
--- NOTE | 2018-03-15 09:00 | P.PNCC ---
Subjective Subjective Remarks/Hospital Course: 03/04: 72-year-old female was brought by EMS after patient was found unresponsive at home. Patient's son states that he did not see the patient yesterday. Patient lives alone by herself. Patient's son states that he receive a phone call from the patient this afternoon about 2 hours prior to arrival that patient was calling for help. Patient's son came to the house and found her almost unresponsive. EMS was called. Patient was found to be hypotensive and bradycardic. She was moaning incoherently. External pacer was applied to the patient and the patient was transported to ED for an evaluation. Patient son states the patient has no medical problem. EKG obtained in the emergency department showed acute ST elevations myocardial infarction patient was emergently taken to cardiac catheterization lab. She was found to have RCA occlusion that was stented by Dr. Benavidez. Intra-aortic balloon pump was also inserted and the patient is now admitted to CVICU. 03/05: Remains sedated, orally intubated on mech vent. IABP in place. On Heparin/ Aggrastat/ Dopamine/ Propofol/ NS@84cc/hr 03/06: Remains sedated, orally intubated on mechanical ventilation. IABP in place. On dopamine at 8 mics per KG per minute. Propofol/NS at 84 cc/h. Yesterday she awakened unenlightening sedation and attempted reaching up for ET tube with both hands however was not following commands. In view of hypotension we will add Precedex and try to titrate down on propofol. 03/07: Sedated, arousable, orally intubated on mechanical ventilation. IABP remains in place. Dopamine titrated off this morning. On Precedex gtt. Borderline urine output. Significant positive fluid balance in the last 48 hours. Changing NS to LR as maintenance IV fluid in view of hyperchloremic metabolic acidosis. 03/08: Sedated, orally intubated on mechanical ventilation. Had episode of hypoxia last night which PEEP was increased to +8 and FiO2 to 90%, subsequently FiO2 decreased to 65%. She was started on empiric antibiotics for left lower lobe pneumonia seen on chest x-ray over the last 48 hours. Significant positive fluid balance noted. On dopamine 1 mcg/kg/min. Given Lasix 20 mg IV this morning to mobilize fluid. 03/09: Remains sedated, orally intubated on mechanical ventilation. Sputum growing Klebsiella/Pseudomonas and MRSA. On Zosyn and Zyvox.Positive fluid balance noted. On dopamine. Lasix to mobilize fluid. Significant pulmonary secretions. 03/10 Patient remains intubated and sedated with Versed and Precedex drip. T:99.7 , on Dopamine 3.5 mics. 03/11 No events overnight. Sedated and intubated. Afebrile. 03/12 Patient remains sedated with Versed and Precedex drip. Afebrile. On PRVC with PEEP:8 and FIO2 50%. 03/13 No events overnight. On Precedex drip for sedation, off Dopamine and Versed drip. On Levophed 4 mics with MAP:72mmHg. Patient remains intubated off Precedex drip. On PRVC with PEEP;5 and FIO2 40%. T ;100.6. On Levophed 3 mics. 03/14 Patient is off Precedex drip, remans on Levophed 3 mics with MAP 72- 75mmHg. T:102.1. Had approx 300ml gastric output tube feeds placed on hold. KUB abdomen this morning showed mild gaseous distention of bowel loops. 03/15 Patient was extubated yesterday on 10L simple mask with good sats. On Levophed 2 mics with MAP 72mmHg. Afebrile. Objective Vital Signs / I&O: Vital Signs 03/14/18 09:00 03/14/18 09:55 03/14/18 11:07 Temperature Pulse Rate 66 Respiratory Rate 12 19 Blood Pressure Pulse Oximetry 94 L 92 L 03/14/18 11:09 03/14/18 12:35 03/14/18 15:03 Temperature 99.5 F Pulse Rate 66 92 H Respiratory Rate 20 19 Blood Pressure 122/59 L Pulse Oximetry 94 L 96 03/14/18 15:06 03/14/18 20:00 03/14/18 22:00 Temperature 100.2 F H 99.8 F H Pulse Rate 92 H 90 89 Respiratory Rate 19 20 20 Blood Pressure 122/59 L 101/50 L Pulse Oximetry 93 L 94 L 03/14/18 22:26 03/15/18 00:00 03/15/18 01:00 Temperature 100.3 F H Pulse Rate 82 Respiratory Rate 20 Blood Pressure 100/43 L Pulse Oximetry 94 L 94 L 91 L 03/15/18 04:00 03/15/18 07:00 03/15/18 07:32 Temperature 99.8 F H 98.9 F Pulse Rate 70 78 Respiratory Rate 18 18 Blood Pressure 94/46 L 111/53 L Pulse Oximetry 95 92 L 95 Intake & Output 03/14/18 03/15/18 03/15/18 18:59 06:59 18:59 Intake Total 632.5 / 632.5 280 / 280 Output Total 1610 / 1610 825 / 825 Balance -977.5 / -977.5 -545 / -545 Weight 69.5 kg Intake: IV 632.5 / 632.5 230 / 230 Maxipime Inj 2,000 MG In NS Inj 100 / 100 100 / 100 100 ML @ 200 mls/hr IV.SIG Q12H SHAYNE Rx#:[id number] Levophed-Dextrose 4 mg/250 ml 120 / 120 130 / 130 Drip 4 mg In 250 ml @ 2 MCG/MIN 7.5 mls/hr IV.SIG TITRATE PRN Rx#:[id number] Zosyn 3.375 GM Premix 50 ML @ 50 / 50 100 mls/hr IV.SIG Q6H SHAYNE Rx#: [id number] KCl 40 mEq Premix Inj 40 meq In 100 / 100 100 ml @ 25 mls/hr IV.SIG Q2H PRN Rx#:[id number] Vancomycin Inj 1,250 MG In NS 262.5 / 262.5 Inj 250 ML @ 250 mls/hr IV.SIG ONCE ONE Rx#:[id number] Oral 50 / 50 Output: Urine Amount (Catheter) 810 / 810 825 / 825 Indwelling Urethral Catheter 810 / 810 825 / 825 Gastric Drainage 800 / 800 Oral 800 / 800 Other: Date of Last Bowel Movement 03/14/18 03/14/18 03/14/18 # Bowel Movements 2 0 Result Diagrams: 03/15/18 04:50 03/15/18 04:50 Other Results: Laboratory Results - last 12 hr 03/15/18 03/15/18 03/15/18 01:19 04:50 04:50 WBC 24.0 H RBC 2.54 L Hgb 7.9 L Hct 23.7 L MCV 93.2 MCH 31.1 MCHC 33.3 RDW 14.8 Plt Count 330 MPV 7.5 Neut % (Auto) 85.9 H Lymph % (Auto) 10.1 [place] % (Auto) 2.4 Eos % (Auto) 1.4 Baso % (Auto) 0.2 Neut # (Auto) 20.6 H Lymph # (Auto) 2.4 [place] # (Auto) 0.6 Eos # (Auto) 0.3 Baso # (Auto) 0.0 WBC Differential . Differential Comment Auto diff final Sodium 142 Potassium 3.5 Chloride 101 Carbon Dioxide 33.0 H Anion Gap 8 BUN 23 H Creatinine 1.37 H Estimated GFR 38 L POC Glucose 108 Random Glucose 98 Calcium 8.2 L Phosphorus 3.7 D Magnesium 2.6 H Total Bilirubin 0.4 AST 39 H ALT 29 Alkaline Phosphatase 98 Total Protein 6.3 L Albumin 1.6 L Random Vancomycin 11.6 03/15/18 04:56 WBC RBC Hgb Hct MCV MCH MCHC RDW Plt Count MPV Neut % (Auto) Lymph % (Auto) [place] % (Auto) Eos % (Auto) Baso % (Auto) Neut # (Auto) Lymph # (Auto) [place] # (Auto) Eos # (Auto) Baso # (Auto) WBC Differential Differential Comment Sodium Potassium Chloride Carbon Dioxide Anion Gap BUN Creatinine Estimated GFR POC Glucose 111 H Random Glucose Calcium Phosphorus Magnesium Total Bilirubin AST ALT Alkaline Phosphatase Total Protein Albumin Random Vancomycin Imaging: Head CT 03/04/18 17:39 CONCLUSION: 1. Negative CT Head non contrast. . Hand X-Ray 03/06/18 00:00 CONCLUSION: Prominent dorsal hand soft tissue swelling. No fracture seen. Abdomen X-Ray 03/14/18 00:00 CONCLUSION: Mild gaseous distention of bowel loops. Chest X-Ray 03/14/18 09:45 CONCLUSION: Cardiomegaly with interstitial edema. Objective Remarks: GENERAL: Patient is 72 yo lying in bed in NAD SKIN: Warm and dry. HEAD: Normocephalic. EYES: No scleral icterus. No injection or drainage. NECK: Supple, trachea midline. No JVD or lymphadenopathy. CARDIOVASCULAR: Regular rate and rhythm without murmurs, gallops, or rubs. RESPIRATORY: Breath sounds equal bilaterally. No accessory muscle use. GASTROINTESTINAL: Abdomen soft, non-tender, nondistended. MUSCULOSKELETAL: No cyanosis, or edema. Neuro: Awake Assessment and Plan - Assessment and Plan Plan: Neuro: Encephalopathy Monitor neuro status, avoid sedatives CT brain 03/04: No acute findings EEG 03/06: Mild slowing, no epileptiform features Neuro consulted- Dr. Coral Quinones VDRF Pneumonia -Continue with oxygen keep sats >92% -TARIQ Magdaleno CV: Acute coronary syndrome Cardiogenic shock (resolved) -RCA occlusion -Status post cardiac catheterization and stent placement. LVEF 75% by cath. Echo with LVEF around 40%, normal RV, regional wall motion abnormalities. -Off Tirofiban gtt -Aspirin, Prasugrel -Wean off Levophed monitor HR and BP keep MAP>65mmHg -Intra-aortic balloon pump-discontinued 03/07 GI: On PO diet KUB abdomen today- mild gaseous distention of bowel loops ID: Pneumonia/ sepsis -Abx per ID-On Cefepime and Vanco -Monitor for signs of infections ( Fever, WBC) WBC is trending down 03/12 Sputum: Pseudomonas 03/06, 03/07 Sputum: Kleb , Pseudomonas, Staph -sputum cx 03/12: Pseudomonas -C-diff PCR negative on 03/14 : Monitor renal function, I/O's, electrolytes replacement per protocol. Cr: 1.37 today from 1.57 Lasix 40mg IV BID Heme Monitor CBC Endo SSI for glycemic control DVT GI prophylaxis -Teds SCDs -Lovenox 40 mg subcutaneously daily -Pepcid Palliative care is following Level 3
[2018-03-15] MEDS: Enoxaparin Inj 40 MG/0.4 ML Syringe SQ SCH (12:21)
[2018-03-15] MEDS: Vancomycin Inj 1,000 MG in Sodium Chlor 0.9% Inj 250 ML IV.SIG SCH (14:04)
--- NOTE | 2018-03-15 14:11 | P.PNPAL ---
Reason for Visit Reason for visit: a. To assist with evaluation and management of symptoms including: Dyspnea, constipation b. To assist medical decision maker(s) with: better understanding of current medical conditions; weighing benefits/burdens of medical treatment options; making medical treatment decisions. Subjective Subjective/Interval History: Patient seen today to follow-up on dyspnea, goals . Patient was medically extubated this past weekend (yesterday 03/14). She was extubated to simple mask, today tolerating simple mask 10 L. Febrile over the weekend T-max 102, infectious disease was consulted. WBC up to 29 patient on cefepime, vancomycin. Concern for C. difficile, stool culture sent negative for C. difficile 03/14. WBC now downtrending 24 today. Temps lower 99's. Patient with recent abdominal imaging with mild ileus. Has been off of Levophed since earlier this morning. Discussed with primary nurse, nursing to wean O2 as tolerated. Patient seen by ST, reported cleared for mechanical soft diet. In room, nursing present for part of visit. Oriented and appropriate. She appears to have reasonable insight into hospitalization. She says she remembers little of being intubated. She understands she is in the hospital because she "nearly from a heart attack." She understands she underwent a stenting procedure. She indicates her son has been visiting. Overall feeling well today. denies generalized pain however endorses cough is painful uncomfortable. Endorses frequent cough though not always able to bring up sputum. Denies any GI complaints, complains of passing a lot of gas. Denies dyspnea. Denies chest pain. No nausea, feels hungry ready to eat. Review with her hospitalization, course. Review with her CODE STATUS. She indicates in the past she had one point thought she would want a DNR however she further indicates that given what she has been through recently she will have to think more about this as she has gotten through fairly significant cardiac event this admission. Further explore with her advanced directive, healthcare surrogate designation. She indicates she has been for her for over 30 years. She indicates that she would want both of her children to serve as surrogates and is in agreement to complete healthcare surrogate designation. Palliative will assist her with this. Review with her possible trajectory going forward and that she remains at risk for infections, other complications and may require some rehab to restore strength/function. Following exam she asked me to call her daughter to provide an update, she says I do not need to call her son because he has been coming in regularly and she is keeping them updated. Following exam call to daughter Yesenia, provided update on current condition, assessment, treatments in place, recent diagnostics. She voices appreciation for updates. Advise her patient plans to complete healthcare surrogate naming both children. Objective Vital Signs: Vital Signs 03/14/18 15:03 03/14/18 15:06 03/14/18 20:00 Temperature 100.2 F H 99.8 F H Pulse Rate 92 H 92 H 90 Respiratory Rate 19 20 Blood Pressure 122/59 L 101/50 L Pulse Oximetry 93 L 94 L 03/14/18 22:00 03/14/18 22:26 03/15/18 00:00 Temperature 100.3 F H Pulse Rate 89 82 Respiratory Rate 20 20 Blood Pressure 100/43 L Pulse Oximetry 94 L 94 L 03/15/18 01:00 03/15/18 04:00 03/15/18 07:00 Temperature 99.8 F H 98.9 F Pulse Rate 70 78 Respiratory Rate 18 18 Blood Pressure 94/46 L 111/53 L Pulse Oximetry 91 L 95 92 L 03/15/18 07:32 03/15/18 11:00 Temperature 98.6 F Pulse Rate 91 H Respiratory Rate 20 Blood Pressure 91/42 L Pulse Oximetry 95 94 L Intake & Output 03/14/18 03/15/18 03/15/18 18:59 06:59 18:59 Intake Total 632.5 / 632.5 280 / 280 226 / 226 Output Total 1610 / 1610 825 / 825 Balance -977.5 / -977.5 -545 / -545 226 / 226 Weight 69.5 kg Intake: IV 632.5 / 632.5 230 / 230 226 / 226 Maxipime Inj 2,000 MG In NS Inj 100 / 100 100 / 100 100 ML @ 200 mls/hr IV.SIG Q12H SHAYNE Rx#:[id number] Levophed-Dextrose 4 mg/250 ml 120 / 120 130 / 130 126 / 126 Drip 4 mg In 250 ml @ 2 MCG/MIN 7.5 mls/hr IV.SIG TITRATE PRN Rx#:[id number] Zosyn 3.375 GM Premix 50 ML @ 50 / 50 100 mls/hr IV.SIG Q6H SHAYNE Rx#: [id number] KCl 40 mEq Premix Inj 40 meq In 100 / 100 100 / 100 100 ml @ 25 mls/hr IV.SIG UNSCH PRN Rx#:[id number] Vancomycin Inj 1,250 MG In NS 262.5 / 262.5 Inj 250 ML @ 250 mls/hr IV.SIG ONCE ONE Rx#:[id number] Oral 50 / 50 Output: Urine Amount (Catheter) 810 / 810 825 / 825 Indwelling Urethral Catheter 810 / 810 825 / 825 Gastric Drainage 800 / 800 Oral 800 / 800 Other: Date of Last Bowel Movement 03/14/18 03/14/18 03/14/18 # Bowel Movements 2 0 Physical Exam: CONSTITUTIONAL/GENERAL: This is an adequately nourished patient, in no apparent distress. alert, pleasant TUBES/LINES/DRAINS: Central line, Bryan catheter SKIN: No jaundice, rashes, or lesions. Multiple areas of ecchymosis bilateral upper extremities, hands. Skin warm and dry.+ Edema to left hand. CARDIOVASCULAR: Regular rate and rhythm without murmur. No JVD. Peripheral pulses symmetric.+ 2+ edema to upper extremities. RESPIRATORY/CHEST: Symmetric, unlabored respirations on FM 10L. clear, few scattered expiratory wheezes. Breath sounds equal bilaterally. GASTROINTESTINAL: Abdomen soft, no tenderness, nondistended. No hepato- splenomegaly, or palpable masses. Bowel sounds present. GENITOURINARY: Without palpable bladder distension. Bryan catheter in place. clear yellow urine. MUSCULOSKELETAL: Extremities without clubbing, cyanosis. +edema left hand. No joint effusion noted. No mottling or clubbing. NEUROLOGICAL: alert, oriented x3 (forgetful to date) . Appropriate, reasonable insight. moves all 4 extremities well. PSYCHIATRIC: No obvious anxiety/depression Diagnostic Tests Laboratory: Laboratory Results - last 72 hr 03/12/18 03/12/18 03/12/18 19:03 20:30 23:09 WBC RBC Hgb Hct MCV MCH MCHC RDW Plt Count MPV Neut % (Auto) Lymph % (Auto) [place] % (Auto) Eos % (Auto) Baso % (Auto) Neut # (Auto) Lymph # (Auto) [place] # (Auto) Eos # (Auto) Baso # (Auto) WBC Differential Differential Comment Puncture Site Patient Temperature O2 Saturation ABG pH ABG pCO2 ABG pO2 ABG HCO3 ABG O2 Content ABG Base Excess ABG Methemoglobin Rony Test Hemoglobin Carboxyhemoglobin O2 Delivery Device Vent Setting Inspired O2 Critical Value Sodium Potassium 3.3 L Chloride Carbon Dioxide Anion Gap BUN Creatinine Estimated GFR POC Glucose 150 H 127 H Random Glucose Calcium Phosphorus Magnesium Total Bilirubin AST ALT Alkaline Phosphatase Total Protein Albumin Urine Color Urine Clarity Urine pH Ur Specific [place] Urine Protein Urine Glucose (UA) Urine Ketones Urine Occult Blood Urine Nitrate Urine Bilirubin Urine Urobilinogen Ur Leukocyte Esterase Urine RBC Urine WBC Micro UA Comment Urine Culture Comments Stl C.difficile Tox PCR St C. diff Tox Epid 027 Random Vancomycin 03/13/18 03/13/18 03/13/18 04:15 04:15 09:00 WBC 29.2 H D 29.7 H RBC 3.06 L 2.93 L Hgb 9.3 L 8.9 L Hct 27.7 L 27.0 L MCV 90.8 91.9 MCH 30.6 30.3 MCHC 33.7 32.9 RDW 14.5 14.4 Plt Count 368 369 MPV 7.8 7.8 Neut % (Auto) 91.3 H 89.1 H Lymph % (Auto) 6.2 L 8.3 L [place] % (Auto) 2.2 2.0 Eos % (Auto) 0.2 0.4 Baso % (Auto) 0.1 0.2 Neut # (Auto) 26.7 H 26.5 H Lymph # (Auto) 1.8 2.5 [place] # (Auto) 0.6 0.6 Eos # (Auto) 0.1 0.1 Baso # (Auto) 0.0 0.0 WBC Differential . . Differential Comment Auto diff final Auto diff final Puncture Site Patient Temperature O2 Saturation ABG pH ABG pCO2 ABG pO2 ABG HCO3 ABG O2 Content ABG Base Excess ABG Methemoglobin Rony Test Hemoglobin Carboxyhemoglobin O2 Delivery Device Vent Setting Inspired O2 Critical Value Sodium 140 Potassium 3.1 L Chloride 97 L Carbon Dioxide 33.7 H Anion Gap 9 BUN 14 Creatinine 1.57 H Estimated GFR 32 L POC Glucose Random Glucose 171 H Calcium 8.3 L Phosphorus 3.5 Magnesium 2.2 Total Bilirubin 0.6 AST 42 H ALT 34 Alkaline Phosphatase 130 H Total Protein 6.5 Albumin 1.8 L Urine Color Urine Clarity Urine pH Ur Specific [place] Urine Protein Urine Glucose (UA) Urine Ketones Urine Occult Blood Urine Nitrate Urine Bilirubin Urine Urobilinogen Ur Leukocyte Esterase Urine RBC Urine WBC Micro UA Comment Urine Culture Comments Stl C.difficile Tox PCR St C. diff Tox Epid 027 Random Vancomycin 03/13/18 03/13/18 03/13/18 11:00 11:59 17:19 WBC RBC Hgb Hct MCV MCH MCHC RDW Plt Count MPV Neut % (Auto) Lymph % (Auto) [place] % (Auto) Eos % (Auto) Baso % (Auto) Neut # (Auto) Lymph # (Auto) [place] # (Auto) Eos # (Auto) Baso # (Auto) WBC Differential Differential Comment Puncture Site Patient Temperature O2 Saturation ABG pH ABG pCO2 ABG pO2 ABG HCO3 ABG O2 Content ABG Base Excess ABG Methemoglobin Rony Test Hemoglobin Carboxyhemoglobin O2 Delivery Device Vent Setting Inspired O2 Critical Value Sodium Potassium Chloride Carbon Dioxide Anion Gap BUN Creatinine Estimated GFR POC Glucose 157 H 162 H Random Glucose Calcium Phosphorus Magnesium Total Bilirubin AST ALT Alkaline Phosphatase Total Protein Albumin Urine Color Straw Urine Clarity Clear Urine pH 7.0 Ur Specific [place] 1.004 Urine Protein Negative Urine Glucose (UA) Negative Urine Ketones Negative Urine Occult Blood Moderate H Urine Nitrate Negative Urine Bilirubin Negative Urine Urobilinogen Less than 2 Ur Leukocyte Esterase Negative Urine RBC 2 Urine WBC 4 Micro UA Comment Cath-culture not ind Urine Culture Comments Cath-cult not ind Stl C.difficile Tox PCR St C. diff Tox Epid 027 Random Vancomycin 03/13/18 03/14/18 03/14/18 18:00 00:20 04:45 WBC 28.8 H RBC 2.77 L Hgb 8.5 L Hct 25.5 L MCV 92.1 MCH 30.8 MCHC 33.4 RDW 14.8 Plt Count 343 MPV 7.7 Neut % (Auto) 89.5 H Lymph % (Auto) 7.5 L [place] % (Auto) 2.4 Eos % (Auto) 0.4 Baso % (Auto) 0.2 Neut # (Auto) 25.8 H Lymph # (Auto) 2.2 [place] # (Auto) 0.7 Eos # (Auto) 0.1 Baso # (Auto) 0.1 WBC Differential . Differential Comment Auto diff final Puncture Site Patient Temperature O2 Saturation ABG pH ABG pCO2 ABG pO2 ABG HCO3 ABG O2 Content ABG Base Excess ABG Methemoglobin Rony Test Hemoglobin Carboxyhemoglobin O2 Delivery Device Vent Setting Inspired O2 Critical Value Sodium Potassium 3.5 Chloride Carbon Dioxide Anion Gap BUN Creatinine Estimated GFR POC Glucose 198 H Random Glucose Calcium Phosphorus Magnesium Total Bilirubin AST ALT Alkaline Phosphatase Total Protein Albumin Urine Color Urine Clarity Urine pH Ur Specific [place] Urine Protein Urine Glucose (UA) Urine Ketones Urine Occult Blood Urine Nitrate Urine Bilirubin Urine Urobilinogen Ur Leukocyte Esterase Urine RBC Urine WBC Micro UA Comment Urine Culture Comments Stl C.difficile Tox PCR St C. diff Tox Epid 027 Random Vancomycin 03/14/18 03/14/18 03/14/18 04:45 06:33 09:25 WBC RBC Hgb Hct MCV MCH MCHC RDW Plt Count MPV Neut % (Auto) Lymph % (Auto) [place] % (Auto) Eos % (Auto) Baso % (Auto) Neut # (Auto) Lymph # (Auto) [place] # (Auto) Eos # (Auto) Baso # (Auto) WBC Differential Differential Comment Puncture Site Patient Temperature O2 Saturation ABG pH ABG pCO2 ABG pO2 ABG HCO3 ABG O2 Content ABG Base Excess ABG Methemoglobin Rony Test Hemoglobin Carboxyhemoglobin O2 Delivery Device Vent Setting Inspired O2 Critical Value Sodium 141 Potassium 3.5 Chloride 100 Carbon Dioxide 32.3 H Anion Gap 9 BUN 17 Creatinine 1.57 H Estimated GFR 32 L POC Glucose 135 H Random Glucose 190 H Calcium 8.0 L Phosphorus 2.5 D Magnesium 2.4 Total Bilirubin 0.5 AST 37 ALT 28 Alkaline Phosphatase 110 Total Protein 6.1 L Albumin 1.7 L Urine Color Urine Clarity Urine pH Ur Specific [place] Urine Protein Urine Glucose (UA) Urine Ketones Urine Occult Blood Urine Nitrate Urine Bilirubin Urine Urobilinogen Ur Leukocyte Esterase Urine RBC Urine WBC Micro UA Comment Urine Culture Comments Stl C.difficile Tox PCR Negative St C. diff Tox Epid 027 Negative Random Vancomycin 03/14/18 03/14/18 03/14/18 12:02 12:38 17:42 WBC RBC Hgb Hct MCV MCH MCHC RDW Plt Count MPV Neut % (Auto) Lymph % (Auto) [place] % (Auto) Eos % (Auto) Baso % (Auto) Neut # (Auto) Lymph # (Auto) [place] # (Auto) Eos # (Auto) Baso # (Auto) WBC Differential Differential Comment Puncture Site Right radial Patient Temperature 98.6 O2 Saturation 92 ABG pH 7.48 H ABG pCO2 43 H ABG pO2 70 ABG HCO3 31 H ABG O2 Content 10.9 L ABG Base Excess 7.4 H ABG Methemoglobin 1.3 Rony Test + Hemoglobin 8.4 L Carboxyhemoglobin 1.4 O2 Delivery Device Ventilator Vent Setting Cpap +5/ 10psv Inspired O2 40 Critical Value No Sodium Potassium Chloride Carbon Dioxide Anion Gap BUN Creatinine Estimated GFR POC Glucose 149 H 107 Random Glucose Calcium Phosphorus Magnesium Total Bilirubin AST ALT Alkaline Phosphatase Total Protein Albumin Urine Color Urine Clarity Urine pH Ur Specific [place] Urine Protein Urine Glucose (UA) Urine Ketones Urine Occult Blood Urine Nitrate Urine Bilirubin Urine Urobilinogen Ur Leukocyte Esterase Urine RBC Urine WBC Micro UA Comment Urine Culture Comments Stl C.difficile Tox PCR St C. diff Tox Epid 027 Random Vancomycin 03/15/18 03/15/18 03/15/18 01:19 04:50 04:50 WBC 24.0 H RBC 2.54 L Hgb 7.9 L Hct 23.7 L MCV 93.2 MCH 31.1 MCHC 33.3 RDW 14.8 Plt Count 330 MPV 7.5 Neut % (Auto) 85.9 H Lymph % (Auto) 10.1 [place] % (Auto) 2.4 Eos % (Auto) 1.4 Baso % (Auto) 0.2 Neut # (Auto) 20.6 H Lymph # (Auto) 2.4 [place] # (Auto) 0.6 Eos # (Auto) 0.3 Baso # (Auto) 0.0 WBC Differential . Differential Comment Auto diff final Puncture Site Patient Temperature O2 Saturation ABG pH ABG pCO2 ABG pO2 ABG HCO3 ABG O2 Content ABG Base Excess ABG Methemoglobin Rony Test Hemoglobin Carboxyhemoglobin O2 Delivery Device Vent Setting Inspired O2 Critical Value Sodium 142 Potassium 3.5 Chloride 101 Carbon Dioxide 33.0 H Anion Gap 8 BUN 23 H Creatinine 1.37 H Estimated GFR 38 L POC Glucose 108 Random Glucose 98 Calcium 8.2 L Phosphorus 3.7 D Magnesium 2.6 H Total Bilirubin 0.4 AST 39 H ALT 29 Alkaline Phosphatase 98 Total Protein 6.3 L Albumin 1.6 L Urine Color Urine Clarity Urine pH Ur Specific [place] Urine Protein Urine Glucose (UA) Urine Ketones Urine Occult Blood Urine Nitrate Urine Bilirubin Urine Urobilinogen Ur Leukocyte Esterase Urine RBC Urine WBC Micro UA Comment Urine Culture Comments Stl C.difficile Tox PCR St C. diff Tox Epid 027 Random Vancomycin 11.6 03/15/18 03/15/18 04:56 12:20 WBC RBC Hgb Hct MCV MCH MCHC RDW Plt Count MPV Neut % (Auto) Lymph % (Auto) [place] % (Auto) Eos % (Auto) Baso % (Auto) Neut # (Auto) Lymph # (Auto) [place] # (Auto) Eos # (Auto) Baso # (Auto) WBC Differential Differential Comment Puncture Site Patient Temperature O2 Saturation ABG pH ABG pCO2 ABG pO2 ABG HCO3 ABG O2 Content ABG Base Excess ABG Methemoglobin Rony Test Hemoglobin Carboxyhemoglobin O2 Delivery Device Vent Setting Inspired O2 Critical Value Sodium Potassium Chloride Carbon Dioxide Anion Gap BUN Creatinine Estimated GFR POC Glucose 111 H 105 Random Glucose Calcium Phosphorus Magnesium Total Bilirubin AST ALT Alkaline Phosphatase Total Protein Albumin Urine Color Urine Clarity Urine pH Ur Specific [place] Urine Protein Urine Glucose (UA) Urine Ketones Urine Occult Blood Urine Nitrate Urine Bilirubin Urine Urobilinogen Ur Leukocyte Esterase Urine RBC Urine WBC Micro UA Comment Urine Culture Comments Stl C.difficile Tox PCR St C. diff Tox Epid 027 Random Vancomycin Result Diagrams: 03/15/18 04:50 03/15/18 04:50 Microbiology: Microbiology 03/13/18 19:50 Aerobic Blood Culture - Preliminary Blood - Peripheral No growth in 2 days Anaerobic Blood Culture - Preliminary No growth in 2 days 03/13/18 19:40 Aerobic Blood Culture - Preliminary Blood - Peripheral No growth in 2 days Anaerobic Blood Culture - Preliminary No growth in 2 days 03/12/18 09:35 Gram Stain - Final Sputum - Tracheal Aspirate Sputum Culture - Final Pseudomonas aeruginosa 03/07/18 11:50 Aerobic Blood Culture - Final Blood - Peripheral No growth in 5 days Anaerobic Blood Culture - Final No growth in 5 days 03/07/18 12:00 Aerobic Blood Culture - Final Blood - Peripheral No growth in 5 days Anaerobic Blood Culture - Final No growth in 5 days Imaging: Impressions Abdomen X-Ray 03/14/18 00:00 CONCLUSION: Mild gaseous distention of bowel loops. Chest X-Ray 03/14/18 09:45 CONCLUSION: Cardiomegaly with interstitial edema. Assessment and Plan - Disease Oriented Problem List (1) CAD (coronary artery disease) (2) STEMI (ST elevation myocardial infarction) (3) Cardiogenic shock - Symptom Scale (1) Dyspnea 0-10 Scale: Unable to quantify (2) Constipation 0-10 Scale: Unable to quantify (3) Pain 0-10 Scale: Unable to quantify Pertinent Non-Medical Issues: Psychosocial: retired. 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 Supported by son mary, daughter in [place]. Estranged / from spouse many years ago. Spiritual:not affiliated at this time, would not want circuit court clerk visit Legal:Patient is unable to participate in decision-making. Not clear if or when she will regain ability. She is supported by a son Trey Pimentel who is local, and a daughter Christi Franco who lives in [place]. They report she has been legally , however is not from her spouse. She has not spoken to him or had any communication with him in many years not known his whereabouts or if he is even still living. Per [place] statutes if they are still legally he would in fact be appropriate legal proxy if he can be located and if he wishes to serve as such. If he cannot be located or does not wish to serve that it would fall to the 2 adult children. They remain in close communication and are working together. Sleep.FM report has been requested to attempt to locate estranged spouse James Escamillarazia Ethical issues impacting care: Important Contacts: son Trey Pimentel [phone] Daughter Yesenia Franco [phone] . Prognosis: This patient was admitted from home with STEMI. She went emergently to [facility] =RV infarction due to right ventricular infarction, most likely culprit occluded proximal right coronary artery ; otherwise with moderate three-vessel CAD. She underwent successful drug percutaneous coronary intervention with metal stent placement in the proximal mid right coronary artery required intra-aortic balloon pump. Remains high risk for further complications and setbacks related to advanced age and admitting diagnosis. She was previously living alone and of fairly good health. Code Status: Full Code Plan: * Legal decision maker:Patient is unable to participate in decision-making. Not clear if or when she will regain ability. She is supported by a son Trey Pimentel who is local, and a daughter Christi Franco who lives in [place]. They report she has been legally , however is not from her spouse. She has not spoken to him or had any communication with him in many years not known his whereabouts or if he is even still living. Per [place] statutes if they are still legally he would in fact be appropriate legal proxy if he can be located and if he wishes to serve as such. S/p DIANE,did not return working info for spouse, at this time would proceed with proxy decision making via the 2 adult children. --03/15/18 pt in agreement to complete HCS designation, she indicates she would name both children as HCS, palliative will assist her to complete HCS document. * Goals: Pt able to make her own decisions now. She is going to complete HCS designation. She will think more about code status. her goals are to continue with available treatment to help her recovery from recent cardiac event. * CODE STATUS: Full code * SYMPTOMS: --Dyspnea-patient admitted with STEMI, emergently intubated for airway protection. Remains on mechanical vent. Worsening CXR. + Pneumonia, on antibiotics per. Prev. requiring high levels of ventilator support. Previously Requiring significant sedation for vent asynchrony, desaturation--tolerated CPAP over the weekend. Medically extubated 03/14, yesterday. Tolerating facemask O2. Patient reports significant cough however no dyspnea today. --Pain-currently with no signs or symptoms of pain however potential sources would include now bedbound status, recent invasive procedures. We will continue to assess. Patient medically extubated yesterday indicates cough is uncomfortable, at times painful because of the frequency feels sore however otherwise no reports of pain or discomfort. --Constipation-no bowel movement recorded since admission through 03/10. + Risk for secondary to immobility, sedatives had been receiving tube feeds last week through weekend, with higher residuals. Bowel sounds are present. Abdominal imaging recently indicated possible mild ileus. Patient with some loose stools, stool sample negative for C. difficile yesterday. ID following. --Denies nausea or other GI complaints, endorses feeling hungry * Palliative care will continue to follow during hospital course as condition evolves, to assist patient/decision-maker with understanding of medical conditions, weighing benefits/burdens of treatment options, for clarification of goals of treatment. Additionally will assist with any symptoms of palliative concern Attestation Attestation: To help prompt me to consider important information that might be impacting today's encounter and assessment, information from prior notes written by myself or my colleagues may have been "brought forward" into today's note. My signature on this note, however, is an attestation that I personally performed the exam, history, and/or decision-making noted today, and, unless otherwise indicated, the interactions with patient, family, and staff as well as the review of records all occurred today. I also attest that the listed assessment and stated plan reflect my best clinical judgment today based on the combination of historical information, prior notes, and today's exam/ interactions. When time spent is documented, it refers only to time spent today by the signer, or if indicated, combined time spent today by collaborating physician/nurse practitioner.
--- NOTE | 2018-03-15 14:28 | P.PNCA ---
Subjective Interval history: extubtaed, alert in nad Physical Exam Vital signs: Vital Signs 03/14/18 15:03 03/14/18 15:06 03/14/18 20:00 Temperature 100.2 F H 99.8 F H Pulse Rate 92 H 92 H 90 Respiratory Rate 19 20 Blood Pressure 122/59 L 101/50 L Pulse Oximetry 93 L 94 L 03/14/18 22:00 03/14/18 22:26 03/15/18 00:00 Temperature 100.3 F H Pulse Rate 89 82 Respiratory Rate 20 20 Blood Pressure 100/43 L Pulse Oximetry 94 L 94 L 03/15/18 01:00 03/15/18 04:00 03/15/18 07:00 Temperature 99.8 F H 98.9 F Pulse Rate 70 78 Respiratory Rate 18 18 Blood Pressure 94/46 L 111/53 L Pulse Oximetry 91 L 95 92 L 03/15/18 07:32 03/15/18 11:00 Temperature 98.6 F Pulse Rate 91 H Respiratory Rate 20 Blood Pressure 91/42 L Pulse Oximetry 95 94 L Intake & Output 03/14/18 03/15/18 03/15/18 18:59 06:59 18:59 Intake Total 632.5 / 632.5 280 / 280 326 / 326 Output Total 1610 / 1610 825 / 825 Balance -977.5 / -977.5 -545 / -545 326 / 326 Weight 69.5 kg Intake: IV 632.5 / 632.5 230 / 230 326 / 326 Maxipime Inj 2,000 MG In NS Inj 100 / 100 100 / 100 100 / 100 100 ML @ 200 mls/hr IV.SIG Q12H SHAYNE Rx#:[id number] Levophed-Dextrose 4 mg/250 ml 120 / 120 130 / 130 126 / 126 Drip 4 mg In 250 ml @ 2 MCG/MIN 7.5 mls/hr IV.SIG TITRATE PRN Rx#:[id number] Zosyn 3.375 GM Premix 50 ML @ 50 / 50 100 mls/hr IV.SIG Q6H SHAYNE Rx#: [id number] KCl 40 mEq Premix Inj 40 meq In 100 / 100 100 / 100 100 ml @ 25 mls/hr IV.SIG UNSCH PRN Rx#:[id number] Vancomycin Inj 1,250 MG In NS 262.5 / 262.5 Inj 250 ML @ 250 mls/hr IV.SIG ONCE ONE Rx#:[id number] Oral 50 / 50 Output: Urine Amount (Catheter) 810 / 810 825 / 825 Indwelling Urethral Catheter 810 / 810 825 / 825 Gastric Drainage 800 / 800 Oral 800 / 800 Other: Date of Last Bowel Movement 03/14/18 03/14/18 03/14/18 # Bowel Movements 2 0 - Urinary Catheter Management Indwelling Urethral Catheter Cath placed during this visit: yes Reason for continuing: Hourly intake/output Insertion date: 03/04/18 Insertion time: 22:00 Assessment and Plan - Assessment (1) CAD (coronary artery disease) Code(s): I25.10 - Atherosclerotic heart disease of [place] coronary artery without angina pectoris Status: Acute (2) STEMI (ST elevation myocardial infarction) Code(s): I21.3 - ST elevation (STEMI) myocardial infarction of unspecified site Status: Acute (3) Cardiogenic shock Code(s): R57.0 - Cardiogenic shock Status: Acute (4) Encephalopathy Code(s): G93.40 - Encephalopathy, unspecified Status: Acute - Plan 1.) CAD - POD # 11 primary pci prox rca, rv infarct, off levophed; mental status iappears wnl, off sedation, neurology following, continue aspirin, effient, has rv infarct, weight down 114 kgs since 03/10/18, baseline is 66 kg, 7 kg 03/14/18, u/o improving, hopefully will start mobilizing more fluid, on abs for pneumonia, s/p transfusion 03/09/18, still spiking fevers and requiring levophed, possible attempt at extubation today, d/w nurseToby
[2018-03-16] MEDS: Oral Hygiene Kit OROPHARYNG SCH ×5 (00:09→16:09)
[2018-03-16] MEDS: Insulin NovoLIN Regular Correctional Sugar Inj SQ SCH ×4 (00:09→17:55)
[2018-03-16 00:46] LABS: Calcium 8.1 mg/dL (8.5-10.1); Carbon Dioxide 34.5 meq/L (21.0-32.0); Potassium 3.7 meq/L (3.5-5.1)
[2018-03-16 04:30] LABS: Baso % (Auto) 0.3 % (0.0-2.0); Eos # (Auto) 0.3 th/mm3 (0.0-0.4); Hematocrit 23.7 % (35.0-46.0); Hemoglobin 8.1 gm/dL (11.6-15.3); Lymph # (Auto) 2.2 th/mm3 (1.0-4.8); Lymph % (Auto) 13.3 % (9.0-44.0); Mean Corpuscular Hemoglobin 31.3 pg (27.0-34.0); Mean Corpuscular Volume 91.9 fL (80.0-100.0); Mean Platelet Volume 7.7 fL (7.0-11.0); Mono # (Auto) 0.7 th/mm3 (0.0-0.9); Mono % (Auto) 4.2 % (0.0-8.0); Neut % (Auto) 80.2 % (16.0-70.0); Platelet Count 321 th/mm3 (150-450); Red Blood Count 2.58 mil/mm3 (4.00-5.30); Red Cell Distribution Width 14.3 % (11.6-17.2); White Blood Count 16.2 th/mm3 (4.0-11.0)
[2018-03-16 04:53] LABS: Magnesium 2.7 mg/dL (1.5-2.5); Phosphorus 2.8 mg/dL (2.5-4.9)
[2018-03-16] MEDS ORDERED: Cathflo Activase Inj 2 MG Vial I-CATHETER ONE (05:26)
[2018-03-16] MEDS: Famotidine PF Inj 20 MG/2 ML Vial IV.PUSH SCH ×2 (08:33→20:59)
[2018-03-16] MEDS: Chlorhexidine 0.12% Oral Kit 15 ML UDC OROPHARYNG SCH ×2 (08:35→20:58)
[2018-03-16] MEDS: Senna/Docusate Sodium 8.6/50 MG Tablet PO SCH ×2 (08:36→20:59)
--- NOTE | 2018-03-16 09:20 | P.PNCC ---
Subjective Subjective Remarks/Hospital Course: 03/04: 72-year-old female was brought by EMS after patient was found unresponsive at home. Patient's son states that he did not see the patient yesterday. Patient lives alone by herself. Patient's son states that he receive a phone call from the patient this afternoon about 2 hours prior to arrival that patient was calling for help. Patient's son came to the house and found her almost unresponsive. EMS was called. Patient was found to be hypotensive and bradycardic. She was moaning incoherently. External pacer was applied to the patient and the patient was transported to ED for an evaluation. Patient son states the patient has no medical problem. EKG obtained in the emergency department showed acute ST elevations myocardial infarction patient was emergently taken to cardiac catheterization lab. She was found to have RCA occlusion that was stented by Dr. Benaivdez. Intra-aortic balloon pump was also inserted and the patient is now admitted to CVICU. 03/05: Remains sedated, orally intubated on mech vent. IABP in place. On Heparin/ Aggrastat/ Dopamine/ Propofol/ NS@84cc/hr 03/06: Remains sedated, orally intubated on mechanical ventilation. IABP in place. On dopamine at 8 mics per KG per minute. Propofol/NS at 84 cc/h. Yesterday she awakened unenlightening sedation and attempted reaching up for ET tube with both hands however was not following commands. In view of hypotension we will add Precedex and try to titrate down on propofol. 03/07: Sedated, arousable, orally intubated on mechanical ventilation. IABP remains in place. Dopamine titrated off this morning. On Precedex gtt. Borderline urine output. Significant positive fluid balance in the last 48 hours. Changing NS to LR as maintenance IV fluid in view of hyperchloremic metabolic acidosis. 03/08: Sedated, orally intubated on mechanical ventilation. Had episode of hypoxia last night which PEEP was increased to +8 and FiO2 to 90%, subsequently FiO2 decreased to 65%. She was started on empiric antibiotics for left lower lobe pneumonia seen on chest x-ray over the last 48 hours. Significant positive fluid balance noted. On dopamine 1 mcg/kg/min. Given Lasix 20 mg IV this morning to mobilize fluid. 03/09: Remains sedated, orally intubated on mechanical ventilation. Sputum growing Klebsiella/Pseudomonas and MRSA. On Zosyn and Zyvox.Positive fluid balance noted. On dopamine. Lasix to mobilize fluid. Significant pulmonary secretions. 03/10 Patient remains intubated and sedated with Versed and Precedex drip. T:99.7 , on Dopamine 3.5 mics. 03/11 No events overnight. Sedated and intubated. Afebrile. 03/12 Patient remains sedated with Versed and Precedex drip. Afebrile. On PRVC with PEEP:8 and FIO2 50%. 03/13 No events overnight. On Precedex drip for sedation, off Dopamine and Versed drip. On Levophed 4 mics with MAP:72mmHg. Patient remains intubated off Precedex drip. On PRVC with PEEP;5 and FIO2 40%. T ;100.6. On Levophed 3 mics. 03/14 Patient is off Precedex drip, remans on Levophed 3 mics with MAP 72- 75mmHg. T:102.1. Had approx 300ml gastric output tube feeds placed on hold. KUB abdomen this morning showed mild gaseous distention of bowel loops. 03/15 Patient was extubated yesterday on 10L simple mask with good sats. On Levophed 2 mics with MAP 72mmHg. Afebrile. 03/16 No events ovenright. Off Levophed. Patient is lying in bed in NAD. Afebrile. Objective Vital Signs / I&O: Vital Signs 03/15/18 11:00 03/15/18 15:00 03/15/18 18:41 Temperature 98.6 F 98.5 F Pulse Rate 91 H 86 Respiratory Rate 20 18 Blood Pressure 91/42 L 108/51 L Pulse Oximetry 94 L 95 92 L 03/15/18 19:00 03/15/18 21:45 03/15/18 23:00 Temperature 99.8 F H 99.8 F H Pulse Rate 83 93 H Respiratory Rate 25 H 25 H Blood Pressure 89/47 L 98/55 L Pulse Oximetry 95 94 L 97 03/16/18 03:00 03/16/18 07:00 Temperature 99.0 F 99 F Pulse Rate 72 76 Respiratory Rate 21 27 H Blood Pressure 88/48 L 105/52 L Pulse Oximetry 96 98 Intake & Output 03/15/18 03/16/18 03/16/18 18:59 06:59 18:59 Intake Total 1126 / 1126 150 / 150 Output Total 975 / 975 1050 / 1050 Balance 151 / 151 -900 / -900 Weight 69.4 kg Intake: IV 326 / 326 100 / 100 Maxipime Inj 2,000 MG In NS Inj 100 / 100 100 / 100 100 ML @ 200 mls/hr IV.SIG Q12H SHAYNE Rx#:[id number] Levophed-Dextrose 4 mg/250 ml 126 / 126 Drip 4 mg In 250 ml @ 2 MCG/MIN 7.5 mls/hr IV.SIG TITRATE PRN Rx#:[id number] KCl 40 mEq Premix Inj 40 meq In 100 / 100 100 ml @ 25 mls/hr IV.SIG UNSCH PRN Rx#:[id number] Vancomycin Inj 1,000 MG In NS 0 / 0 Inj 250 ML @ 250 mls/hr IV.SIG Q24H SHAYNE Rx#:[id number] Oral 800 / 800 50 / 50 Output: Stool 0 / 0 Urine/Stool Mix 0 / 0 Urine Amount (Catheter) 975 / 975 1050 / 1050 Indwelling Urethral Catheter 975 / 975 1050 / 1050 Other: Date of Last Bowel Movement 03/15/18 03/15/18 03/15/18 # Bowel Movements 3 0 Result Diagrams: 03/16/18 04:10 03/16/18 09:55 Other Results: Laboratory Results - last 12 hr 03/15/18 03/15/18 03/16/18 23:30 23:58 04:10 WBC 16.2 H RBC 2.58 L Hgb 8.1 L Hct 23.7 L MCV 91.9 MCH 31.3 MCHC 34.0 RDW 14.3 Plt Count 321 MPV 7.7 Neut % (Auto) 80.2 H Lymph % (Auto) 13.3 [place] % (Auto) 4.2 Eos % (Auto) 2.0 Baso % (Auto) 0.3 Neut # (Auto) 13.0 H Lymph # (Auto) 2.2 [place] # (Auto) 0.7 Eos # (Auto) 0.3 Baso # (Auto) 0.0 WBC Differential . Differential Comment Auto diff final Sodium 144 Potassium 3.7 Chloride 104 Carbon Dioxide 34.5 H Anion Gap 6 BUN 28 H Creatinine 1.29 H Estimated GFR 40 L POC Glucose 116 H Random Glucose 100 Calcium 8.1 L Phosphorus Magnesium 03/16/18 03/16/18 04:10 06:07 WBC RBC Hgb Hct MCV MCH MCHC RDW Plt Count MPV Neut % (Auto) Lymph % (Auto) [place] % (Auto) Eos % (Auto) Baso % (Auto) Neut # (Auto) Lymph # (Auto) [place] # (Auto) Eos # (Auto) Baso # (Auto) WBC Differential Differential Comment Sodium Potassium Chloride Carbon Dioxide Anion Gap BUN Creatinine Estimated GFR POC Glucose 108 Random Glucose Calcium Phosphorus 2.8 Magnesium 2.7 H Imaging: Head CT 03/04/18 17:39 CONCLUSION: 1. Negative CT Head non contrast. . Hand X-Ray 03/06/18 00:00 CONCLUSION: Prominent dorsal hand soft tissue swelling. No fracture seen. Abdomen X-Ray 03/14/18 00:00 CONCLUSION: Mild gaseous distention of bowel loops. Chest X-Ray 03/14/18 09:45 CONCLUSION: Cardiomegaly with interstitial edema. Objective Remarks: GENERAL: Patient is 72 yo lying in bed in NAD SKIN: Warm and dry. HEAD: Normocephalic. EYES: No scleral icterus. No injection or drainage. NECK: Supple, trachea midline. No JVD or lymphadenopathy. CARDIOVASCULAR: Regular rate and rhythm without murmurs, gallops, or rubs. RESPIRATORY: Breath sounds equal bilaterally. No accessory muscle use. GASTROINTESTINAL: Abdomen soft, non-tender, nondistended. MUSCULOSKELETAL: No cyanosis, or edema. Neuro: Awake Assessment and Plan - Assessment and Plan Plan: Neuro: Encephalopathy Monitor neuro status, avoid sedatives CT brain 03/04: No acute findings EEG 03/06: Mild slowing, no epileptiform features Neuro consulted- Dr. Coral Quinones VDRF Pneumonia -Continue with oxygen keep sats >92% -Sharla, IS, check CXR CV: Acute coronary syndrome Cardiogenic shock (resolved) -RCA occlusion -Status post cardiac catheterization and stent placement. LVEF 75% by cath. Echo with LVEF around 40%, normal RV, regional wall motion abnormalities. -Off Tirofiban gtt -Aspirin, Prasugrel -off Levophed monitor HR and BP keep MAP>65mmHg -Intra-aortic balloon pump-discontinued 03/07 GI: On PO cardiac diet KUB abdomen today- mild gaseous distention of bowel loops ID: Pneumonia/ sepsis -Abx per ID-On Cefepime and Vanco -Monitor for signs of infections ( Fever, WBC) WBC is trending down 03/12 Sputum: Pseudomonas 03/06, 03/07 Sputum: Kleb , Pseudomonas, Staph -sputum cx 03/12: Pseudomonas -C-diff PCR negative on 03/14 : Monitor renal function, I/O's, electrolytes replacement per protocol. Follow up BMP Lasix 40mg IV BID Heme Monitor CBC Endo SSI for glycemic control DVT GI prophylaxis -Teds SCDs -Lovenox 40 mg subcutaneously daily -Pepcid Palliative care is following Access: D/c central line and place peripheral IV's Level 2
--- NOTE | 2018-03-16 10:30 | XR ---
EXAM DATE: 03/16/2018 10:24 AM EDT AGE/SEX: 72 years / Female INDICATIONS: Short of breath. CLINICAL DATA: This is the patient's initial encounter. Patient reports that signs and symptoms have been present for 3 days and indicates a pain score of 0/10. MEDICAL/SURGICAL HISTORY: . heart attack, pneumonia None. COMPARISON: [facility] – [place], CHEST 1V SINGLE AP, 03/14/2018. . FINDINGS: A single AP view of the chest demonstrates interval removal of the endotracheal and nasogastric tubes . Right IJ central venous catheter is unchanged in position. Bibasilar airspace disease persists, lef t greater than right with probable small associated effusions. Heart size is prominent and the inters titial markings are actually slightly more prominent when compared to the prior characteristic of sharee e worsening interstitial edema or vascular congestion. Osseous structures are intact CONCLUSION: 1. Interval removal of the endotracheal and nasogastric tubes. 2. Bibasilar airspace disease with probable associated effusions, left greater than right. These may be slightly worse when compared to the prior. 3. In addition, slight increase in interstitial markings when compared to prior suggesting worsening interstitial edema or vascular congestion. Heart size remains prominent. Electronically signed by: David Shi MD 03/16/2018 10:29 AM EDT
[2018-03-16 11:12] LABS: Calcium 8.5 mg/dL (8.5-10.1); Carbon Dioxide 36.2 meq/L (21.0-32.0); Potassium 3.7 meq/L (3.5-5.1)
[2018-03-16] MEDS: Enoxaparin Inj 40 MG/0.4 ML Syringe SQ SCH (12:45)
--- NOTE | 2018-03-16 15:17 | P.PNCA ---
Subjective Interval history: alert in nad Physical Exam Vital signs: Vital Signs 03/15/18 18:41 03/15/18 19:00 03/15/18 21:45 Temperature 99.8 F H Pulse Rate 83 Respiratory Rate 25 H Blood Pressure 89/47 L Pulse Oximetry 92 L 95 94 L 03/15/18 23:00 03/16/18 03:00 03/16/18 07:00 Temperature 99.8 F H 99.0 F 99 F Pulse Rate 93 H 72 76 Respiratory Rate 25 H 21 27 H Blood Pressure 98/55 L 88/48 L 105/52 L Pulse Oximetry 97 96 98 03/16/18 08:00 03/16/18 09:38 03/16/18 10:45 Temperature 98.3 F Pulse Rate 79 91 H Respiratory Rate 20 Blood Pressure 98/50 L Pulse Oximetry 97 97 03/16/18 14:07 Temperature Pulse Rate 80 Respiratory Rate 16 Blood Pressure Pulse Oximetry Intake & Output 03/15/18 03/16/18 03/16/18 18:59 06:59 18:59 Intake Total 1126 / 1126 150 / 150 Output Total 975 / 975 1050 / 1050 Balance 151 / 151 -900 / -900 Weight 69.4 kg Intake: IV 326 / 326 100 / 100 Maxipime Inj 2,000 MG In NS Inj 100 / 100 100 / 100 100 ML @ 200 mls/hr IV.SIG Q12H SHAYNE Rx#:[id number] Levophed-Dextrose 4 mg/250 ml 126 / 126 Drip 4 mg In 250 ml @ 2 MCG/MIN 7.5 mls/hr IV.SIG TITRATE PRN Rx#:[id number] KCl 40 mEq Premix Inj 40 meq In 100 / 100 100 ml @ 25 mls/hr IV.SIG UNSCH PRN Rx#:[id number] Vancomycin Inj 1,000 MG In NS 0 / 0 Inj 250 ML @ 250 mls/hr IV.SIG Q24H SHAYNE Rx#:[id number] Oral 800 / 800 50 / 50 Output: Stool 0 / 0 Urine/Stool Mix 0 / 0 Urine Amount (Catheter) 975 / 975 1050 / 1050 Indwelling Urethral Catheter 975 / 975 1050 / 1050 Other: Date of Last Bowel Movement 03/15/18 03/15/18 03/15/18 # Bowel Movements 3 0 - Urinary Catheter Management Indwelling Urethral Catheter Cath placed during this visit: yes Reason for continuing: Hourly intake/output Insertion date: 03/04/18 Insertion time: 22:00 Assessment and Plan - Assessment (1) CAD (coronary artery disease) Code(s): I25.10 - Atherosclerotic heart disease of [place] coronary artery without angina pectoris Status: Acute (2) STEMI (ST elevation myocardial infarction) Code(s): I21.3 - ST elevation (STEMI) myocardial infarction of unspecified site Status: Acute (3) Cardiogenic shock Code(s): R57.0 - Cardiogenic shock Status: Acute (4) Encephalopathy Code(s): G93.40 - Encephalopathy, unspecified Status: Acute - Plan 1.) CAD - POD # 12 primary pci prox rca, rv infarct, off levophed; mental status iappears wnl, off sedation, neurology following, continue aspirin, effient, has rv infarct, weight down 14 kgs since 03/10/18, baseline is 66 kg, 69.4kg kg 03/16/18, on abs for pneumonia, s/p transfusion 03/09/18, less febrile and off levophed,
[2018-03-16] MEDS: Vancomycin Inj 1,000 MG in Sodium Chlor 0.9% Inj 250 ML IV.SIG SCH (15:19)
--- NOTE | 2018-03-16 17:33 | P.PNID ---
Subjective Remarks: doing better Off vent on O2 mask denies abd pain afebrile WBC down to 16 K Antibiotics: cefepime vancomycin Allergies/Adverse Reactions: Allergies No Known Allergies (Uncoded 12/11/08 13:06) Objective Vital Signs 03/15/18 18:41 03/15/18 19:00 03/15/18 21:45 Temperature 99.8 F H Pulse Rate 83 Respiratory Rate 25 H Blood Pressure 89/47 L Pulse Oximetry 92 L 95 94 L 03/15/18 23:00 03/16/18 03:00 03/16/18 07:00 Temperature 99.8 F H 99.0 F 99 F Pulse Rate 93 H 72 76 Respiratory Rate 25 H 21 27 H Blood Pressure 98/55 L 88/48 L 105/52 L Pulse Oximetry 97 96 98 03/16/18 08:00 03/16/18 09:38 03/16/18 10:45 Temperature 98.3 F Pulse Rate 79 91 H Respiratory Rate 20 Blood Pressure 98/50 L Pulse Oximetry 97 97 03/16/18 14:07 03/16/18 16:31 Temperature Pulse Rate 80 93 H Respiratory Rate 16 18 Blood Pressure Pulse Oximetry Intake & Output 03/15/18 03/16/18 03/16/18 18:59 06:59 18:59 Intake Total 1126 / 1126 150 / 150 250 / 250 Output Total 975 / 975 1050 / 1050 Balance 151 / 151 -900 / -900 250 / 250 Weight 69.4 kg Intake: IV 326 / 326 100 / 100 250 / 250 Maxipime Inj 2,000 MG In NS Inj 100 / 100 100 / 100 100 ML @ 200 mls/hr IV.SIG Q12H SHAYNE Rx#:[id number] Levophed-Dextrose 4 mg/250 ml 126 / 126 Drip 4 mg In 250 ml @ 2 MCG/MIN 7.5 mls/hr IV.SIG TITRATE PRN Rx#:[id number] KCl 40 mEq Premix Inj 40 meq In 100 / 100 100 ml @ 25 mls/hr IV.SIG UNSCH PRN Rx#:[id number] Vancomycin Inj 1,000 MG In NS 0 / 0 250 / 250 Inj 250 ML @ 250 mls/hr IV.SIG Q24H SHAYNE Rx#:[id number] Oral 800 / 800 50 / 50 Output: Stool 0 / 0 Urine/Stool Mix 0 / 0 Urine Amount (Catheter) 975 / 975 1050 / 1050 Indwelling Urethral Catheter 975 / 975 1050 / 1050 Other: Date of Last Bowel Movement 03/15/18 03/15/18 03/15/18 # Bowel Movements 3 0 03/13/18 19:50 Blood - Peripheral Aerobic Blood Culture - Preliminary No growth in 3 days 03/13/18 19:50 Blood - Peripheral Anaerobic Blood Culture - Preliminary No growth in 3 days 03/13/18 19:40 Blood - Peripheral Aerobic Blood Culture - Preliminary No growth in 3 days 03/13/18 19:40 Blood - Peripheral Anaerobic Blood Culture - Preliminary No growth in 3 days 03/12/18 09:35 Sputum - Tracheal Aspirate Gram Stain - Final 03/12/18 09:35 Sputum - Tracheal Aspirate Sputum Culture - Final Pseudomonas aeruginosa Lab - Hematology Results 03/15/18 03/16/18 04:50 04:10 WBC 24.0 H 16.2 H RBC 2.54 L 2.58 L Hgb 7.9 L 8.1 L Hct 23.7 L 23.7 L MCV 93.2 91.9 MCH 31.1 31.3 MCHC 33.3 34.0 RDW 14.8 14.3 Plt Count 330 321 MPV 7.5 7.7 Neut % (Auto) 85.9 H 80.2 H Lymph % (Auto) 10.1 13.3 [place] % (Auto) 2.4 4.2 Eos % (Auto) 1.4 2.0 Baso % (Auto) 0.2 0.3 Neut # (Auto) 20.6 H 13.0 H Lymph # (Auto) 2.4 2.2 [place] # (Auto) 0.6 0.7 Eos # (Auto) 0.3 0.3 Baso # (Auto) 0.0 0.0 WBC Differential . . Differential Comment Auto diff final Auto diff final Lab - Chemistry Results 03/14/18 03/15/18 03/15/18 17:42 01:19 04:50 Sodium 142 Potassium 3.5 Chloride 101 Carbon Dioxide 33.0 H Anion Gap 8 BUN 23 H Creatinine 1.37 H Estimated GFR 38 L POC Glucose 107 108 Random Glucose 98 Calcium 8.2 L Phosphorus 3.7 D Magnesium 2.6 H Total Bilirubin 0.4 AST 39 H ALT 29 Alkaline Phosphatase 98 Total Protein 6.3 L Albumin 1.6 L 03/15/18 03/15/18 03/15/18 04:56 12:20 16:59 Sodium Potassium Chloride Carbon Dioxide Anion Gap BUN Creatinine Estimated GFR POC Glucose 111 H 105 117 H Random Glucose Calcium Phosphorus Magnesium Total Bilirubin AST ALT Alkaline Phosphatase Total Protein Albumin 03/15/18 03/15/18 03/16/18 23:30 23:58 04:10 Sodium 144 Potassium 3.7 Chloride 104 Carbon Dioxide 34.5 H Anion Gap 6 BUN 28 H Creatinine 1.29 H Estimated GFR 40 L POC Glucose 116 H Random Glucose 100 Calcium 8.1 L Phosphorus 2.8 Magnesium 2.7 H Total Bilirubin AST ALT Alkaline Phosphatase Total Protein Albumin 03/16/18 03/16/18 03/16/18 06:07 09:55 12:44 Sodium 144 Potassium 3.7 Chloride 103 Carbon Dioxide 36.2 H Anion Gap 5 BUN 30 H Creatinine 1.23 H Estimated GFR 43 L POC Glucose 108 120 H Random Glucose 130 H Calcium 8.5 Phosphorus Magnesium Total Bilirubin AST ALT Alkaline Phosphatase Total Protein Albumin Imaging: ITS Impressions Head CT 03/04/18 17:39 CONCLUSION: 1. Negative CT Head non contrast. . Hand X-Ray 03/06/18 00:00 CONCLUSION: Prominent dorsal hand soft tissue swelling. No fracture seen. Abdomen X-Ray 03/14/18 00:00 CONCLUSION: Mild gaseous distention of bowel loops. Chest X-Ray 03/16/18 09:21 CONCLUSION: 1. Interval removal of the endotracheal and nasogastric tubes. 2. Bibasilar airspace disease with probable associated effusions, left greater than right. These may be slightly worse when compared to the prior. 3. In addition, slight increase in interstitial markings when compared to prior suggesting worsening interstitial edema or vascular congestion. Heart size remains prominent. Physical Exam: GENERAL: NAD awake alert SKIN: Warm and dry. no rash HEAD: Atraumatic. Normocephalic. EYES: Pupils equal and round. No scleral icterus. No injection or drainage. ENT: No nasal bleeding or discharge. Mucous membranes pink and moist. NECK: Trachea midline. No JVD. CARDIOVASCULAR: Regular rate and rhythm. RESPIRATORY: No accessory muscle use. Clear to auscultation. Breath sounds equal bilaterally. GASTROINTESTINAL: Abdomen soft, not tender to palpation nondistended. Hepatic and splenic margins not palpable. MUSCULOSKELETAL: Extremities without clubbing, cyanosis, + trace BLE edema. No obvious deformities. NEUROLOGICAL: Awake and alert. No obvious cranial nerve deficits. Motor grossly within normal limits. Five out of 5 muscle strength in the arms and legs. Normal speech PSYCHIATRIC: calm, cooperative Assessment and Plan - Plan STEMI sp stent placemet Acute VDRF about to be extubated PNA, b/l: PSAE, Kleb in initial clx, repeat clx with PSAE only UTI, K[place]b Persistent fever Leukocytosis, leukemoid reaction , aslo perisstnt Emesis, RLQ abd tenderness CHARMAINE - improving cont cefepime Incrase to q8 hrs when GFR>60 dc vasncomycin dw RN dw microblab dw Dr El Benavidez
--- NOTE | 2018-03-16 21:41 | MB ---
cc: King Power MD DATE: 03/16/2018 REASON FOR CONSULTATION: Pulmonary evaluation in a patient with a history of respiratory failure. HISTORY OF PRESENT ILLNESS: This is a 72-year-old white female who initially was brought to the emergency room following unresponsiveness when she was found at home. The patient apparently was brought by [facility] and she was noted to be hypotensive and bradycardic when [facility] arrived and thus was placed on an external pacer and transferred to the emergency department. The EKG showed evidence of an acute ST elevation myocardial infarct. She was taken to cardiac catheterization and found to have an RCA occlusion for which stenting was done and an IABP was inserted. The patient was placed in the cardiovascular intensive care unit postoperatively. The patient was on oxygen. She has been seen by neurology as well as infectious disease. The patient had to be on ventilator support postoperatively and had to be kept sedated for the next week. She was gradually weaned off pressors and remained on a Precedex drip and subsequently weaned to CPAP. She was extubated yesterday and now on nasal cannula at 4 liters and is awake and conversant. She seems to be in no acute distress. Her chest x-ray had shown bilateral pulmonary infiltrates for which she was on Zosyn and Zyvox for pseudomonas and Klebsiella and MRSA in the sputum. She had a followup chest x-ray today which now shows bibasilar airspace disease with associated effusions, more on the left side. This may be slightly worse than prior and increased interstitial markings bilaterally. Presently, the patient is on nasal cannula at 4 liters. Denies any chest pain and is having no hemoptysis, no fevers, no chills. PAST MEDICAL HISTORY: Significant for COPD, prior history of basal cell carcinoma resected from the eyelid and history of pneumonia. HABITS: The patient is a smoker of a pack per day and has smoked for more than 40 years. REVIEW OF SYSTEMS: The patient is a poor historian. Denies any chest pain, but has some epigastric distress and reflux. She has had leg swelling. She has joint pains. Denies nausea, vomiting. Denies depression or anxiety. ALLERGIES: NO DRUG ALLERGIES ARE LISTED. PHYSICAL EXAMINATION: GENERAL: This is an elderly, averagely built white female who is awake, pale, in no acute distress. VITAL SIGNS: Blood pressure 110/60, pulse 80, respirations 16, temperature 97.8. HEENT: Head is normocephalic. Pupils reactive. Sclerae are clear. Throat is mildly injected. Ears with no inflammation. NECK: No bruits, no thyroid enlargement, no lymphadenopathy. CHEST: Decreased excursions with breath sounds diminished at the bases and bibasilar crackles are heard. HEART: Sounds are irregular. S1 and S2 with no definite murmur or S3 gallop. ABDOMEN: Soft, protuberant without masses. No organomegaly or tenderness. Bowel sounds active. EXTREMITIES: Reveal mild peripheral edema. Diminished peripheral pulses. Reflexes are 1+. SKIN: Dry and cool. IMPRESSION: 1. Status post ST elevation myocardial infarct with cardiogenic shock, resolved. 2. Status post coronary angiography and stenting of critical coronary artery disease. 3. Ventilator-dependent respiratory failure. 4. Basilar pneumonia. 5. Encephalopathy, resolving. 6. Chronic obstructive pulmonary disease. 7. Acute kidney injury, improved. 8. Gastroesophageal reflux. PLAN: The patient will be maintained on O2 at 4 liters nasal cannula and weaned to keep sats greater than 92. Albuterol and Atrovent solution q.i.d. and p.r.n. Continue with antibiotic coverage including cefepime 2 grams IV q.12 and prophylactic Lovenox 40 mg a day. The patient will be advised to use incentive spirometer every 2 hours. Symbicort 160/4.5 one puff twice daily was added as well. Blood gas studies to be done in a.m. I will follow the case with you, Dr. Euceda. Thank you for this consultation. MD ROM Park/guy , 07:38 PM , 07:55 PM
[2018-03-17] MEDS: Insulin NovoLIN Regular Correctional Sugar Inj SQ SCH ×4 (00:09→18:41)
[2018-03-17] MEDS: Oral Hygiene Kit OROPHARYNG SCH ×4 (00:10→15:02)
[2018-03-17] MEDS: Budesonide-Formoterol 160/4.5 MCG 6 GM Inhaler INH SCH ×3 (05:59→19:59)
[2018-03-17 07:15] LABS: Baso # (Auto) 0.1 th/mm3 (0.0-0.2); Baso % (Auto) 0.4 % (0.0-2.0); Eos # (Auto) 0.3 th/mm3 (0.0-0.4); Eos % (Auto) 2.2 % (0.0-4.0); Hemoglobin 8.5 gm/dL (11.6-15.3); Lymph # (Auto) 2.5 th/mm3 (1.0-4.8); Lymph % (Auto) 16.2 % (9.0-44.0); Mean Corpuscular HGB Conc 32.8 % (32.0-36.0); Mean Corpuscular Hemoglobin 30.8 pg (27.0-34.0); Mean Corpuscular Volume 93.9 fL (80.0-100.0); Mono % (Auto) 6.4 % (0.0-8.0); Neut # (Auto) 11.7 th/mm3 (1.8-7.7); Neut % (Auto) 74.8 % (16.0-70.0); Platelet Count 409 th/mm3 (150-450); Red Blood Count 2.77 mil/mm3 (4.00-5.30); Red Cell Distribution Width 14.6 % (11.6-17.2); White Blood Count 15.7 th/mm3 (4.0-11.0)
[2018-03-17] MEDS: Famotidine PF Inj 20 MG/2 ML Vial IV.PUSH SCH ×2 (08:10→19:59)
[2018-03-17] MEDS: Senna/Docusate Sodium 8.6/50 MG Tablet PO SCH ×2 (08:11→19:59)
[2018-03-17] MEDS: Chlorhexidine 0.12% Oral Kit 15 ML UDC OROPHARYNG SCH ×2 (08:11→20:00)
--- NOTE | 2018-03-17 09:13 | P.PNCC ---
Subjective Subjective Remarks/Hospital Course: 03/04: 72-year-old female was brought by EMS after patient was found unresponsive at home. Patient's son states that he did not see the patient yesterday. Patient lives alone by herself. Patient's son states that he receive a phone call from the patient this afternoon about 2 hours prior to arrival that patient was calling for help. Patient's son came to the house and found her almost unresponsive. EMS was called. Patient was found to be hypotensive and bradycardic. She was moaning incoherently. External pacer was applied to the patient and the patient was transported to ED for an evaluation. Patient son states the patient has no medical problem. EKG obtained in the emergency department showed acute ST elevations myocardial infarction patient was emergently taken to cardiac catheterization lab. She was found to have RCA occlusion that was stented by Dr. Benavidez. Intra-aortic balloon pump was also inserted and the patient is now admitted to CVICU. 03/05: Remains sedated, orally intubated on mech vent. IABP in place. On Heparin/ Aggrastat/ Dopamine/ Propofol/ NS@84cc/hr 03/06: Remains sedated, orally intubated on mechanical ventilation. IABP in place. On dopamine at 8 mics per KG per minute. Propofol/NS at 84 cc/h. Yesterday she awakened unenlightening sedation and attempted reaching up for ET tube with both hands however was not following commands. In view of hypotension we will add Precedex and try to titrate down on propofol. 03/07: Sedated, arousable, orally intubated on mechanical ventilation. IABP remains in place. Dopamine titrated off this morning. On Precedex gtt. Borderline urine output. Significant positive fluid balance in the last 48 hours. Changing NS to LR as maintenance IV fluid in view of hyperchloremic metabolic acidosis. 03/08: Sedated, orally intubated on mechanical ventilation. Had episode of hypoxia last night which PEEP was increased to +8 and FiO2 to 90%, subsequently FiO2 decreased to 65%. She was started on empiric antibiotics for left lower lobe pneumonia seen on chest x-ray over the last 48 hours. Significant positive fluid balance noted. On dopamine 1 mcg/kg/min. Given Lasix 20 mg IV this morning to mobilize fluid. 03/09: Remains sedated, orally intubated on mechanical ventilation. Sputum growing Klebsiella/Pseudomonas and MRSA. On Zosyn and Zyvox.Positive fluid balance noted. On dopamine. Lasix to mobilize fluid. Significant pulmonary secretions. 03/10 Patient remains intubated and sedated with Versed and Precedex drip. T:99.7 , on Dopamine 3.5 mics. 03/11 No events overnight. Sedated and intubated. Afebrile. 03/12 Patient remains sedated with Versed and Precedex drip. Afebrile. On PRVC with PEEP:8 and FIO2 50%. 03/13 No events overnight. On Precedex drip for sedation, off Dopamine and Versed drip. On Levophed 4 mics with MAP:72mmHg. Patient remains intubated off Precedex drip. On PRVC with PEEP;5 and FIO2 40%. T ;100.6. On Levophed 3 mics. 03/14 Patient is off Precedex drip, remans on Levophed 3 mics with MAP 72- 75mmHg. T:102.1. Had approx 300ml gastric output tube feeds placed on hold. KUB abdomen this morning showed mild gaseous distention of bowel loops. 03/15 Patient was extubated yesterday on 10L simple mask with good sats. On Levophed 2 mics with MAP 72mmHg. Afebrile. 03/16 No events overnight. Off Levophed. Patient is lying in bed in NAD. Afebrile. 03/17 Patient is awake, alert on 5L oxygen, Tmax 100.0 yesterday. Objective Vital Signs / I&O: Vital Signs 03/16/18 09:38 03/16/18 10:45 03/16/18 12:00 Temperature 98.2 F Pulse Rate 91 H 83 Respiratory Rate 24 Blood Pressure 96/49 L Pulse Oximetry 97 97 03/16/18 14:00 03/16/18 14:07 03/16/18 16:00 Temperature 100.0 F H Pulse Rate 79 80 81 Respiratory Rate 16 19 Blood Pressure 109/56 L Pulse Oximetry 93 L 98 03/16/18 16:31 03/16/18 18:00 03/16/18 20:00 Temperature 99.2 F Pulse Rate 93 H 94 H 91 H Respiratory Rate 18 24 Blood Pressure 116/60 Pulse Oximetry 93 L 95 03/16/18 21:22 03/16/18 22:00 03/17/18 00:00 Temperature 99.2 F Pulse Rate 85 86 83 Respiratory Rate 17 21 Blood Pressure 96/54 L Pulse Oximetry 96 94 L 03/17/18 00:46 03/17/18 01:00 03/17/18 02:00 Temperature Pulse Rate 6 L 90 Respiratory Rate 16 Blood Pressure Pulse Oximetry 94 L 03/17/18 04:00 03/17/18 05:00 03/17/18 06:00 Temperature 99.0 F Pulse Rate 85 98 H Respiratory Rate 10 L Blood Pressure 89/53 L Pulse Oximetry 94 L 94 L 03/17/18 07:52 Temperature Pulse Rate 1 L Respiratory Rate 25 H Blood Pressure Pulse Oximetry 2 L Intake & Output 03/16/18 03/17/18 03/17/18 18:59 06:59 18:59 Intake Total 730 / 730 200 / 200 Output Total 800 / 800 1502 / 1502 Balance -70 / -70 -1302 / -1302 Weight 67.8 kg Intake: IV 250 / 250 200 / 200 Maxipime Inj 2,000 MG In NS Inj 200 / 200 100 ML @ 200 mls/hr IV.SIG Q12H SHAYNE Rx#:[id number] Vancomycin Inj 1,000 MG In NS 250 / 250 Inj 250 ML @ 250 mls/hr IV.SIG Q24H SHAYNE Rx#:[id number] Oral 480 / 480 Output: Urine 1500 / 1500 Stool 1 / 1 Urine/Stool Mix 1 / 1 Urine Amount (Catheter) 800 / 800 Indwelling Urethral Catheter 800 / 800 Other: # Voids 5 # Incontinent Voids 0 Date of Last Bowel Movement 03/15/18 03/17/18 Result Diagrams: 03/17/18 06:14 03/16/18 09:55 Other Results: Laboratory Results - last 12 hr 03/17/18 03/17/18 03/17/18 00:05 05:44 06:14 WBC 15.7 H RBC 2.77 L Hgb 8.5 L Hct 26.0 L MCV 93.9 MCH 30.8 MCHC 32.8 RDW 14.6 Plt Count 409 MPV 8.0 Neut % (Auto) 74.8 H Lymph % (Auto) 16.2 Howard % (Auto) 6.4 Eos % (Auto) 2.2 Baso % (Auto) 0.4 Neut # (Auto) 11.7 H Lymph # (Auto) 2.5 Howard # (Auto) 1.0 H Eos # (Auto) 0.3 Baso # (Auto) 0.1 WBC Differential . Differential Comment Auto diff final POC Glucose 121 H 112 H Imaging: Head CT 03/04/18 17:39 CONCLUSION: 1. Negative CT Head non contrast. . Hand X-Ray 03/06/18 00:00 CONCLUSION: Prominent dorsal hand soft tissue swelling. No fracture seen. Abdomen X-Ray 03/14/18 00:00 CONCLUSION: Mild gaseous distention of bowel loops. Chest X-Ray 03/16/18 09:21 CONCLUSION: 1. Interval removal of the endotracheal and nasogastric tubes. 2. Bibasilar airspace disease with probable associated effusions, left greater than right. These may be slightly worse when compared to the prior. 3. In addition, slight increase in interstitial markings when compared to prior suggesting worsening interstitial edema or vascular congestion. Heart size remains prominent. Objective Remarks: GENERAL: Patient is 72 yo lying in bed in NAD SKIN: Warm and dry. HEAD: Normocephalic. EYES: No scleral icterus. No injection or drainage. NECK: Supple, trachea midline. No JVD or lymphadenopathy. CARDIOVASCULAR: Regular rate and rhythm without murmurs, gallops, or rubs. RESPIRATORY: Breath sounds equal bilaterally. No accessory muscle use. GASTROINTESTINAL: Abdomen soft, non-tender, nondistended. MUSCULOSKELETAL: No cyanosis, or edema. Neuro: Awake Assessment and Plan - Assessment and Plan Plan: Neuro: Encephalopathy Monitor neuro status, avoid sedatives CT brain 03/04: No acute findings EEG 03/06: Mild slowing, no epileptiform features Neuro consulted- Dr. Moncada Pulcatalina VDRF Pneumonia -Continue with oxygen keep sats >92% -TARIQ Magdaleno Pulm is following- Dr. Power CV: Acute coronary syndrome Cardiogenic shock (resolved) -RCA occlusion -Status post cardiac catheterization and stent placement. LVEF 75% by cath. Echo with LVEF around 40%, normal RV, regional wall motion abnormalities. -Off Tirofiban gtt -Aspirin, Prasugrel -Monitor HR and BP keep MAP>65mmHg -Intra-aortic balloon pump-discontinued 03/07 GI: On PO cardiac diet KUB abdomen today- mild gaseous distention of bowel loops ID: Pneumonia/ sepsis -Abx per ID-On Cefepime . -Monitor for signs of infections ( Fever, WBC) WBC is trending down 03/12 Sputum: Pseudomonas 03/06, 03/07 Sputum: Kleb , Pseudomonas, Staph -sputum cx 03/12: Pseudomonas -C-diff PCR negative on 03/14 : Monitor renal function, I/O's, electrolytes replacement per protocol. Lasix 40mg IV BID Heme Monitor CBC Endo SSI for glycemic control DVT GI prophylaxis -Teds SCDs -Lovenox 40 mg subcutaneously daily -Pepcid Palliative care is following Access: peripheral IV's Level 2
--- NOTE | 2018-03-17 11:07 | P.PNPAL ---
Reason for Visit Reason for visit: a. To assist with evaluation and management of symptoms including: Dyspnea, constipation b. To assist medical decision maker(s) with: better understanding of current medical conditions; weighing benefits/burdens of medical treatment options; making medical treatment decisions. Subjective Subjective/Interval History: Patient seen today to follow-up on dyspnea, goals post extubation. Patient was medically extubated this past weekend (yesterday 03/14). She was extubated to simple mask, has since been weaned to 4-5L NC. Pulmonology now following- rec. cont nebulizers QID, abx, and use IS Q2 hr. Symbicort inh also added. will follow pt. Tolerating soft diet. Had BM today. WBC downtrending, 15.7. Tmax 100.0, yesterday afternoon. Afebrile today. PT seen in room, alert, oriented, appropriate, +reasonable insight into hospital course. She is short of breath, pauses during speaking to breathe. SHe indicates she has just returned to bed from walking to bedside commode which has exhausted her. She indicates no chest pain during, but significant shortness of breath, fatigue and mild lightheadedness upon return to bed. Sx resolved once in bed, except for sob. No GI complaints, indicates her appetite is her usual, she normally "doesn't eat alot", tolerating diet. No edema reported. No pain reported. + endorses feeling very weak. Review w her recovery from significant cardiac event will require ongoing rehab efforts as her resp /cardiac status will allow, and that her body is still recovering. Review she may require longer term rehab for strength muslim. She voices being glad her brain is intact, she understands there was worry about her neurologic status. She attributes her recovery thus far to her "stubbornness". She tells me her son has been coming daily, she is keeping him updated, and she spoke to her daughter last night. Advance Directives Health Care Surrogate: Copy in medical record (names son, daughter as HCS) Advance Directives Date on File: 03/15/18 Objective Vital Signs: Vital Signs 03/16/18 12:00 03/16/18 14:00 03/16/18 14:07 Temperature 98.2 F Pulse Rate 83 79 80 Respiratory Rate 24 16 Blood Pressure 96/49 L Pulse Oximetry 97 93 L 03/16/18 16:00 03/16/18 16:31 03/16/18 18:00 Temperature 100.0 F H Pulse Rate 81 93 H 94 H Respiratory Rate 19 18 Blood Pressure 109/56 L Pulse Oximetry 98 93 L 03/16/18 20:00 03/16/18 21:22 03/16/18 22:00 Temperature 99.2 F Pulse Rate 91 H 85 86 Respiratory Rate 24 17 Blood Pressure 116/60 Pulse Oximetry 95 96 03/17/18 00:00 03/17/18 00:46 03/17/18 01:00 Temperature 99.2 F Pulse Rate 83 6 L Respiratory Rate 21 16 Blood Pressure 96/54 L Pulse Oximetry 94 L 94 L 03/17/18 02:00 03/17/18 04:00 03/17/18 05:00 Temperature 99.0 F Pulse Rate 90 85 Respiratory Rate 10 L Blood Pressure 89/53 L Pulse Oximetry 94 L 94 L 03/17/18 06:00 03/17/18 07:52 03/17/18 08:00 Temperature 98.8 F Pulse Rate 98 H 1 L 80 Respiratory Rate 25 H 13 Blood Pressure 120/62 Pulse Oximetry 2 L 100 03/17/18 10:00 Temperature Pulse Rate 90 Respiratory Rate Blood Pressure Pulse Oximetry Intake & Output 03/16/18 03/17/18 03/17/18 18:59 06:59 18:59 Intake Total 730 / 730 200 / 200 Output Total 800 / 800 1502 / 1502 Balance -70 / -70 -1302 / -1302 Weight 67.8 kg Intake: IV 250 / 250 200 / 200 Maxipime Inj 2,000 MG In NS Inj 200 / 200 100 ML @ 200 mls/hr IV.SIG Q12H SHAYNE Rx#:[id number] Vancomycin Inj 1,000 MG In NS 250 / 250 Inj 250 ML @ 250 mls/hr IV.SIG Q24H SHAYNE Rx#:[id number] Oral 480 / 480 Output: Urine 1500 / 1500 Stool 1 / 1 Urine/Stool Mix 1 / 1 Urine Amount (Catheter) 800 / 800 Indwelling Urethral Catheter 800 / 800 Other: # Voids 5 # Incontinent Voids 0 Date of Last Bowel Movement 03/15/18 03/17/18 03/17/18 Physical Exam: CONSTITUTIONAL/GENERAL: This is an adequately nourished patient, mildly short of breath. alert, pleasant TUBES/LINES/DRAINS: Central line, Bryan catheter SKIN: No jaundice, rashes, or lesions. Multiple areas of ecchymosis bilateral upper extremities, hands. Skin warm and dry.+ Edema to left hand. CARDIOVASCULAR: Regular rate and rhythm without murmur. No JVD. Peripheral pulses symmetric.+ 1 edema to upper extremities., teddy Lt hand RESPIRATORY/CHEST: Symmetric, unlabored respirations on NC 5L.mildly tachypneic , RR 24. clear, few scattered expiratory wheezes. Breath sounds equal bilaterally. GASTROINTESTINAL: Abdomen soft, no tenderness, nondistended. No hepato- splenomegaly, or palpable masses. Bowel sounds present. GENITOURINARY: Without palpable bladder distension. Bryan catheter in place. MUSCULOSKELETAL: Extremities without clubbing, cyanosis. +edema left hand. No joint effusion noted. No mottling or clubbing. NEUROLOGICAL: alert, oriented x3 (forgetful to date) . Appropriate, reasonable insight. moves all 4 extremities well. PSYCHIATRIC: No obvious anxiety/depression Diagnostic Tests Laboratory: Laboratory Results - last 72 hr 03/14/18 03/14/18 03/14/18 09:25 12:02 12:38 WBC RBC Hgb Hct MCV MCH MCHC RDW Plt Count MPV Neut % (Auto) Lymph % (Auto) [place] % (Auto) Eos % (Auto) Baso % (Auto) Neut # (Auto) Lymph # (Auto) [place] # (Auto) Eos # (Auto) Baso # (Auto) WBC Differential Differential Comment Puncture Site Right radial Patient Temperature 98.6 O2 Saturation 92 ABG pH 7.48 H ABG pCO2 43 H ABG pO2 70 ABG HCO3 31 H ABG O2 Content 10.9 L ABG Base Excess 7.4 H ABG Methemoglobin 1.3 Rony Test + Hemoglobin 8.4 L Carboxyhemoglobin 1.4 O2 Delivery Device Ventilator Vent Setting Cpap +5/ 10psv Inspired O2 40 Critical Value No Sodium Potassium Chloride Carbon Dioxide Anion Gap BUN Creatinine Estimated GFR POC Glucose 149 H Random Glucose Calcium Phosphorus Magnesium Total Bilirubin AST ALT Alkaline Phosphatase Total Protein Albumin Stl C.difficile Tox PCR Negative St C. diff Tox Epid 027 Negative Random Vancomycin 03/14/18 03/15/18 03/15/18 17:42 01:19 04:50 WBC 24.0 H RBC 2.54 L Hgb 7.9 L Hct 23.7 L MCV 93.2 MCH 31.1 MCHC 33.3 RDW 14.8 Plt Count 330 MPV 7.5 Neut % (Auto) 85.9 H Lymph % (Auto) 10.1 [place] % (Auto) 2.4 Eos % (Auto) 1.4 Baso % (Auto) 0.2 Neut # (Auto) 20.6 H Lymph # (Auto) 2.4 [place] # (Auto) 0.6 Eos # (Auto) 0.3 Baso # (Auto) 0.0 WBC Differential . Differential Comment Auto diff final Puncture Site Patient Temperature O2 Saturation ABG pH ABG pCO2 ABG pO2 ABG HCO3 ABG O2 Content ABG Base Excess ABG Methemoglobin Rony Test Hemoglobin Carboxyhemoglobin O2 Delivery Device Vent Setting Inspired O2 Critical Value Sodium Potassium Chloride Carbon Dioxide Anion Gap BUN Creatinine Estimated GFR POC Glucose 107 108 Random Glucose Calcium Phosphorus Magnesium Total Bilirubin AST ALT Alkaline Phosphatase Total Protein Albumin Stl C.difficile Tox PCR St C. diff Tox Epid 027 Random Vancomycin 03/15/18 03/15/18 03/15/18 04:50 04:56 12:20 WBC RBC Hgb Hct MCV MCH MCHC RDW Plt Count MPV Neut % (Auto) Lymph % (Auto) [place] % (Auto) Eos % (Auto) Baso % (Auto) Neut # (Auto) Lymph # (Auto) [place] # (Auto) Eos # (Auto) Baso # (Auto) WBC Differential Differential Comment Puncture Site Patient Temperature O2 Saturation ABG pH ABG pCO2 ABG pO2 ABG HCO3 ABG O2 Content ABG Base Excess ABG Methemoglobin Rony Test Hemoglobin Carboxyhemoglobin O2 Delivery Device Vent Setting Inspired O2 Critical Value Sodium 142 Potassium 3.5 Chloride 101 Carbon Dioxide 33.0 H Anion Gap 8 BUN 23 H Creatinine 1.37 H Estimated GFR 38 L POC Glucose 111 H 105 Random Glucose 98 Calcium 8.2 L Phosphorus 3.7 D Magnesium 2.6 H Total Bilirubin 0.4 AST 39 H ALT 29 Alkaline Phosphatase 98 Total Protein 6.3 L Albumin 1.6 L Stl C.difficile Tox PCR St C. diff Tox Epid 027 Random Vancomycin 11.6 03/15/18 03/15/18 03/15/18 16:59 23:30 23:58 WBC RBC Hgb Hct MCV MCH MCHC RDW Plt Count MPV Neut % (Auto) Lymph % (Auto) [place] % (Auto) Eos % (Auto) Baso % (Auto) Neut # (Auto) Lymph # (Auto) [place] # (Auto) Eos # (Auto) Baso # (Auto) WBC Differential Differential Comment Puncture Site Patient Temperature O2 Saturation ABG pH ABG pCO2 ABG pO2 ABG HCO3 ABG O2 Content ABG Base Excess ABG Methemoglobin Rony Test Hemoglobin Carboxyhemoglobin O2 Delivery Device Vent Setting Inspired O2 Critical Value Sodium 144 Potassium 3.7 Chloride 104 Carbon Dioxide 34.5 H Anion Gap 6 BUN 28 H Creatinine 1.29 H Estimated GFR 40 L POC Glucose 117 H 116 H Random Glucose 100 Calcium 8.1 L Phosphorus Magnesium Total Bilirubin AST ALT Alkaline Phosphatase Total Protein Albumin Stl C.difficile Tox PCR St C. diff Tox Epid 027 Random Vancomycin 03/16/18 03/16/18 03/16/18 04:10 04:10 06:07 WBC 16.2 H RBC 2.58 L Hgb 8.1 L Hct 23.7 L MCV 91.9 MCH 31.3 MCHC 34.0 RDW 14.3 Plt Count 321 MPV 7.7 Neut % (Auto) 80.2 H Lymph % (Auto) 13.3 [place] % (Auto) 4.2 Eos % (Auto) 2.0 Baso % (Auto) 0.3 Neut # (Auto) 13.0 H Lymph # (Auto) 2.2 [place] # (Auto) 0.7 Eos # (Auto) 0.3 Baso # (Auto) 0.0 WBC Differential . Differential Comment Auto diff final Puncture Site Patient Temperature O2 Saturation ABG pH ABG pCO2 ABG pO2 ABG HCO3 ABG O2 Content ABG Base Excess ABG Methemoglobin Rony Test Hemoglobin Carboxyhemoglobin O2 Delivery Device Vent Setting Inspired O2 Critical Value Sodium Potassium Chloride Carbon Dioxide Anion Gap BUN Creatinine Estimated GFR POC Glucose 108 Random Glucose Calcium Phosphorus 2.8 Magnesium 2.7 H Total Bilirubin AST ALT Alkaline Phosphatase Total Protein Albumin Stl C.difficile Tox PCR St C. diff Tox Epid 027 Random Vancomycin 03/16/18 03/16/18 03/16/18 09:55 12:44 17:54 WBC RBC Hgb Hct MCV MCH MCHC RDW Plt Count MPV Neut % (Auto) Lymph % (Auto) [place] % (Auto) Eos % (Auto) Baso % (Auto) Neut # (Auto) Lymph # (Auto) [place] # (Auto) Eos # (Auto) Baso # (Auto) WBC Differential Differential Comment Puncture Site Patient Temperature O2 Saturation ABG pH ABG pCO2 ABG pO2 ABG HCO3 ABG O2 Content ABG Base Excess ABG Methemoglobin Rony Test Hemoglobin Carboxyhemoglobin O2 Delivery Device Vent Setting Inspired O2 Critical Value Sodium 144 Potassium 3.7 Chloride 103 Carbon Dioxide 36.2 H Anion Gap 5 BUN 30 H Creatinine 1.23 H Estimated GFR 43 L POC Glucose 120 H 140 H Random Glucose 130 H Calcium 8.5 Phosphorus Magnesium Total Bilirubin AST ALT Alkaline Phosphatase Total Protein Albumin Stl C.difficile Tox PCR St C. diff Tox Epid 027 Random Vancomycin 03/17/18 03/17/18 03/17/18 00:05 05:44 06:14 WBC 15.7 H RBC 2.77 L Hgb 8.5 L Hct 26.0 L MCV 93.9 MCH 30.8 MCHC 32.8 RDW 14.6 Plt Count 409 MPV 8.0 Neut % (Auto) 74.8 H Lymph % (Auto) 16.2 [place] % (Auto) 6.4 Eos % (Auto) 2.2 Baso % (Auto) 0.4 Neut # (Auto) 11.7 H Lymph # (Auto) 2.5 [place] # (Auto) 1.0 H Eos # (Auto) 0.3 Baso # (Auto) 0.1 WBC Differential . Differential Comment Auto diff final Puncture Site Patient Temperature O2 Saturation ABG pH ABG pCO2 ABG pO2 ABG HCO3 ABG O2 Content ABG Base Excess ABG Methemoglobin Rony Test Hemoglobin Carboxyhemoglobin O2 Delivery Device Vent Setting Inspired O2 Critical Value Sodium Potassium Chloride Carbon Dioxide Anion Gap BUN Creatinine Estimated GFR POC Glucose 121 H 112 H Random Glucose Calcium Phosphorus Magnesium Total Bilirubin AST ALT Alkaline Phosphatase Total Protein Albumin Stl C.difficile Tox PCR St C. diff Tox Epid 027 Random Vancomycin Result Diagrams: 03/17/18 06:14 03/16/18 09:55 Microbiology: Microbiology 03/13/18 19:50 Aerobic Blood Culture - Preliminary Blood - Peripheral No growth in 3 days Anaerobic Blood Culture - Preliminary No growth in 3 days 03/13/18 19:40 Aerobic Blood Culture - Preliminary Blood - Peripheral No growth in 3 days Anaerobic Blood Culture - Preliminary No growth in 3 days 03/12/18 09:35 Gram Stain - Final Sputum - Tracheal Aspirate Sputum Culture - Final Pseudomonas aeruginosa Imaging: Impressions Chest X-Ray 03/16/18 09:21 CONCLUSION: 1. Interval removal of the endotracheal and nasogastric tubes. 2. Bibasilar airspace disease with probable associated effusions, left greater than right. These may be slightly worse when compared to the prior. 3. In addition, slight increase in interstitial markings when compared to prior suggesting worsening interstitial edema or vascular congestion. Heart size remains prominent. Assessment and Plan - Disease Oriented Problem List (1) CAD (coronary artery disease) (2) STEMI (ST elevation myocardial infarction) (3) Cardiogenic shock Pertinent Non-Medical Issues: Psychosocial: retired. 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 Supported by son locally, daughter in [place]. Estranged / from spouse many years ago. Spiritual:not affiliated at this time, would not want needle grader visit Legal:Patient is unable to participate in decision-making. Not clear if or when she will regain ability. She is supported by a son Trey Pimentel who is local, and a daughter Christi Franco who lives in [place]. They report she has been legally , however is not from her spouse. She has not spoken to him or had any communication with him in many years not known his whereabouts or if he is even still living. Per [place] statutes if they are still legally he would in fact be appropriate legal proxy if he can be located and if he wishes to serve as such. If he cannot be located or does not wish to serve that it would fall to the 2 adult children. They remain in close communication and are working together. [facility] report has been requested to attempt to locate estranged spouse James Escamillarazia Ethical issues impacting care: Important Contacts: son Trey Pimentel [phone] (Healthcare surrogate) Daughter Yesenia Franco [phone] (healthcare surrogate) . Prognosis: This patient was admitted from home with STEMI. She went emergently to [facility] =RV infarction due to right ventricular infarction, most likely culprit occluded proximal right coronary artery ; otherwise with moderate three-vessel CAD. She underwent successful drug percutaneous coronary intervention with metal stent placement in the proximal mid right coronary artery required intra-aortic balloon pump. Remains high risk for further complications and setbacks related to advanced age and admitting diagnosis. She was previously living alone and of fairly good health. Code Status: Full Code Plan: * Legal decision maker:Patient is unable to participate in decision-making. Not clear if or when she will regain ability. She is supported by a son Trey Pimentel who is local, and a daughter Christi Franco who lives in [place]. They report she has been legally , however is not from her spouse. She has not spoken to him or had any communication with him in many years not known his whereabouts or if he is even still living. Per [place] statutes if they are still legally he would in fact be appropriate legal proxy if he can be located and if he wishes to serve as such. S/p [employer],did not return working info for spouse, at this time would proceed with proxy decision making via the 2 adult children. --03/15/18 pt in agreement to complete HCS designation, named both children as HCS, faxed to Kash * Goals: Pt able to make her own decisions now. her goals are to continue with available treatment to help her recovery from recent cardiac event, and try to get back home to her prior independent status. * CODE STATUS: Full code * SYMPTOMS: --Dyspnea-patient admitted with STEMI, emergently intubated for airway protection. Remains on mechanical vent. Worsening CXR. + Pneumonia, on antibiotics per. Prev. requiring high levels of ventilator support. Previously Requiring significant sedation for vent asynchrony, desaturation--tolerated CPAP over the weekend. Medically extubated 03/14. Tolerating NC O2 4-5L. Patient reports dyspnea w activity, easily fatigued. --Pain-currently with no signs or symptoms of pain however potential sources would include now bedbound status, recent invasive procedures. We will continue to assess. Patient medically extubated , indicates no pain --Constipation-no bowel movement recorded since admission through 03/10. + Risk for secondary to immobility, sedatives had been receiving tube feeds last week . Bowel sounds are present. Abdominal imaging recently indicated possible mild ileus. Patient with some loose stools, stool sample negative for C. difficile ID following. Reports Normal consistency BM today --Denies nausea or other GI complaints, endorses feeling hungry * Palliative care will continue to follow during hospital course as condition evolves, to assist patient/decision-maker with understanding of medical conditions, weighing benefits/burdens of treatment options, for clarification of goals of treatment. Additionally will assist with any symptoms of palliative concern Attestation Attestation: To help prompt me to consider important information that might be impacting today's encounter and assessment, information from prior notes written by myself or my colleagues may have been "brought forward" into today's note. My signature on this note, however, is an attestation that I personally performed the exam, history, and/or decision-making noted today, and, unless otherwise indicated, the interactions with patient, family, and staff as well as the review of records all occurred today. I also attest that the listed assessment and stated plan reflect my best clinical judgment today based on the combination of historical information, prior notes, and today's exam/ interactions. When time spent is documented, it refers only to time spent today by the signer, or if indicated, combined time spent today by collaborating physician/nurse practitioner.
--- NOTE | 2018-03-17 13:14 | P.PN ---
Subjective Interval history: She is up and on O2 5 L. Has no fever. Off pressors. Good output. Physical Exam Vital signs: Vital Signs 03/16/18 14:00 03/16/18 14:07 03/16/18 16:00 Temperature 100.0 F H Pulse Rate 79 80 81 Respiratory Rate 16 19 Blood Pressure 109/56 L Pulse Oximetry 93 L 98 03/16/18 16:31 03/16/18 18:00 03/16/18 20:00 Temperature 99.2 F Pulse Rate 93 H 94 H 91 H Respiratory Rate 18 24 Blood Pressure 116/60 Pulse Oximetry 93 L 95 03/16/18 21:22 03/16/18 22:00 03/17/18 00:00 Temperature 99.2 F Pulse Rate 85 86 83 Respiratory Rate 17 21 Blood Pressure 96/54 L Pulse Oximetry 96 94 L 03/17/18 00:46 03/17/18 01:00 03/17/18 02:00 Temperature Pulse Rate 6 L 90 Respiratory Rate 16 Blood Pressure Pulse Oximetry 94 L 03/17/18 04:00 03/17/18 05:00 03/17/18 06:00 Temperature 99.0 F Pulse Rate 85 98 H Respiratory Rate 10 L Blood Pressure 89/53 L Pulse Oximetry 94 L 94 L 03/17/18 07:52 03/17/18 08:00 03/17/18 10:00 Temperature 98.8 F Pulse Rate 1 L 80 90 Respiratory Rate 25 H 13 Blood Pressure 120/62 Pulse Oximetry 2 L 100 03/17/18 11:00 Temperature Pulse Rate Respiratory Rate Blood Pressure Pulse Oximetry 94 L Intake & Output 03/16/18 03/17/18 03/17/18 18:59 06:59 18:59 Intake Total 730 / 730 200 / 200 Output Total 800 / 800 1502 / 1502 Balance -70 / -70 -1302 / -1302 Weight 67.8 kg Intake: IV 250 / 250 200 / 200 Maxipime Inj 2,000 MG In NS Inj 200 / 200 100 ML @ 200 mls/hr IV.SIG Q12H SHAYNE Rx#:[id number] Vancomycin Inj 1,000 MG In NS 250 / 250 Inj 250 ML @ 250 mls/hr IV.SIG Q24H SHAYNE Rx#:[id number] Oral 480 / 480 Output: Urine 1500 / 1500 Stool 1 / Urine/Stool Mix Urine Amount (Catheter) 800 / 800 Indwelling Urethral Catheter 800 / 800 Other: # Voids 5 # Incontinent Voids 0 Date of Last Bowel Movement 03/15/18 03/17/18 03/17/18 GENERAL: Elderly W/F alert , no distress SKIN: Warm and dry. HEAD: Atraumatic. Normocephalic. EYES: Pupils equal and round. No scleral icterus. No injection or drainage. ENT: No nasal bleeding or discharge. Mucous membranes pink and moist. NECK: Trachea midline. No JVD. CARDIOVASCULAR: Irregular rate and rhythm. RESPIRATORY: No accessory muscle use.Bilateral wheeze and basal crackles. Breath sounds equal bilaterally. GASTROINTESTINAL: Abdomen soft, non-tender, nondistended. Hepatic and splenic margins not palpable. MUSCULOSKELETAL: Extremities without clubbing, cyanosis, or edema. No obvious deformities. NEUROLOGICAL: Awake and alert. No obvious cranial nerve deficits. Motor grossly within normal limits. Five out of 5 muscle strength in the arms and legs. Normal speech. PSYCHIATRIC: Appropriate mood and affect; insight and judgment normal. - Urinary Catheter Management Indwelling Urethral Catheter Cath placed during this visit: yes, but has since been removed by the nurse Reason for continuing: Not indwelling catheter Insertion date: 03/04/18 Insertion time: 22:00 Removal date: 03/16/18 Removal time: 16:00 Results - Labs CBC & Chem 7: 03/17/18 06:14 03/16/18 09:55 Laboratory Results - last 24 hr 03/16/18 03/17/18 03/17/18 17:54 00:05 05:44 WBC RBC Hgb Hct MCV MCH MCHC RDW Plt Count MPV Neut % (Auto) Lymph % (Auto) Phillips % (Auto) Eos % (Auto) Baso % (Auto) Neut # (Auto) Lymph # (Auto) [place] # (Auto) Eos # (Auto) Baso # (Auto) WBC Differential Differential Comment POC Glucose 140 H 121 H 112 H 03/17/18 03/17/18 06:14 11:39 WBC 15.7 H RBC 2.77 L Hgb 8.5 L Hct 26.0 L MCV 93.9 MCH 30.8 MCHC 32.8 RDW 14.6 Plt Count 409 MPV 8.0 Neut % (Auto) 74.8 H Lymph % (Auto) 16.2 Phillips % (Auto) 6.4 Eos % (Auto) 2.2 Baso % (Auto) 0.4 Neut # (Auto) 11.7 H Lymph # (Auto) 2.5 Phillips # (Auto) 1.0 H Eos # (Auto) 0.3 Baso # (Auto) 0.1 WBC Differential . Differential Comment Auto diff final POC Glucose 104 Microbiology 03/13/18 19:50 Blood - Peripheral Aerobic Blood Culture - Preliminary No growth in 4 days 03/13/18 19:50 Blood - Peripheral Anaerobic Blood Culture - Preliminary No growth in 4 days 03/13/18 19:40 Blood - Peripheral Aerobic Blood Culture - Preliminary No growth in 4 days 03/13/18 19:40 Blood - Peripheral Anaerobic Blood Culture - Preliminary No growth in 4 days Assessment and Plan - Assessment (1) Pneumonia Code(s): J18.9 - Pneumonia, unspecified organism Status: Acute (2) CAD (coronary artery disease) Code(s): I25.10 - Atherosclerotic heart disease of [place] coronary artery without angina pectoris Status: Acute (3) STEMI (ST elevation myocardial infarction) Code(s): I21.3 - ST elevation (STEMI) myocardial infarction of unspecified site Status: Acute (4) Cardiogenic shock Code(s): R57.0 - Cardiogenic shock Status: Acute (5) Encephalopathy Code(s): G93.40 - Encephalopathy, unspecified Status: Acute (6) Dyspnea Code(s): R06.00 - Dyspnea, unspecified Status: Acute (7) Constipation Code(s): K59.00 - Constipation, unspecified Status: Acute (8) Pain Code(s): R52 - Pain, unspecified Status: Acute (9) Basal cell carcinoma (BCC) of canthus of right eye Code(s): C44.112 - Basal cell carcinoma of skin of right eyelid, including canthus Status: Acute - Plan 1. O2 at 5 L and wean , keep sat >92. 2. Duonebs qid PRN 3. IS at bedside q3h 4. Continue antibiotics, Zosyn 5. CBC,BMP in am 6. Will do PFT when stable.
[2018-03-17] MEDS: Enoxaparin Inj 40 MG/0.4 ML Syringe SQ SCH (13:40)
[2018-03-17] MEDS ORDERED: Pharmacy Ordered Lab Info OTHER ONE (13:45)
--- NOTE | 2018-03-17 16:31 | P.PNCA ---
Subjective Interval history: alert in nad, doing PT Physical Exam Vital signs: Vital Signs 03/16/18 16:31 03/16/18 18:00 03/16/18 20:00 Temperature 99.2 F Pulse Rate 93 H 94 H 91 H Respiratory Rate 18 24 Blood Pressure 116/60 Pulse Oximetry 93 L 95 03/16/18 21:22 03/16/18 22:00 03/17/18 00:00 Temperature 99.2 F Pulse Rate 85 86 83 Respiratory Rate 17 21 Blood Pressure 96/54 L Pulse Oximetry 96 94 L 03/17/18 00:46 03/17/18 01:00 03/17/18 02:00 Temperature Pulse Rate 6 L 90 Respiratory Rate 16 Blood Pressure Pulse Oximetry 94 L 03/17/18 04:00 03/17/18 05:00 03/17/18 06:00 Temperature 99.0 F Pulse Rate 85 98 H Respiratory Rate 10 L Blood Pressure 89/53 L Pulse Oximetry 94 L 94 L 03/17/18 07:52 03/17/18 08:00 03/17/18 10:00 Temperature 98.8 F Pulse Rate 1 L 80 90 Respiratory Rate 25 H 13 Blood Pressure 120/62 Pulse Oximetry 2 L 100 03/17/18 11:00 03/17/18 12:00 03/17/18 14:00 Temperature 97.8 F Pulse Rate 96 H 96 H Respiratory Rate 21 Blood Pressure 108/79 Pulse Oximetry 94 L 03/17/18 15:00 03/17/18 15:33 Temperature Pulse Rate 85 Respiratory Rate 18 Blood Pressure Pulse Oximetry 97 Intake & Output 03/16/18 03/17/18 03/17/18 18:59 06:59 18:59 Intake Total 730 / 730 200 / 200 Output Total 800 / 800 1502 / 1502 Balance -70 / -70 -1302 / -1302 Weight 67.8 kg Intake: IV 250 / 250 200 / 200 Maxipime Inj 2,000 MG In NS Inj 200 / 200 100 ML @ 200 mls/hr IV.SIG Q12H SHAYNE Rx#:[id number] Vancomycin Inj 1,000 MG In NS 250 / 250 Inj 250 ML @ 250 mls/hr IV.SIG Q24H SHAYNE Rx#:[id number] Oral 480 / 480 Output: Urine 1500 / 1500 Stool 1 / 1 Urine/Stool Mix 1 / 1 Urine Amount (Catheter) 800 / 800 Indwelling Urethral Catheter 800 / 800 Other: # Voids 5 # Incontinent Voids 0 Date of Last Bowel Movement 03/15/18 03/17/18 03/17/18 - Urinary Catheter Management Indwelling Urethral Catheter Cath placed during this visit: yes, but has since been removed by the nurse Reason for continuing: Not indwelling catheter Insertion date: 03/04/18 Insertion time: 22:00 Removal date: 03/16/18 Removal time: 16:00 Assessment and Plan - Assessment (1) CAD (coronary artery disease) Code(s): I25.10 - Atherosclerotic heart disease of [place] coronary artery without angina pectoris Status: Acute (2) STEMI (ST elevation myocardial infarction) Code(s): I21.3 - ST elevation (STEMI) myocardial infarction of unspecified site Status: Acute (3) Cardiogenic shock Code(s): R57.0 - Cardiogenic shock Status: Acute (4) Encephalopathy Code(s): G93.40 - Encephalopathy, unspecified Status: Acute - Plan 1.) CAD - POD # 13 primary pci prox rca, rv infarct, off levophed; mental status iappears wnl, off sedation, neurology following, continue aspirin, effient, has rv infarct, weight down 17.2 kgs since 03/10/18, baseline is 66 kg, 67.8kg kg 03/16/18, on abs for pneumonia, s/p transfusion 03/09/18, less febrile and off levophed, ldl=63 so statin held, brooke and beta rolando held due to ongoing hypotension
--- NOTE | 2018-03-17 18:01 | P.PNID ---
Subjective Remarks: doing better Off vent on O2 NC denies abd pain afebrile WBC down to 15 K she is improving clinically Antibiotics: cefepime vancomycin Allergies/Adverse Reactions: Allergies No Known Allergies (Uncoded 12/11/08 13:06) Objective Vital Signs 03/16/18 18:00 03/16/18 20:00 03/16/18 21:22 Temperature 99.2 F Pulse Rate 94 H 91 H 85 Respiratory Rate 24 17 Blood Pressure 116/60 Pulse Oximetry 93 L 95 96 03/16/18 22:00 03/17/18 00:00 03/17/18 00:46 Temperature 99.2 F Pulse Rate 86 83 6 L Respiratory Rate 21 16 Blood Pressure 96/54 L Pulse Oximetry 94 L 03/17/18 01:00 03/17/18 02:00 03/17/18 04:00 Temperature 99.0 F Pulse Rate 90 85 Respiratory Rate 10 L Blood Pressure 89/53 L Pulse Oximetry 94 L 94 L 03/17/18 05:00 03/17/18 06:00 03/17/18 07:52 Temperature Pulse Rate 98 H 1 L Respiratory Rate 25 H Blood Pressure Pulse Oximetry 94 L 2 L 03/17/18 08:00 03/17/18 10:00 03/17/18 11:00 Temperature 98.8 F Pulse Rate 80 90 Respiratory Rate 13 Blood Pressure 120/62 Pulse Oximetry 100 94 L 03/17/18 12:00 03/17/18 14:00 03/17/18 15:00 Temperature 97.8 F Pulse Rate 96 H 96 H Respiratory Rate 21 Blood Pressure 108/79 Pulse Oximetry 97 03/17/18 15:33 Temperature Pulse Rate 85 Respiratory Rate 18 Blood Pressure Pulse Oximetry Intake & Output 03/16/18 03/17/18 03/17/18 18:59 06:59 18:59 Intake Total 730 / 730 200 / 200 Output Total 800 / 800 1502 / 1502 Balance -70 / -70 -1302 / -1302 Weight 67.8 kg Intake: IV 250 / 250 200 / 200 Maxipime Inj 2,000 MG In NS Inj 200 / 200 100 ML @ 200 mls/hr IV.SIG Q12H SHAYNE Rx#:[id number] Vancomycin Inj 1,000 MG In NS 250 / 250 Inj 250 ML @ 250 mls/hr IV.SIG Q24H SHAYNE Rx#:[id number] Oral 480 / 480 Output: Urine 1500 / 1500 Stool / Urine/Stool Mix Urine Amount (Catheter) 800 / 800 Indwelling Urethral Catheter 800 / 800 Other: # Voids 5 # Incontinent Voids 0 Date of Last Bowel Movement 03/15/18 03/17/18 03/17/18 03/13/18 19:50 Blood - Peripheral Aerobic Blood Culture - Preliminary No growth in 4 days 03/13/18 19:50 Blood - Peripheral Anaerobic Blood Culture - Preliminary No growth in 4 days 03/13/18 19:40 Blood - Peripheral Aerobic Blood Culture - Preliminary No growth in 4 days 03/13/18 19:40 Blood - Peripheral Anaerobic Blood Culture - Preliminary No growth in 4 days Lab - Hematology Results 03/16/18 03/17/18 04:10 06:14 WBC 16.2 H 15.7 H RBC 2.58 L 2.77 L Hgb 8.1 L 8.5 L Hct 23.7 L 26.0 L MCV 91.9 93.9 MCH 31.3 30.8 MCHC 34.0 32.8 RDW 14.3 14.6 Plt Count 321 409 MPV 7.7 8.0 Neut % (Auto) 80.2 H 74.8 H Lymph % (Auto) 13.3 16.2 [place] % (Auto) 4.2 6.4 Eos % (Auto) 2.0 2.2 Baso % (Auto) 0.3 0.4 Neut # (Auto) 13.0 H 11.7 H Lymph # (Auto) 2.2 2.5 [place] # (Auto) 0.7 1.0 H Eos # (Auto) 0.3 0.3 Baso # (Auto) 0.0 0.1 WBC Differential . . Differential Comment Auto diff final Auto diff final Lab - Chemistry Results 03/15/18 03/15/18 03/16/18 23:30 23:58 04:10 Sodium 144 Potassium 3.7 Chloride 104 Carbon Dioxide 34.5 H Anion Gap 6 BUN 28 H Creatinine 1.29 H Estimated GFR 40 L POC Glucose 116 H Random Glucose 100 Calcium 8.1 L Phosphorus 2.8 Magnesium 2.7 H 03/16/18 03/16/18 03/16/18 06:07 09:55 12:44 Sodium 144 Potassium 3.7 Chloride 103 Carbon Dioxide 36.2 H Anion Gap 5 BUN 30 H Creatinine 1.23 H Estimated GFR 43 L POC Glucose 108 120 H Random Glucose 130 H Calcium 8.5 Phosphorus Magnesium 03/16/18 03/17/18 03/17/18 17:54 00:05 05:44 Sodium Potassium Chloride Carbon Dioxide Anion Gap BUN Creatinine Estimated GFR POC Glucose 140 H 121 H 112 H Random Glucose Calcium Phosphorus Magnesium 03/17/18 11:39 Sodium Potassium Chloride Carbon Dioxide Anion Gap BUN Creatinine Estimated GFR POC Glucose 104 Random Glucose Calcium Phosphorus Magnesium Imaging: ITS Impressions Head CT 03/04/18 17:39 CONCLUSION: 1. Negative CT Head non contrast. . Hand X-Ray 03/06/18 00:00 CONCLUSION: Prominent dorsal hand soft tissue swelling. No fracture seen. Abdomen X-Ray 03/14/18 00:00 CONCLUSION: Mild gaseous distention of bowel loops. Chest X-Ray 03/16/18 09:21 CONCLUSION: 1. Interval removal of the endotracheal and nasogastric tubes. 2. Bibasilar airspace disease with probable associated effusions, left greater than right. These may be slightly worse when compared to the prior. 3. In addition, slight increase in interstitial markings when compared to prior suggesting worsening interstitial edema or vascular congestion. Heart size remains prominent. Physical Exam: GENERAL: NAD awake alert OOB in a chair SKIN: Warm and dry. no rash HEAD: Atraumatic. Normocephalic. EYES: Pupils equal and round. No scleral icterus. No injection or drainage. ENT: No nasal bleeding or discharge. Mucous membranes pink and moist. NECK: Trachea midline. No JVD. CARDIOVASCULAR: Regular rate and rhythm. RESPIRATORY: No accessory muscle use. Clear to auscultation. Breath sounds equal bilaterally. GASTROINTESTINAL: Abdomen soft, not tender to palpation nondistended. Hepatic and splenic margins not palpable. MUSCULOSKELETAL: Extremities without clubbing, cyanosis, no edema. No obvious deformities. NEUROLOGICAL: Awake and alert. non focal Normal speech PSYCHIATRIC: calm, cooperative Assessment and Plan - Plan STEMI sp stent placemet Acute VDRF about to be extubated PNA, b/l: PSAE, Kleb in initial clx, repeat clx with PSAE only UTI, Klenb Persistent fever Leukocytosis, leukemoid reaction , aslo perisstnt Emesis, RLQ abd tenderness CHARMAINE - improving cont cefepime Increase to q8 hrs when GFR>60 CXR and BMP in am
[2018-03-18] MEDS: Insulin NovoLIN Regular Correctional Sugar Inj SQ SCH ×3 (00:30→12:33)
[2018-03-18] MEDS: Oral Hygiene Kit OROPHARYNG SCH ×4 (00:31→19:17)
[2018-03-18 04:20] LABS: Baso # (Auto) 0.1 th/mm3 (0.0-0.2); Baso % (Auto) 0.6 % (0.0-2.0); Eos # (Auto) 0.4 th/mm3 (0.0-0.4); Hematocrit 25.2 % (35.0-46.0); Hemoglobin 8.6 gm/dL (11.6-15.3); Lymph # (Auto) 2.6 th/mm3 (1.0-4.8); Lymph % (Auto) 18.6 % (9.0-44.0); Mean Corpuscular HGB Conc 34.2 % (32.0-36.0); Mean Corpuscular Volume 93.6 fL (80.0-100.0); Mono # (Auto) 1.1 th/mm3 (0.0-0.9); Mono % (Auto) 7.9 % (0.0-8.0); Neut # (Auto) 9.7 th/mm3 (1.8-7.7); Neut % (Auto) 69.9 % (16.0-70.0); Platelet Count 467 th/mm3 (150-450); Red Blood Count 2.69 mil/mm3 (4.00-5.30); Red Cell Distribution Width 14.6 % (11.6-17.2); White Blood Count 13.9 th/mm3 (4.0-11.0)
[2018-03-18 04:46] LABS: Calcium 8.1 mg/dL (8.5-10.1); Carbon Dioxide 31.1 meq/L (21.0-32.0); Magnesium 2.7 mg/dL (1.5-2.5); Phosphorus 2.4 mg/dL (2.5-4.9); Potassium 3.3 meq/L (3.5-5.1)
[2018-03-18 04:47] LABS: Vancomycin,Trough 8.1 mcg/mL (5.0-10.0)
--- NOTE | 2018-03-18 06:09 | XR ---
EXAM DATE: 03/18/2018 5:50 AM EDT AGE/SEX: 72 years / Female INDICATIONS: Shortness of breath, possible pulmonary disease. CLINICAL DATA: This is the patient's subsequent encounter. Patient reports that signs and symptoms h ave been present for 2 weeks and indicates a pain score of Nonresponsive. MEDICAL/SURGICAL HISTORY: Myocardial infarction. None. COMPARISON: [facility] – [place], CHEST 1V SINGLE AP, 03/16/2018. . FINDINGS: The heart size is normal. There is diffuse increased interstitial markings. There is an alveolar dens ity seen at the bases. Aeration at the bases appears slightly improved on the current exam. CONCLUSION: Diffuse interstitial disease. Alveolar areas of consolidation or atelectasis at the bases which appear to be improving. Electronically signed by: James Can MD 03/18/2018 6:08 AM EDT
[2018-03-18] MEDS: Chlorhexidine 0.12% Oral Kit 15 ML UDC OROPHARYNG SCH ×2 (08:45→20:35)
[2018-03-18] MEDS: Famotidine PF Inj 20 MG/2 ML Vial IV.PUSH SCH (08:46)
[2018-03-18] MEDS: Budesonide-Formoterol 160/4.5 MCG 6 GM Inhaler INH SCH ×2 (08:46→20:36)
[2018-03-18] MEDS: Enoxaparin Inj 40 MG/0.4 ML Syringe SQ SCH (12:29)
--- NOTE | 2018-03-18 12:41 | P.PNCC ---
Subjective Subjective Remarks/Hospital Course: 03/04: 72-year-old female was brought by EMS after patient was found unresponsive at home. Patient's son states that he did not see the patient yesterday. Patient lives alone by herself. Patient's son states that he receive a phone call from the patient this afternoon about 2 hours prior to arrival that patient was calling for help. Patient's son came to the house and found her almost unresponsive. EMS was called. Patient was found to be hypotensive and bradycardic. She was moaning incoherently. External pacer was applied to the patient and the patient was transported to ED for an evaluation. Patient son states the patient has no medical problem. EKG obtained in the emergency department showed acute ST elevations myocardial infarction patient was emergently taken to cardiac catheterization lab. She was found to have RCA occlusion that was stented by Dr. Benavidez. Intra-aortic balloon pump was also inserted and the patient is now admitted to CVICU. 03/05: Remains sedated, orally intubated on mech vent. IABP in place. On Heparin/ Aggrastat/ Dopamine/ Propofol/ NS@84cc/hr 03/06: Remains sedated, orally intubated on mechanical ventilation. IABP in place. On dopamine at 8 mics per KG per minute. Propofol/NS at 84 cc/h. Yesterday she awakened unenlightening sedation and attempted reaching up for ET tube with both hands however was not following commands. In view of hypotension we will add Precedex and try to titrate down on propofol. 03/07: Sedated, arousable, orally intubated on mechanical ventilation. IABP remains in place. Dopamine titrated off this morning. On Precedex gtt. Borderline urine output. Significant positive fluid balance in the last 48 hours. Changing NS to LR as maintenance IV fluid in view of hyperchloremic metabolic acidosis. 03/08: Sedated, orally intubated on mechanical ventilation. Had episode of hypoxia last night which PEEP was increased to +8 and FiO2 to 90%, subsequently FiO2 decreased to 65%. She was started on empiric antibiotics for left lower lobe pneumonia seen on chest x-ray over the last 48 hours. Significant positive fluid balance noted. On dopamine 1 mcg/kg/min. Given Lasix 20 mg IV this morning to mobilize fluid. 03/09: Remains sedated, orally intubated on mechanical ventilation. Sputum growing Klebsiella/Pseudomonas and MRSA. On Zosyn and Zyvox.Positive fluid balance noted. On dopamine. Lasix to mobilize fluid. Significant pulmonary secretions. 03/10 Patient remains intubated and sedated with Versed and Precedex drip. T:99.7 , on Dopamine 3.5 mics. 03/11 No events overnight. Sedated and intubated. Afebrile. 03/12 Patient remains sedated with Versed and Precedex drip. Afebrile. On PRVC with PEEP:8 and FIO2 50%. 03/13 No events overnight. On Precedex drip for sedation, off Dopamine and Versed drip. On Levophed 4 mics with MAP:72mmHg. Patient remains intubated off Precedex drip. On PRVC with PEEP;5 and FIO2 40%. T ;100.6. On Levophed 3 mics. 03/14 Patient is off Precedex drip, remans on Levophed 3 mics with MAP 72- 75mmHg. T:102.1. Had approx 300ml gastric output tube feeds placed on hold. KUB abdomen this morning showed mild gaseous distention of bowel loops. 03/15 Patient was extubated yesterday on 10L simple mask with good sats. On Levophed 2 mics with MAP 72mmHg. Afebrile. 03/16 No events overnight. Off Levophed. Patient is lying in bed in NAD. Afebrile. 03/17 Patient is awake, alert on 5L oxygen, Tmax 100.0 yesterday. SUBJECTIVE: 03/18: Able. No new issues overnight. Tolerating diet. Objective Vital Signs / I&O: Vital Signs 03/17/18 14:00 03/17/18 15:00 03/17/18 15:33 Temperature Pulse Rate 96 H 85 Respiratory Rate 18 Blood Pressure Pulse Oximetry 97 03/17/18 16:00 03/17/18 18:00 03/17/18 20:00 Temperature 96.4 F L 98.9 F Pulse Rate 88 95 H 91 H Respiratory Rate 28 H 25 H Blood Pressure 122/59 L 124/58 L Pulse Oximetry 96 96 03/17/18 20:48 03/17/18 22:00 03/18/18 00:00 Temperature 98.1 F Pulse Rate 90 93 H 89 Respiratory Rate 17 25 H Blood Pressure 115/60 Pulse Oximetry 95 95 03/18/18 02:00 03/18/18 04:00 03/18/18 06:00 Temperature 98.8 F Pulse Rate 90 68 80 Respiratory Rate 20 Blood Pressure 98/51 L Pulse Oximetry 95 03/18/18 07:00 03/18/18 08:00 03/18/18 10:00 Temperature 97.9 F Pulse Rate 80 69 86 Respiratory Rate 19 20 Blood Pressure 99/53 L Pulse Oximetry 93 L 93 L 03/18/18 11:22 Temperature Pulse Rate 91 H Respiratory Rate 20 Blood Pressure Pulse Oximetry Intake & Output 03/17/18 03/18/18 03/18/18 18:59 06:59 18:59 Intake Total 100 / 100 350 / 350 Output Total 1000 / 1000 850 / 850 Balance -900 / -900 -500 / -500 Weight 66.8 kg Intake: IV 100 / 100 100 / 100 Maxipime Inj 2,000 MG In NS Inj 100 / 100 100 / 100 100 ML @ 200 mls/hr IV.SIG Q12H SHAYNE Rx#:[id number] Oral 250 / 250 Output: Urine 1000 / 1000 750 / 750 Emesis 100 / 100 Other: # Voids 3 3 # Incontinent Voids 0 Date of Last Bowel Movement 03/17/18 03/17/18 03/18/18 # Bowel Movements 2 1 # Emeses 1 Result Diagrams: 03/18/18 03:25 03/18/18 03:25 Other Results: Microbiology 03/13/18 19:50 Blood - Peripheral Aerobic Blood Culture - Final No growth in 5 days 03/13/18 19:50 Blood - Peripheral Anaerobic Blood Culture - Final No growth in 5 days 03/13/18 19:40 Blood - Peripheral Aerobic Blood Culture - Final No growth in 5 days 03/13/18 19:40 Blood - Peripheral Anaerobic Blood Culture - Final No growth in 5 days 03/12/18 09:35 Sputum - Tracheal Aspirate Gram Stain - Final 03/12/18 09:35 Sputum - Tracheal Aspirate Sputum Culture - Final Pseudomonas aeruginosa 03/07/18 11:50 Blood - Peripheral Aerobic Blood Culture - Final No growth in 5 days 03/07/18 11:50 Blood - Peripheral Anaerobic Blood Culture - Final No growth in 5 days 03/07/18 12:00 Blood - Peripheral Aerobic Blood Culture - Final No growth in 5 days 03/07/18 12:00 Blood - Peripheral Anaerobic Blood Culture - Final No growth in 5 days 03/07/18 10:40 Catheterized Urine Urine Culture - Final Klebsiella pneumoniae 03/07/18 11:15 Sputum - Endotracheal Gram Stain - Final 03/07/18 11:15 Sputum - Endotracheal Sputum Culture - Final Pseudomonas aeruginosa Klebsiella pneumoniae Staphylococcus aureus 03/06/18 20:42 Sputum - Endotracheal Gram Stain - Final 03/06/18 20:42 Sputum - Endotracheal Sputum Culture - Final Pseudomonas aeruginosa Klebsiella pneumoniae Staphylococcus aureus Imaging: Chest X-Ray 03/04/18 17:36 CONCLUSION: Endotracheal tube in good position. Mild interstitial edema with basilar atelectasis. Head CT 03/04/18 17:39 CONCLUSION: 1. Negative CT Head non contrast. . Chest X-Ray 03/04/18 20:50 CONCLUSION: Right central line in superior vena cava without pneumothorax. Slight increase in basilar airspace disease and edema pattern since earlier exam. Hand X-Ray 03/06/18 00:00 CONCLUSION: Prominent dorsal hand soft tissue swelling. No fracture seen. Chest X-Ray 03/07/18 05:00 CONCLUSION: Increasing consolidation in the left lower lobe. Persistent patchy nonconsolidative infiltrates in the right lower lung. Chest X-Ray 03/08/18 00:53 CONCLUSION: Bilateral lower lobe consolidation. Chest X-Ray 03/10/18 05:00 CONCLUSION: Worsening appearance of the chest. Chest X-Ray 03/12/18 09:17 CONCLUSION: NG tip at GE junction with side port in distal esophagus. Basilar airspace disease and probable small effusions similar to March 10. Endotracheal tube and right central line in good position. Abdomen X-Ray 03/14/18 00:00 CONCLUSION: Mild gaseous distention of bowel loops. Chest X-Ray 03/14/18 09:45 CONCLUSION: Cardiomegaly with interstitial edema. Chest X-Ray 03/16/18 09:21 CONCLUSION: 1. Interval removal of the endotracheal and nasogastric tubes. 2. Bibasilar airspace disease with probable associated effusions, left greater than right. These may be slightly worse when compared to the prior. 3. In addition, slight increase in interstitial markings when compared to prior suggesting worsening interstitial edema or vascular congestion. Heart size remains prominent. Chest X-Ray 03/18/18 00:00 CONCLUSION: Diffuse interstitial disease. Alveolar areas of consolidation or atelectasis at the bases which appear to be improving. Objective Remarks: GENERAL: Patient is 72 yo lying in bed in NAD SKIN: Warm and dry. HEAD: Normocephalic. EYES: No scleral icterus. No injection or drainage. NECK: Supple, trachea midline. No JVD or lymphadenopathy. CARDIOVASCULAR: Regular rate and rhythm without murmurs, gallops, or rubs. RESPIRATORY: Breath sounds equal bilaterally. No accessory muscle use. GASTROINTESTINAL: Abdomen soft, non-tender, nondistended. MUSCULOSKELETAL: No cyanosis, or edema. Neuro: Awake Assessment and Plan - Assessment and Plan Plan: Neuro/PSYCH: Resolved acute metabolic encephalopathy Monitor neuro status, avoid sedatives CT brain 03/04: No acute findings EEG 03/06: Mild slowing, no epileptiform features Neuro consulted- Dr. Moncada Pulcatalina Pneumonia -Continue with oxygen keep sats >92% -TARIQ Magdaleno Pulm is following- Dr. Power CV: Acute coronary syndrome Cardiogenic shock (resolved) Coronary artery disease -RCA occlusion -Status post cardiac catheterization and stent placement. LVEF 75% by cath. Echo with LVEF around 40%, normal RV, regional wall motion abnormalities. -Off Tirofiban gtt -Aspirin, Prasugrel -Monitor HR and BP keep MAP>65mmHg -Intra-aortic balloon pump-discontinued 03/07 GI: On PO cardiac diet KUB abdomen today- mild gaseous distention of bowel loops ID: Pneumonia/ sepsis -Abx per ID-On Cefepime . -Monitor for signs of infections ( Fever, WBC) WBC is trending down 03/12 Sputum: Pseudomonas 03/06, 03/07 Sputum: Kleb , Pseudomonas, Staph -sputum cx 03/12: Pseudomonas -C-diff PCR negative on 03/14 Renal/FEN/: Monitor renal function, I/O's, electrolytes replacement per protocol. Lasix 40mg IV BID Heme Normocytic anemia Thrombocytopenia Leukocytosis Monitor CBC Endo SSI for glycemic control DVT GI prophylaxis -Teds SCDs -Enoxaparin 40 mg subcutaneously daily -Famotidine Palliative care is following Access: peripheral IV's Level 2
--- NOTE | 2018-03-18 13:46 | P.PNCA ---
Subjective Interval history: lucid on nc, in nad Physical Exam Vital signs: Vital Signs 03/17/18 14:00 03/17/18 15:00 03/17/18 15:33 Temperature Pulse Rate 96 H 85 Respiratory Rate 18 Blood Pressure Pulse Oximetry 97 03/17/18 16:00 03/17/18 18:00 03/17/18 20:00 Temperature 96.4 F L 98.9 F Pulse Rate 88 95 H 91 H Respiratory Rate 28 H 25 H Blood Pressure 122/59 L 124/58 L Pulse Oximetry 96 96 03/17/18 20:48 03/17/18 22:00 03/18/18 00:00 Temperature 98.1 F Pulse Rate 90 93 H 89 Respiratory Rate 17 25 H Blood Pressure 115/60 Pulse Oximetry 95 95 03/18/18 02:00 03/18/18 04:00 03/18/18 06:00 Temperature 98.8 F Pulse Rate 90 68 80 Respiratory Rate 20 Blood Pressure 98/51 L Pulse Oximetry 95 03/18/18 07:00 03/18/18 08:00 03/18/18 10:00 Temperature 97.9 F Pulse Rate 80 69 86 Respiratory Rate 19 20 Blood Pressure 99/53 L Pulse Oximetry 93 L 93 L 03/18/18 11:00 03/18/18 11:22 Temperature Pulse Rate 91 H Respiratory Rate 20 Blood Pressure Pulse Oximetry 92 L Intake & Output 03/17/18 03/18/18 03/18/18 18:59 06:59 18:59 Intake Total 100 / 100 350 / 350 Output Total 1000 / 1000 850 / 850 Balance -900 / -900 -500 / -500 Weight 66.8 kg Intake: IV 100 / 100 100 / 100 Maxipime Inj 2,000 MG In NS Inj 100 / 100 100 / 100 100 ML @ 200 mls/hr IV.SIG Q12H SHAYNE Rx#:[id number] Oral 250 / 250 Output: Urine 1000 / 1000 750 / 750 Emesis 100 / 100 Other: # Voids 3 3 # Incontinent Voids 0 Date of Last Bowel Movement 03/17/18 03/17/18 03/18/18 # Bowel Movements 2 1 # Emeses 1 - Urinary Catheter Management Indwelling Urethral Catheter Cath placed during this visit: yes, but has since been removed by the nurse Reason for continuing: Not indwelling catheter Insertion date: 03/04/18 Insertion time: 22:00 Removal date: 03/16/18 Removal time: 16:00 Assessment and Plan - Assessment (1) CAD (coronary artery disease) Code(s): I25.10 - Atherosclerotic heart disease of [place] coronary artery without angina pectoris Status: Acute (2) STEMI (ST elevation myocardial infarction) Code(s): I21.3 - ST elevation (STEMI) myocardial infarction of unspecified site Status: Acute (3) Cardiogenic shock Code(s): R57.0 - Cardiogenic shock Status: Acute (4) Encephalopathy Code(s): G93.40 - Encephalopathy, unspecified Status: Acute - Plan 1.) CAD - POD # 13 primary pci prox rca, rv infarct, off levophed; mental status iappears wnl, off sedation, neurology following, continue aspirin, effient, has rv infarct, weight down 17.2 kgs since 03/10/18, baseline is 66 kg, 67.8kg kg 03/16/18, on abs for pneumonia, s/p transfusion 03/09/18, less febrile and off levophed, ldl=63 so statin held, brooke and beta rolando held due to ongoing hypotension; follow trends in bnp to determine diuretic dose, d/w nurse and patient, ok to transfer to sdu tele from cv standpoint
--- NOTE | 2018-03-18 15:19 | P.DIET ---
Nutritional Evaluation Type of nutrition evaluation: follow-up Nutrition consult regarding: Tube Feeding Screening comments: Pt wears dentures. Objective - Diagnosis STEMI CODE, Hypokalemia, Bradycardia - Objective [place] body weight: 59.1 kg % IBW: 122 (IBW = 130#) Body Weight Used for Calculations: Actual (Initial bedscale wt 72kg ) Energy Needs - Lower Range (kCal/kg): 25 Energy Needs - Upper Range (kCal/kg): 30 Lower Limit kCal/kg (kCals): 1,800 Upper Limit kCal/kg (kCals): 2,160 Lower Limit Protein Factor (Grams per Kg): 1.1 Upper Limit Protein Factor (Grams per Kg): 1.4 Lower Protein Needs (Protein): 79 Upper Protein Needs (Protein): 101 Dietitian Reviewed in Medical Record: Current diet, Curent medications, Intake & Output, Labs, Medical history, Tube feeding Diet Order: Cardiac Speech Therapy Recommendations: Yes (Regular diet texture) Objective Comments: POD#14 promary PCI prox RCA, RV infarct skin assessment: posterior sacrum pressure injury-ongoing Accucheck 101 +1BM, +UOP 1750ml Feeding - Current Tube Feeding Tube Feeding Product: Jevity 1.5 Tube Feeding Rate: 40 (mls/hr) Assessment Assessment: Pt peviously receiving TF'ing; extubated 03/14. Diet advanced per ST. Pt tolerating po diet; however, no documentation in EMR for po intake. Monitor need for an oral nutritional supplement. Labs reviewed. Wt changes noted. Recommendations: 1. Please document % of po intake in EMR 2. Monitor need for an oral nutritional supplement Dietitian to Monitor: Lab values, Intake & Output, Weight change, PO Intake, Wound/skin status, Medical course
[2018-03-18] MEDS: Senna/Docusate Sodium 8.6/50 MG Tablet PO SCH ×2 (16:35→20:36)
--- NOTE | 2018-03-18 18:23 | P.PN ---
Subjective Interval history: Has some improvement in O2 sats. No chest pains. Still on O2 5 L. Good output. Physical Exam Vital signs: Vital Signs 03/17/18 20:00 03/17/18 20:48 03/17/18 22:00 Temperature 98.9 F Pulse Rate 91 H 90 93 H Respiratory Rate 25 H 17 Blood Pressure 124/58 L Pulse Oximetry 96 95 03/18/18 00:00 03/18/18 02:00 03/18/18 04:00 Temperature 98.1 F 98.8 F Pulse Rate 89 90 68 Respiratory Rate 25 H 20 Blood Pressure 115/60 98/51 L Pulse Oximetry 95 95 03/18/18 06:00 03/18/18 07:00 03/18/18 08:00 Temperature 97.9 F Pulse Rate 80 80 69 Respiratory Rate 19 20 Blood Pressure 99/53 L Pulse Oximetry 93 L 93 L 03/18/18 10:00 03/18/18 11:00 03/18/18 11:22 Temperature Pulse Rate 86 91 H Respiratory Rate 20 Blood Pressure Pulse Oximetry 92 L 03/18/18 12:00 03/18/18 14:00 03/18/18 15:00 Temperature 97.7 F Pulse Rate 83 99 H Respiratory Rate 26 H Blood Pressure 104/50 L Pulse Oximetry 98 98 03/18/18 15:27 Temperature Pulse Rate 10 L Respiratory Rate 16 Blood Pressure Pulse Oximetry Intake & Output 03/17/18 03/18/18 03/18/18 18:59 06:59 18:59 Intake Total 100 / 100 350 / 350 900 / 900 Output Total 1000 / 1000 850 / 850 800 / 800 Balance -900 / -900 -500 / -500 100 / 100 Weight 66.8 kg Intake: IV 100 / 100 100 / 100 Maxipime Inj 2,000 MG In NS Inj 100 / 100 100 / 100 100 ML @ 200 mls/hr IV.SIG Q12H SHAYNE Rx#:[id number] Oral 250 / 250 900 / 900 Output: Urine 1000 / 1000 750 / 750 800 / 800 Emesis 100 / 100 Other: # Voids 3 3 # Incontinent Voids 0 Date of Last Bowel Movement 03/17/18 03/17/18 03/18/18 # Bowel Movements 2 1 # Emeses 1 GENERAL: Alert and in no distress SKIN: Warm and dry. HEAD: Normocephalic. EYES: No scleral icterus. No injection or drainage. NECK: Supple, trachea midline.Mild JVD and no lymphadenopathy. CARDIOVASCULAR: Irregular rate and rhythm without murmurs, gallops, or rubs. RESPIRATORY: Breath sounds equal bilaterally.Few basal crackles. No accessory muscle use. GASTROINTESTINAL: Abdomen soft, non-tender, nondistended. MUSCULOSKELETAL: No cyanosis, or edema. BACK: Nontender without obvious deformity. No CVA tenderness. - Urinary Catheter Management Indwelling Urethral Catheter Cath placed during this visit: yes, but has since been removed by the nurse Reason for continuing: Not indwelling catheter Insertion date: 03/04/18 Insertion time: 22:00 Removal date: 03/16/18 Removal time: 16:00 Results - Labs CBC & Chem 7: 03/18/18 03:25 03/18/18 03:25 Laboratory Results - last 24 hr 03/17/18 03/18/18 03/18/18 18:32 00:23 03:25 WBC 13.9 H RBC 2.69 L Hgb 8.6 L Hct 25.2 L MCV 93.6 MCH 32.0 MCHC 34.2 RDW 14.6 Plt Count 467 H MPV 8.0 Neut % (Auto) 69.9 Lymph % (Auto) 18.6 [place] % (Auto) 7.9 Eos % (Auto) 3.0 Baso % (Auto) 0.6 Neut # (Auto) 9.7 H Lymph # (Auto) 2.6 [place] # (Auto) 1.1 H Eos # (Auto) 0.4 Baso # (Auto) 0.1 WBC Differential . Differential Comment Auto diff final Sodium Potassium Chloride Carbon Dioxide Anion Gap BUN Creatinine Estimated GFR POC Glucose 127 H 109 Random Glucose Calcium Phosphorus Magnesium B-Natriuretic Peptide Vancomycin Trough 03/18/18 03/18/18 03/18/18 03:25 03:25 08:44 WBC RBC Hgb Hct MCV MCH MCHC RDW Plt Count MPV Neut % (Auto) Lymph % (Auto) [place] % (Auto) Eos % (Auto) Baso % (Auto) Neut # (Auto) Lymph # (Auto) [place] # (Auto) Eos # (Auto) Baso # (Auto) WBC Differential Differential Comment Sodium 144 Potassium 3.3 L Chloride 104 Carbon Dioxide 31.1 Anion Gap 9 BUN 28 H Creatinine 1.12 H Estimated GFR 48 L POC Glucose 102 Random Glucose 111 H Calcium 8.1 L Phosphorus 2.4 L Magnesium 2.7 H B-Natriuretic Peptide 503 H Vancomycin Trough 8.1 03/18/18 12:33 WBC RBC Hgb Hct MCV MCH MCHC RDW Plt Count MPV Neut % (Auto) Lymph % (Auto) [place] % (Auto) Eos % (Auto) Baso % (Auto) Neut # (Auto) Lymph # (Auto) [place] # (Auto) Eos # (Auto) Baso # (Auto) WBC Differential Differential Comment Sodium Potassium Chloride Carbon Dioxide Anion Gap BUN Creatinine Estimated GFR POC Glucose 101 Random Glucose Calcium Phosphorus Magnesium B-Natriuretic Peptide Vancomycin Trough Microbiology 03/13/18 19:50 Blood - Peripheral Aerobic Blood Culture - Final No growth in 5 days 03/13/18 19:50 Blood - Peripheral Anaerobic Blood Culture - Final No growth in 5 days 03/13/18 19:40 Blood - Peripheral Aerobic Blood Culture - Final No growth in 5 days 03/13/18 19:40 Blood - Peripheral Anaerobic Blood Culture - Final No growth in 5 days - Imaging Impressions Chest X-Ray 03/18/18 00:00 CONCLUSION: Diffuse interstitial disease. Alveolar areas of consolidation or atelectasis at the bases which appear to be improving. Assessment and Plan - Assessment (1) Pneumonia Code(s): J18.9 - Pneumonia, unspecified organism Status: Acute (2) CAD (coronary artery disease) Code(s): I25.10 - Atherosclerotic heart disease of [place] coronary artery without angina pectoris Status: Acute (3) STEMI (ST elevation myocardial infarction) Code(s): I21.3 - ST elevation (STEMI) myocardial infarction of unspecified site Status: Acute (4) Cardiogenic shock Code(s): R57.0 - Cardiogenic shock Status: Acute (5) Encephalopathy Code(s): G93.40 - Encephalopathy, unspecified Status: Acute (6) Dyspnea Code(s): R06.00 - Dyspnea, unspecified Status: Acute (7) Constipation Code(s): K59.00 - Constipation, unspecified Status: Acute (8) Pain Code(s): R52 - Pain, unspecified Status: Acute (9) Basal cell carcinoma (BCC) of [place] of right eye Code(s): C44.112 - Basal cell carcinoma of skin of right eyelid, including canthus Status: Acute - Plan 1. O2 at 4 L and wean , keep sat >92. 2. Duonebs qid PRN 3. IS at bedside q3h 4. Continue antibiotics,Cefipime IV per ID 5. CBC,BMP in am 6. PT evaluation. 7. Cont anticoagulation, Lovenox 40 mg S/Q
[2018-03-18] MEDS: Famotidine 20 MG Tablet PO SCH (20:36)
[2018-03-19] MEDS: Oral Hygiene Kit OROPHARYNG SCH ×5 (00:38→23:41)
[2018-03-19 05:11] LABS: Baso # (Auto) 0.1 th/mm3 (0.0-0.2); Eos # (Auto) 0.5 th/mm3 (0.0-0.4); Eos % (Auto) 4.2 % (0.0-4.0); Hematocrit 27.1 % (35.0-46.0); Lymph # (Auto) 2.9 th/mm3 (1.0-4.8); Lymph % (Auto) 22.4 % (9.0-44.0); Mean Corpuscular HGB Conc 33.2 % (32.0-36.0); Mean Corpuscular Hemoglobin 30.9 pg (27.0-34.0); Mean Platelet Volume 7.9 fL (7.0-11.0); Mono % (Auto) 8.1 % (0.0-8.0); Neut # (Auto) 8.3 th/mm3 (1.8-7.7); Neut % (Auto) 64.3 % (16.0-70.0); Platelet Count 678 th/mm3 (150-450); Red Blood Count 2.91 mil/mm3 (4.00-5.30); Red Cell Distribution Width 14.4 % (11.6-17.2); White Blood Count 12.9 th/mm3 (4.0-11.0)
[2018-03-19 05:37] LABS: Anion Gap 8 meq/L (5-15); Aspartate Aminotransferase 67 U/L (15-37); Blood Urea Nitrogen 28 mg/dL (7-18); Calcium 8.5 mg/dL (8.5-10.1); Carbon Dioxide 28.9 meq/L (21.0-32.0); Chloride 106 meq/L (98-107); Glomerular Filtration Rate 52 mL/min (>89); Glucose,Random 100 mg/dL (74-106); Magnesium 2.6 mg/dL (1.5-2.5); Potassium 3.9 meq/L (3.5-5.1); Sodium 143 meq/L (136-145)
[2018-03-19 05:41] LABS: Alanine Aminotransferase 82 U/L (10-53); Alkaline Phosphatase 81 U/L (45-117); Phosphorus 3.1 mg/dL (2.5-4.9); Total Protein 6.8 g/dL (6.4-8.2)
--- NOTE | 2018-03-19 05:54 | XR ---
EXAM DATE: 03/19/2018 5:50 AM EDT AGE/SEX: 72 years / Female INDICATIONS: Follow up respiratory status. CLINICAL DATA: This is the patient's subsequent encounter. Patient reports that signs and symptoms h ave been present for 4 - 6 days and indicates a pain score of Nonresponsive. MEDICAL/SURGICAL HISTORY: Non-responsive. Non-responsive. COMPARISON: C, CHEST 1V SINGLE AP, 03/18/2018. . FINDINGS: The heart size is borderline enlarged. Lungs demonstrate diffuse mixed interstitial and alveolar dens ity. The alveolar density seen at the mid lower lungs. CONCLUSION: Persistent diffuse interstitial disease with alveolar density at the bases. This is likely from diffu se processes such as edema. This pattern is unchanged. Electronically signed by: James Can MD 03/19/2018 5:53 AM EDT
--- NOTE | 2018-03-19 08:12 | P.PNCC ---
Subjective Subjective Remarks/Hospital Course: 03/04: 72-year-old female was brought by EMS after patient was found unresponsive at home. Patient's son states that he did not see the patient yesterday. Patient lives alone by herself. Patient's son states that he receive a phone call from the patient this afternoon about 2 hours prior to arrival that patient was calling for help. Patient's son came to the house and found her almost unresponsive. EMS was called. Patient was found to be hypotensive and bradycardic. She was moaning incoherently. External pacer was applied to the patient and the patient was transported to ED for an evaluation. Patient son states the patient has no medical problem. EKG obtained in the emergency department showed acute ST elevations myocardial infarction patient was emergently taken to cardiac catheterization lab. She was found to have RCA occlusion that was stented by Dr. Benavidez. Intra-aortic balloon pump was also inserted and the patient is now admitted to CVICU. 03/05: Remains sedated, orally intubated on mech vent. IABP in place. On Heparin/ Aggrastat/ Dopamine/ Propofol/ NS@84cc/hr 03/06: Remains sedated, orally intubated on mechanical ventilation. IABP in place. On dopamine at 8 mics per KG per minute. Propofol/NS at 84 cc/h. Yesterday she awakened unenlightening sedation and attempted reaching up for ET tube with both hands however was not following commands. In view of hypotension we will add Precedex and try to titrate down on propofol. 03/07: Sedated, arousable, orally intubated on mechanical ventilation. IABP remains in place. Dopamine titrated off this morning. On Precedex gtt. Borderline urine output. Significant positive fluid balance in the last 48 hours. Changing NS to LR as maintenance IV fluid in view of hyperchloremic metabolic acidosis. 03/08: Sedated, orally intubated on mechanical ventilation. Had episode of hypoxia last night which PEEP was increased to +8 and FiO2 to 90%, subsequently FiO2 decreased to 65%. She was started on empiric antibiotics for left lower lobe pneumonia seen on chest x-ray over the last 48 hours. Significant positive fluid balance noted. On dopamine 1 mcg/kg/min. Given Lasix 20 mg IV this morning to mobilize fluid. 03/09: Remains sedated, orally intubated on mechanical ventilation. Sputum growing Klebsiella/Pseudomonas and MRSA. On Zosyn and Zyvox.Positive fluid balance noted. On dopamine. Lasix to mobilize fluid. Significant pulmonary secretions. 03/10 Patient remains intubated and sedated with Versed and Precedex drip. T:99.7 , on Dopamine 3.5 mics. 03/11 No events overnight. Sedated and intubated. Afebrile. 03/12 Patient remains sedated with Versed and Precedex drip. Afebrile. On PRVC with PEEP:8 and FIO2 50%. 03/13 No events overnight. On Precedex drip for sedation, off Dopamine and Versed drip. On Levophed 4 mics with MAP:72mmHg. Patient remains intubated off Precedex drip. On PRVC with PEEP;5 and FIO2 40%. T ;100.6. On Levophed 3 mics. 03/14 Patient is off Precedex drip, remans on Levophed 3 mics with MAP 72- 75mmHg. T:102.1. Had approx 300ml gastric output tube feeds placed on hold. KUB abdomen this morning showed mild gaseous distention of bowel loops. 03/15 Patient was extubated yesterday on 10L simple mask with good sats. On Levophed 2 mics with MAP 72mmHg. Afebrile. 03/16 No events overnight. Off Levophed. Patient is lying in bed in NAD. Afebrile. 03/17 Patient is awake, alert on 5L oxygen, Tmax 100.0 yesterday. 03/18: Able. No new issues overnight. Tolerating diet. SUBJECTIVE: 03/19: Resting complaint bed on nasal cannula. Tolerating diet. Respirations in the 20s but appears comfortable. Decrease furosemide dose switching to p.o. today. Attempt to get out of bed. Objective Vital Signs / I&O: Vital Signs 03/18/18 10:00 03/18/18 11:00 03/18/18 11:22 Temperature Pulse Rate 86 91 H Respiratory Rate 20 Blood Pressure Pulse Oximetry 92 L 03/18/18 12:00 03/18/18 14:00 03/18/18 15:00 Temperature 97.7 F Pulse Rate 83 99 H Respiratory Rate 26 H Blood Pressure 104/50 L Pulse Oximetry 98 98 03/18/18 15:27 03/18/18 16:00 03/18/18 18:00 Temperature 97.8 F Pulse Rate 10 L 94 H 106 H Respiratory Rate 16 26 H Blood Pressure 116/64 Pulse Oximetry 95 03/18/18 19:39 03/18/18 20:00 03/18/18 22:00 Temperature 98.7 F Pulse Rate 96 H 95 H 83 Respiratory Rate 24 24 Blood Pressure 107/55 L Pulse Oximetry 94 L 96 03/18/18 23:00 03/19/18 00:00 03/19/18 02:00 Temperature 98.9 F Pulse Rate 86 89 Respiratory Rate 21 Blood Pressure 108/57 L Pulse Oximetry 94 L 93 L 03/19/18 03:00 03/19/18 04:00 03/19/18 06:00 Temperature 98.0 F Pulse Rate 82 75 Respiratory Rate 26 H Blood Pressure 88/54 L Pulse Oximetry 96 95 Intake & Output 03/18/18 03/19/18 03/19/18 18:59 06:59 18:59 Intake Total 900 / 900 560 / 560 Output Total 800 / 800 450 / 450 Balance 100 / 100 110 / 110 Weight 65.4 kg Intake: IV 200 / 200 Maxipime Inj 2,000 MG In NS Inj 200 / 200 100 ML @ 200 mls/hr IV.SIG Q12H SHAYNE Rx#:[id number] Oral 900 / 900 360 / 360 Output: Urine 800 / 800 450 / 450 Other: Date of Last Bowel Movement 03/18/18 03/18/18 # Bowel Movements 0 Result Diagrams: 03/19/18 04:50 03/19/18 04:50 Other Results: Microbiology 03/13/18 19:50 Blood - Peripheral Aerobic Blood Culture - Final No growth in 5 days 03/13/18 19:50 Blood - Peripheral Anaerobic Blood Culture - Final No growth in 5 days 03/13/18 19:40 Blood - Peripheral Aerobic Blood Culture - Final No growth in 5 days 03/13/18 19:40 Blood - Peripheral Anaerobic Blood Culture - Final No growth in 5 days 03/12/18 09:35 Sputum - Tracheal Aspirate Gram Stain - Final 03/12/18 09:35 Sputum - Tracheal Aspirate Sputum Culture - Final Pseudomonas aeruginosa 03/07/18 11:50 Blood - Peripheral Aerobic Blood Culture - Final No growth in 5 days 03/07/18 11:50 Blood - Peripheral Anaerobic Blood Culture - Final No growth in 5 days 03/07/18 12:00 Blood - Peripheral Aerobic Blood Culture - Final No growth in 5 days 03/07/18 12:00 Blood - Peripheral Anaerobic Blood Culture - Final No growth in 5 days 03/07/18 10:40 Catheterized Urine Urine Culture - Final Klebsiella pneumoniae 03/07/18 11:15 Sputum - Endotracheal Gram Stain - Final 03/07/18 11:15 Sputum - Endotracheal Sputum Culture - Final Pseudomonas aeruginosa Klebsiella pneumoniae Staphylococcus aureus 03/06/18 20:42 Sputum - Endotracheal Gram Stain - Final 03/06/18 20:42 Sputum - Endotracheal Sputum Culture - Final Pseudomonas aeruginosa Klebsiella pneumoniae Staphylococcus aureus Imaging: Chest X-Ray 03/04/18 17:36 CONCLUSION: Endotracheal tube in good position. Mild interstitial edema with basilar atelectasis. Head CT 03/04/18 17:39 CONCLUSION: 1. Negative CT Head non contrast. . Chest X-Ray 03/04/18 20:50 CONCLUSION: Right central line in superior vena cava without pneumothorax. Slight increase in basilar airspace disease and edema pattern since earlier exam. Hand X-Ray 03/06/18 00:00 CONCLUSION: Prominent dorsal hand soft tissue swelling. No fracture seen. Chest X-Ray 03/07/18 05:00 CONCLUSION: Increasing consolidation in the left lower lobe. Persistent patchy nonconsolidative infiltrates in the right lower lung. Chest X-Ray 03/08/18 00:53 CONCLUSION: Bilateral lower lobe consolidation. Chest X-Ray 03/10/18 05:00 CONCLUSION: Worsening appearance of the chest. Chest X-Ray 03/12/18 09:17 CONCLUSION: NG tip at GE junction with side port in distal esophagus. Basilar airspace disease and probable small effusions similar to March 10. Endotracheal tube and right central line in good position. Abdomen X-Ray 03/14/18 00:00 CONCLUSION: Mild gaseous distention of bowel loops. Chest X-Ray 03/14/18 09:45 CONCLUSION: Cardiomegaly with interstitial edema. Chest X-Ray 03/16/18 09:21 CONCLUSION: 1. Interval removal of the endotracheal and nasogastric tubes. 2. Bibasilar airspace disease with probable associated effusions, left greater than right. These may be slightly worse when compared to the prior. 3. In addition, slight increase in interstitial markings when compared to prior suggesting worsening interstitial edema or vascular congestion. Heart size remains prominent. Chest X-Ray 03/18/18 00:00 CONCLUSION: Diffuse interstitial disease. Alveolar areas of consolidation or atelectasis at the bases which appear to be improving. Chest X-Ray 03/19/18 06:00 CONCLUSION: Persistent diffuse interstitial disease with alveolar density at the bases. This is likely from diffuse processes such as edema. This pattern is unchanged. Objective Remarks: GENERAL: Patient is 72 yo lying in bed in NAD SKIN: Warm and dry. HEAD: Normocephalic. EYES: No scleral icterus. No injection or drainage. NECK: Supple, trachea midline. No JVD or lymphadenopathy. CARDIOVASCULAR: Regular rate and rhythm without murmurs, gallops, or rubs. RESPIRATORY: Breath sounds equal bilaterally. Few fine crackles in bases bilaterally. No accessory muscle use. GASTROINTESTINAL: Abdomen soft, non-tender, nondistended. MUSCULOSKELETAL: No cyanosis, or edema. Neuro: Awake. Cranial nerves II through XII grossly intact. Strength is equal and symmetric. Normal sensation Assessment and Plan - Assessment and Plan Plan: Neuro/PSYCH: Resolved acute metabolic encephalopathy Monitor neuro status, avoid sedatives CT brain 03/04: No acute findings EEG 03/06: Mild slowing, no epileptiform features Neuro consulted- Dr. Moncada Pulcatalina Pneumonia -Continue with oxygen keep sats >92% -Dean Magdalenoco. IS, Pulm is following- Dr. Power CV: Acute coronary syndrome Cardiogenic shock (resolved) Coronary artery disease -RCA occlusion -Status post cardiac catheterization and stent placement. LVEF 75% by cath. Echo with LVEF around 40%, normal RV, regional wall motion abnormalities. -Off Tirofiban gtt -Aspirin, Prasugrel -Monitor HR and BP keep MAP>65mmHg -Intra-aortic balloon pump-discontinued 03/07 GI: On PO cardiac diet Famotidine for GI prophylaxis ID: Pneumonia/ sepsis -Abx per ID-On Cefepime . -Monitor for signs of infections ( Fever, WBC) WBC is trending down 03/12 Sputum: Pseudomonas 03/06, 03/07 Sputum: Kleb , Pseudomonas, Staph -sputum cx 03/12: Pseudomonas -C-diff PCR negative on 03/14 Renal/FEN/: Monitor renal function, I/O's, electrolytes replacement per protocol. Furosemide 40mg p.o. daily with 10 mEq potassium chloride Heme Normocytic anemia Thrombocytopenia Leukocytosis Monitor CBC. Follow trends. No indication for transfusion of blood products at this time. Endo SSI for glycemic control DVT GI prophylaxis -Teds SCDs -Enoxaparin 40 mg subcutaneously daily -Famotidine Palliative care is following Access: peripheral IV's Level 2. Stable from critical care medicine standpoint. Assign care to hospitalist in a.m. 03/20.
[2018-03-19] MEDS: Budesonide-Formoterol 160/4.5 MCG 6 GM Inhaler INH SCH ×2 (08:30→20:08)
[2018-03-19] MEDS: Chlorhexidine 0.12% Oral Kit 15 ML UDC OROPHARYNG SCH ×2 (08:30→19:42)
[2018-03-19] MEDS: Senna/Docusate Sodium 8.6/50 MG Tablet PO SCH ×2 (08:31→20:08)
--- NOTE | 2018-03-19 08:31 | P.PNCA ---
Subjective Interval history: alert in nad, lucid Physical Exam Vital signs: Vital Signs 03/18/18 10:00 03/18/18 11:00 03/18/18 11:22 Temperature Pulse Rate 86 91 H Respiratory Rate 20 Blood Pressure Pulse Oximetry 92 L 03/18/18 12:00 03/18/18 14:00 03/18/18 15:00 Temperature 97.7 F Pulse Rate 83 99 H Respiratory Rate 26 H Blood Pressure 104/50 L Pulse Oximetry 98 98 03/18/18 15:27 03/18/18 16:00 03/18/18 18:00 Temperature 97.8 F Pulse Rate 10 L 94 H 106 H Respiratory Rate 16 26 H Blood Pressure 116/64 Pulse Oximetry 95 03/18/18 19:39 03/18/18 20:00 03/18/18 22:00 Temperature 98.7 F Pulse Rate 96 H 95 H 83 Respiratory Rate 24 24 Blood Pressure 107/55 L Pulse Oximetry 94 L 96 03/18/18 23:00 03/19/18 00:00 03/19/18 02:00 Temperature 98.9 F Pulse Rate 86 89 Respiratory Rate 21 Blood Pressure 108/57 L Pulse Oximetry 94 L 93 L 03/19/18 03:00 03/19/18 04:00 03/19/18 06:00 Temperature 98.0 F Pulse Rate 82 75 Respiratory Rate 26 H Blood Pressure 88/54 L Pulse Oximetry 96 95 Intake & Output 03/18/18 03/19/18 03/19/18 18:59 06:59 18:59 Intake Total 900 / 900 560 / 560 Output Total 800 / 800 450 / 450 Balance 100 / 100 110 / 110 Weight 65.4 kg Intake: IV 200 / 200 Maxipime Inj 2,000 MG In NS Inj 200 / 200 100 ML @ 200 mls/hr IV.SIG Q12H SHAYNE Rx#:[id number] Oral 900 / 900 360 / 360 Output: Urine 800 / 800 450 / 450 Other: Date of Last Bowel Movement 03/18/18 03/18/18 # Bowel Movements 0 - Urinary Catheter Management Indwelling Urethral Catheter Cath placed during this visit: yes, but has since been removed by the nurse Reason for continuing: Not indwelling catheter Insertion date: 03/04/18 Insertion time: 22:00 Removal date: 03/16/18 Removal time: 16:00 Assessment and Plan - Assessment (1) CAD (coronary artery disease) Code(s): I25.10 - Atherosclerotic heart disease of [place] coronary artery without angina pectoris Status: Acute (2) STEMI (ST elevation myocardial infarction) Code(s): I21.3 - ST elevation (STEMI) myocardial infarction of unspecified site Status: Acute (3) Cardiogenic shock Code(s): R57.0 - Cardiogenic shock Status: Acute (4) Encephalopathy Code(s): G93.40 - Encephalopathy, unspecified Status: Acute - Plan 1.) CAD - POD # 13 primary pci prox rca, rv infarct, off levophed; mental status iappears wnl, off sedation, neurology following, continue aspirin, effient, has rv infarct, weight down 17.2 kgs since 03/10/18, baseline is 66 kg, 67.8kg kg 03/16/18, on abs for pneumonia, s/p transfusion 03/09/18, less febrile and off levophed, ldl=63 so statin held, [place] and beta [place] held due to ongoing hypotension; lasix decreased to 40 mg po qd 03/19/18, follow trends in bnp and bp to determine diuretic dose, ok to transfer to sdu tele from cv standpoint
[2018-03-19] MEDS: Furosemide 40 MG Tablet PO SCH (08:56)
[2018-03-19] MEDS: Enoxaparin Inj 40 MG/0.4 ML Syringe SQ SCH (13:56)
--- NOTE | 2018-03-19 18:14 | P.PN ---
Subjective Interval history: Doing well. On O2 4 L. No SOB at rest. CXR is better. On Cefipime On PO lasix now. Physical Exam Vital signs: Vital Signs 03/18/18 19:39 03/18/18 20:00 03/18/18 22:00 Temperature 98.7 F Pulse Rate 96 H 95 H 83 Respiratory Rate 24 24 Blood Pressure 107/55 L Pulse Oximetry 94 L 96 03/18/18 23:00 03/19/18 00:00 03/19/18 02:00 Temperature 98.9 F Pulse Rate 86 89 Respiratory Rate 21 Blood Pressure 108/57 L Pulse Oximetry 94 L 93 L 03/19/18 03:00 03/19/18 04:00 03/19/18 06:00 Temperature 98.0 F Pulse Rate 82 75 Respiratory Rate 26 H Blood Pressure 88/54 L Pulse Oximetry 96 95 03/19/18 08:00 03/19/18 08:34 03/19/18 10:00 Temperature Pulse Rate 79 79 Respiratory Rate Blood Pressure Pulse Oximetry 94 L 03/19/18 12:00 03/19/18 14:00 03/19/18 15:49 Temperature Pulse Rate 84 97 H Respiratory Rate 15 Blood Pressure Pulse Oximetry 03/19/18 16:00 Temperature Pulse Rate 87 Respiratory Rate Blood Pressure Pulse Oximetry 95 Intake & Output 03/18/18 03/19/18 03/19/18 18:59 06:59 18:59 Intake Total 900 / 900 560 / 560 Output Total 800 / 800 450 / 450 Balance 100 / 100 110 / 110 Weight 65.4 kg Intake: IV 200 / 200 Maxipime Inj 2,000 MG In NS Inj 200 / 200 100 ML @ 200 mls/hr IV.SIG Q12H SHAYNE Rx#:[id number] Oral 900 / 900 360 / 360 Output: Urine 800 / 800 450 / 450 Other: Date of Last Bowel Movement 03/18/18 03/18/18 03/18/18 # Bowel Movements 0 GENERAL: Elderly W/F alert and no distress SKIN: Warm and dry. HEAD: Normocephalic. EYES: No scleral icterus. No injection or drainage. NECK: Supple, trachea midline. No JVD or lymphadenopathy. CARDIOVASCULAR:Irregular rate and rhythm without murmurs, gallops, or rubs. RESPIRATORY: Breath sounds equal bilaterally. Basal crackles and wheeze.No accessory muscle use. GASTROINTESTINAL: Abdomen soft, non-tender, nondistended. MUSCULOSKELETAL: No cyanosis, or edema. BACK: Nontender without obvious deformity. No CVA tenderness.No Gross Neuro deficits. - Urinary Catheter Management Indwelling Urethral Catheter Cath placed during this visit: yes, but has since been removed by the nurse Reason for continuing: Not indwelling catheter Insertion date: 03/04/18 Insertion time: 22:00 Removal date: 03/16/18 Removal time: 16:00 Results - Labs CBC & Chem 7: 03/19/18 04:50 03/19/18 04:50 Laboratory Results - last 24 hr 03/19/18 03/19/18 03/19/18 04:50 04:50 04:50 WBC 12.9 H RBC 2.91 L Hgb 9.0 L Hct 27.1 L MCV 93.0 MCH 30.9 MCHC 33.2 RDW 14.4 Plt Count 678 H D MPV 7.9 Neut % (Auto) 64.3 Lymph % (Auto) 22.4 [place] % (Auto) 8.1 H Eos % (Auto) 4.2 H Baso % (Auto) 1.0 Neut # (Auto) 8.3 H Lymph # (Auto) 2.9 [place] # (Auto) 1.0 H Eos # (Auto) 0.5 H Baso # (Auto) 0.1 WBC Differential . Differential Comment Auto diff final Sodium 143 Potassium 3.9 Chloride 106 Carbon Dioxide 28.9 Anion Gap 8 BUN 28 H Creatinine 1.04 H Estimated GFR 52 L Random Glucose 100 Calcium 8.5 Phosphorus 3.1 Magnesium 2.6 H Total Bilirubin 0.5 AST 67 H ALT 82 H Alkaline Phosphatase 81 B-Natriuretic Peptide 482 H Total Protein 6.8 Albumin 2.0 L - Imaging Impressions Chest X-Ray 03/19/18 06:00 CONCLUSION: Persistent diffuse interstitial disease with alveolar density at the bases. This is likely from diffuse processes such as edema. This pattern is unchanged. Assessment and Plan - Assessment (1) Pneumonia Code(s): J18.9 - Pneumonia, unspecified organism Status: Acute (2) CAD (coronary artery disease) Code(s): I25.10 - Atherosclerotic heart disease of [place] coronary artery without angina pectoris Status: Acute (3) STEMI (ST elevation myocardial infarction) Code(s): I21.3 - ST elevation (STEMI) myocardial infarction of unspecified site Status: Acute (4) Cardiogenic shock Code(s): R57.0 - Cardiogenic shock Status: Acute (5) Encephalopathy Code(s): G93.40 - Encephalopathy, unspecified Status: Acute (6) Dyspnea Code(s): R06.00 - Dyspnea, unspecified Status: Acute (7) Constipation Code(s): K59.00 - Constipation, unspecified Status: Acute (8) Pain Code(s): R52 - Pain, unspecified Status: Acute (9) Basal cell carcinoma (BCC) of [place] of right eye Code(s): C44.112 - Basal cell carcinoma of skin of right eyelid, including canthus Status: Acute - Plan 1. O2 at 3 L and wean , keep sat >92. 2. Duonebs qid PRN 3. IS at bedside q3h 4. Continue antibiotics,Cefipime IV per ID 5. CXR ,BMP in am 6. PT evaluation. 7. Cont anticoagulation, Lovenox 40 mg S/Q 8. Transfer to [facility].
[2018-03-19] MEDS: Famotidine 20 MG Tablet PO SCH (20:07)
[2018-03-20 06:10] LABS: Baso # (Auto) 0.1 th/mm3 (0.0-0.2); Eos # (Auto) 0.4 th/mm3 (0.0-0.4); Eos % (Auto) 4.1 % (0.0-4.0); Hematocrit 24.7 % (35.0-46.0); Hemoglobin 8.4 gm/dL (11.6-15.3); Lymph # (Auto) 2.1 th/mm3 (1.0-4.8); Lymph % (Auto) 19.7 % (9.0-44.0); Mean Corpuscular HGB Conc 33.8 % (32.0-36.0); Mean Corpuscular Hemoglobin 31.5 pg (27.0-34.0); Mean Corpuscular Volume 93.4 fL (80.0-100.0); Mean Platelet Volume 7.7 fL (7.0-11.0); Mono # (Auto) 0.9 th/mm3 (0.0-0.9); Mono % (Auto) 8.5 % (0.0-8.0); Neut # (Auto) 7.2 th/mm3 (1.8-7.7); Neut % (Auto) 66.7 % (16.0-70.0); Platelet Count 836 th/mm3 (150-450); Red Blood Count 2.65 mil/mm3 (4.00-5.30); Red Cell Distribution Width 14.7 % (11.6-17.2); White Blood Count 10.8 th/mm3 (4.0-11.0)
[2018-03-20 06:41] LABS: Alanine Aminotransferase 73 U/L (10-53); Albumin 2.1 g/dL (3.4-5.0); Anion Gap 7 meq/L (5-15); Aspartate Aminotransferase 51 U/L (15-37); Blood Urea Nitrogen 25 mg/dL (7-18); Calcium 8.2 mg/dL (8.5-10.1); Carbon Dioxide 27.8 meq/L (21.0-32.0); Chloride 108 meq/L (98-107); Glomerular Filtration Rate 59 mL/min (>89); Glucose,Random 93 mg/dL (74-106); Magnesium 2.7 mg/dL (1.5-2.5); Phosphorus 2.6 mg/dL (2.5-4.9); Potassium 3.7 meq/L (3.5-5.1); Sodium 143 meq/L (136-145)
[2018-03-20 06:42] LABS: Alkaline Phosphatase 70 U/L (45-117); Total Protein 6.9 g/dL (6.4-8.2)
--- NOTE | 2018-03-20 06:44 | XR ---
EXAM DATE: 03/20/2018 6:31 AM EDT AGE/SEX: 72 years / Female INDICATIONS: Shortness of breath, possible pulmonary disease. CLINICAL DATA: This is the patient's subsequent encounter. Patient reports that signs and symptoms h ave been present for 1 week and indicates a pain score of 0/10. MEDICAL/SURGICAL HISTORY: Myocardial infarction. None. COMPARISON: [facility], CHEST 1V SINGLE AP, 03/19/2018. [facility], CHEST 1V SINGLE AP, 03/18/2018. [facility], CHEST 1V SINGLE AP, 03/16/2018. [facility], CHEST 1V SINGLE AP, 03/14/2018. . FINDINGS: The heart size is normal. The lungs demonstrate diffuse increased interstitial markings. CONCLUSION: Diffuse increased interstitial markings likely related to pulmonary edema versus chronic interstitial disease. Electronically signed by: James Can MD 03/20/2018 6:43 AM EDT
[2018-03-20] MEDS: Oral Hygiene Kit OROPHARYNG SCH ×3 (06:56→15:59)
[2018-03-20] MEDS: Furosemide 40 MG Tablet PO SCH (08:43)
[2018-03-20] MEDS: Budesonide-Formoterol 160/4.5 MCG 6 GM Inhaler INH SCH ×2 (08:44→21:08)
[2018-03-20] MEDS: Senna/Docusate Sodium 8.6/50 MG Tablet PO SCH ×2 (08:44→21:07)
[2018-03-20] MEDS: Chlorhexidine 0.12% Oral Kit 15 ML UDC OROPHARYNG SCH ×2 (08:45→21:07)
--- NOTE | 2018-03-20 09:55 | P.PNCA ---
Subjective Interval history: alert, lucid in nad Physical Exam Vital signs: Vital Signs 03/19/18 10:00 03/19/18 12:00 03/19/18 14:00 Temperature Pulse Rate 79 84 97 H Respiratory Rate Blood Pressure Pulse Oximetry 03/19/18 15:49 03/19/18 16:00 03/19/18 19:35 Temperature Pulse Rate 87 88 Respiratory Rate 15 16 Blood Pressure Pulse Oximetry 95 97 03/19/18 20:00 03/19/18 22:00 03/19/18 23:00 Temperature Pulse Rate 87 84 Respiratory Rate Blood Pressure Pulse Oximetry 97 03/20/18 00:00 03/20/18 02:00 03/20/18 04:00 Temperature 98.2 F 98.5 F Pulse Rate 73 85 87 Respiratory Rate 25 H 20 Blood Pressure 124/58 L 104/59 L Pulse Oximetry 92 L 92 L 03/20/18 06:00 03/20/18 07:00 03/20/18 08:00 Temperature Pulse Rate 75 79 Respiratory Rate 18 Blood Pressure Pulse Oximetry 98 Intake & Output 03/19/18 03/20/18 03/20/18 18:59 06:59 18:59 Intake Total 100 / 100 225 / 225 Output Total 750 / 750 Balance 100 / 100 -525 / -525 Weight 65.5 kg Intake: IV 100 / 100 100 / 100 Maxipime Inj 2,000 MG In NS Inj 100 / 100 100 / 100 100 ML @ 200 mls/hr IV.SIG Q12H SHAYNE Rx#:[id number] Oral 125 / 125 Output: Urine 750 / 750 Other: # Voids 3 Date of Last Bowel Movement 03/18/18 03/18/18 - Urinary Catheter Management Indwelling Urethral Catheter Cath placed during this visit: yes, but has since been removed by the nurse Reason for continuing: Not indwelling catheter Insertion date: 03/04/18 Insertion time: 22:00 Removal date: 03/16/18 Removal time: 16:00 Assessment and Plan - Assessment (1) CAD (coronary artery disease) Code(s): I25.10 - Atherosclerotic heart disease of [place] coronary artery without angina pectoris Status: Acute (2) STEMI (ST elevation myocardial infarction) Code(s): I21.3 - ST elevation (STEMI) myocardial infarction of unspecified site Status: Acute (3) Cardiogenic shock Code(s): R57.0 - Cardiogenic shock Status: Acute (4) Encephalopathy Code(s): G93.40 - Encephalopathy, unspecified Status: Acute - Plan 1.) CAD - POD # 15 primary pci prox rca, rv infarct, off levophed; mental status iappears wnl, off sedation, neurology following, continue aspirin, effient, has rv infarct, weight down 17.2 kgs since 03/10/18, baseline is 66 kg, 67.8kg kg 03/16/18, on abs for pneumonia, s/p transfusion 03/09/18, less febrile and off levophed, ldl=63 so statin held, brooke and beta [place] held due to ongoing hypotension; lasix decreased to 40 mg po qd 03/19/18, trends in bnp and bp improving, hematology consult for thrombocytosis and anemia, ok to transfer to [facility] tele from cv standpoint
--- NOTE | 2018-03-20 11:57 | P.PN ---
Subjective Interval history: Follow-up acute metabolic encephalopathy/pneumonia March 20, 2018-patient seen and examined, alert and oriented 3, BP soft, denies any significant shortness of breath. Currently afebrile. Case discussed with RN Physical Exam Vital signs: Vital Signs 03/19/18 12:00 03/19/18 14:00 03/19/18 15:49 Temperature Pulse Rate 84 97 H Respiratory Rate 15 Blood Pressure Pulse Oximetry 03/19/18 16:00 03/19/18 19:35 03/19/18 20:00 Temperature Pulse Rate 87 88 87 Respiratory Rate 16 Blood Pressure Pulse Oximetry 95 97 03/19/18 22:00 03/19/18 23:00 03/20/18 00:00 Temperature 98.2 F Pulse Rate 84 73 Respiratory Rate 25 H Blood Pressure 124/58 L Pulse Oximetry 97 92 L 03/20/18 02:00 03/20/18 04:00 03/20/18 06:00 Temperature 98.5 F Pulse Rate 85 87 75 Respiratory Rate 20 Blood Pressure 104/59 L Pulse Oximetry 92 L 03/20/18 07:00 03/20/18 08:00 03/20/18 10:00 Temperature 98.4 F Pulse Rate 79 75 81 Respiratory Rate 18 20 Blood Pressure 97/52 L Pulse Oximetry 92 L Intake & Output 03/19/18 03/20/18 03/20/18 18:59 06:59 18:59 Intake Total 100 / 100 225 / 225 Output Total 750 / 750 Balance 100 / 100 -525 / -525 Weight 65.5 kg Intake: IV 100 / 100 100 / 100 Maxipime Inj 2,000 MG In NS Inj 100 / 100 100 / 100 100 ML @ 200 mls/hr IV.SIG Q12H SHAYNE Rx#:[id number] Oral 125 / 125 Output: Urine 750 / 750 Other: # Voids 3 Date of Last Bowel Movement 03/18/18 03/18/18 03/20/18 Narrative: GENERAL: NAD SKIN: Warm and dry. HEAD: Normocephalic. EYES: No scleral icterus. No injection or drainage. NECK: Supple, trachea midline. No JVD or lymphadenopathy. CARDIOVASCULAR: Regular rate and rhythm without murmurs, gallops, or rubs. RESPIRATORY: Breath sounds equal bilaterally. No accessory muscle use. GASTROINTESTINAL: Abdomen soft, non-tender, nondistended. MUSCULOSKELETAL: No cyanosis, or edema. BACK: Nontender without obvious deformity. No CVA tenderness. - Urinary Catheter Management Indwelling Urethral Catheter Cath placed during this visit: yes, but has since been removed by the nurse Reason for continuing: Not indwelling catheter Insertion date: 03/04/18 Insertion time: 22:00 Removal date: 03/16/18 Removal time: 16:00 Results - Labs CBC & Chem 7: 03/20/18 05:37 03/20/18 05:37 Laboratory Results - last 24 hr 03/20/18 03/20/18 03/20/18 05:37 05:37 05:37 WBC 10.8 RBC 2.65 L Hgb 8.4 L Hct 24.7 L MCV 93.4 MCH 31.5 MCHC 33.8 RDW 14.7 Plt Count 836 H MPV 7.7 Neut % (Auto) 66.7 Lymph % (Auto) 19.7 [place] % (Auto) 8.5 H Eos % (Auto) 4.1 H Baso % (Auto) 1.0 Neut # (Auto) 7.2 Lymph # (Auto) 2.1 [place] # (Auto) 0.9 Eos # (Auto) 0.4 Baso # (Auto) 0.1 WBC Differential . Differential Comment Auto diff final Sodium 143 Potassium 3.7 Chloride 108 H Carbon Dioxide 27.8 Anion Gap 7 BUN 25 H Creatinine 0.93 Estimated GFR 59 L Random Glucose 93 Calcium 8.2 L Phosphorus 2.6 Magnesium 2.7 H Total Bilirubin 0.5 AST 51 H ALT 73 H Alkaline Phosphatase 70 B-Natriuretic Peptide 382 H Total Protein 6.9 Albumin 2.1 L - Imaging Impressions Chest X-Ray 03/20/18 06:00 CONCLUSION: Diffuse increased interstitial markings likely related to pulmonary edema versus chronic interstitial disease. Assessment and Plan - Plan 72-year-old female with Resolved acute metabolic encephalopathy-resolved Monitor neuro status, avoid sedatives CT brain 03/04: No acute findings EEG 03/06: Mild slowing, no epileptiform features Neuro consulted- Dr. Moncada Acute coronary syndrome Cardiogenic shock (resolved) Coronary artery disease -RCA occlusion -Status post cardiac catheterization and stent placement. LVEF 75% by cath. Echo with LVEF around 40%, normal RV, regional wall motion abnormalities. -Off Tirofiban gtt -Aspirin, Prasugrel -Monitor HR and BP keep MAP>65mmHg -Intra-aortic balloon pump-discontinued Pneumonia/ sepsis -Abx per ID-On Cefepime . -Monitor for signs of infections ( Fever, WBC) WBC is trending down 03/12 Sputum: Pseudomonas 03/06, 03/07 Sputum: Kleb , Pseudomonas, Staph -sputum cx 03/12: Pseudomonas -C-diff PCR negative on 03/14 -Continue with oxygen keep sats >92% -Sharla Symbicort. IS, Pulm is following- Dr. Power Normocytic anemia Thrombocytopenia Leukocytosis Monitor CBC. Follow trends. No indication for transfusion of blood products at this time. DVT GI prophylaxis -Teds SCDs -Enoxaparin 40 mg subcutaneously daily -Famotidine Palliative care is following
[2018-03-20] MEDS: Enoxaparin Inj 40 MG/0.4 ML Syringe SQ SCH (13:08)
[2018-03-20 13:58] LABS: C-Reactive Protein 7.28 mg/dL (0.00-0.30)
[2018-03-20 14:30] LABS: Folate 13.4 ng/mL (3.1-17.5)
--- NOTE | 2018-03-20 14:34 | MB ---
cc: Albertina Davis MD DATE: 03/20/2018 CHIEF COMPLAINT: 1. Anemia. 2. Thrombocytosis. HISTORY OF PRESENT ILLNESS: Ms. Hodge is a 75-year-old lady with no significant past medical history who was admitted to the hospital on 03/04/2018 after she was brought in by EMS after she was found unresponsive at home by her son. EMS was called and she was found to be hypotensive and bradycardic and she was transferred to our emergency room for further evaluation. She was found to have acute ST elevation and was taken emergently to heart catheterization lab. She was found to have an RCA occlusion and underwent stent by Dr. Benavidez. Intraaortic balloon pump was inserted and the patient was admitted to the cardiac ICU. She was placed on heparin, Aggrastat, dopamine, and propofol. She was off of pressors on 03/16/2018. She is currently being followed by the critical care team. Her mental status is intact. She is status post extubation. She was treated with cefepime. She was found to have Pseudomonas in her sputum as well as Klebsiella, Pseudomonas, and Staphylococcus. She is being followed by the infectious disease team. PAST MEDICAL HISTORY: Local skin cancer that was removed. PAST SURGICAL HISTORY: Skin cancer removal. SOCIAL HISTORY: The patient reports tobacco abuse, ethyl alcohol. She is retired. She has a good support system with her family. FAMILY HISTORY: She reports that her family mostly of natural causes. MEDICATIONS: The patient is on no medications at home. ALLERGIES: THE PATIENT HAS NO KNOWN DRUG ALLERGIES. ROS as above in HPI PHYSICAL EXAMINATION: VITAL SIGNS: Temperature 98.4, pulse 75, respiratory rate 20, blood pressure 97/52, pulse oximetry is 92%. GENERAL: Well-developed, well-nourished lady resting comfortably in bed. HEENT: Normocephalic, atraumatic. Eyes: PERRLA, EOMI. No scleral icterus. No conjunctival pallor. CARDIOVASCULAR: Regular rate and rhythm. No murmurs. RESPIRATORY: Clear to auscultation bilaterally. ABDOMEN: Soft, nontender, nondistended. Bowel sounds present. EXTREMITIES: No edema. SKIN: With bruising present on the upper arms from IVs. NEUROLOGIC: Grossly nonfocal. PSYCHIATRIC: Appropriate mood and affect. HOSPITAL MEDICINES: Include, 1. Cefepime. 2. Subcutaneous Lovenox. 3. Pepcid. 4. Lasix. 5. Lactulose. 6. Magnesium oxide. 7. Zofran. 8. Potassium chloride. 9. Prasugrel. 10. Terbutaline. LABORATORY STUDIES: White blood cell count 10.8, hemoglobin 8.4, and platelet count is 836,000. White blood cell count was elevated at 19.3 on hospital admission and has been elevated on the majority of the admission. She has an elevated neutrophilia on differential, except for today where her absolute neutrophil count is back to normal. She has intermittently had an elevated absolute lymphocyte count, absolute monocyte count, absolute eosinophil count, which has trended back to baseline. Hemoglobin on admission was 12 and she has had an anemia with hemoglobin approximately 8-9 during her hospital stay. She is status post transfusion of 1 unit of packed red blood cells. Platelet count during hospital stay has been normal approximately 300,000. On the 03/18/2018, her platelet count was elevated at 467. On the 03/19/2018, it was 678 and today is 836,000. Chest x-ray from 03/20/2018 with diffuse increased interstitial markings, likely related to pulmonary edema versus chronic interstitial disease. Chemistry studies with a creatinine of 0.93, EGFR is low at 59. Total bilirubin 0.5, AST and ALT are mildly elevated at 51 and 73 respectively. Total protein 6.9, albumin 2.1. ASSESSMENT AND PLAN: 1. Thrombocytosis, likely related to a reactive process given the fact that this has developed over the past several days during her hospital stay where she had RCA occlusion, cardiogenic shock, intubation, and pneumonia. We will check iron profile to evaluate for iron deficiency. We will check LDH and haptoglobin to evaluate for hemolysis. Infection itself and inflammation from bacterial infection could certainly be contributing to her reactive thrombocytosis. We will check ESR and CRP for signs of inflammation. If this is unrevealing, we will consider checking splenic ultrasound as people who are asplenic and certainly have a reactive thrombocytosis, although do not suspect this. We will also check JAK2 and BCR-ABL to rule out underlying myeloproliferative neoplasm, which you can commonly see in thrombocytosis. 2. Anemia. We will check iron profile. We will also check vitamin B12 and folate. Suspect anemia of chronic inflammation We will check peripheral blood smear. 3. Neutrophilia with leukocytosis, again likely reactive due to inflammation. We will perform above workup. MD MONICA Todd/ofelia , 12:15 PM , 12:27 PM ALEJANDRO
--- NOTE | 2018-03-20 16:38 | P.PN ---
Subjective Interval history: Better today and now on O2 3 L. No cough or chest pains. On Cefipime IV Physical Exam Vital signs: Vital Signs 03/19/18 19:35 03/19/18 20:00 03/19/18 22:00 Temperature Pulse Rate 88 87 84 Respiratory Rate 16 Blood Pressure Pulse Oximetry 97 03/19/18 23:00 03/20/18 00:00 03/20/18 02:00 Temperature 98.2 F Pulse Rate 73 85 Respiratory Rate 25 H Blood Pressure 124/58 L Pulse Oximetry 97 92 L 03/20/18 04:00 03/20/18 06:00 03/20/18 07:00 Temperature 98.5 F Pulse Rate 87 75 79 Respiratory Rate 20 18 Blood Pressure 104/59 L Pulse Oximetry 92 L 03/20/18 08:00 03/20/18 10:00 03/20/18 11:00 Temperature 98.4 F Pulse Rate 75 81 Respiratory Rate 20 1 L Blood Pressure 97/52 L Pulse Oximetry 92 L 03/20/18 12:00 03/20/18 14:00 03/20/18 14:50 Temperature 98.1 F Pulse Rate 90 88 2 L Respiratory Rate 19 18 Blood Pressure 127/60 Pulse Oximetry 96 03/20/18 16:00 Temperature 98.1 F Pulse Rate 92 H Respiratory Rate 24 Blood Pressure 129/60 Pulse Oximetry 94 L Intake & Output 03/19/18 03/20/18 03/20/18 18:59 06:59 18:59 Intake Total 100 / 100 225 / 225 100 / 100 Output Total 750 / 750 Balance 100 / 100 -525 / -525 100 / 100 Weight 65.5 kg Intake: IV 100 / 100 100 / 100 100 / 100 Maxipime Inj 2,000 MG In NS Inj 100 / 100 100 / 100 100 / 100 100 ML @ 200 mls/hr IV.SIG Q12H SHAYNE Rx#:[id number] Oral 125 / 125 Output: Urine 750 / 750 Other: # Voids 3 Date of Last Bowel Movement 03/18/18 03/18/18 03/20/18 Narrative: GENERAL:Elderly W/F in NAD SKIN: Warm and dry. HEAD: Normocephalic.Throat clear EYES: No scleral icterus. No injection or drainage. NECK: Supple, trachea midline. No JVD or lymphadenopathy. CARDIOVASCULAR: Regular rate and rhythm without murmurs, gallops, or rubs. RESPIRATORY: Breath sounds equal bilaterally.Occ Basal crackles. No accessory muscle use. GASTROINTESTINAL: Abdomen soft, non-tender, nondistended. MUSCULOSKELETAL: No cyanosis, or edema. BACK: Nontender without obvious deformity. No CVA tenderness. - Urinary Catheter Management Indwelling Urethral Catheter Cath placed during this visit: yes, but has since been removed by the nurse Reason for continuing: Not indwelling catheter Insertion date: 03/04/18 Insertion time: 22:00 Removal date: 03/16/18 Removal time: 16:00 Results - Labs CBC & Chem 7: 03/20/18 05:37 03/20/18 05:37 Laboratory Results - last 24 hr 03/20/18 03/20/18 03/20/18 05:37 05:37 05:37 WBC 10.8 RBC 2.65 L Hgb 8.4 L Hct 24.7 L MCV 93.4 MCH 31.5 MCHC 33.8 RDW 14.7 Plt Count 836 H MPV 7.7 Neut % (Auto) 66.7 Lymph % (Auto) 19.7 [place] % (Auto) 8.5 H Eos % (Auto) 4.1 H Baso % (Auto) 1.0 Neut # (Auto) 7.2 Lymph # (Auto) 2.1 [place] # (Auto) 0.9 Eos # (Auto) 0.4 Baso # (Auto) 0.1 WBC Differential . Differential Comment Auto diff final Smear Path Review ESR Haptoglobin Sodium 143 Potassium 3.7 Chloride 108 H Carbon Dioxide 27.8 Anion Gap 7 BUN 25 H Creatinine 0.93 Estimated GFR 59 L Random Glucose 93 Calcium 8.2 L Phosphorus 2.6 Magnesium 2.7 H Iron TIBC % Saturation Ferritin Total Bilirubin 0.5 AST 51 H ALT 73 H Alkaline Phosphatase 70 Lactate Dehydrogenase C-Reactive Protein B-Natriuretic Peptide 382 H Total Protein 6.9 Albumin 2.1 L Vitamin B12 Folate 03/20/18 03/20/18 05:37 05:37 WBC RBC Hgb Hct MCV MCH MCHC RDW Plt Count MPV Neut % (Auto) Lymph % (Auto) [place] % (Auto) Eos % (Auto) Baso % (Auto) Neut # (Auto) Lymph # (Auto) [place] # (Auto) Eos # (Auto) Baso # (Auto) WBC Differential Differential Comment Smear Path Review ESR Greater than 140 H Haptoglobin 274 H Sodium Potassium Chloride Carbon Dioxide Anion Gap BUN Creatinine Estimated GFR Random Glucose Calcium Phosphorus Magnesium Iron 27 L TIBC 207 L % Saturation 13.0 L Ferritin 482 H Total Bilirubin AST ALT Alkaline Phosphatase Lactate Dehydrogenase 281 H C-Reactive Protein 7.28 H B-Natriuretic Peptide Total Protein Albumin Vitamin B12 758 Folate 13.4 - Imaging Impressions Chest X-Ray 03/20/18 06:00 CONCLUSION: Diffuse increased interstitial markings likely related to pulmonary edema versus chronic interstitial disease. Assessment and Plan - Assessment (1) Pneumonia Code(s): J18.9 - Pneumonia, unspecified organism Status: Acute (2) CAD (coronary artery disease) Code(s): I25.10 - Atherosclerotic heart disease of [place] coronary artery without angina pectoris Status: Acute (3) STEMI (ST elevation myocardial infarction) Code(s): I21.3 - ST elevation (STEMI) myocardial infarction of unspecified site Status: Acute (4) Cardiogenic shock Code(s): R57.0 - Cardiogenic shock Status: Acute (5) Encephalopathy Code(s): G93.40 - Encephalopathy, unspecified Status: Acute (6) Dyspnea Code(s): R06.00 - Dyspnea, unspecified Status: Acute (7) Constipation Code(s): K59.00 - Constipation, unspecified Status: Acute (8) Pain Code(s): R52 - Pain, unspecified Status: Acute (9) Basal cell carcinoma (BCC) of [place] of right eye Code(s): C44.112 - Basal cell carcinoma of skin of right eyelid, including canthus Status: Acute - Plan 1. O2 at 3 L and wean , keep sat >92. 2. Duonebs qid PRN 3. IS at bedside q3h 4. Continue antibiotics,Cefipime IV per ID 5. CBC,BMP in am 6. PT evaluation. 7. Cont anticoagulation, Lovenox 40 mg S/Q 8. Transfer to [facility].
[2018-03-20] MEDS: Famotidine 20 MG Tablet PO SCH (21:07)
[2018-03-21] MEDS: Acetaminophen 325 MG Tablet PO PRN ×2 (00:36→08:05)
[2018-03-21] MEDS: Oral Hygiene Kit OROPHARYNG SCH ×5 (00:37→23:15)
[2018-03-21] MEDS: Furosemide 40 MG Tablet PO SCH (08:03)
[2018-03-21] MEDS: Chlorhexidine 0.12% Oral Kit 15 ML UDC OROPHARYNG SCH ×2 (08:04→19:58)
[2018-03-21] MEDS: Senna/Docusate Sodium 8.6/50 MG Tablet PO SCH ×2 (08:05→21:20)
[2018-03-21] MEDS: Budesonide-Formoterol 160/4.5 MCG 6 GM Inhaler INH SCH ×2 (08:05→21:20)
--- NOTE | 2018-03-21 10:09 | P.PNCA ---
Subjective Interval history: asleep in nad Physical Exam Vital signs: Vital Signs 03/20/18 11:00 03/20/18 12:00 03/20/18 14:00 Temperature 98.1 F Pulse Rate 90 88 Respiratory Rate 1 L 19 Blood Pressure 127/60 Pulse Oximetry 96 03/20/18 14:50 03/20/18 16:00 03/20/18 18:00 Temperature 98.1 F Pulse Rate 2 L 92 H 98 H Respiratory Rate 18 24 Blood Pressure 129/60 Pulse Oximetry 94 L 03/20/18 20:00 03/20/18 21:00 03/20/18 22:00 Temperature 98.6 F Pulse Rate 86 92 H 91 H Respiratory Rate 22 22 Blood Pressure 105/50 L Pulse Oximetry 93 L 95 03/21/18 00:00 03/21/18 01:00 03/21/18 02:00 Temperature 97.9 F Pulse Rate 82 82 Respiratory Rate 21 Blood Pressure 98/56 L Pulse Oximetry 92 L 95 03/21/18 04:00 03/21/18 05:00 03/21/18 06:00 Temperature Pulse Rate 69 74 Respiratory Rate 20 Blood Pressure 89/51 L Pulse Oximetry 93 L 93 L 03/21/18 07:00 03/21/18 08:00 03/21/18 08:24 Temperature 98.1 F Pulse Rate 66 69 Respiratory Rate 1 L 14 Blood Pressure 104/55 L Pulse Oximetry 94 L 98 Intake & Output 03/20/18 03/21/18 03/21/18 18:59 06:59 18:59 Intake Total 580 / 580 580 / 580 Output Total 700 / 700 Balance -120 / -120 580 / 580 Weight 64.9 kg Intake: IV 100 / 100 100 / 100 Maxipime Inj 2,000 MG In NS Inj 100 / 100 100 / 100 100 ML @ 200 mls/hr IV.SIG Q12H SHAYNE Rx#:[id number] Oral 480 / 480 480 / 480 Output: Urine 700 / 700 Other: # Voids 7 5 Date of Last Bowel Movement 03/20/18 03/21/18 03/20/18 # Bowel Movements 1 2 # Incontinent Bowel Movements 0 - Urinary Catheter Management Indwelling Urethral Catheter Cath placed during this visit: yes, but has since been removed by the nurse Reason for continuing: Not indwelling catheter Insertion date: 03/04/18 Insertion time: 22:00 Removal date: 03/16/18 Removal time: 16:00 Assessment and Plan - Assessment (1) CAD (coronary artery disease) Code(s): I25.10 - Atherosclerotic heart disease of [place] coronary artery without angina pectoris Status: Acute (2) STEMI (ST elevation myocardial infarction) Code(s): I21.3 - ST elevation (STEMI) myocardial infarction of unspecified site Status: Acute (3) Cardiogenic shock Code(s): R57.0 - Cardiogenic shock Status: Acute (4) Encephalopathy Code(s): G93.40 - Encephalopathy, unspecified Status: Acute - Plan 1.) CAD - POD # 15 primary pci prox rca, rv infarct, off levophed; mental status iappears wnl, off sedation, neurology following, continue aspirin, effient, has rv infarct, weight down 17.2 kgs since 03/10/18, baseline is 66 kg, 67.8kg kg 03/16/18, on abs for pneumonia, s/p transfusion 03/09/18, less febrile and off levophed, ldl=63 so statin held, [place] and beta [place] held due to ongoing hypotension; lasix decreased to 40 mg po qd 03/19/18, trends in bnp and bp improving, hematology following, ok to transfer to sdu tele from cv standpoint
--- NOTE | 2018-03-21 11:49 | P.PN ---
Subjective Interval history: Follow-up acute metabolic encephalopathy/pneumonia March 20, 2018-patient seen and examined, alert and oriented 3, BP soft, denies any significant shortness of breath. Currently afebrile. Case discussed with RN March 21, 2018-patient seen and examined, states she had a bad nights but denies any chest pain or shortness of breath. Vital stable. Physical Exam Vital signs: Vital Signs 03/20/18 12:00 03/20/18 14:00 03/20/18 14:50 Temperature 98.1 F Pulse Rate 90 88 2 L Respiratory Rate 19 18 Blood Pressure 127/60 Pulse Oximetry 96 03/20/18 16:00 03/20/18 18:00 03/20/18 20:00 Temperature 98.1 F 98.6 F Pulse Rate 92 H 98 H 86 Respiratory Rate 24 22 Blood Pressure 129/60 105/50 L Pulse Oximetry 94 L 93 L 03/20/18 21:00 03/20/18 22:00 03/21/18 00:00 Temperature 97.9 F Pulse Rate 92 H 91 H 82 Respiratory Rate 22 21 Blood Pressure 98/56 L Pulse Oximetry 95 92 L 03/21/18 01:00 03/21/18 02:00 03/21/18 04:00 Temperature Pulse Rate 82 69 Respiratory Rate 20 Blood Pressure 89/51 L Pulse Oximetry 95 93 L 03/21/18 05:00 03/21/18 06:00 03/21/18 07:00 Temperature Pulse Rate 74 66 Respiratory Rate 1 L Blood Pressure Pulse Oximetry 93 L 03/21/18 08:00 03/21/18 08:24 03/21/18 11:00 Temperature 98.1 F Pulse Rate 69 3 L Respiratory Rate 14 1 L Blood Pressure 104/55 L Pulse Oximetry 94 L 98 Intake & Output 03/20/18 03/21/18 03/21/18 18:59 06:59 18:59 Intake Total 580 / 580 580 / 580 Output Total 700 / 700 Balance -120 / -120 580 / 580 Weight 64.9 kg Intake: IV 100 / 100 100 / 100 Maxipime Inj 2,000 MG In NS Inj 100 / 100 100 / 100 100 ML @ 200 mls/hr IV.SIG Q12H SHAYNE Rx#:[id number] Oral 480 / 480 480 / 480 Output: Urine 700 / 700 Other: # Voids 7 5 Date of Last Bowel Movement 03/20/18 03/21/18 03/20/18 # Bowel Movements 1 2 # Incontinent Bowel Movements 0 Narrative: GENERAL:Elderly W/F in NAD SKIN: Warm and dry. HEAD: Normocephalic.Throat clear EYES: No scleral icterus. No injection or drainage. NECK: Supple, trachea midline. No JVD or lymphadenopathy. CARDIOVASCULAR: Regular rate and rhythm without murmurs, gallops, or rubs. RESPIRATORY: Breath sounds equal bilaterally.Occ Basal crackles. No accessory muscle use. GASTROINTESTINAL: Abdomen soft, non-tender, nondistended. MUSCULOSKELETAL: No cyanosis, or edema. BACK: Nontender without obvious deformity. No CVA tenderness. - Urinary Catheter Management Indwelling Urethral Catheter Cath placed during this visit: yes, but has since been removed by the nurse Reason for continuing: Not indwelling catheter Insertion date: 03/04/18 Insertion time: 22:00 Removal date: 03/16/18 Removal time: 16:00 Results - Labs CBC & Chem 7: 03/20/18 05:37 03/20/18 05:37 Laboratory Results - last 24 hr 03/20/18 03/20/18 03/21/18 05:37 05:37 00:34 Smear Path Review ESR Greater than 140 H Haptoglobin 274 H Iron 27 L TIBC 207 L % Saturation 13.0 L Ferritin 482 H Lactate Dehydrogenase 281 H C-Reactive Protein 7.28 H B-Natriuretic Peptide 370 H Vitamin B12 758 Folate 13.4 Assessment and Plan - Plan 72-year-old female with Resolved acute metabolic encephalopathy-resolved Monitor neuro status, avoid sedatives CT brain 03/04: No acute findings EEG 03/06: Mild slowing, no epileptiform features Neuro consulted- Dr. Moncada Acute coronary syndrome Cardiogenic shock (resolved) Coronary artery disease -RCA occlusion -Status post cardiac catheterization and stent placement. LVEF 75% by cath. Echo with LVEF around 40%, normal RV, regional wall motion abnormalities. -Off Tirofiban gtt -Aspirin, Prasugrel -Monitor HR and BP keep MAP>65mmHg -Intra-aortic balloon pump-discontinued Pneumonia/ sepsis -Abx per ID-On Cefepime . -Monitor for signs of infections ( Fever, WBC) WBC is trending down 03/12 Sputum: Pseudomonas 03/06, 03/07 Sputum: Kleb , Pseudomonas, Staph -sputum cx 03/12: Pseudomonas -C-diff PCR negative on 03/14 -Continue with oxygen keep sats >92% -Igor Magdaleno. IS, Pulm is following- Dr. Power Normocytic anemia Thrombocytopenia Leukocytosis Monitor CBC. No indication for transfusion of blood products at this time. DVT GI prophylaxis -Teds SCDs -Enoxaparin 40 mg subcutaneously daily -Famotidine Palliative care is following
--- NOTE | 2018-03-21 13:07 | P.PNONC ---
Subjective Interval history: Patient lying in bed, resting comfortably. She complains of feeling tired. Objective Vital Signs/Intake & Output: Vital Signs 03/20/18 14:00 03/20/18 14:50 03/20/18 16:00 Temperature 98.1 F Pulse Rate 88 2 L 92 H Respiratory Rate 18 24 Blood Pressure 129/60 Pulse Oximetry 94 L 03/20/18 18:00 03/20/18 20:00 03/20/18 21:00 Temperature 98.6 F Pulse Rate 98 H 86 92 H Respiratory Rate 22 22 Blood Pressure 105/50 L Pulse Oximetry 93 L 95 03/20/18 22:00 03/21/18 00:00 03/21/18 01:00 Temperature 97.9 F Pulse Rate 91 H 82 Respiratory Rate 21 Blood Pressure 98/56 L Pulse Oximetry 92 L 95 03/21/18 02:00 03/21/18 04:00 03/21/18 05:00 Temperature Pulse Rate 82 69 Respiratory Rate 20 Blood Pressure 89/51 L Pulse Oximetry 93 L 93 L 03/21/18 06:00 03/21/18 07:00 03/21/18 08:00 Temperature 98.1 F Pulse Rate 74 66 69 Respiratory Rate 1 L 14 Blood Pressure 104/55 L Pulse Oximetry 94 L 03/21/18 08:24 03/21/18 11:00 03/21/18 12:00 Temperature Pulse Rate 3 L 73 Respiratory Rate 1 L Blood Pressure Pulse Oximetry 98 03/21/18 12:31 Temperature 98.0 F Pulse Rate 85 Respiratory Rate 22 Blood Pressure 108/52 L Pulse Oximetry 98 Intake & Output 03/20/18 03/21/18 03/21/18 18:59 06:59 18:59 Intake Total 580 / 580 580 / 580 Output Total 700 / 700 Balance -120 / -120 580 / 580 Weight 64.9 kg Intake: IV 100 / 100 100 / 100 Maxipime Inj 2,000 MG In NS Inj 100 / 100 100 / 100 100 ML @ 200 mls/hr IV.SIG Q12H SHELLY Rx#:[id number] Oral 480 / 480 480 / 480 Output: Urine 700 / 700 Other: # Voids 7 5 Date of Last Bowel Movement 03/20/18 03/21/18 03/20/18 # Bowel Movements 1 2 # Incontinent Bowel Movements 0 Result Diagrams: 03/20/18 05:37 08/18/18 05:37 Laboratory Results: Laboratory Results - last 24 hr 03/20/18 03/20/18 03/21/18 05:37 05:37 00:34 Smear Path Review ESR Greater than 140 H Haptoglobin 274 H Iron 27 L TIBC 207 L % Saturation 13.0 L Ferritin 482 H Lactate Dehydrogenase 281 H C-Reactive Protein 7.28 H B-Natriuretic Peptide 370 H Vitamin B12 758 Folate 13.4 Culture Results: Microbiology 03/13/18 19:50 Aerobic Blood Culture - Final Blood - Peripheral No growth in 5 days Anaerobic Blood Culture - Final No growth in 5 days 03/13/18 19:40 Aerobic Blood Culture - Final Blood - Peripheral No growth in 5 days Anaerobic Blood Culture - Final No growth in 5 days Medications: Active Medications Generic Name Dose Route Start Last Admin Trade Name Freq PRN Reason Stop Dose Admin Acetaminophen 650 mg 03/04/18 20:23 03/21/18 08:05 Tylenol PO 650 mg Q6H PRN Administration PAIN 1-10 AND/OR FEVER >101F Albuterol 1 ampul 03/19/18 12:00 03/21/18 11:39 Duoneb Neb (Shelly) NEB 1 ampul Q4HR WHILE AWAKE NEB SHELLY Administration Aspirin 162 mg 03/05/18 09:00 03/21/18 08:03 Aspirin Chew PO 162 mg DAILY SHELLY Administration Budesonide/Formoterol Fumarate 1 puff 03/16/18 21:00 03/21/18 08:05 Symbicort 160/4.5 Mcg Inh INH 1 puff BID SHELLY Administration Chlorhexidine Gluconate 15 ml 03/05/18 08:00 03/21/18 08:04 Peridex 0.12% Oral Kit OROPHARYNG Not Given BID@0800,1999 SHELLY Enoxaparin Sodium 40 mg 03/08/18 13:00 03/20/18 13:08 Lovenox Inj SQ 40 mg Q24H SHELLY Administration Famotidine 20 mg 03/18/18 21:00 03/20/18 21:07 Pepcid PO 20 mg HS SHELLY Administration Furosemide 40 mg 03/19/18 09:00 03/21/18 08:03 Lasix PO 40 mg DAILY SHELLY Administration Potassium Chloride 40 meq in 100 mls @ 25 mls/hr 03/04/18 20:52 03/14/18 08: 52 Kcl 40 Meq Premix Inj IV.SIG Infused Q2H PRN Infusion For Potassium 2.8 - 3.2 mEq/L Potassium Chloride 20 meq in 100 mls @ 50 mls/hr 03/04/18 20:52 03/06/18 04: 28 Kcl 20 Meq Premix Inj IV.SIG Infused Q2H PRN Infusion For Potassium 3.3 - 3.5 mEq/L Potassium Chloride 40 meq in 100 mls @ 25 mls/hr 03/04/18 20:52 03/15/18 09: 26 Kcl 40 Meq Premix Inj IV.SIG Infused UNSCH PRN Infusion For Potassium 3.3 - 3.5 mEq/L Cefepime HCl 2,000 mg/ Sodium 100 mls @ 200 mls/hr 03/14/18 12:00 03/21/18 11 :27 Chloride IV.SIG 200 mls/hr Q12H SHELLY Administration Ondansetron HCl 4 mg 03/04/18 20:23 03/14/18 06:17 Zofran Inj IV.PUSH 4 mg Q6H PRN Administration NAUSEA OR VOMITING Potassium Bicarb/Potassium Chloride 50 meq 03/04/18 20:52 03/18/18 06:43 K-Lyte Cl Eff PO 50 meq UNSCH PRN Administration For Potassium 3.3 - 3.5 mEq/L Potassium Chloride 10 meq 03/19/18 09:00 03/21/18 08:04 Klor-Con 10 PO 10 meq DAILY SHELLY Administration Potassium Phosphate 2,000 mg 03/04/18 20:52 03/18/18 08:48 K-Phos Original PO 2,000 mg Q4H PRN Administration Phosphorus Less Than 2.5 mg/dL Prasugrel 10 mg 03/05/18 09:00 03/21/18 08:04 Effient PO 10 mg DAILY SHELLY Administration Senna/Docusate Sodium 1 tab 03/04/18 21:00 03/21/18 08:05 Suzanna-Colace PO Not Given BID SHELLY Sennosides 17.2 mg 03/04/18 20:23 03/10/18 09:20 Senokot PO 17.2 mg Q12H PRN Administration Moderate Constipation Sodium Chloride 2 ml 03/04/18 21:00 03/21/18 08:04 Ns Flush IV.FLUSH 2 ml BID SHELLY Administration Objective Remarks: GENERAL: Well-nourished, well-developed elderly female patient, in no acute distress. SKIN: Warm and dry. Bruising to left hand. HEAD: Normocephalic. EYES: No scleral icterus. No injection or drainage. NECK: Supple, trachea midline. CARDIOVASCULAR: Regular rate and rhythm without murmurs. RESPIRATORY: Breath sounds clear, equal bilaterally. No accessory muscle use. GASTROINTESTINAL: Abdomen soft, non-tender, nondistended. EXTREMITIES: No cyanosis, or edema. MUSCULOSKELETAL: Adequate muscle tone. NEUROLOGICAL: No obvious focal deficit. Awake, alert, and oriented x3. PSYCHIATRIC: Appropriate mood and affect; insight and judgment normal. Assessment/Plan - Plan Ms. Hodge is a pleasant 72-year-old female patient who is status post STEMI with stent placement to RCA, cardiogenic shock requiring balloon pump, intubation and pneumonia. Hematology was consulted for anemia and thrombocytosis. Plan: 1. Thrombocytosis, likely reactive. Iron studies revealed iron of 27, TIBC 207 and ferritin 482. Her LDH was 281 and C-reactive protein 7.28. 2. Anemia of chronic inflammation or acute disease. B12 and folate are normal , remaining iron studies as noted above. 3. [place]-2, BCR and flow cytometry, pending. - Attending Statement The exam, history, and the medical decision-making described in the above note were completed with the assistance of the mid-level provider. I reviewed and agree with the findings presented. I attest that I had a [id number] encounter with the patient on the same day, and personally performed and documented my assessment and findings in the medical record. 72 yoF admitted with cardiogenic shock s/p RCA stent and balloon pump. Prolonged hospital stay/ICU stay. treated for PNA. Hematology team consulted for evaluattion of thrombocytosis. Iron profile with evidence of inflammation, ESR, CRP elevated. Likely reactive follow up BCR ABL and JAk2.
[2018-03-21] MEDS: Enoxaparin Inj 40 MG/0.4 ML Syringe SQ SCH (13:15)
--- NOTE | 2018-03-21 14:40 | P.PN ---
Subjective Interval history: Doing better. Now on O2 1 L. Good output. No chest pains. Physical Exam Vital signs: Vital Signs 03/20/18 14:50 03/20/18 16:00 03/20/18 18:00 Temperature 98.1 F Pulse Rate 2 L 92 H 98 H Respiratory Rate 18 24 Blood Pressure 129/60 Pulse Oximetry 94 L 03/20/18 20:00 03/20/18 21:00 03/20/18 22:00 Temperature 98.6 F Pulse Rate 86 92 H 91 H Respiratory Rate 22 22 Blood Pressure 105/50 L Pulse Oximetry 93 L 95 03/21/18 00:00 03/21/18 01:00 03/21/18 02:00 Temperature 97.9 F Pulse Rate 82 82 Respiratory Rate 21 Blood Pressure 98/56 L Pulse Oximetry 92 L 95 03/21/18 04:00 03/21/18 05:00 03/21/18 06:00 Temperature Pulse Rate 69 74 Respiratory Rate 20 Blood Pressure 89/51 L Pulse Oximetry 93 L 93 L 03/21/18 07:00 03/21/18 08:00 03/21/18 08:24 Temperature 98.1 F Pulse Rate 66 69 Respiratory Rate 1 L 14 Blood Pressure 104/55 L Pulse Oximetry 94 L 98 03/21/18 11:00 03/21/18 12:00 03/21/18 12:31 Temperature 98.0 F Pulse Rate 3 L 73 85 Respiratory Rate 1 L 22 Blood Pressure 108/52 L Pulse Oximetry 98 03/21/18 13:00 03/21/18 13:56 Temperature Pulse Rate 2 L Respiratory Rate 18 Blood Pressure Pulse Oximetry 97 Intake & Output 03/20/18 03/21/18 03/21/18 18:59 06:59 18:59 Intake Total 580 / 580 580 / 580 100 / 100 Output Total 700 / 700 Balance -120 / -120 580 / 580 100 / 100 Weight 64.9 kg Intake: IV 100 / 100 100 / 100 100 / 100 Maxipime Inj 2,000 MG In NS Inj 100 / 100 100 / 100 100 / 100 100 ML @ 200 mls/hr IV.SIG Q12H SHAYNE Rx#:[id number] Oral 480 / 480 480 / 480 Output: Urine 700 / 700 Other: # Voids 7 5 Date of Last Bowel Movement 03/20/18 03/21/18 03/20/18 # Bowel Movements 1 2 # Incontinent Bowel Movements 0 Narrative: GENERAL:Elderly W/F in NAD SKIN: Warm and dry. HEAD: Normocephalic.Throat clear EYES: No scleral icterus. No injection or drainage. NECK: Supple, trachea midline. No JVD or lymphadenopathy. CARDIOVASCULAR: Regular rate and rhythm without murmurs, gallops, or rubs. RESPIRATORY: Breath sounds equal bilaterally. Occ Basal crackles. No accessory muscle use. GASTROINTESTINAL: Abdomen soft, non-tender, nondistended. MUSCULOSKELETAL: No cyanosis, or edema. Neuro without Gross deficit. BACK: Nontender without obvious deformity. No CVA tenderness. - Urinary Catheter Management Indwelling Urethral Catheter Cath placed during this visit: yes, but has since been removed by the nurse Reason for continuing: Not indwelling catheter Insertion date: 03/04/18 Insertion time: 22:00 Removal date: 03/16/18 Removal time: 16:00 Results - Labs CBC & Chem 7: 03/20/18 05:37 03/20/18 05:37 Laboratory Results - last 24 hr 03/21/18 00:34 B-Natriuretic Peptide 370 H Assessment and Plan - Assessment (1) Pneumonia Code(s): J18.9 - Pneumonia, unspecified organism Status: Acute (2) CAD (coronary artery disease) Code(s): I25.10 - Atherosclerotic heart disease of [place] coronary artery without angina pectoris Status: Acute (3) STEMI (ST elevation myocardial infarction) Code(s): I21.3 - ST elevation (STEMI) myocardial infarction of unspecified site Status: Acute (4) Cardiogenic shock Code(s): R57.0 - Cardiogenic shock Status: Acute (5) Encephalopathy Code(s): G93.40 - Encephalopathy, unspecified Status: Acute (6) Dyspnea Code(s): R06.00 - Dyspnea, unspecified Status: Acute (7) Constipation Code(s): K59.00 - Constipation, unspecified Status: Acute (8) Pain Code(s): R52 - Pain, unspecified Status: Acute (9) Basal cell carcinoma (BCC) of [place] of right eye Code(s): C44.112 - Basal cell carcinoma of skin of right eyelid, including [place]hus Status: Acute - Plan 1. O2 at 1 L and wean , keep sat >92. 2. Duonebs qid PRN 3. IS at bedside q3h 4. Continue antibiotics,Cefipime IV per ID 5. Chest Xray in am 6. PT evaluation. 7. Cont anticoagulation, Lovenox 40 mg S/Q
[2018-03-21] MEDS: Famotidine 20 MG Tablet PO SCH (21:20)
[2018-03-22] MEDS: Oral Hygiene Kit OROPHARYNG SCH ×3 (03:52→15:46)
--- NOTE | 2018-03-22 04:48 | XR ---
EXAM DATE: 03/22/2018 4:26 AM EDT AGE/SEX: 72 years / Female INDICATIONS: Shortness of breath, possible pulmonary disease. CLINICAL DATA: This is the patient's subsequent encounter. Patient reports that signs and symptoms h ave been present for 1 week and indicates a pain score of 0/10. MEDICAL/SURGICAL HISTORY: Myocardial infarction. None. [place] [facility] [place]. . FINDINGS: A single AP view of the chest demonstrates no interval change. Interstitial prominence is again seen throughout both lungs but most pronounced within the bases. No effusions. Heart is normal in size. CONCLUSION: Unchanged bilateral interstitial infiltrates. Electronically signed by: August Kelsey MD 03/22/2018 4:47 AM EDT
[2018-03-22 05:48] LABS: Baso # (Auto) 0.1 th/mm3 (0.0-0.2); Baso % (Auto) 0.5 % (0.0-2.0); Eos # (Auto) 0.6 th/mm3 (0.0-0.4); Eos % (Auto) 4.8 % (0.0-4.0); Hematocrit 27.5 % (35.0-46.0); Lymph # (Auto) 2.1 th/mm3 (1.0-4.8); Lymph % (Auto) 16.9 % (9.0-44.0); Mean Corpuscular HGB Conc 32.7 % (32.0-36.0); Mean Corpuscular Hemoglobin 30.9 pg (27.0-34.0); Mean Corpuscular Volume 94.7 fL (80.0-100.0); Mean Platelet Volume 7.8 fL (7.0-11.0); Mono # (Auto) 0.9 th/mm3 (0.0-0.9); Mono % (Auto) 7.5 % (0.0-8.0); Neut # (Auto) 8.8 th/mm3 (1.8-7.7); Neut % (Auto) 70.3 % (16.0-70.0); Platelet Count 1002 th/mm3 (150-450); Red Blood Count 2.91 mil/mm3 (4.00-5.30); White Blood Count 12.5 th/mm3 (4.0-11.0)
[2018-03-22] MEDS: Chlorhexidine 0.12% Oral Kit 15 ML UDC OROPHARYNG SCH ×2 (09:36→19:18)
[2018-03-22] MEDS: Furosemide 40 MG Tablet PO SCH (09:36)
[2018-03-22] MEDS: Senna/Docusate Sodium 8.6/50 MG Tablet PO SCH ×2 (09:37→20:47)
[2018-03-22] MEDS: Budesonide-Formoterol 160/4.5 MCG 6 GM Inhaler INH SCH ×2 (09:38→20:47)
--- NOTE | 2018-03-22 11:59 | P.PNPAL ---
Reason for Visit Reason for visit: a. To assist with evaluation and management of symptoms including: Dyspnea, constipation b. To assist medical decision maker(s) with: better understanding of current medical conditions; weighing benefits/burdens of medical treatment options; making medical treatment decisions. Subjective Subjective/Interval History: Patient seen today to follow-up on dyspnea, goals post extubation. Patient was medically extubated 03/14. She has been transferred out of ICU to cardiac step down unit. She cont to tolerate NC. CXR today = Unchanged bilateral interstitial infiltrates. Working w PT, today seen as she is completing PT, ambulated approx 12 feet w walker + assist. Session limited 2/2 to lightheadedness and shortness of breath, sx resolved with rest and O2. Pt reprots O2 sat pre 97%, and during/post while OFF O2 93%. S/p hematology consult for thrombocytopenia, anemia. additional labs Bism[place]-2, BCR and flow cytometry, pending. At this time felt likely r/t reactive inflammatory process. Eating well. +having BMs. Pt is alert, oriented appropriate. Pleasant. She states that she is still so grateful to have had her life save from her acute cardiac event and is "glad to be alive". She is motivated to continue her recovery efforts. Denies chest pain with activity earlier, or at rest. Endorses no SOB when at rest, mild when ambulated. +dizziness which resolved with rest during ambulation. Feels generalized fatigue. No pain anywhere. No GI complaints. Infrequent cough, generally nonprod, maybe occais. clear sputum. has been in communication with her son every day. PT present during my visit. Dr Benavidez ID also in during my visit. . Advance Directives Health Care Surrogate: Copy in medical record (names son, daughter as HCS) Advance Directives Date on File: 03/15/18 Objective Vital Signs: Vital Signs 03/21/18 12:00 03/21/18 12:31 03/21/18 13:00 Temperature 98.0 F Pulse Rate 73 85 Respiratory Rate 22 Blood Pressure 108/52 L Pulse Oximetry 98 97 03/21/18 13:56 03/21/18 16:00 03/21/18 17:00 Temperature 98.1 F Pulse Rate 2 L 81 Respiratory Rate 18 24 Blood Pressure 111/55 L Pulse Oximetry 97 94 L 03/21/18 20:00 03/21/18 20:33 03/21/18 23:00 Temperature 98.5 F Pulse Rate 91 H 95 H 64 Respiratory Rate 21 22 Blood Pressure 96/49 L Pulse Oximetry 95 97 03/22/18 00:00 03/22/18 01:00 03/22/18 02:00 Temperature 98.0 F Pulse Rate 88 98 H 84 Respiratory Rate 20 Blood Pressure 110/55 L Pulse Oximetry 94 L 03/22/18 03:00 03/22/18 04:00 03/22/18 05:00 Temperature 98.1 F Pulse Rate 113 H 86 76 Respiratory Rate 18 Blood Pressure 96/51 L Pulse Oximetry 92 L 03/22/18 06:00 03/22/18 07:00 03/22/18 07:25 Temperature Pulse Rate 66 82 81 Respiratory Rate 16 Blood Pressure Pulse Oximetry 03/22/18 07:27 03/22/18 08:00 03/22/18 09:00 Temperature 98.9 F Pulse Rate 94 H 86 Respiratory Rate 20 Blood Pressure 103/58 L Pulse Oximetry 94 L 96 03/22/18 10:00 03/22/18 11:00 03/22/18 11:06 Temperature Pulse Rate 98 H 94 H 88 Respiratory Rate 16 Blood Pressure Pulse Oximetry 03/22/18 11:15 Temperature 97.9 F Pulse Rate 97 H Respiratory Rate 20 Blood Pressure 117/57 L Pulse Oximetry 97 Intake & Output 03/21/18 03/22/18 03/22/18 18:59 06:59 18:59 Intake Total 580 / 580 340 / 340 Output Total 600 / 600 300 / 300 Balance -20 / -20 40 / 40 Weight 66.3 kg Intake: IV 100 / 100 100 / 100 Maxipime Inj 2,000 MG In NS Inj 100 / 100 100 / 100 100 ML @ 200 mls/hr IV.SIG Q12H SHAYNE Rx#:[id number] Oral 480 / 480 240 / 240 Output: Urine 600 / 600 300 / 300 Other: Date of Last Bowel Movement 03/20/18 03/20/18 03/20/18 # Bowel Movements 1 Physical Exam: CONSTITUTIONAL/GENERAL: This is an adequately nourished patient, mildly short of breath. alert, pleasant TUBES/LINES/DRAINS: IV RUE, NC SKIN: No jaundice, rashes, or lesions. Multiple areas of ecchymosis bilateral upper extremities, hands. Skin warm and dry.+ Edema to left hand. CARDIOVASCULAR: Regular rate and rhythm without murmur. No JVD. Peripheral pulses symmetric.+ edema Lt hand RESPIRATORY/CHEST: Symmetric, unlabored respirations on NC 2L.mildly tachypneic , RR 22. clear. Breath sounds equal bilaterally. GASTROINTESTINAL: Abdomen soft, no tenderness, nondistended. No hepato- splenomegaly, or palpable masses. Bowel sounds present. GENITOURINARY: Without palpable bladder distension. MUSCULOSKELETAL: Extremities without clubbing, cyanosis. +edema left hand. No joint effusion noted. No mottling or clubbing. NEUROLOGICAL: alert, oriented x3 . Appropriate, reasonable insight. moves all 4 extremities well. PSYCHIATRIC: No obvious anxiety/depression Diagnostic Tests Laboratory: Laboratory Results - last 72 hr 03/20/18 03/20/18 03/20/18 05:37 05:37 05:37 WBC 10.8 RBC 2.65 L Hgb 8.4 L Hct 24.7 L MCV 93.4 MCH 31.5 MCHC 33.8 RDW 14.7 Plt Count 836 H MPV 7.7 Neut % (Auto) 66.7 Lymph % (Auto) 19.7 [place] % (Auto) 8.5 H Eos % (Auto) 4.1 H Baso % (Auto) 1.0 Neut # (Auto) 7.2 Lymph # (Auto) 2.1 [place] # (Auto) 0.9 Eos # (Auto) 0.4 Baso # (Auto) 0.1 WBC Differential . Differential Comment Auto diff final Smear Path Review ESR Haptoglobin Sodium 143 Potassium 3.7 Chloride 108 H Carbon Dioxide 27.8 Anion Gap 7 BUN 25 H Creatinine 0.93 Estimated GFR 59 L Random Glucose 93 Calcium 8.2 L Phosphorus 2.6 Magnesium 2.7 H Iron TIBC % Saturation Ferritin Total Bilirubin 0.5 AST 51 H ALT 73 H Alkaline Phosphatase 70 Lactate Dehydrogenase C-Reactive Protein B-Natriuretic Peptide 382 H Total Protein 6.9 Albumin 2.1 L Vitamin B12 Folate 03/20/18 03/20/18 03/21/18 05:37 05:37 00:34 WBC RBC Hgb Hct MCV MCH MCHC RDW Plt Count MPV Neut % (Auto) Lymph % (Auto) [place] % (Auto) Eos % (Auto) Baso % (Auto) Neut # (Auto) Lymph # (Auto) [place] # (Auto) Eos # (Auto) Baso # (Auto) WBC Differential Differential Comment Smear Path Review ESR Greater than 140 H Haptoglobin 274 H Sodium Potassium Chloride Carbon Dioxide Anion Gap BUN Creatinine Estimated GFR Random Glucose Calcium Phosphorus Magnesium Iron 27 L TIBC 207 L % Saturation 13.0 L Ferritin 482 H Total Bilirubin AST ALT Alkaline Phosphatase Lactate Dehydrogenase 281 H C-Reactive Protein 7.28 H B-Natriuretic Peptide 370 H Total Protein Albumin Vitamin B12 758 Folate 13.4 03/22/18 03/22/18 05:30 05:30 WBC 12.5 H RBC 2.91 L Hgb 9.0 L Hct 27.5 L MCV 94.7 MCH 30.9 MCHC 32.7 RDW 15.0 Plt Count 1002 H MPV 7.8 Neut % (Auto) 70.3 H Lymph % (Auto) 16.9 [place] % (Auto) 7.5 Eos % (Auto) 4.8 H Baso % (Auto) 0.5 Neut # (Auto) 8.8 H Lymph # (Auto) 2.1 [place] # (Auto) 0.9 Eos # (Auto) 0.6 H Baso # (Auto) 0.1 WBC Differential . Differential Comment Auto diff final Smear Path Review ESR Haptoglobin Sodium Potassium Chloride Carbon Dioxide Anion Gap BUN Creatinine Estimated GFR Random Glucose Calcium Phosphorus Magnesium Iron TIBC % Saturation Ferritin Total Bilirubin AST ALT Alkaline Phosphatase Lactate Dehydrogenase C-Reactive Protein B-Natriuretic Peptide 299 H Total Protein Albumin Vitamin B12 Folate Result Diagrams: 03/22/18 05:30 03/20/18 05:37 Imaging: Impressions Chest X-Ray 03/22/18 00:00 CONCLUSION: Unchanged bilateral interstitial infiltrates. Assessment and Plan - Disease Oriented Problem List (1) CAD (coronary artery disease) (2) STEMI (ST elevation myocardial infarction) (3) Cardiogenic shock Pertinent Non-Medical Issues: Psychosocial: retired. 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 Supported by son mary, daughter in [place]. Estranged / from spouse many years ago. Spiritual:not affiliated at this time, would not want lead ios developer visit Legal:Patient is unable to participate in decision-making. Not clear if or when she will regain ability. She is supported by a son Trey Pimentel who is local, and a daughter Christi Franco who lives in [place]. They report she has been legally , however is not from her spouse. She has not spoken to him or had any communication with him in many years not known his whereabouts or if he is even still living. Per [place] statutes if they are still legally he would in fact be appropriate legal proxy if he can be located and if he wishes to serve as such. If he cannot be located or does not wish to serve that it would fall to the 2 adult children. They remain in close communication and are working together. ACCURINT report has been requested to attempt to locate estranged spouse James Hodge Ethical issues impacting care: Important Contacts: son Trey Pimentel [phone] (Healthcare surrogate) Daughter Yesenia Franco [phone] (healthcare surrogate) . Prognosis: This patient was admitted from home with STEMI. She went emergently to [facility] =RV infarction due to right ventricular infarction, most likely culprit occluded proximal right coronary artery ; otherwise with moderate three-vessel CAD. She underwent successful drug percutaneous coronary intervention with metal stent placement in the proximal mid right coronary artery required intra-aortic balloon pump. Remains high risk for further complications and setbacks related to advanced age and admitting diagnosis. She was previously living alone and of fairly good health. Code Status: Full Code Plan: * Legal decision maker:Patient is unable to participate in decision-making. Not clear if or when she will regain ability. She is supported by a son Trey Pimentel who is local, and a daughter Christi Franco who lives in [place]. They report she has been legally , however is not from her spouse. She has not spoken to him or had any communication with him in many years not known his whereabouts or if he is even still living. Per [place] statutes if they are still legally he would in fact be appropriate legal proxy if he can be located and if he wishes to serve as such. S/p DIANE,did not return working info for spouse, at this time would proceed with proxy decision making via the 2 adult children. --03/15/18 pt in agreement to complete HCS designation, named both children as HCS, faxed to [email or web address] * Goals: Pt able to make her own decisions now. her goals are to continue with available treatment to help her recovery from recent cardiac event, and try to get back home to her prior independent status. * CODE STATUS: Full code * SYMPTOMS: --Dyspnea-patient admitted with STEMI, emergently intubated for airway protection. Remains on mechanical vent. Worsening CXR. + Pneumonia, on antibiotics per. Prev. requiring high levels of ventilator support. Previously Requiring significant sedation for vent asynchrony, desaturation--tolerated CPAP over the weekend. Medically extubated 03/14. Tolerating NC O2 1-2L. Patient reports dyspnea w activity, easily fatigued. --Pain-currently with no signs or symptoms of pain however potential sources would include now bedbound status, recent invasive procedures. We will continue to assess. indicates no pain --Constipation-RESOLVED. + Risk for secondary to immobility. Bowel sounds are present. Abdominal imaging recently indicated possible mild ileus. Patient with some loose stools, stool sample negative for C. difficile ID following. Reports Normal consistency BM --Denies nausea or other GI complaints, endorses good appetite -- weakness/deconditioning- ongoing PT, pt motivated to participate. May require in pt rehab at /c may be good candidate for [facility] * Palliative care will continue to follow during hospital course as condition evolves, to assist patient/decision-maker with understanding of medical conditions, weighing benefits/burdens of treatment options, for clarification of goals of treatment. Additionally will assist with any symptoms of palliative concern Attestation Attestation: To help prompt me to consider important information that might be impacting today's encounter and assessment, information from prior notes written by myself or my colleagues may have been "brought forward" into today's note. My signature on this note, however, is an attestation that I personally performed the exam, history, and/or decision-making noted today, and, unless otherwise indicated, the interactions with patient, family, and staff as well as the review of records all occurred today. I also attest that the listed assessment and stated plan reflect my best clinical judgment today based on the combination of historical information, prior notes, and today's exam/ interactions. When time spent is documented, it refers only to time spent today by the signer, or if indicated, combined time spent today by collaborating physician/nurse practitioner.
[2018-03-22] MEDS: Enoxaparin Inj 40 MG/0.4 ML Syringe SQ SCH (12:12)
[2018-03-22] MEDS: Acetaminophen 325 MG Tablet PO PRN (12:19)
--- NOTE | 2018-03-22 13:09 | P.PNCA ---
Subjective Interval history: alert in nad Physical Exam Vital signs: Vital Signs 03/21/18 13:56 03/21/18 16:00 03/21/18 17:00 Temperature 98.1 F Pulse Rate 2 L 81 Respiratory Rate 18 24 Blood Pressure 111/55 L Pulse Oximetry 97 94 L 03/21/18 20:00 03/21/18 20:33 03/21/18 23:00 Temperature 98.5 F Pulse Rate 91 H 95 H 64 Respiratory Rate 21 22 Blood Pressure 96/49 L Pulse Oximetry 95 97 03/22/18 00:00 03/22/18 01:00 03/22/18 02:00 Temperature 98.0 F Pulse Rate 88 98 H 84 Respiratory Rate 20 Blood Pressure 110/55 L Pulse Oximetry 94 L 03/22/18 03:00 03/22/18 04:00 03/22/18 05:00 Temperature 98.1 F Pulse Rate 113 H 86 76 Respiratory Rate 18 Blood Pressure 96/51 L Pulse Oximetry 92 L 03/22/18 06:00 03/22/18 07:00 03/22/18 07:25 Temperature Pulse Rate 66 82 81 Respiratory Rate 16 Blood Pressure Pulse Oximetry 03/22/18 07:27 03/22/18 08:00 03/22/18 09:00 Temperature 98.9 F Pulse Rate 94 H 86 Respiratory Rate 20 Blood Pressure 103/58 L Pulse Oximetry 94 L 96 03/22/18 10:00 03/22/18 11:00 03/22/18 11:06 Temperature Pulse Rate 98 H 94 H 88 Respiratory Rate 16 Blood Pressure Pulse Oximetry 03/22/18 11:15 03/22/18 12:00 03/22/18 13:00 Temperature 97.9 F Pulse Rate 97 H 101 H 106 H Respiratory Rate 20 Blood Pressure 117/57 L Pulse Oximetry 97 03/22/18 13:01 Temperature Pulse Rate Respiratory Rate 4 L Blood Pressure Pulse Oximetry Intake & Output 03/21/18 03/22/18 03/22/18 18:59 06:59 18:59 Intake Total 580 / 580 340 / 340 Output Total 600 / 600 300 / 300 Balance -20 / -20 40 / 40 Weight 66.3 kg Intake: IV 100 / 100 100 / 100 Maxipime Inj 2,000 MG In NS Inj 100 / 100 100 / 100 100 ML @ 200 mls/hr IV.SIG Q12H SHAYNE Rx#:[id number] Oral 480 / 480 240 / 240 Output: Urine 600 / 600 300 / 300 Other: Date of Last Bowel Movement 03/20/18 03/20/18 03/20/18 # Bowel Movements 1 - Urinary Catheter Management Indwelling Urethral Catheter Cath placed during this visit: yes, but has since been removed by the nurse Reason for continuing: Not indwelling catheter Insertion date: 03/04/18 Insertion time: 22:00 Removal date: 03/16/18 Removal time: 16:00 Assessment and Plan - Assessment (1) CAD (coronary artery disease) Code(s): I25.10 - Atherosclerotic heart disease of [place] coronary artery without angina pectoris Status: Acute (2) STEMI (ST elevation myocardial infarction) Code(s): I21.3 - ST elevation (STEMI) myocardial infarction of unspecified site Status: Acute (3) Cardiogenic shock Code(s): R57.0 - Cardiogenic shock Status: Acute (4) Encephalopathy Code(s): G93.40 - Encephalopathy, unspecified Status: Acute - Plan 1.) CAD - POD # 16 primary pci prox rca, rv infarct, off levophed; mental status iappears wnl, off sedation, neurology following, continue aspirin, effient, has rv infarct, weight down 17.2 kgs since 03/10/18, baseline is 66 kg, 67.8kg kg 18, on abs for pneumonia, s/p transfusion 03/09/18, less febrile and off levophed, ldl=63 so statin held, [place] and beta [place] held due to ongoing hypotension; lasix decreased to 40 mg po qd 03/19/18, trends in bnp and bp improving, hematology following, ambulate with assistance, advance nutrition as tolerated
--- NOTE | 2018-03-22 13:23 | P.PNIM ---
Subjective Interval history: Patient reports she is feeling okay except for shortness of breath with ambulation. No chest pain. Physical Exam Vital signs: Vital Signs 03/21/18 13:56 03/21/18 16:00 03/21/18 17:00 Temperature 98.1 F Pulse Rate 2 L 81 Respiratory Rate 18 24 Blood Pressure 111/55 L Pulse Oximetry 97 94 L 03/21/18 20:00 03/21/18 20:33 03/21/18 23:00 Temperature 98.5 F Pulse Rate 91 H 95 H 64 Respiratory Rate 21 22 Blood Pressure 96/49 L Pulse Oximetry 95 97 03/22/18 00:00 03/22/18 01:00 03/22/18 02:00 Temperature 98.0 F Pulse Rate 88 98 H 84 Respiratory Rate 20 Blood Pressure 110/55 L Pulse Oximetry 94 L 03/22/18 03:00 03/22/18 04:00 03/22/18 05:00 Temperature 98.1 F Pulse Rate 113 H 86 76 Respiratory Rate 18 Blood Pressure 96/51 L Pulse Oximetry 92 L 03/22/18 06:00 03/22/18 07:00 03/22/18 07:25 Temperature Pulse Rate 66 82 81 Respiratory Rate 16 Blood Pressure Pulse Oximetry 03/22/18 07:27 03/22/18 08:00 03/22/18 09:00 Temperature 98.9 F Pulse Rate 94 H 86 Respiratory Rate 20 Blood Pressure 103/58 L Pulse Oximetry 94 L 96 03/22/18 10:00 03/22/18 11:00 03/22/18 11:06 Temperature Pulse Rate 98 H 94 H 88 Respiratory Rate 16 Blood Pressure Pulse Oximetry 03/22/18 11:15 03/22/18 12:00 03/22/18 13:00 Temperature 97.9 F Pulse Rate 97 H 101 H 106 H Respiratory Rate 20 Blood Pressure 117/57 L Pulse Oximetry 97 03/22/18 13:01 Temperature Pulse Rate Respiratory Rate 4 L Blood Pressure Pulse Oximetry Intake & Output 03/21/18 03/22/18 03/22/18 18:59 06:59 18:59 Intake Total 580 / 580 340 / 340 Output Total 600 / 600 300 / 300 Balance -20 / -20 40 / 40 Weight 66.3 kg Intake: IV 100 / 100 100 / 100 Maxipime Inj 2,000 MG In NS Inj 100 / 100 100 / 100 100 ML @ 200 mls/hr IV.SIG Q12H SHAYNE Rx#:[id number] Oral 480 / 480 240 / 240 Output: Urine 600 / 600 300 / 300 Other: Date of Last Bowel Movement 03/20/18 03/20/18 03/20/18 # Bowel Movements 1 Narrative: GENERAL: Elderly female in no acute distress. CARDIOVASCULAR: Regular rate and rhythm without murmurs, gallops, or rubs. RESPIRATORY: Right basilar crackles, otherwise clear to auscultation bilaterally GASTROINTESTINAL: Abdomen soft, non-tender, nondistended. MUSCULOSKELETAL: No cyanosis, or edema. Neuro without Gross deficit. - Urinary Catheter Management Indwelling Urethral Catheter Cath placed during this visit: yes, but has since been removed by the nurse Reason for continuing: Not indwelling catheter Insertion date: 03/04/18 Insertion time: 22:00 Removal date: 03/16/18 Removal time: 16:00 Results - Labs CBC & Chem 7: 03/22/18 05:30 03/20/18 05:37 Laboratory Results - last 24 hr 03/22/18 03/22/18 05:30 05:30 WBC 12.5 H RBC 2.91 L Hgb 9.0 L Hct 27.5 L MCV 94.7 MCH 30.9 MCHC 32.7 RDW 15.0 Plt Count 1002 H MPV 7.8 Neut % (Auto) 70.3 H Lymph % (Auto) 16.9 [place] % (Auto) 7.5 Eos % (Auto) 4.8 H Baso % (Auto) 0.5 Neut # (Auto) 8.8 H Lymph # (Auto) 2.1 [place] # (Auto) 0.9 Eos # (Auto) 0.6 H Baso # (Auto) 0.1 WBC Differential . Differential Comment Auto diff final B-Natriuretic Peptide 299 H - Imaging Impressions Chest X-Ray 03/22/18 00:00 CONCLUSION: Unchanged bilateral interstitial infiltrates. Assessment and Plan - Plan 72-year-old female with Resolved acute metabolic encephalopathy-resolved Monitor neuro status, avoid sedatives CT brain 03/04: No acute findings EEG 03/06: Mild slowing, no epileptiform features Followed by neuro Dr. Moncada Acute coronary syndrome Cardiogenic shock (resolved) Coronary artery disease -RCA occlusion -Status post cardiac catheterization and stent placement. LVEF 75% by cath. Echo with LVEF around 40%, normal RV, regional wall motion abnormalities. -Off Tirofiban gtt -Aspirin, Prasugrel -Monitor HR and BP keep MAP>65mmHg -Intra-aortic balloon pump-discontinued -Soy and beta-rolando held due to borderline hypotension Pneumonia/ sepsis -Abx per ID -Monitor for signs of infections ( Fever, WBC) WBC is trending down 03/12 Sputum: Pseudomonas 03/06, 03/07 Sputum: Kleb , Pseudomonas, Staph -sputum cx 03/12: Pseudomonas -C-diff PCR negative on 03/14 -Continue with oxygen keep sats >92% -DuoNekelly Symbicort. IS, Pulm is following- Dr. Power -Per ID discontinue cefepime today. Monitor off antibiotics Normocytic anemia Thrombocytopenia Leukocytosis Monitor CBC. No indication for transfusion of blood products at this time. DVT GI prophylaxis -Teds SCDs -Enoxaparin 40 mg subcutaneously daily -Famotidine Palliative care is following Discharge Planning: Will need Home health vs SNF.
--- NOTE | 2018-03-22 13:41 | P.PNID ---
Subjective Remarks: doing OK Got SOB ambulated, but sats only dropped to 93% afebrile cough productive with clear sputum on O2 NC 1 L denies abd pain afebrile WBC down to 15 K Antibiotics: cefepime Allergies/Adverse Reactions: Allergies No Known Allergies (Uncoded 12/11/08 13:06) Objective Vital Signs 03/21/18 13:56 03/21/18 16:00 03/21/18 17:00 Temperature 98.1 F Pulse Rate 2 L 81 Respiratory Rate 18 24 Blood Pressure 111/55 L Pulse Oximetry 97 94 L 03/21/18 20:00 03/21/18 20:33 03/21/18 23:00 Temperature 98.5 F Pulse Rate 91 H 95 H 64 Respiratory Rate 21 22 Blood Pressure 96/49 L Pulse Oximetry 95 97 03/22/18 00:00 03/22/18 01:00 03/22/18 02:00 Temperature 98.0 F Pulse Rate 88 98 H 84 Respiratory Rate 20 Blood Pressure 110/55 L Pulse Oximetry 94 L 03/22/18 03:00 03/22/18 04:00 03/22/18 05:00 Temperature 98.1 F Pulse Rate 113 H 86 76 Respiratory Rate 18 Blood Pressure 96/51 L Pulse Oximetry 92 L 03/22/18 06:00 03/22/18 07:00 03/22/18 07:25 Temperature Pulse Rate 66 82 81 Respiratory Rate 16 Blood Pressure Pulse Oximetry 03/22/18 07:27 03/22/18 08:00 03/22/18 09:00 Temperature 98.9 F Pulse Rate 94 H 86 Respiratory Rate 20 Blood Pressure 103/58 L Pulse Oximetry 94 L 96 03/22/18 10:00 03/22/18 11:00 03/22/18 11:06 Temperature Pulse Rate 98 H 94 H 88 Respiratory Rate 16 Blood Pressure Pulse Oximetry 03/22/18 11:15 03/22/18 12:00 03/22/18 13:00 Temperature 97.9 F Pulse Rate 97 H 101 H 106 H Respiratory Rate 20 Blood Pressure 117/57 L Pulse Oximetry 97 03/22/18 13:01 Temperature Pulse Rate Respiratory Rate 4 L Blood Pressure Pulse Oximetry Intake & Output 03/21/18 03/22/18 03/22/18 18:59 06:59 18:59 Intake Total 580 / 580 340 / 340 Output Total 600 / 600 300 / 300 Balance -20 / -20 40 / 40 Weight 66.3 kg Intake: IV 100 / 100 100 / 100 Maxipime Inj 2,000 MG In NS Inj 100 / 100 100 / 100 100 ML @ 200 mls/hr IV.SIG Q12H SHAYNE Rx#:[id number] Oral 480 / 480 240 / 240 Output: Urine 600 / 600 300 / 300 Other: Date of Last Bowel Movement 03/20/18 03/20/18 03/20/18 # Bowel Movements 1 Lab - Hematology Results 03/20/18 03/20/18 03/22/18 05:37 05:37 05:30 WBC 12.5 H RBC 2.91 L Hgb 9.0 L Hct 27.5 L MCV 94.7 MCH 30.9 MCHC 32.7 RDW 15.0 Plt Count 1002 H MPV 7.8 Neut % (Auto) 70.3 H Lymph % (Auto) 16.9 [place] % (Auto) 7.5 Eos % (Auto) 4.8 H Baso % (Auto) 0.5 Neut # (Auto) 8.8 H Lymph # (Auto) 2.1 [place] # (Auto) 0.9 Eos # (Auto) 0.6 H Baso # (Auto) 0.1 WBC Differential . Differential Comment Auto diff final Smear Path Review ESR Greater than 140 H Haptoglobin 274 H Lab - Chemistry Results 03/20/18 03/21/18 03/22/18 05:37 00:34 05:30 Iron 27 L TIBC 207 L % Saturation 13.0 L Ferritin 482 H Lactate Dehydrogenase 281 H C-Reactive Protein 7.28 H B-Natriuretic Peptide 370 H 299 H Vitamin B12 758 Folate 13.4 Imaging: ITS Impressions Head CT 03/04/18 17:39 CONCLUSION: 1. Negative CT Head non contrast. . Hand X-Ray 03/06/18 00:00 CONCLUSION: Prominent dorsal hand soft tissue swelling. No fracture seen. Abdomen X-Ray 03/14/18 00:00 CONCLUSION: Mild gaseous distention of bowel loops. Chest X-Ray 03/22/18 00:00 CONCLUSION: Unchanged bilateral interstitial infiltrates. Physical Exam: GENERAL: NAD awake alert SKIN: Warm and dry. no rash HEAD: Atraumatic. Normocephalic. EYES: Pupils equal and round. No scleral icterus. No injection or drainage. ENT: No nasal bleeding or discharge. Mucous membranes pink and moist. NECK: Trachea midline. No JVD. CARDIOVASCULAR: Regular rate and rhythm. RESPIRATORY: No accessory muscle use. Clear to auscultation. Breath sounds equal bilaterally. GASTROINTESTINAL: Abdomen soft, not tender to palpation nondistended. Hepatic and splenic margins not palpable. MUSCULOSKELETAL: Extremities without clubbing, cyanosis, no edema. No obvious deformities. NEUROLOGICAL: Awake and alert. non focal Normal speech PSYCHIATRIC: calm, cooperative Assessment and Plan - Plan STEMI sp stent placemet Acute VDRF about to be extubated PNA, b/l: PSAE, Kleb in initial clx, repeat clx with PSAE only UTI, K[place]b Persistent fever: resolved Leukocytosis, leukemoid reaction , improving - mild leukocytosis still present CXR with interstitial changes, more cw failure CHARMAINE - improving dc cefepime
--- NOTE | 2018-03-22 18:32 | P.PN ---
Subjective Interval history: She is better today a nd on 1 L O2. No chest pains or fever. Physical Exam Vital signs: Vital Signs 03/21/18 20:00 03/21/18 20:33 03/21/18 23:00 Temperature 98.5 F Pulse Rate 91 H 95 H 64 Respiratory Rate 21 22 Blood Pressure 96/49 L Pulse Oximetry 95 97 03/22/18 00:00 03/22/18 01:00 03/22/18 02:00 Temperature 98.0 F Pulse Rate 88 98 H 84 Respiratory Rate 20 Blood Pressure 110/55 L Pulse Oximetry 94 L 03/22/18 03:00 03/22/18 04:00 03/22/18 05:00 Temperature 98.1 F Pulse Rate 113 H 86 76 Respiratory Rate 18 Blood Pressure 96/51 L Pulse Oximetry 92 L 03/22/18 06:00 03/22/18 07:00 03/22/18 07:25 Temperature Pulse Rate 66 82 81 Respiratory Rate 16 Blood Pressure Pulse Oximetry 03/22/18 07:27 03/22/18 08:00 03/22/18 09:00 Temperature 98.9 F Pulse Rate 94 H 86 Respiratory Rate 20 Blood Pressure 103/58 L Pulse Oximetry 94 L 96 03/22/18 10:00 03/22/18 11:00 03/22/18 11:06 Temperature Pulse Rate 98 H 94 H 88 Respiratory Rate 16 Blood Pressure Pulse Oximetry 03/22/18 11:15 03/22/18 12:00 03/22/18 13:00 Temperature 97.9 F Pulse Rate 97 H 101 H 106 H Respiratory Rate 20 Blood Pressure 117/57 L Pulse Oximetry 97 03/22/18 13:01 03/22/18 14:00 03/22/18 15:00 Temperature Pulse Rate 81 100 H Respiratory Rate 4 L Blood Pressure Pulse Oximetry 95 03/22/18 15:46 03/22/18 16:00 03/22/18 17:03 Temperature 97.6 F Pulse Rate 86 88 93 H Respiratory Rate 20 16 Blood Pressure 112/49 L Pulse Oximetry 96 03/22/18 17:35 03/22/18 18:00 Temperature Pulse Rate 80 114 H Respiratory Rate Blood Pressure Pulse Oximetry Intake & Output 03/21/18 03/22/18 03/22/18 18:59 06:59 18:59 Intake Total 580 / 580 340 / 340 1440 / 1440 Output Total 600 / 600 300 / 300 760 / 760 Balance -20 / -20 40 / 40 680 / 680 Weight 66.3 kg Intake: IV 100 / 100 100 / 100 Maxipime Inj 2,000 MG In NS Inj 100 / 100 100 / 100 100 ML @ 200 mls/hr IV.SIG Q12H SHAYNE Rx#:[id number] Oral 480 / 480 240 / 240 1440 / 1440 Output: Urine 600 / 600 300 / 300 760 / 760 Other: Date of Last Bowel Movement 03/20/18 03/20/18 03/20/18 # Bowel Movements 1 Narrative: GENERAL: Elderly female pale and in no acute distress. CARDIOVASCULAR: Irregular rate and rhythm without murmurs, gallops, or rubs. RESPIRATORY: Occ basilar crackles, otherwise clear to auscultation bilaterally GASTROINTESTINAL: Abdomen soft, non-tender, nondistended. MUSCULOSKELETAL: No cyanosis, or edema. Neuro without Gross deficit. - Urinary Catheter Management Indwelling Urethral Catheter Cath placed during this visit: yes, but has since been removed by the nurse Reason for continuing: Not indwelling catheter Insertion date: 03/04/18 Insertion time: 22:00 Removal date: 03/16/18 Removal time: 16:00 Results - Labs CBC & Chem 7: 03/22/18 05:30 03/20/18 05:37 Laboratory Results - last 24 hr 03/22/18 03/22/18 05:30 05:30 WBC 12.5 H RBC 2.91 L Hgb 9.0 L Hct 27.5 L MCV 94.7 MCH 30.9 MCHC 32.7 RDW 15.0 Plt Count 1002 H MPV 7.8 Neut % (Auto) 70.3 H Lymph % (Auto) 16.9 [place] % (Auto) 7.5 Eos % (Auto) 4.8 H Baso % (Auto) 0.5 Neut # (Auto) 8.8 H Lymph # (Auto) 2.1 [place] # (Auto) 0.9 Eos # (Auto) 0.6 H Baso # (Auto) 0.1 WBC Differential . Differential Comment Auto diff final B-Natriuretic Peptide 299 H - Imaging Impressions Chest X-Ray 03/22/18 00:00 CONCLUSION: Unchanged bilateral interstitial infiltrates. Assessment and Plan - Assessment (1) Pneumonia Code(s): J18.9 - Pneumonia, unspecified organism Status: Acute (2) CAD (coronary artery disease) Code(s): I25.10 - Atherosclerotic heart disease of [place] coronary artery without angina pectoris Status: Acute (3) STEMI (ST elevation myocardial infarction) Code(s): I21.3 - ST elevation (STEMI) myocardial infarction of unspecified site Status: Acute (4) Cardiogenic shock Code(s): R57.0 - Cardiogenic shock Status: Acute (5) Encephalopathy Code(s): G93.40 - Encephalopathy, unspecified Status: Acute (6) Dyspnea Code(s): R06.00 - Dyspnea, unspecified Status: Acute (7) Constipation Code(s): K59.00 - Constipation, unspecified Status: Acute (8) Pain Code(s): R52 - Pain, unspecified Status: Acute (9) Basal cell carcinoma (BCC) of [place] of right eye Code(s): C44.112 - Basal cell carcinoma of skin of right eyelid, including [place] Status: Acute - Plan 1. O2 at 1 L and wean , keep sat >92. 2. Duonebs qid PRN 3. IS at bedside q3h 4. Continue antibiotics,Cefipime IV per ID 5. PFT and Labs in am 6. PT evaluation.and ambulate 7. Cont anticoagulation.
[2018-03-22] MEDS: Famotidine 20 MG Tablet PO SCH (20:47)
[2018-03-23] MEDS: Oral Hygiene Kit OROPHARYNG SCH ×3 (04:04→16:20)
[2018-03-23] MEDS: Chlorhexidine 0.12% Oral Kit 15 ML UDC OROPHARYNG SCH ×2 (07:23→20:56)
[2018-03-23 08:21] LABS: Baso # (Auto) 0.1 th/mm3 (0.0-0.2); Baso % (Auto) 0.5 % (0.0-2.0); Eos # (Auto) 0.7 th/mm3 (0.0-0.4); Eos % (Auto) 5.7 % (0.0-4.0); Hematocrit 27.8 % (35.0-46.0); Hemoglobin 9.2 gm/dL (11.6-15.3); Lymph # (Auto) 2.8 th/mm3 (1.0-4.8); Lymph % (Auto) 21.7 % (9.0-44.0); Mean Corpuscular Hemoglobin 31.2 pg (27.0-34.0); Mean Corpuscular Volume 94.7 fL (80.0-100.0); Mono # (Auto) 0.9 th/mm3 (0.0-0.9); Mono % (Auto) 7.2 % (0.0-8.0); Neut # (Auto) 8.4 th/mm3 (1.8-7.7); Neut % (Auto) 64.9 % (16.0-70.0); Platelet Count 993 th/mm3 (150-450); Red Blood Count 2.94 mil/mm3 (4.00-5.30); Red Cell Distribution Width 14.9 % (11.6-17.2); White Blood Count 12.9 th/mm3 (4.0-11.0)
[2018-03-23 08:37] LABS: Calcium 8.6 mg/dL (8.5-10.1); Carbon Dioxide 24.1 meq/L (21.0-32.0)
[2018-03-23] MEDS: Furosemide 40 MG Tablet PO SCH (08:51)
[2018-03-23] MEDS: Budesonide-Formoterol 160/4.5 MCG 6 GM Inhaler INH SCH ×2 (08:52→20:56)
[2018-03-23] MEDS: Senna/Docusate Sodium 8.6/50 MG Tablet PO SCH ×2 (08:52→20:55)
--- NOTE | 2018-03-23 11:06 | P.PNIM ---
Subjective Interval history: Patient reports she is feeling better. However she is still requiring oxygen. Physical Exam Vital signs: Vital Signs 03/22/18 11:15 03/22/18 12:00 03/22/18 13:00 Temperature 97.9 F Pulse Rate 97 H 101 H 106 H Respiratory Rate 20 Blood Pressure 117/57 L Pulse Oximetry 97 03/22/18 13:01 03/22/18 14:00 03/22/18 15:00 Temperature Pulse Rate 81 100 H Respiratory Rate 4 L Blood Pressure Pulse Oximetry 95 03/22/18 15:46 03/22/18 16:00 03/22/18 17:03 Temperature 97.6 F Pulse Rate 86 88 93 H Respiratory Rate 20 16 Blood Pressure 112/49 L Pulse Oximetry 96 03/22/18 17:35 03/22/18 18:00 03/22/18 18:36 Temperature Pulse Rate 80 114 H 180 H Respiratory Rate Blood Pressure Pulse Oximetry 03/22/18 19:00 03/22/18 19:42 03/22/18 20:00 Temperature Pulse Rate 99 H 90 96 H Respiratory Rate 17 Blood Pressure Pulse Oximetry 96 03/22/18 20:33 03/22/18 21:00 03/22/18 22:00 Temperature 97.9 F Pulse Rate 98 H 102 H 88 Respiratory Rate 19 Blood Pressure 138/62 Pulse Oximetry 98 03/22/18 23:00 03/23/18 00:00 03/23/18 00:16 Temperature 98.3 F Pulse Rate 91 H 94 H 88 Respiratory Rate 19 Blood Pressure 105/55 L Pulse Oximetry 97 03/23/18 00:22 03/23/18 01:00 03/23/18 02:00 Temperature Pulse Rate 74 98 H Respiratory Rate Blood Pressure Pulse Oximetry 97 03/23/18 03:00 03/23/18 04:00 03/23/18 05:00 Temperature 98.1 F Pulse Rate 73 76 72 Respiratory Rate 18 Blood Pressure 113/56 L Pulse Oximetry 97 03/23/18 06:00 03/23/18 07:00 03/23/18 07:19 Temperature 97.9 F Pulse Rate 68 78 89 Respiratory Rate 16 Blood Pressure 111/46 L Pulse Oximetry 93 L 93 L 03/23/18 08:00 03/23/18 08:33 03/23/18 09:00 Temperature Pulse Rate 113 H 99 H 109 H Respiratory Rate 18 Blood Pressure Pulse Oximetry 94 L 03/23/18 10:00 Temperature Pulse Rate 98 H Respiratory Rate Blood Pressure Pulse Oximetry Intake & Output 03/22/18 03/23/18 03/23/18 18:59 06:59 18:59 Intake Total 1440 / 1440 320 / 320 100 / 100 Output Total 760 / 760 400 / 400 Balance 680 / 680 -80 / -80 100 / 100 Weight 66.2 kg Intake: IV 100 / 100 Oral 1440 / 1440 320 / 320 Output: Urine 760 / 760 400 / 400 Other: Date of Last Bowel Movement 03/20/18 03/22/18 03/22/18 Narrative: GENERAL: Elderly female pale and in no acute distress. CARDIOVASCULAR: Irregular rate and rhythm without murmurs, gallops, or rubs. RESPIRATORY: Occ basilar crackles, otherwise clear to auscultation bilaterally GASTROINTESTINAL: Abdomen soft, non-tender, nondistended. MUSCULOSKELETAL: No cyanosis, or edema. - Urinary Catheter Management Indwelling Urethral Catheter Cath placed during this visit: yes, but has since been removed by the nurse Reason for continuing: Not indwelling catheter Insertion date: 03/04/18 Insertion time: 22:00 Removal date: 03/16/18 Removal time: 16:00 Results - Labs CBC & Chem 7: 03/23/18 07:04 03/23/18 07:04 Laboratory Results - last 24 hr 03/21/18 03/23/18 03/23/18 05:29 07:04 07:04 WBC 12.9 H RBC 2.94 L Hgb 9.2 L Hct 27.8 L MCV 94.7 MCH 31.2 MCHC 33.0 RDW 14.9 Plt Count 993 H MPV 8.0 Neut % (Auto) 64.9 Lymph % (Auto) 21.7 [place] % (Auto) 7.2 Eos % (Auto) 5.7 H Baso % (Auto) 0.5 Neut # (Auto) 8.4 H Lymph # (Auto) 2.8 [place] # (Auto) 0.9 Eos # (Auto) 0.7 H Baso # (Auto) 0.1 WBC Differential . Differential Comment Auto diff final Sodium 143 Potassium 4.0 Chloride 109 H Carbon Dioxide 24.1 Anion Gap 10 BUN 21 H Creatinine 0.96 Estimated GFR 57 L Random Glucose 84 Calcium 8.6 Immunophenotypic Anal Assessment and Plan - Plan 72-year-old female with Resolved acute metabolic encephalopathy-resolved Monitor neuro status, avoid sedatives CT brain 03/04: No acute findings EEG 03/06: Mild slowing, no epileptiform features Followed by neuro Dr. Moncada Acute coronary syndrome Cardiogenic shock (resolved) Coronary artery disease -RCA occlusion -Status post cardiac catheterization and stent placement. LVEF 75% by cath. Echo with LVEF around 40%, normal RV, regional wall motion abnormalities. -Off Tirofiban gtt -Aspirin, Prasugrel -Monitor HR and BP keep MAP>65mmHg -Intra-aortic balloon pump-discontinued -Soy and beta-rolando held due to borderline hypotension Pneumonia/ sepsis -Abx per ID -Monitor for signs of infections ( Fever, WBC) WBC is trending down 03/12 Sputum: Pseudomonas 03/06, 03/07 Sputum: Kleb , Pseudomonas, Staph -sputum cx 03/12: Pseudomonas -C-diff PCR negative on 03/14 -Continue with oxygen keep sats >92% -Sharla Symbicort. IS, Pulm is following- Dr. Power -Status post treatment with cefepime. Monitor off antibiotics Normocytic anemia Thrombocytopenia Leukocytosis Monitor CBC. No indication for transfusion of blood products at this time. DVT GI prophylaxis -Teds SCDs -Enoxaparin 40 mg subcutaneously daily -Famotidine Palliative care is following Discharge Planning: Oxygen walk test. Plan for discharge to [place] in a.m. if remains stable.
[2018-03-23] MEDS: Enoxaparin Inj 40 MG/0.4 ML Syringe SQ SCH (12:25)
--- NOTE | 2018-03-23 12:32 | P.PNCA ---
Subjective Interval history: alert in nad Physical Exam Vital signs: Vital Signs 03/22/18 13:00 03/22/18 13:01 03/22/18 14:00 Temperature Pulse Rate 106 H 81 Respiratory Rate 4 L Blood Pressure Pulse Oximetry 03/22/18 15:00 03/22/18 15:46 03/22/18 16:00 Temperature 97.6 F Pulse Rate 100 H 86 88 Respiratory Rate 20 Blood Pressure 112/49 L Pulse Oximetry 95 96 03/22/18 17:03 03/22/18 17:35 03/22/18 18:00 Temperature Pulse Rate 93 H 80 114 H Respiratory Rate 16 Blood Pressure Pulse Oximetry 03/22/18 18:36 03/22/18 19:00 03/22/18 19:42 Temperature Pulse Rate 180 H 99 H 90 Respiratory Rate 17 Blood Pressure Pulse Oximetry 96 03/22/18 20:00 03/22/18 20:33 03/22/18 21:00 Temperature 97.9 F Pulse Rate 96 H 98 H 102 H Respiratory Rate 19 Blood Pressure 138/62 Pulse Oximetry 98 03/22/18 22:00 03/22/18 23:00 03/23/18 00:00 Temperature Pulse Rate 88 91 H 94 H Respiratory Rate Blood Pressure Pulse Oximetry 03/23/18 00:16 03/23/18 00:22 03/23/18 01:00 Temperature 98.3 F Pulse Rate 88 74 Respiratory Rate 19 Blood Pressure 105/55 L Pulse Oximetry 97 97 03/23/18 02:00 03/23/18 03:00 03/23/18 04:00 Temperature 98.1 F Pulse Rate 98 H 73 76 Respiratory Rate 18 Blood Pressure 113/56 L Pulse Oximetry 97 03/23/18 05:00 03/23/18 06:00 03/23/18 07:00 Temperature Pulse Rate 72 68 78 Respiratory Rate Blood Pressure Pulse Oximetry 93 L 03/23/18 07:19 03/23/18 08:00 03/23/18 08:33 Temperature 97.9 F Pulse Rate 89 113 H 99 H Respiratory Rate 16 18 Blood Pressure 111/46 L Pulse Oximetry 93 L 94 L 03/23/18 09:00 03/23/18 10:00 03/23/18 11:00 Temperature Pulse Rate 109 H 98 H 99 H Respiratory Rate Blood Pressure Pulse Oximetry 96 03/23/18 11:25 03/23/18 12:00 Temperature 97.8 F Pulse Rate 97 H 87 Respiratory Rate 20 Blood Pressure 106/44 L Pulse Oximetry 96 Intake & Output 03/22/18 03/23/18 03/23/18 18:59 06:59 18:59 Intake Total 1440 / 1440 320 / 320 100 / 100 Output Total 760 / 760 400 / 400 Balance 680 / 680 -80 / -80 100 / 100 Weight 66.2 kg Intake: IV 100 / 100 Oral 1440 / 1440 320 / 320 Output: Urine 760 / 760 400 / 400 Other: Date of Last Bowel Movement 03/20/18 03/22/18 03/22/18 - Urinary Catheter Management Indwelling Urethral Catheter Cath placed during this visit: yes, but has since been removed by the nurse Reason for continuing: Not indwelling catheter Insertion date: 03/04/18 Insertion time: 22:00 Removal date: 03/16/18 Removal time: 16:00 Assessment and Plan - Assessment (1) CAD (coronary artery disease) Code(s): I25.10 - Atherosclerotic heart disease of [place] coronary artery without angina pectoris Status: Acute (2) STEMI (ST elevation myocardial infarction) Code(s): I21.3 - ST elevation (STEMI) myocardial infarction of unspecified site Status: Acute (3) Cardiogenic shock Code(s): R57.0 - Cardiogenic shock Status: Acute (4) Encephalopathy Code(s): G93.40 - Encephalopathy, unspecified Status: Acute - Plan 1.) CAD - POD # 16 primary pci prox rca, rv infarct, off levophed; mental status iappears wnl, off sedation, neurology following, continue aspirin, effient, has rv infarct, weight down 17.2 kgs since 03/10/18, baseline is 66 kg, 67.8kg kg 03/16/18, on abs for pneumonia, s/p transfusion 03/09/18, less febrile and off levophed, ldl=63 so statin held, [place] and beta [place] held due to ongoing hypotension; lasix decreased to 40 mg po qd 03/19/18, trends in bnp and bp improving, hematology following, ambulate with assistance, advance nutrition as tolerated, ok to dc from cv standpoint, d/w patient, nurse and Dr Vergara
--- NOTE | 2018-03-23 18:18 | P.PN ---
Subjective Interval history: Feels better. on O2 2 L. Desats into 80's when walking. No cough or wheezing. Physical Exam Vital signs: Vital Signs 03/22/18 18:36 03/22/18 19:00 03/22/18 19:42 Temperature Pulse Rate 180 H 99 H 90 Respiratory Rate 17 Blood Pressure Pulse Oximetry 96 Pulse Oximetry [Resting on Room Air] Pulse Oximetry [Resting with Oxygen] 03/22/18 20:00 03/22/18 20:33 03/22/18 21:00 Temperature 97.9 F Pulse Rate 96 H 98 H 102 H Respiratory Rate 19 Blood Pressure 138/62 Pulse Oximetry 98 Pulse Oximetry [Resting on Room Air] Pulse Oximetry [Resting with Oxygen] 03/22/18 22:00 03/22/18 23:00 03/23/18 00:00 Temperature Pulse Rate 88 91 H 94 H Respiratory Rate Blood Pressure Pulse Oximetry Pulse Oximetry [Resting on Room Air] Pulse Oximetry [Resting with Oxygen] 03/23/18 00:16 03/23/18 00:22 03/23/18 01:00 Temperature 98.3 F Pulse Rate 88 74 Respiratory Rate 19 Blood Pressure 105/55 L Pulse Oximetry 97 97 Pulse Oximetry [Resting on Room Air] Pulse Oximetry [Resting with Oxygen] 03/23/18 02:00 03/23/18 03:00 03/23/18 04:00 Temperature 98.1 F Pulse Rate 98 H 73 76 Respiratory Rate 18 Blood Pressure 113/56 L Pulse Oximetry 97 Pulse Oximetry [Resting on Room Air] Pulse Oximetry [Resting with Oxygen] 03/23/18 05:00 03/23/18 06:00 03/23/18 07:00 Temperature Pulse Rate 72 68 78 Respiratory Rate Blood Pressure Pulse Oximetry 93 L Pulse Oximetry [Resting on Room Air] Pulse Oximetry [Resting with Oxygen] 03/23/18 07:19 03/23/18 08:00 03/23/18 08:33 Temperature 97.9 F Pulse Rate 89 113 H 99 H Respiratory Rate 16 18 Blood Pressure 111/46 L Pulse Oximetry 93 L 94 L Pulse Oximetry [Resting on Room Air] Pulse Oximetry [Resting with Oxygen] 03/23/18 09:00 03/23/18 10:00 03/23/18 11:00 Temperature Pulse Rate 109 H 98 H 99 H Respiratory Rate Blood Pressure Pulse Oximetry 96 Pulse Oximetry [Resting on Room Air] Pulse Oximetry [Resting with Oxygen] 03/23/18 11:25 03/23/18 12:00 03/23/18 13:00 Temperature 97.8 F Pulse Rate 97 H 87 100 H Respiratory Rate 20 Blood Pressure 106/44 L Pulse Oximetry 96 Pulse Oximetry [Resting on Room Air] Pulse Oximetry [Resting with Oxygen] 03/23/18 13:29 03/23/18 14:00 03/23/18 15:00 Temperature Pulse Rate 91 H 98 H Respiratory Rate Blood Pressure Pulse Oximetry Pulse Oximetry [Resting on Room Air] 78 L Pulse Oximetry [Resting with Oxygen] 97 03/23/18 15:51 03/23/18 17:00 03/23/18 17:09 Temperature 99 F Pulse Rate 94 H 102 H Respiratory Rate 18 Blood Pressure 102/56 L Pulse Oximetry 94 L 94 L Pulse Oximetry [Resting on Room Air] Pulse Oximetry [Resting with Oxygen] 03/23/18 17:59 Temperature Pulse Rate 100 H Respiratory Rate Blood Pressure Pulse Oximetry Pulse Oximetry [Resting on Room Air] Pulse Oximetry [Resting with Oxygen] Intake & Output 03/22/18 03/23/18 03/23/18 18:59 06:59 18:59 Intake Total 1440 / 1440 320 / 320 1900 / 1900 Output Total 760 / 760 400 / 400 970 / 970 Balance 680 / 680 -80 / -80 930 / 930 Weight 66.2 kg Intake: IV 100 / 100 Oral 1440 / 1440 320 / 320 1800 / 1800 Output: Urine 760 / 760 400 / 400 970 / 970 Other: Date of Last Bowel Movement 03/20/18 03/22/18 03/22/18 Narrative: GENERAL: Elderly female alert and in no acute distress. CARDIOVASCULAR: Irregular rate and rhythm without murmurs, gallops, or rubs. RESPIRATORY: Occ basilar crackles, otherwise clear to auscultation bilaterally GASTROINTESTINAL: Abdomen soft, non-tender, nondistended. MUSCULOSKELETAL: No cyanosis, or edema. Neuro : no deficits. - Urinary Catheter Management Indwelling Urethral Catheter Cath placed during this visit: yes, but has since been removed by the nurse Reason for continuing: Not indwelling catheter Insertion date: 03/04/18 Insertion time: 22:00 Removal date: 03/16/18 Removal time: 16:00 Results - Labs CBC & Chem 7: 03/23/18 07:04 03/23/18 07:04 Laboratory Results - last 24 hr 03/21/18 03/23/18 03/23/18 05:29 07:04 07:04 WBC 12.9 H RBC 2.94 L Hgb 9.2 L Hct 27.8 L MCV 94.7 MCH 31.2 MCHC 33.0 RDW 14.9 Plt Count 993 H MPV 8.0 Neut % (Auto) 64.9 Lymph % (Auto) 21.7 [place] % (Auto) 7.2 Eos % (Auto) 5.7 H Baso % (Auto) 0.5 Neut # (Auto) 8.4 H Lymph # (Auto) 2.8 [place] # (Auto) 0.9 Eos # (Auto) 0.7 H Baso # (Auto) 0.1 WBC Differential . Differential Comment Auto diff final Sodium 143 Potassium 4.0 Chloride 109 H Carbon Dioxide 24.1 Anion Gap 10 BUN 21 H Creatinine 0.96 Estimated GFR 57 L Random Glucose 84 Calcium 8.6 Immunophenotypic Anal Assessment and Plan - Assessment (1) Pneumonia Code(s): J18.9 - Pneumonia, unspecified organism Status: Acute (2) CAD (coronary artery disease) Code(s): I25.10 - Atherosclerotic heart disease of [place] coronary artery without angina pectoris Status: Acute (3) STEMI (ST elevation myocardial infarction) Code(s): I21.3 - ST elevation (STEMI) myocardial infarction of unspecified site Status: Acute (4) Cardiogenic shock Code(s): R57.0 - Cardiogenic shock Status: Acute (5) Encephalopathy Code(s): G93.40 - Encephalopathy, unspecified Status: Acute (6) Dyspnea Code(s): R06.00 - Dyspnea, unspecified Status: Acute (7) Constipation Code(s): K59.00 - Constipation, unspecified Status: Acute (8) Pain Code(s): R52 - Pain, unspecified Status: Acute (9) Basal cell carcinoma (BCC) of [place] of right eye Code(s): C44.112 - Basal cell carcinoma of skin of right eyelid, including [place] Status: Acute - Plan 1. O2 at 1 L and wean , keep sat >92. 2.Will get 6 Min walk test and Arrange home O2 2 L 3. IS at bedside q3h 4. D/C antibiotics per ID 5. Ventolin HFA , 2puffs qid PRN 6. Home in am if stable. 7. Cont anticoagulation.
[2018-03-23] MEDS: Famotidine 20 MG Tablet PO SCH (20:55)
[2018-03-24] MEDS: Oral Hygiene Kit OROPHARYNG SCH ×3 (01:11→13:10)
[2018-03-24] MEDS: Furosemide 40 MG Tablet PO SCH (09:02)
[2018-03-24] MEDS: Senna/Docusate Sodium 8.6/50 MG Tablet PO SCH (09:03)
[2018-03-24] MEDS: Chlorhexidine 0.12% Oral Kit 15 ML UDC OROPHARYNG SCH (09:03)
[2018-03-24] MEDS: Budesonide-Formoterol 160/4.5 MCG 6 GM Inhaler INH SCH (09:04)
--- NOTE | 2018-03-24 10:17 | P.DS ---
Date of admission: 03/04/18 18:34 Primary care physician: UNKNOWN Brief History from admission: HPI from the admitting physician: 72-year-old female was brought by EMS after patient was found unresponsive at home. Patient's son states that he did not see the patient yesterday. Patient lives alone by herself. Patient's son states that he receive a phone call from the patient this afternoon about 2 hours prior to arrival that patient was calling for help. Patient's son came to the house and found her almost unresponsive. EMS was called. Patient was found to be hypotensive and bradycardic. She was moaning incoherently. External pacer was applied to the patient and the patient was transported to ED for an evaluation. Patient son states the patient has no medical problem. EKG obtained in the emergency department showed acute ST elevations myocardial infarction patient was emergently taken to cardiac catheterization lab. She was found to have RCA occlusion that was stented by Dr. Benavidez. Intra-aortic balloon pump was also inserted and the patient is now admitted to CVICU. Update on the day of discharge: The patient reports she is feeling much better. She wants to go home instead of rehab. She will be living with her son will help take care of her. She denies any chest pain. She states she is breathing much more comfortably with activities. DS: Diagnosis - Discharge Diagnosis (1) CAD (coronary artery disease) Status: Acute (2) STEMI (ST elevation myocardial infarction) Status: Acute (3) Cardiogenic shock Status: Acute (4) Encephalopathy Status: Acute (5) Pneumonia Status: Acute (6) Systolic CHF, acute Status: Acute (7) Hypoxemia Status: Acute DS: Medications - Discharge Medications Prescriptions: albuterol sulfate [Ventolin HFA] 2 puff INH Q6H PRN #1 inhaler PRN Reason: Shortness Of Breath aspirin 162 mg PO DAILY #30 tab furosemide 40 mg PO DAILY #30 tab potassium chloride [Klor-Con 10] 10 meq PO DAILY #30 tab prasugrel [Effient] 10 mg PO DAILY #30 tab DS: Summary Hospital Course: 72-year-old female admitted and treated for the following: Resolved acute metabolic encephalopathy-resolved CT brain 03/04: No acute findings EEG 03/06: Mild slowing, no epileptiform features Followed by neuro Dr. Moncada. This was probably secondary to cardiogenic shock and sepsis syndrome below. Acute coronary syndrome Cardiogenic shock (resolved) Coronary artery disease -RCA occlusion -Status post cardiac catheterization and stent placement. LVEF 75% by cath. Echo with LVEF around 40%, normal RV, regional wall motion abnormalities. -Off Tirofiban gtt -Aspirin, Prasugrel -Intra-aortic balloon pump-discontinued -Patient could not be put on brooke and beta-rolando held due to borderline hypotension. She will follow up outpatient with mold maker and his medications can be started if blood pressure can tolerate. Pneumonia/ sepsis -Patient was followed by infectious disease 03/12 Sputum: Pseudomonas 03/06, 03/07 Sputum: Kleb , Pseudomonas, Staph -Status post treatment with cefepime. Normocytic anemia Thrombocytopenia Leukocytosis Improved. No indication for transfusion of blood products at this time. - Time Spent with Patient Total time spent providing and/or coordinating discharge services: Greater than 30 minutes - Quality: VTE Deep Vein Thrombosis/Pulmonary Embolism Present on Admission: No Exam Vital signs: Vital Signs 03/23/18 11:00 03/23/18 11:25 03/23/18 12:00 Temperature 97.8 F Pulse Rate 99 H 97 H 87 Respiratory Rate 20 Blood Pressure 106/44 L Pulse Oximetry 96 96 Pulse Oximetry [Resting on Room Air] Pulse Oximetry [Resting with Oxygen] 03/23/18 13:00 03/23/18 13:29 03/23/18 14:00 Temperature Pulse Rate 100 H 91 H Respiratory Rate Blood Pressure Pulse Oximetry Pulse Oximetry [Resting on Room Air] 78 L Pulse Oximetry [Resting with Oxygen] 97 03/23/18 15:00 03/23/18 15:51 03/23/18 17:00 Temperature 99 F Pulse Rate 98 H 94 H 102 H Respiratory Rate 18 Blood Pressure 102/56 L Pulse Oximetry 94 L Pulse Oximetry [Resting on Room Air] Pulse Oximetry [Resting with Oxygen] 03/23/18 17:09 03/23/18 17:59 03/23/18 19:00 Temperature Pulse Rate 100 H 113 H Respiratory Rate Blood Pressure Pulse Oximetry 94 L 96 Pulse Oximetry [Resting on Room Air] Pulse Oximetry [Resting with Oxygen] 03/23/18 20:00 03/23/18 21:00 03/23/18 22:00 Temperature 98.0 F Pulse Rate 88 84 70 Respiratory Rate 18 Blood Pressure 124/47 L Pulse Oximetry 96 Pulse Oximetry [Resting on Room Air] Pulse Oximetry [Resting with Oxygen] 03/23/18 23:00 03/24/18 00:00 03/24/18 01:00 Temperature 98.3 F Pulse Rate 99 H 78 82 Respiratory Rate 16 Blood Pressure 109/59 L Pulse Oximetry 97 97 Pulse Oximetry [Resting on Room Air] Pulse Oximetry [Resting with Oxygen] 03/24/18 02:00 03/24/18 03:00 03/24/18 04:00 Temperature 98.0 F Pulse Rate 89 69 68 Respiratory Rate 18 Blood Pressure 106/54 L Pulse Oximetry 97 97 Pulse Oximetry [Resting on Room Air] Pulse Oximetry [Resting with Oxygen] 03/24/18 05:00 03/24/18 06:00 03/24/18 07:00 Temperature Pulse Rate 66 73 101 H Respiratory Rate Blood Pressure Pulse Oximetry Pulse Oximetry [Resting on Room Air] Pulse Oximetry [Resting with Oxygen] 03/24/18 08:00 03/24/18 09:00 Temperature 97.7 F Pulse Rate 94 H 107 H Respiratory Rate 12 Blood Pressure 150/70 H Pulse Oximetry 95 Pulse Oximetry [Resting on Room Air] Pulse Oximetry [Resting with Oxygen] Intake & Output 03/23/18 03/24/18 03/24/18 18:59 06:59 18:59 Intake Total 1900 / 1900 240 / 240 Output Total 970 / 970 200 / 200 Balance 930 / 930 40 / 40 Intake: IV 100 / 100 Oral 1800 / 1800 240 / 240 Output: Urine 970 / 970 200 / 200 Other: Date of Last Bowel Movement 03/22/18 03/23/18 03/23/18 Narrative: GENERAL: Elderly female pale and in no acute distress. CARDIOVASCULAR: Irregular rate and rhythm without murmurs, gallops, or rubs. RESPIRATORY: Faint basilar crackles, otherwise clear to auscultation bilaterally GASTROINTESTINAL: Abdomen soft, non-tender, nondistended. MUSCULOSKELETAL: No cyanosis, or edema. Results Procedures completed during hospitalization: Heart cath - Impressions ITS Impressions Head CT 03/04/18 17:39 CONCLUSION: 1. Negative CT Head non contrast. . Hand X-Ray 03/06/18 00:00 CONCLUSION: Prominent dorsal hand soft tissue swelling. No fracture seen. Abdomen X-Ray 03/14/18 00:00 CONCLUSION: Mild gaseous distention of bowel loops. Chest X-Ray 03/22/18 00:00 CONCLUSION: Unchanged bilateral interstitial infiltrates. Discharge Plan - Discharge Disposition Patient Disposition: W/Home Health Service - Discharge Condition Condition: Good - Discharge Order Discharge Orders: Discharge Order (Routine); Ordered 03/24/18 Ordered By: Aric Abbasi - Physicians Team Primary Care Provider: UNKNOWN, Attending Provider: Aric Abbasi Other Providers: El Benavidez MD ; Alex Mills MD ; Elvira Moncada MD ; Arnulfo Boswell MD ; Debbie Benavidez MD ; James Figueroa MD ; Albertina Davis - Post Discharge Care Plan Care Plan Goals: Your Health Problems: Discharge Care Plan Goals for Congestive Heart Failure Directions to Meet your Goals: 1. Diet: Limit your salt by doing the following: * Limit canned, dried, packaged, and fast foods. * Don't add salt to your food. * Season foods with herbs instead of salt. * Watch how much liquids you drink. Drinking too much can make heart failure worse. Talk with your health care provider about how much you should drink each day. * Limit the amount of alcohol you drink. It may harm your heart. Women should have no more than 1 drink a day and men should have no more than 2. * When you eat out, request that your meals have no added salt. 2. Activity: * You can benefit from simple activities such as walking or gardening. * Exercising most days of the week can make you feel better. * Don't be discouraged if your progress is slow at first. * Rest as needed. * Stop activity if you develop symptoms such as chest pain, lightheadedness, or significant shortness of breath. * Find activities that you enjoy, such as brisk walking, dancing, swimming, or gardening. These will help you stay active and strengthen your heart. 3. Medicine: * Take your medicines exactly as prescribed. * Learn the names and purpose of each of your medicines. * Keep an accurate medicine list and current dosages with you at all times. Don' t skip doses. * If you miss a dose of your medicine, take it as soon as you remember. * If you miss a dose and it's almost time for your next dose, just wait and take your next dose at the normal time. Don't take a double dose. * If you are unsure, call your doctor's office. Make sure not to mix up your medicines or forget what you've taken the same day. 4. Weight Monitoring: * Weigh yourself every day. A sudden weight gain can mean your heart failure is getting worse. * Weigh yourself at the same time of day and in the same kind of clothes. * Ideally, weigh yourself first thing in the morning after you empty your bladder, but before you eat breakfast. * If your weight goes up by more than 2 pounds in 1 day, 5 pounds in 1 week, or whatever weight gain you were told by your doctor, this is a sign that you are retaining more fluid than you should be. * Clues to weight gain include checking your ankles for swelling, or noticing you are short of breath when you lie down. 5. When to call your doctor: Call your doctor right away if you have any of these signs of worsening heart failure: Sudden weight gain (more than 2 pounds in 1 day or 5 pounds in 1 week, or whatever weight gain you were told to report by your doctor) Trouble breathing not related to being active New or increased swelling of your legs or ankles Swelling or pain in your abdomen Breathing trouble at night (waking up short of breath, needing more pillows to breathe) Frequent coughing that doesn't go away Feeling much more tired than usual 6. Follow up: Do Not miss your follow-up appointment. Keep up with all your appointments and yearly check ups Call 911 right away if you have: Severe shortness of breath, such that you can't catch your breath even while resting Severe chest pain that does not resolve with rest or nitroglycerin [place], foamy mucus with cough and shortness of breath A continuous rapid or irregular heartbeat Passing out or fainting Stroke symptoms such as sudden numbness or weakness on one side of your face , arm, or leg or sudden confusion, trouble speaking or vision changes Goals to Promote Your Health: * To prevent worsening of your condition * To maintain your health at the optimal level Directions to Meet Your Goals: * Take your medications as prescribed * Follow your dietary instruction * Follow activity as directed * Keep your appointments as scheduled * Take your immunizations and boosters as scheduled * If your symptoms worsen call your PCP * If no PCP go to Urgent Care or Emergency Room Smoking is dangerous to your health. Avoid second hand smoke. You may reach the 24-hour crisis hotline for domestic abuse at .
--- NOTE | 2018-03-24 10:20 | P.DCO ---
- Physical Therapy Order: Evaluate and treat, Improve ambulation, Strength and gait training - Home Health Nursing Order: CHF education, Oxygen administration education - Certification I have seen patient Isatu Hodge on 03/24/18. My clinical findings support the need for the requested home health care services because: Patient has SOB, Deconditioned with increased weakness I certify that my clinical findings support that this patient is homebound because: Unsteady gait/balance, Poor cardiac reserve
--- NOTE | 2018-03-24 12:08 | P.PNCA ---
Subjective Interval history: alert in nad Physical Exam Vital signs: Vital Signs 03/23/18 13:00 03/23/18 13:29 03/23/18 14:00 Temperature Pulse Rate 100 H 91 H Respiratory Rate Blood Pressure Pulse Oximetry Pulse Oximetry [Resting on Room Air] 78 L Pulse Oximetry [Resting with Oxygen] 97 03/23/18 15:00 03/23/18 15:51 03/23/18 17:00 Temperature 99 F Pulse Rate 98 H 94 H 102 H Respiratory Rate 18 Blood Pressure 102/56 L Pulse Oximetry 94 L Pulse Oximetry [Resting on Room Air] Pulse Oximetry [Resting with Oxygen] 03/23/18 17:09 03/23/18 17:59 03/23/18 19:00 Temperature Pulse Rate 100 H 113 H Respiratory Rate Blood Pressure Pulse Oximetry 94 L 96 Pulse Oximetry [Resting on Room Air] Pulse Oximetry [Resting with Oxygen] 03/23/18 20:00 03/23/18 21:00 03/23/18 22:00 Temperature 98.0 F Pulse Rate 88 84 70 Respiratory Rate 18 Blood Pressure 124/47 L Pulse Oximetry 96 Pulse Oximetry [Resting on Room Air] Pulse Oximetry [Resting with Oxygen] 03/23/18 23:00 03/24/18 00:00 03/24/18 01:00 Temperature 98.3 F Pulse Rate 99 H 78 82 Respiratory Rate 16 Blood Pressure 109/59 L Pulse Oximetry 97 97 Pulse Oximetry [Resting on Room Air] Pulse Oximetry [Resting with Oxygen] 03/24/18 02:00 03/24/18 03:00 03/24/18 04:00 Temperature 98.0 F Pulse Rate 89 69 68 Respiratory Rate 18 Blood Pressure 106/54 L Pulse Oximetry 97 97 Pulse Oximetry [Resting on Room Air] Pulse Oximetry [Resting with Oxygen] 03/24/18 05:00 03/24/18 06:00 03/24/18 07:00 Temperature Pulse Rate 66 73 101 H Respiratory Rate Blood Pressure Pulse Oximetry Pulse Oximetry [Resting on Room Air] Pulse Oximetry [Resting with Oxygen] 03/24/18 08:00 03/24/18 09:00 Temperature 97.7 F Pulse Rate 94 H 107 H Respiratory Rate 12 Blood Pressure 150/70 H Pulse Oximetry 95 Pulse Oximetry [Resting on Room Air] Pulse Oximetry [Resting with Oxygen] Intake & Output 03/23/18 03/24/18 03/24/18 18:59 06:59 18:59 Intake Total 1900 / 1900 240 / 240 Output Total 970 / 970 200 / 200 Balance 930 / 930 40 / 40 Intake: IV 100 / 100 Oral 1800 / 1800 240 / 240 Output: Urine 970 / 970 200 / 200 Other: Date of Last Bowel Movement 03/22/18 03/23/18 03/23/18 - Urinary Catheter Management Indwelling Urethral Catheter Cath placed during this visit: yes, but has since been removed by the nurse Reason for continuing: Not indwelling catheter Insertion date: 03/04/18 Insertion time: 22:00 Removal date: 03/16/18 Removal time: 16:00 Assessment and Plan - Assessment (1) CAD (coronary artery disease) Code(s): I25.10 - Atherosclerotic heart disease of [place] coronary artery without angina pectoris Status: Acute (2) STEMI (ST elevation myocardial infarction) Code(s): I21.3 - ST elevation (STEMI) myocardial infarction of unspecified site Status: Acute (3) Cardiogenic shock Code(s): R57.0 - Cardiogenic shock Status: Acute (4) Encephalopathy Code(s): G93.40 - Encephalopathy, unspecified Status: Acute - Plan 1.) CAD - POD # 17 primary pci prox rca, rv infarct, off levophed; mental status iappears wnl, off sedation, neurology following, continue aspirin, effient, has rv infarct, weight down 17.2 kgs since 03/10/18, baseline is 66 kg, 67.8kg kg 18, on abs for pneumonia, s/p transfusion 03/09/18, less febrile and off levophed, ldl=63 so statin held, brooke and beta [place] held due to ongoing hypotension; lasix decreased to 40 mg po qd 03/19/18, trends in bnp and bp improving, hematology following, ambulate with assistance, advance nutrition as tolerated, ok to dc from cv standpoint, d/w patient, nurse and Dr Vergara; patient and son strongly advised to be compliant with aspirin and effient f/u with me as an outpatient
== END 2018-03-24 16:44 | disposition home health service (06) ==
LOC: NEPE 17:11 → NEDA 18:34 → HDIC 19:00 → HCVI 19:57 → HIMC 03-15 17:51 → HCIS 03-21 22:13
PROVIDERS: ADMIT Family Medicine; ATTEND Family Medicine